=== PATIENT | female | born 1945 | race Native Hawaiian/Other Pacific Islander ===

== ENCOUNTER 2018-08-10 06:00 | Day surgery (SDC) | payer MEDICARE ==
[2018-07-14 13:31] VITALS: BMI 18.4
[2018-08-10] MEDS ORDERED: HEPARIN-NS 5,000 UNITS/500 ML 5,000 UNIT/500 ML BAG IV ONE (07:07)
[2018-08-10] MEDS ORDERED: Vancomycin 1 gm/D5W 200 ml 0 GM/0 ML BAG IVPB ONE (07:07)
[2018-08-10] MEDS ORDERED: Propofol 10 mg/ml Inj (20 ML) ONE (07:55)
[2018-08-10] MEDS ORDERED: Midazolam 2 MG/2 ML VIAL ONE (07:55)
[2018-08-10 08:03] LABS: CALCIUM 6.1 mg/dl (8.6-10.4)
[2018-08-10] MEDS ORDERED: Clindamycin 600mg/50ml NS 600 MG/50 ML BAG IVPB ONE (08:04)
[2018-08-10] MEDS ORDERED: Papaverine Hydrochloride 30 mg/ml (2ml) ONE (08:27)
[2018-08-10] MEDS ORDERED: Thrombin Topical 20,000 Intl Units Spray Kit TOP ONE (10:02)
--- NOTE | 2018-08-10 10:26 | PCM.SURG1 ---
Surgeon's Initial Post Op Note - Surgeon's Notes Surgeon: Dr. Butler Laboratory Courier: Dr. Banks PGY-4 Type of Anesthesia: General LMA Pre-Operative Diagnosis: Renal failure Operative Findings: palpable thrill Post-Operative Diagnosis: Renal failure Operation Performed: AV Fistula Specimen/Specimens Removed: none Estimated Blood Loss: EBL {In ML}: 50 Blood Products Given: N/A Drains Used: No Drains Post-Op Condition: Good Date of Surgery/Procedure: 08/10/18 Time of Surgery/Procedure: 10:26
[2018-08-10] MEDS ORDERED: HYDROmorphone 0.5 mg/0.5 ml ISec IVP PRN (10:27)
[2018-08-10 12:08] VITALS: PULSE 80
[2018-08-10 14:39] VITALS: BP 127/59; RESP 18; TEMP 97.8; O2SAT 100
--- NOTE | 2018-08-10 18:05 | OP ---
PROCEDURE DATE: 08/10/2018 PREOPERATIVE DIAGNOSIS: Renal failure. POSTOPERATIVE DIAGNOSIS: Renal failure. PROCEDURE CARRIED OUT: Arteriovenous fistula snuffbox right arm. SURGEON: Germán Butler Jr., MD. CRANE OPERATOR: Estela Banks DO. ANESTHESIA ADMINISTERED BY: Radha Rashida. INDICATION FOR THE PROCEDURE: The patient is a 73-year-old woman with renal insufficiency who soon required dialysis. OPERATIVE FINDINGS: Fistula was carried between cephalic vein and a snuffbox and a branch of the radial artery using loop magnification, heparin anticoagulation. At the end of the procedure, there was excellent flow to the fistula. The only technical problem we presented during the operation was there was persistent bruising from any of the tissues and from the suture line which required reinforcement. Even after we had finished the operation, we spent an hour in the operating room carefully inspecting this and there appeared to be consistent and persistent ooze. Nonetheless, this eventually stopped after we administered thrombin on the area and then closed the skin with 5-0 nylon sutures. ESTIMATED BLOOD LOSS: 50 mL. OPERATION CARRIED OUT: Snuffbox fistula right wrist. Again major problem during the operation was oozing from the tissues despite careful and hemostasis. Germán Butler Jr., MD cc: Dr. Dania Madrigal
== END 2018-08-10 14:00 | disposition home or self-care (01) ==
LOC: C.SDS 06:00
PROVIDERS: ATTEND Surgery Vascular Surgery
DX: I12.9 Hypertensive chronic kidney disease with stage 1 through stage 4 chronic kidney disease, or unspecified chronic kidney disease (principal); N18.9 Chronic kidney disease, unspecified; Z94.0 Kidney transplant status; I97.418 Intraoperative hemorrhage and hematoma of a circulatory system organ or structure complicating other circulatory system procedure; E78.5 Hyperlipidemia, unspecified; I48.91 Unspecified atrial fibrillation
CPT/HCPCS: 36415; 36821; 80048; 86850; 86900; J1100; J1644; J2001; J2250; J2405; J2704; J3010; J7030; J7040

== ENCOUNTER 2019-01-15 03:23 | Inpatient (IN) | payer MEDICARE ==
[2019-01-15 03:23] VITALS: BMI 18.4
--- NOTE | 2019-01-15 05:26 | C.PDOC ---
History Of Present Illness 73 year old female presents with 3-4 days of SOB, cough productive of white sputum, and dizziness described as vertigo that worsened today now with headache on the back of her head. Denies chest pain or syncope. Patient states she cannot lie flat from the SOB. Family is concerned since patient has Hx of renal transplants with worsening renal function, she had a recent fistula created as is suppose to start dialysis soon. She has an Rx from Dr. Sanches, her steel erector, for admission to start hemodialysis. Patient also complains of worsening swelling to the bilateral legs which is not new but is worsening. Time Seen by Provider: 01/15/19 03:35 Chief Complaint (Nursing): Dizziness/Lightheaded History Per: Patient History/Exam Limitations: no limitations Onset/Duration Of Symptoms: Days (2-3) Current Symptoms Are (Timing): Still Present Seizure Or Post-ictal Symptoms: None Fall Associated With With Symptoms: No Recent travel outside of the [place]: No Past Medical History Reviewed: Historical Data, Nursing Documentation, Vital Signs Vital Signs: Last Vital Signs Temp 97.9 F 01/15/19 03:45 Pulse 81 01/15/19 03:45 Resp 24 01/15/19 03:45 BP 141/76 01/15/19 03:45 Pulse Ox 98 01/15/19 03:45 - Medical History PMH: Anemia, Cardia Arrhythmia, CHF, HTN, Peripheral Edema, Pneumonia (may 2018), Chronic Kidney Disease (kidney transplant 2002), TIA Surgical History: Appendectomy Family History: States: Unknown Family Hx - Social History Hx Alcohol Use: No Hx Substance Use: No - Immunization History Hx Tetanus Toxoid Vaccination: No Hx Influenza Vaccination: Yes (2017) Hx Pneumococcal Vaccination: No Review Of Systems Constitutional: Negative for: Fever, Chills ENT: Negative for: Throat Pain Cardiovascular: Negative for: Chest Pain, Palpitations Respiratory: Positive for: Cough, Shortness of Breath, Sputum Gastrointestinal: Negative for: Nausea, Vomiting Musculoskeletal: Negative for: Back Pain Skin: Negative for: Rash Neurological: Positive for: Headache, Dizziness Physical Exam - Physical Exam Appears: Non-toxic Skin: Normal Color, Warm Head: Atraumatic, Normacephalic Eye(s): bilateral: Normal Inspection Oral Mucosa: Moist Neck: Normal, Supple Chest: Symmetrical, No Tenderness Cardiovascular: Rhythm Regular Respiratory: No Rhonchi, No Wheezing, Other (Mild crackles at bilateral bases) Gastrointestinal/Abdominal: Soft, No Tenderness Extremity: Pedal Edema (3+ pitting) Neurological/Psych: Oriented x3, Normal Speech ED Course And Treatment - Laboratory Results Result Diagrams: 01/24/19 06:18 01/24/19 06:18 ECG: Interpreted By Me, Viewed By Me ECG Rhythm: Sinus Rhythm ECG Interpretation: Normal Interpretation Of ECG: Normal axis, prolong qtc, occasional pvc, no st elevation Rate From EC O2 Sat by Pulse Oximetry: 98 (room air) Pulse Ox Interpretation: Normal - Radiology CXR: Read By Radiologist (Prominent consolidative opacification with patchy opacities seen throughout the right lung as well as within the left upper lung zone. Post treatment interval follow-up is recommended to ensure resolution.) - CT Scan/US Head Other Rad Studies (CT/US): Read By Radiologist CT/US Interpretation: No acute intracranial abnormality Chest Other Rad Studies (CT/US): Read By Radiologist CT/US Interpretation: 1. Multifocal ground-glass and confluent airspace disease in both lungs may represent pulmonary edema or multifocal pneumonia. Follow-up is advised. 2. Moderate cardiomegaly, small pericardial effusion and moderate bilateral pleural effusions. 3. Cholelithiasis in over distended gallbladder. Please correlate with RUQ ultrasound. Medical Decision Making Medical Decision Making: Plan: * CT head * CT Chest * CXR * Blood work * EKG Results discussed with patient and family. Patient admitted to [facility], for further evaluation and management. Disposition - Disposition Disposition: HOSPITALIZED Disposition Time: 06:51 Condition: FAIR - Clinical Impression Clinical Impression: ESRD (end stage renal disease), Dyspnea - Scribe Statement The provider has reviewed the documentation as recorded by the Scribe Charan Zee All medical record entries made by the Morganibluca were at my direction and personally dictated by me. I have reviewed the chart and agree that the record accurately reflects my personal performance of the history, physical exam, medical decision making, and the department course for this patient. I have also personally directed, reviewed, and agree with the discharge instructions and disposition.
[2019-01-15 05:34] LABS: BASO % 0.2 % (0.0-2.0); EOS % 0.1 % (0.0-4.0); LYMPH # 0.2 K/uL (1.0-4.3); LYMPH % 1.9 % (20.0-40.0); MEAN CELL VOLUME 96.9 fL (81.0-99.0); MEAN CORPUSCULAR HEMOGLOBIN 29.9 pg (27.0-31.0); MEAN CORPUSCULAR HGB CONC 30.9 g/dL (33.0-37.0); MEAN PLATELET VOLUME 8.6 fL (7.2-11.7); MONO # 0.4 K/uL (0.0-0.8); MONO % 3.6 % (0.0-10.0); NEUT # 11.6 K/uL (1.8-7.0); NEUT % 94.2 % (50.0-75.0); PLATELET COUNT 212 K/uL (130-400); RBC 1.74 Mil/uL (3.80-5.20); RED CELL DISTRIBUTION WIDTH 16.1 % (11.5-14.5); WHITE BLOOD COUNT 12.3 K/uL (4.8-10.8)
[2019-01-15 06:01] LABS: INR 1.2; PROTHROMBIN TIME 13.3 SECONDS (9.7-12.2)
[2019-01-15 06:03] LABS: HEMOGLOBIN 5.2 g/dL (11.0-16.0)
[2019-01-15 06:30] LABS: TROPONIN I 0.033 ng/mL (0.00-0.120)
[2019-01-15 06:43] LABS: ALB/GLOB RATIO 1.2 (1.0-2.1); CALCIUM 4.8 mg/dl (8.6-10.4)
[2019-01-15 07:41] LABS: ANISOCYTOSIS SLIGHT; EOSINOPHIL 1 % (0-4); HYPOCHROMIC SLIGHT; LYMPHOCYTE 1 % (20-40); MONOCYTE 2 % (0-10); NEUTROPHIL 96 % (50-75); OVALOCYTES SLIGHT; PLATELET ESTIMATE NORMAL (NORMAL); POIKILOCYTOSIS SLIGHT; TOTAL CELLS COUNTED 100
[2019-01-15 07:45] LABS: BURR CELLS SLIGHT; SCHISTOCYTES SLIGHT
--- NOTE | 2019-01-15 08:24 | CT ---
Date of service: 01/15/2019 PROCEDURE: CT HEAD WITHOUT CONTRAST. HISTORY: headache and dizziness COMPARISON: None available. TECHNIQUE: Axial computed tomography images were obtained through the head/brain without intravenous contrast. Radiation dose: Total exam DLP = 1168.43 mGy-cm. This CT exam was performed using one or more of the following dose reduction techniques: Automated exposure control, adjustment of the mA and/or kV according to patient size, and/or use of iterative reconstruction technique. FINDINGS: HEMORRHAGE: No intracranial hemorrhage. BRAIN: There are mild chronic microangiopathic changes. There is no mass, mass effect or abnormal extra-axial fluid collection. There is no territorial infarction. The midline sagittal structures are normal. VENTRICLES: There is mild age-related global parenchymal volume loss and proportionate enlargement of the ventricles and cortical sulci. CALVARIUM: There is no calvarial fracture or extracranial soft tissue swelling. PARANASAL SINUSES: There is mild mucosal thickening in the left maxillary sinus and scattered mucosal thickening in the ethmoid air cells. The remaining included paranasal sinuses are clear. MASTOID AIR CELLS: There are bilateral small mastoid effusions. OTHER FINDINGS: None. IMPRESSION: No acute intracranial abnormality. Mild chronic microangiopathic changes and mild age-related global parenchymal volume loss. A preliminary report was provided by [employer].
--- NOTE | 2019-01-15 09:14 | RAD ---
Chest x-ray single frontal view HISTORY: Chest pain. COMPARISON: 07/14/2018 Findings: Prominent consolidative opacification with patchy opacities seen throughout the right lung as well as within the left upper lung zone. Moderate left pleural effusion. Blunted right costophrenic angle. Cardiomegaly. Degenerative changes in the spine and shoulders. Impression: Prominent consolidative opacification with patchy opacities seen throughout the right lung as well as within the left upper lung zone. Post treatment interval follow-up is recommended to ensure resolution. Moderate left pleural effusion. Blunted right costophrenic angle. Cardiomegaly.
--- NOTE | 2019-01-15 09:30 | CT ---
Date of service: 01/15/2019 PROCEDURE: CT Chest without contrast HISTORY: Dyspnea COMPARISON: Plain radiograph from 01/15/2019. TECHNIQUE: Contiguous axial images were obtained through the chest without intravenous contrast enhancement. Sagittal and coronal reconstructions were performed. Radiation dose: Total exam DLP = 312.34 mGy-cm. This CT exam was performed using one or more of the following dose reduction techniques: Automated exposure control, adjustment of the mA and/or kV according to patient size, and/or use of iterative reconstruction technique. FINDINGS: LUNGS: There is multifocal patchy ground-glass and confluent airspace disease in both lungs. MEDIASTINUM: Unremarkable thoracic aorta. No aneurysm. Moderate cardiomegaly and small pericardial effusion. There is mild enlargement of the main pulmonary artery. No vascular congestion. No lymphadenopathy. There are minimal aortic atherosclerotic calcifications. PLEURA: Moderate bilateral pleural effusions. No pneumothorax. BONES: No fracture. No destructive lesion. There is diffuse bone demineralization UPPER ABDOMEN: The gallbladder is over distended and there is a large 1.7 cm stone in the region of the neck of the gallbladder. There are also multiple calcified stone in the fundus of the gallbladder. OTHER FINDINGS: None. IMPRESSION: 1. Multifocal ground-glass and confluent airspace disease in both lungs may represent pulmonary edema or multifocal pneumonia. Follow-up is advised. 2. Moderate cardiomegaly, small pericardial effusion and moderate bilateral pleural effusions. 3. Cholelithiasis in over distended gallbladder. Please correlate with right upper quadrant ultrasound A preliminary report was provided by [employer]. The final report is tagged to the PA review folder.
--- NOTE | 2019-01-15 09:45 | CP.PCM.CON ---
History of Present Illness - History of Present Illness History of Present Illness: Vascular Surgery: Luke patient is a 73 yr old female with PMH ESRD, s/p kidney transplant in 2002, hypertension, atrial fibrillation, fibrocystic breast dz, pontine infarct in 2007 who presented to [facility] for acute renal failure in the setting of previous ESRD. Patient endorses SOB at this time but denies any other symptoms. She has had an AVF placed in Aug 2018 but it has not yet matured. Patient understands that she will need to receive dialysis today. PMHx: ESRD, s/p kidney transplant in 2002, hypertension, atrial fibrillation, fibrocystic breast dz, pontine infarct in 2007 PSH: Kidney transplant, appendectomy, AVF placement All: see MAR Medications: extensive, reviewed in MAR Review of Systems - Review of Systems All systems: reviewed and no additional remarkable complaints except (as per HPI) Past Patient History - Infectious Disease Hx of Infectious Diseases: None - Past Medical History & Family History Past Medical History?: Yes - Past Social History Smoking Status: Never Smoked - CARDIAC Hx Cardia Arrhythmia: Yes Hx Congestive Heart Failure: Yes Hx Hypertension: Yes Hx Peripheral Edema: Yes - PULMONARY Hx Pneumonia: Yes (may 2018) - NEUROLOGICAL Hx Transient Ischemic Attacks (TIA): Yes - HEENT Hx HEENT Problems: Yes Hx Cataracts: Yes - RENAL Hx Chronic Kidney Disease: Yes (kidney transplant 2002) - HEMATOLOGICAL/ONCOLOGICAL Hx Anemia: Yes - GASTROINTESTINAL Hx Gastrointestinal Disorders: Yes (diarrhea at times ) - PSYCHIATRIC Hx Substance Use: No - SURGICAL HISTORY Hx Appendectomy: Yes - ANESTHESIA Hx Anesthesia: Yes Hx Anesthesia Reactions: Yes (nausea vomitting) Hx Malignant Hyperthermia: No Meds Allergies/Adverse Reactions: Allergies Allergy/AdvReac Type Severity Reaction Status Date / Time enalaprilat [From Vasotec] Allergy Intermediate RASH Verified 07/14/18 13:29 Penicillins Allergy Intermediate RASH Verified 07/14/18 13:28 Sulfa (Sulfonamide Allergy Intermediate RASH Verified 07/14/18 13:27 Antibiotics) tetracycline Allergy Intermediate RASH Verified 07/14/18 13:28 aspirin Allergy Verified 01/15/19 03:44 - Medications Medications: Current Medications Epoetin Elijah (Procrit) 10,000 unit SC QWK [facility] Folic Acid (Folic Acid) 1 mg PO DAILY [facility] Home Med (Prednisone [Alba]) 5 mg PO DAILY [facility] Metoprolol Tartrate (Lopressor) 25 mg PO BID [facility] Rosuvastatin Calcium (Crestor) 10 mg PO HS [facility] Physical Exam - Constitutional Appears: Well, No Acute Distress, Chronically Ill - Head Exam Head Exam: ATRAUMATIC, NORMOCEPHALIC - Eye Exam Eye Exam: EOMI - ENT Exam ENT Exam: Mucous Membranes Moist - Respiratory Exam Respiratory Exam: NORMAL BREATHING PATTERN - Cardiovascular Exam Cardiovascular Exam: REGULAR RHYTHM - GI/Abdominal Exam GI & Abdominal Exam: Soft. absent: Distended, Guarding, Tenderness - Extremities Exam Extremities exam: Positive for: pedal edema, pedal pulses present. Negative for: calf tenderness - Neurological Exam Neurological exam: Alert, Oriented x3 - Psychiatric Exam Psychiatric exam: Normal Affect, Normal Mood - Skin Skin Exam: Dry, Intact, Pallor, Warm Results - Vital Signs Recent Vital Signs: Last Vital Signs Temp 97.4 F L 01/15/19 09:15 Pulse 98 H 01/15/19 09:15 Resp 20 01/15/19 09:15 BP 166/83 H 01/15/19 09:15 Pulse Ox 98 01/15/19 09:15 - Labs Result Diagrams: 01/15/19 05:29 01/15/19 05:29 Labs: Laboratory Results - last 24 hr 01/15/19 01/15/19 01/15/19 05:29 05:29 05:29 WBC 12.3 H D RBC 1.74 L Hgb 5.2 L* D Hct 16.9 L MCV 96.9 D MCH 29.9 MCHC 30.9 L RDW 16.1 H Plt Count 212 MPV 8.6 Neut % (Auto) 94.2 H Lymph % (Auto) 1.9 L [place] % (Auto) 3.6 Eos % (Auto) 0.1 Baso % (Auto) 0.2 Neut # (Auto) 11.6 H Lymph # (Auto) 0.2 L [place] # (Auto) 0.4 Eos # (Auto) 0.0 Baso # (Auto) 0.0 Neutrophils % (Manual) 96 H Lymphocytes % (Manual) 1 L Monocytes % (Manual) 2 Eosinophils % (Manual) 1 Platelet Estimate Normal Hypochromasia (manual) Slight Poikilocytosis (manual Slight Anisocytosis (manual) Slight Ovalocytes Slight Diana Cells Slight Schistocytes Slight PT 13.3 H INR 1.2 APTT 34 Sodium 134 Potassium 4.4 Chloride 102 Carbon Dioxide 13 L Anion Gap 23 H BUN 139 H* D Creatinine 7.7 H* D Est GFR ( Amer) 6 Est GFR (Non-Af Amer) 5 Random Glucose 137 H D Calcium 4.8 L* D Total Bilirubin 0.4 AST 27 ALT 9 D Alkaline Phosphatase 47 Troponin I 0.0330 Total Protein 5.5 L Albumin 3.0 L Globulin 2.5 Albumin/Globulin Ratio 1.2 Blood Type Antibody Screen 01/15/19 06:07 WBC RBC Hgb Hct MCV MCH MCHC RDW Plt Count MPV Neut % (Auto) Lymph % (Auto) [place] % (Auto) Eos % (Auto) Baso % (Auto) Neut # (Auto) Lymph # (Auto) [place] # (Auto) Eos # (Auto) Baso # (Auto) Neutrophils % (Manual) Lymphocytes % (Manual) Monocytes % (Manual) Eosinophils % (Manual) Platelet Estimate Hypochromasia (manual) Poikilocytosis (manual Anisocytosis (manual) Ovalocytes Diana Cells Schistocytes PT INR APTT Sodium Potassium Chloride Carbon Dioxide Anion Gap BUN Creatinine Est GFR ( Amer) Est GFR (Non-Af Amer) Random Glucose Calcium Total Bilirubin AST ALT Alkaline Phosphatase Troponin I Total Protein Albumin Globulin Albumin/Globulin Ratio Blood Type A POSITIVE Antibody Screen Negative Assessment & Plan - Assessment and Plan (Free Text) Assessment: 73 F with need for emergent HD d/t ESRD despite renal Transplant in 2002 Plan: - will place HD access at bedside as patient not stable for transport to OR - medical management as per Primary and ICU - further recs per Dr. Luke Randall, PGY 1 - Date & Time Date: 01/15/19 Time: 10:45
[2019-01-15] MEDS ORDERED: EPOETIN ALFA 10,000 UNIT/ML ML SC SCH (10:00)
--- NOTE | 2019-01-15 13:14 | CP.PCM.CON ---
History of Present Illness - History of Present Illness History of Present Illness: pt is seen and examined, full consult is dictated # for hd today baljinder 1. ESRD 2. severe anemai r/o gi bleed 3. acute resp. failure, r/p pul.edema r/o pneumonia, r/o pcp. r/o cmv r/o fungal 4. s/p kidney transplant s/p bipap, s/p transfusion of 1 unit prbc and 2nd unit during hd after huber cath case d/w Dr crook, Dr. Leyva and [employer] in rounds check cbc, cmp, po4, d/c iv nahco3 add iv calcitriol and epogen during hd check blood c/s urine c/s consider ID consult hd in am, transfuse 3 unit during hd in am Past Patient History - Infectious Disease Hx of Infectious Diseases: None - Past Medical History & Family History Past Medical History?: Yes - Past Social History Smoking Status: Never Smoked - CARDIAC Hx Cardia Arrhythmia: Yes Hx Congestive Heart Failure: Yes Hx Hypercholesterolemia: Yes Hx Hypertension: Yes Hx Peripheral Edema: Yes Other/Comment: Mitral valvr Regurgitation - PULMONARY Hx Pneumonia: Yes (may 2018) - NEUROLOGICAL Hx Transient Ischemic Attacks (TIA): Yes - HEENT Hx HEENT Problems: Yes Hx Cataracts: Yes Other/Comment: Partial Hearing loss - RENAL Hx Chronic Kidney Disease: Yes (kidney transplant 2002) Hx Renal Failure: Yes Other/Comment: Kidney Failure - HEMATOLOGICAL/ONCOLOGICAL Hx Anemia: Yes - INTEGUMENTARY Other/Comment: Upper back rashes - MUSCULOSKELETAL/RHEUMATOLOGICAL Hx Falls: No - GASTROINTESTINAL Hx Gastrointestinal Disorders: Yes (diarrhea at times ) - GENITOURINARY/GYNECOLOGICAL Other/Comment: Urinary Retension - PSYCHIATRIC Hx Substance Use: No - SURGICAL HISTORY Hx Appendectomy: Yes Other/Comment: Kidney Bx, Lt. Breast Excision, - ANESTHESIA Hx Anesthesia: Yes Hx Anesthesia Reactions: Yes (nausea vomitting) Hx Malignant Hyperthermia: No Meds Allergies/Adverse Reactions: Allergies Allergy/AdvReac Type Severity Reaction Status Date / Time enalaprilat [From Vasotec] Allergy Intermediate RASH Verified 07/14/18 13:29 Penicillins Allergy Intermediate RASH Verified 07/14/18 13:28 Sulfa (Sulfonamide Allergy Intermediate RASH Verified 07/14/18 13:27 Antibiotics) tetracycline Allergy Intermediate RASH Verified 07/14/18 13:28 aspirin Allergy Verified 01/15/19 03:44 - Medications Medications: Current Medications Epoetin Elijah (Procrit) 10,000 unit SC QWK [facility] Last Admin: 01/15/19 10:45 Dose: Not Given Folic Acid (Folic Acid) 1 mg PO DAILY [facility] Last Admin: 01/15/19 10:44 Dose: 1 mg Metoprolol Tartrate (Lopressor) 25 mg PO BID [facility] Last Admin: 01/15/19 10:45 Dose: 25 mg Prednisone (Prednisone Tab) 5 mg PO DAILY [facility] Rosuvastatin Calcium (Crestor) 10 mg PO [facility] Results - Vital Signs Recent Vital Signs: Last Vital Signs Temp 97.5 F L 01/15/19 10:55 Pulse 89 01/15/19 10:55 Resp 22 01/15/19 11:23 BP 161/83 H 01/15/19 11:44 Pulse Ox 99 01/15/19 10:55 - Labs Result Diagrams: 01/15/19 05:29 01/15/19 05:29 Labs: Laboratory Results - last 24 hr 01/15/19 01/15/19 01/15/19 05:29 05:29 05:29 WBC 12.3 H D RBC 1.74 L Hgb 5.2 L* D Hct 16.9 L MCV 96.9 D MCH 29.9 MCHC 30.9 L RDW 16.1 H Plt Count 212 MPV 8.6 Neut % (Auto) 94.2 H Lymph % (Auto) 1.9 L [place] % (Auto) 3.6 Eos % (Auto) 0.1 Baso % (Auto) 0.2 Neut # (Auto) 11.6 H Lymph # (Auto) 0.2 L [place] # (Auto) 0.4 Eos # (Auto) 0.0 Baso # (Auto) 0.0 Neutrophils % (Manual) 96 H Lymphocytes % (Manual) 1 L Monocytes % (Manual) 2 Eosinophils % (Manual) 1 Platelet Estimate Normal Hypochromasia (manual) Slight Poikilocytosis (manual Slight Anisocytosis (manual) Slight Ovalocytes Slight Diana Cells Slight Schistocytes Slight PT 13.3 H INR 1.2 APTT 34 Sodium 134 Potassium 4.4 Chloride 102 Carbon Dioxide 13 L Anion Gap 23 H BUN 139 H* D Creatinine 7.7 H* D Est GFR ( Amer) 6 Est GFR (Non-Af Amer) 5 Random Glucose 137 H D Calcium 4.8 L* D Total Bilirubin 0.4 AST 27 ALT 9 D Alkaline Phosphatase 47 Troponin I 0.0330 Total Protein 5.5 L Albumin 3.0 L Globulin 2.5 Albumin/Globulin Ratio 1.2 Blood Type Antibody Screen 01/15/19 06:07 WBC RBC Hgb Hct MCV MCH MCHC RDW Plt Count MPV Neut % (Auto) Lymph % (Auto) [place] % (Auto) Eos % (Auto) Baso % (Auto) Neut # (Auto) Lymph # (Auto) [place] # (Auto) Eos # (Auto) Baso # (Auto) Neutrophils % (Manual) Lymphocytes % (Manual) Monocytes % (Manual) Eosinophils % (Manual) Platelet Estimate Hypochromasia (manual) Poikilocytosis (manual Anisocytosis (manual) Ovalocytes [place] Cells Schistocytes PT INR APTT Sodium Potassium Chloride Carbon Dioxide Anion Gap BUN Creatinine Est GFR ( Amer) Est GFR (Non-Af Amer) Random Glucose Calcium Total Bilirubin AST ALT Alkaline Phosphatase Troponin I Total Protein Albumin Globulin Albumin/Globulin Ratio Blood Type A POSITIVE Antibody Screen Negative
--- NOTE | 2019-01-15 13:20 | CP.PCM.HP ---
History of Present Illness - History of Present Illness History of Present Illness: 73 years olf [place] female is sent to the ED at [facility] (Formerly [facility]3] by her Billet Cutter ( Dr Madrigal) to start hemodialysis. Known to have an ESRD, s/p kidney transplant in 2002 at [facility] with worsening of renal function, a hypertension, a fibrocystic disease of the breasts, an intermittent atrial fibrillation, a s/p pontine infarct in 2007, she has been complaining of dizziness, shortness of breast and a dry cough for the past few days, without fever. A CXR reveals CHF, Hb.2, BUN: 136 creatinine: 7.7 . She received one unit of PRC in the ED, but became more dyspneic, requiring BIPAP, and an emergency HD. ESRD runs in the family. Patient denies any cigarette smoking, any alcohol abuse. Present on Admission - Present on Admission Any Indicators Present on Admission: No Review of Systems - Review of Systems Systems not reviewed;Unavailable: Respiratory Distress - Constitutional Constitutional: Anorexia, Fatigue, Weakness - Cardiovascular Cardiovascular: Dyspnea, Edema Additional comments: Edema of the lower legs and ankles. - Respiratory Respiratory: Cough, Dyspnea - Musculoskeletal Musculoskeletal: Muscle Weakness - Psychiatric Psychiatric: Anxiety Past Patient History - Infectious Disease Hx of Infectious Diseases: None - Tetanus Immunizations Tetanus Immunization: Unknown - Past Medical History & Family History Past Medical History?: Yes - Past Social History Smoking Status: Never Smoked Alcohol: None Drugs: Denies Home Situation {Lives}: With Family Domestic Violence: Negative - CARDIAC Hx Cardia Arrhythmia: Yes Hx Congestive Heart Failure: Yes Hx Hypercholesterolemia: Yes Hx Hypertension: Yes Hx Peripheral Edema: Yes Other/Comment: Mitral valvr Regurgitation - PULMONARY Hx Pneumonia: Yes (may 2018) - NEUROLOGICAL Hx Transient Ischemic Attacks (TIA): Yes - HEENT Hx HEENT Problems: Yes Hx Cataracts: Yes Other/Comment: Partial Hearing loss - RENAL Hx Chronic Kidney Disease: Yes (kidney transplant 2002) Hx Renal Failure: Yes Other/Comment: Kidney Failure - HEMATOLOGICAL/ONCOLOGICAL Hx Anemia: Yes - INTEGUMENTARY Other/Comment: Upper back rashes - MUSCULOSKELETAL/RHEUMATOLOGICAL Hx Falls: No - GASTROINTESTINAL Hx Gastrointestinal Disorders: Yes (diarrhea at times ) - GENITOURINARY/GYNECOLOGICAL Other/Comment: Urinary Retension - PSYCHIATRIC Hx Substance Use: No - SURGICAL HISTORY Hx Surgeries: Yes Hx Appendectomy: Yes Hx Arteriovenous Shunt: Yes (2017) Hx Cataract Extraction: Yes (11/2018 right cararact extreaction) Other/Comment: Kidney Bx, Lt. Breast Excision, - ANESTHESIA Hx Anesthesia: Yes Hx Anesthesia Reactions: Yes (nausea vomitting) Hx Malignant Hyperthermia: No Meds Allergies/Adverse Reactions: Allergies Allergy/AdvReac Type Severity Reaction Status Date / Time enalaprilat [From Vasotec] Allergy Intermediate RASH Verified 07/14/18 13:29 Penicillins Allergy Intermediate RASH Verified 07/14/18 13:28 Sulfa (Sulfonamide Allergy Intermediate RASH Verified 07/14/18 13:27 Antibiotics) tetracycline Allergy Intermediate RASH Verified 07/14/18 13:28 aspirin Allergy Verified 01/15/19 03:44 Physical Exam - Constitutional Appears: In Acute Distress, Chronically Ill - Head Exam Head Exam: NORMAL INSPECTION - Eye Exam Eye Exam: Normal appearance Pupil Exam: NORMAL ACCOMODATION - ENT Exam ENT Exam: Normal Exam - Neck Exam Neck exam: Positive for: Normal Inspection - Respiratory Exam Respiratory Exam: Rales Additional comments: Rales in both bases. - Cardiovascular Exam Cardiovascular Exam: Tachycardia - GI/Abdominal Exam GI & Abdominal Exam: Normal Bowel Sounds, Soft - Rectal Exam Rectal Exam: Deferred - Extremities Exam Additional comments: Edema of both lower legs. - Back Exam Back exam: NORMAL INSPECTION - Neurological Exam Neurological exam: Alert, CN II-XII Intact, Oriented x3 - Psychiatric Exam Psychiatric exam: Anxious - Skin Skin Exam: Dry, Intact, Normal Color, Warm Results - Vital Signs Recent Vital Signs: Last Vital Signs Temp 97.5 F L 01/15/19 10:55 Pulse 89 01/15/19 10:55 Resp 22 01/15/19 11:23 BP 161/83 H 01/15/19 11:44 Pulse Ox 99 01/15/19 10:55 - Labs Result Diagrams: 01/15/19 05:29 01/15/19 05:29 Labs: Laboratory Results - last 24 hr 01/15/19 01/15/19 01/15/19 05:29 05:29 05:29 WBC 12.3 H D RBC 1.74 L Hgb 5.2 L* D Hct 16.9 L MCV 96.9 D MCH 29.9 MCHC 30.9 L RDW 16.1 H Plt Count 212 MPV 8.6 Neut % (Auto) 94.2 H Lymph % (Auto) 1.9 L Graves % (Auto) 3.6 Eos % (Auto) 0.1 Baso % (Auto) 0.2 Neut # (Auto) 11.6 H Lymph # (Auto) 0.2 L [place] # (Auto) 0.4 Eos # (Auto) 0.0 Baso # (Auto) 0.0 Neutrophils % (Manual) 96 H Lymphocytes % (Manual) 1 L Monocytes % (Manual) 2 Eosinophils % (Manual) 1 Platelet Estimate Normal Hypochromasia (manual) Slight Poikilocytosis (manual Slight Anisocytosis (manual) Slight Ovalocytes Slight [place] Cells Slight Schistocytes Slight PT 13.3 H INR 1.2 APTT 34 Sodium 134 Potassium 4.4 Chloride 102 Carbon Dioxide 13 L Anion Gap 23 H BUN 139 H* D Creatinine 7.7 H* D Est GFR ( Amer) 6 Est GFR (Non-Af Amer) 5 Random Glucose 137 H D Calcium 4.8 L* D Total Bilirubin 0.4 AST 27 ALT 9 D Alkaline Phosphatase 47 Troponin I 0.0330 Total Protein 5.5 L Albumin 3.0 L Globulin 2.5 Albumin/Globulin Ratio 1.2 Blood Type Antibody Screen 01/15/19 06:07 WBC RBC Hgb Hct MCV MCH MCHC RDW Plt Count MPV Neut % (Auto) Lymph % (Auto) [place] % (Auto) Eos % (Auto) Baso % (Auto) Neut # (Auto) Lymph # (Auto) [place] # (Auto) Eos # (Auto) Baso # (Auto) Neutrophils % (Manual) Lymphocytes % (Manual) Monocytes % (Manual) Eosinophils % (Manual) Platelet Estimate Hypochromasia (manual) Poikilocytosis (manual Anisocytosis (manual) Ovalocytes [place] Cells Schistocytes PT INR APTT Sodium Potassium Chloride Carbon Dioxide Anion Gap BUN Creatinine Est GFR ( Amer) Est GFR (Non-Af Amer) Random Glucose Calcium Total Bilirubin AST ALT Alkaline Phosphatase Troponin I Total Protein Albumin Globulin Albumin/Globulin Ratio Blood Type A POSITIVE Antibody Screen Negative Assessment & Plan (1) Acute on chronic diastolic (congestive) heart failure Assessment and Plan: Needs HD ASA a permacath is inserted. AV shunt can not be used yet. Status: Acute (2) Severe anemia Assessment and Plan: Holf Apixaban. Check stools for OB. Transfuse PRC during HD. Status: Acute (3) ESRD (end stage renal disease) Assessment and Plan: Requiring HD ASA a permacath is inserted. Status: Chronic (4) Hypertension Assessment and Plan: To continue Metoprolol Status: Chronic Decision To Admit - Pt Status Changed To: Hospital Disposition Of: Inpatient - Admit Certification Admit to Inpatient:: After my assessment, the patient will require hospita lization for at least two midnights. This is because of the severity of symptoms shown, intensity of services needed, and/or the medical risk in this patient being treated as an outpatient. - InPatient: Physician Admission Certification:: After my assessments, the patient requires hospitalization for at least 2 midnights. - . Bed Request Type: Telemetry Admitting Physician: Dash Najera
[2019-01-15 13:27] LABS: ABG ALLEN TEST POS; ARTERIAL BLOOD GAS HCO3 9.6 mmol/L (21-28); ARTERIAL BLOOD GAS HEMOGLOBIN 8.3 g/dL (11.7-17.4); ARTERIAL BLOOD GAS O2 SAT 95.2 % (95-98); ARTERIAL BLOOD GAS PCO2 30 mm/Hg (35-45); ARTERIAL BLOOD GAS PH 7.08 (7.35-7.45); ARTERIAL BLOOD GAS PO2 67 mm/Hg (80-100); ARTERIAL BLOOD GAS TCO2 9.8 mmol/L (22-28)
--- NOTE | 2019-01-15 13:42 | CP.PCM.PN ---
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 distress, c/o cannot breath on o2 via NBM , spo2 97%, family at bedside Patient seen by Dr. Tse earlier and for HD access this PM and to start HD PLACED on BIPAP AND ABG done patient received I unit of PRBC BLOOD for hgb 5.4 this am ABG result reviewed SHOWED severe metabolic acidosis Dr. Jackson ICU consulted , seen and accepted patient to ICU transfer patient transferred to ICU for further management The above plan discussed with Dr. Dania camacho with plan Plan discussed with daughter at [facility] e Objective - Vital Signs/Intake and Output Vital Signs (last 24 hours): Temp Pulse Resp BP Pulse Ox 97.5 F L 89 22 161/83 H 99 01/15/19 10:55 01/15/19 10:55 01/15/19 11:23 01/15/19 11:44 01/15/19 10:55 - Medications Medications: Current Medications Epoetin Elijah (Procrit) 10,000 unit SC QWK [facility] Last Admin: 01/15/19 10:45 Dose: Not Given Folic Acid (Folic Acid) 1 mg PO DAILY [facility] Last Admin: 01/15/19 10:44 Dose: 1 mg Metoprolol Tartrate (Lopressor) 25 mg PO BID [facility] Last Admin: 01/15/19 10:45 Dose: 25 mg Prednisone (Prednisone Tab) 5 mg PO DAILY [facility] Rosuvastatin Calcium (Crestor) 10 mg PO HS [facility] - Labs Labs: 01/15/19 05:29 01/15/19 05:29 PT 13.3 SECONDS (9.7-12.2) H 01/15/19 05:29 INR 1.2 01/15/19 05:29 APTT 34 SECONDS (21-34) 01/15/19 05:29
[2019-01-15] MEDS ORDERED: Sodium Bicarbonate (8.4%) 50 mEq Vial IVP ONE ×2 (13:53)
[2019-01-15] MEDS ORDERED: Sodium Bicarbonate 8.4% 150 MEQ in Sodium Chloride 0.45% 850 ML IV SCH (14:00)
[2019-01-15 14:52] LABS: HEPATITIS B SURFACE AG Negative (NEGATIVE)
--- NOTE | 2019-01-15 14:57 | CP.PCM.CON ---
<Mando Waters - Last Filed: 01/15/19 16:55> History of Present Illness - History of Present Illness History of Present Illness: PGY-1 Critical Care Consult Note for Dr. Jackson Patient is a 73 year old female with PMHx ESRD who presents to [facility] [place] complaining of shortness of breath over the past 3-4 days productive with white sputum. Per medical records, patient also had been complaining of dizziness and posterior headache. ICU consulted for worsening respiratory distress and pote ntial intubation. Patient has history of chronic renal disease with renal transplant in 2002 which she had been told was failing. Patient had AV fistula placed with plans to begin dialysis soon, however the fistula has not fully matured for adequate HD access. Patient was brought to the unit and placed on BIPAP and subsequently intubated and placed on the vent. PMHx: ESRD, s/p kidney transplant in 2002, hypertension, atrial fibrillation, fibrocystic breast dz, pontine infarct in 2007 Review of Systems - Review of Systems Systems not reviewed;Unavailable: Intubated Past Patient History - Infectious Disease Hx of Infectious Diseases: None - Tetanus Immunizations Tetanus Immunization: Unknown - Past Medical History & Family History Past Medical History?: Yes - Past Social History Smoking Status: Never Smoked - CARDIAC Hx Cardia Arrhythmia: Yes Hx Congestive Heart Failure: Yes Hx Hypertension: Yes Hx Peripheral Edema: Yes - PULMONARY Hx Pneumonia: Yes (may 2018) - NEUROLOGICAL Hx Transient Ischemic Attacks (TIA): Yes - HEENT Hx HEENT Problems: Yes Hx Cataracts: Yes - RENAL Hx Chronic Kidney Disease: Yes (kidney transplant 2002) - HEMATOLOGICAL/ONCOLOGICAL Hx Anemia: Yes - GASTROINTESTINAL Hx Gastrointestinal Disorders: Yes (diarrhea at times ) - PSYCHIATRIC Hx Substance Use: No - SURGICAL HISTORY Hx Appendectomy: Yes - ANESTHESIA Hx Anesthesia: Yes Hx Anesthesia Reactions: Yes (nausea vomitting) Hx Malignant Hyperthermia: No Meds Allergies/Adverse Reactions: Allergies Allergy/AdvReac Type Severity Reaction Status Date / Time enalaprilat [From Vasotec] Allergy Intermediate RASH Verified 07/14/18 13:29 Penicillins Allergy Intermediate RASH Verified 07/14/18 13:28 Sulfa (Sulfonamide Allergy Intermediate RASH Verified 07/14/18 13:27 Antibiotics) tetracycline Allergy Intermediate RASH Verified 07/14/18 13:28 aspirin Allergy Verified 01/15/19 03:44 - Medications Medications: Current Medications Epoetin Elijah (Procrit) 10,000 unit SC QWK [facility] Last Admin: 01/15/19 10:45 Dose: Not Given Folic Acid (Folic Acid) 1 mg PO DAILY [facility] Last Admin: 01/15/19 10:44 Dose: 1 mg Sodium Bicarbonate 150 meq/ (Sodium Chloride) 1,000 mls @ 60 mls/hr IV .[id number] [facility] Last Admin: 01/15/19 14:28 Dose: 60 mls/hr Propofol (Diprivan) 1,000 mg in 100 mls @ 1.633 mls/hr IV .Q24H PRN; Protocol PRN Reason: TITRATE PER MD ORDER Metoprolol Tartrate (Lopressor) 25 mg PO BID [facility] Last Admin: 01/15/19 10:45 Dose: 25 mg Prednisone (Prednisone Tab) 5 mg PO DAILY [facility] Rosuvastatin Calcium (Crestor) 10 mg PO HS [facility] Physical Exam - Constitutional Appears: In Acute Distress - Head Exam Head Exam: ATRAUMATIC, NORMOCEPHALIC - Eye Exam Eye Exam: Normal appearance, PERRL - ENT Exam ENT Exam: Mucous Membranes Moist - Respiratory Exam Respiratory Exam: Clear to Auscultation Bilateral. absent: Rhonchi, Wheezes Additional comments: Intubated with OG tube in place. Clear breath sounds bilaterally. - Cardiovascular Exam Cardiovascular Exam: REGULAR RHYTHM, +S1, +S2 - GI/Abdominal Exam GI & Abdominal Exam: Normal Bowel Sounds, Soft. absent: Hernia, Mass, Tende rness Additional comments: Mild abdominal distention - Extremities Exam Extremities exam: Positive for: pedal edema (2+ pitting ededma to knees b/l) - Neurological Exam Additional comments: Sedated - Skin Skin Exam: Dry, Intact, Normal Color Results - Vital Signs Recent Vital Signs: Last Vital Signs Temp 97.5 F L 01/15/19 10:55 Pulse 95 H 01/15/19 13:20 Resp 22 01/15/19 11:23 BP 161/83 H 01/15/19 11:44 Pulse Ox 99 01/15/19 10:55 - Labs Result Diagrams: 01/15/19 05:29 01/15/19 05:29 Labs: Laboratory Results - last 24 hr 01/15/19 01/15/19 01/15/19 05:29 05:29 05:29 WBC 12.3 H D RBC 1.74 L Hgb 5.2 L* D Hct 16.9 L MCV 96.9 D MCH 29.9 MCHC 30.9 L RDW 16.1 H Plt Count 212 MPV 8.6 Neut % (Auto) 94.2 H Lymph % (Auto) 1.9 L [place] % (Auto) 3.6 Eos % (Auto) 0.1 Baso % (Auto) 0.2 Neut # (Auto) 11.6 H Lymph # (Auto) 0.2 L [place] # (Auto) 0.4 Eos # (Auto) 0.0 Baso # (Auto) 0.0 Neutrophils % (Manual) 96 H Lymphocytes % (Manual) 1 L Monocytes % (Manual) 2 Eosinophils % (Manual) 1 Platelet Estimate Normal Hypochromasia (manual) Slight Poikilocytosis (manual Slight Anisocytosis (manual) Slight Ovalocytes Slight [place] Cells Slight Schistocytes Slight PT 13.3 H INR 1.2 APTT 34 Puncture Site pCO2 pO2 HCO3 ABG pH ABG Total CO2 ABG O2 Saturation ABG Base Excess ABG Hemoglobin ABG Carboxyhemoglobin POC ABG HHb (Measured) ABG Methemoglobin Trevin Test A-a O2 Difference Respiratory Index Hgb O2 Saturation FiO2 Crit Value Called To Crit Value Called By Crit Value Read Back Blood Gas Notified Time Sodium 134 Potassium 4.4 Chloride 102 Carbon Dioxide 13 L Anion Gap 23 H BUN 139 H* D Creatinine 7.7 H* D Est GFR ( Amer) 6 Est GFR (Non-Af Amer) 5 Random Glucose 137 H D Calcium 4.8 L* D Total Bilirubin 0.4 AST 27 ALT 9 D Alkaline Phosphatase 47 Troponin I 0.0330 Total Protein 5.5 L Albumin 3.0 L Globulin 2.5 Albumin/Globulin Ratio 1.2 Hep Bs Antigen Blood Type Antibody Screen 01/15/19 01/15/19 01/15/19 06:07 13:20 13:53 WBC RBC Hgb Hct MCV MCH MCHC RDW Plt Count MPV Neut % (Auto) Lymph % (Auto) [place] % (Auto) Eos % (Auto) Baso % (Auto) Neut # (Auto) Lymph # (Auto) [place] # (Auto) Eos # (Auto) Baso # (Auto) Neutrophils % (Manual) Lymphocytes % (Manual) Monocytes % (Manual) Eosinophils % (Manual) Platelet Estimate Hypochromasia (manual) Poikilocytosis (manual Anisocytosis (manual) Ovalocytes [place] Cells Schistocytes PT INR APTT Puncture Site Rra pCO2 30 L pO2 67 L HCO3 9.6 L* ABG pH 7.08 L* ABG Total CO2 9.8 L ABG O2 Saturation 95.2 ABG Base Excess -19.6 L ABG Hemoglobin 8.3 L ABG Carboxyhemoglobin 2.2 H POC ABG HHb (Measured) 4.6 ABG Methemoglobin 1.1 Trevin Test Pos A-a O2 Difference 609.0 Respiratory Index 9.1 Hgb O2 Saturation 92.2 L FiO2 100.0 Crit Value Called To Reny [facility] Crit Value Called By Elia foreman music therapist [employer] Crit Value Read Back Y Blood Gas Notified Time 1326 Sodium Potassium Chloride Carbon Dioxide Anion Gap BUN Creatinine Est GFR ( Amer) Est GFR (Non-Af Amer) Random Glucose Calcium Total Bilirubin AST ALT Alkaline Phosphatase Troponin I Total Protein Albumin Globulin Albumin/Globulin Ratio Hep Bs Antigen Negative Blood Type A POSITIVE Antibody Screen Negative Assessment & Plan - Assessment and Plan (Free Text) Assessment: 73 year old female with history ESRD s/p failing renal transplant from 2002 presents acutely short of breath, found to have moderate bilateral pleural effusion on chest x-ray and CT chest as well as cardiomegaly, and anemic with HgB 5.2. Cardio Cardiomegaly on chest XR -F/u echo -Sinus tach on monitor Pulmonary Bilateral pleural effusions -Intubated, on vent/PRVC with OGT in place -Maintain spO2>92% -S/p Shiley HD catheter placement beside with vascular surgery, Dr. Butler -Patient to go for urgent HD -Possible cardiac component - f/u echo CXR 12/15: Prominent consolidative opacification with patchy opacities seen throughout the right lung as well as within the left upper lung zone. Post treatment interval follow-up is recommended to ensure resolution. Moderate left pleural effusion. Blunted right costophrenic angle. Cardiomegaly. CT Chest w/o Contrast 01/15: 1. Multifocal ground-glass and confluent airspace disease in both lungs may represent pulmonary edema or multifocal pneumonia. Follow-up is advised. 2. Moderate cardiomegaly, small pericardial effusion and moderate bilateral pleural effusions.3. Cholelithiasis in over distended gallbladder. Please correlate with right upper quadrant ultrasound Neuro -Sedated on fentanyl drip CT Head 01/15: No acute intracranial abnormality. Mild chronic microangiopathic changes and mild age-related global parenchymal volume loss. GI -Cholelithiasis noted on CT Chest --Normal T bili, LFTS, and alk phos -GI ppx Renal -S/p Shiley HD catheter placement beside with vascular surgery, Dr. Butler -Patient to go for urgent HD -Monitor output and fluid status ID/Heme Anemia -HgB 5.2 -Typed and crossed to be transfused PRBC -F/u repeat CBCs PPx -Protonix 40 mg IV daily -DVT ppx c/i 2/2 anemia Assessment and plan d/w Dr. Manuel Waters, PGY-1 <Jay Jackson S - Last Filed: 01/15/19 17:33> Meds - Medications Medications: Current Medications Epoetin Elijah (Procrit) 10,000 unit SC QWK [facility] Last Admin: 01/15/19 10:45 Dose: Not Given Famotidine (Pepcid) 20 mg IVP DAILY [facility] Folic Acid (Folic Acid) 1 mg PO DAILY [facility] Last Admin: 01/15/19 10:44 Dose: 1 mg Sodium Bicarbonate 150 meq/ (Sodium Chloride) 1,000 mls @ 60 mls/hr IV .[id number] [facility] Last Admin: 01/15/19 14:28 Dose: 60 mls/hr Propofol (Diprivan) 1,000 mg in 100 mls @ 1.633 mls/hr IV .Q24H PRN; Protocol PRN Reason: TITRATE PER MD ORDER Last Titration: 01/15/19 15:15 Dose: 20 mcg/kg/min, 6.532 mls/hr Metoprolol Tartrate (Lopressor) 25 mg PO BID [facility] Last Admin: 01/15/19 10:45 Dose: 25 mg Prednisone (Prednisone Tab) 5 mg PO DAILY [facility] Rosuvastatin Calcium (Crestor) 10 mg PO HS [facility] Results - Vital Signs Recent Vital Signs: Last Vital Signs Temp 97.3 F L 01/15/19 17:00 Pulse 82 01/15/19 17:20 Resp 22 01/15/19 17:20 BP 116/62 01/15/19 17:16 Pulse Ox 94 L 01/15/19 17:20 - Labs Result Diagrams: 01/15/19 05:29 01/15/19 05:29 Labs: Laboratory Results - last 24 hr 01/15/19 01/15/19 01/15/19 05:29 05:29 05:29 WBC 12.3 H D RBC 1.74 L Hgb 5.2 L* D Hct 16.9 L MCV 96.9 D MCH 29.9 MCHC 30.9 L RDW 16.1 H Plt Count 212 MPV 8.6 Neut % (Auto) 94.2 H Lymph % (Auto) 1.9 L [place] % (Auto) 3.6 Eos % (Auto) 0.1 Baso % (Auto) 0.2 Neut # (Auto) 11.6 H Lymph # (Auto) 0.2 L [place] # (Auto) 0.4 Eos # (Auto) 0.0 Baso # (Auto) 0.0 Neutrophils % (Manual) 96 H Lymphocytes % (Manual) 1 L Monocytes % (Manual) 2 Eosinophils % (Manual) 1 Platelet Estimate Normal Hypochromasia (manual) Slight Poikilocytosis (manual Slight Anisocytosis (manual) Slight Ovalocytes Slight Diana Cells Slight Schistocytes Slight PT 13.3 H INR 1.2 APTT 34 Puncture Site pCO2 pO2 HCO3 ABG pH ABG Total CO2 ABG O2 Saturation ABG Base Excess ABG Hemoglobin ABG Carboxyhemoglobin POC ABG HHb (Measured) ABG Methemoglobin Trevin Test A-a O2 Difference Respiratory Index Hgb O2 Saturation Vent Mode Mechanical Rate FiO2 Tidal Volume PEEP Crit Value Called To Crit Value Called By Crit Value Read Back Blood Gas Notified Time Sodium 134 Potassium 4.4 Chloride 102 Carbon Dioxide 13 L Anion Gap 23 H BUN 139 H* D Creatinine 7.7 H* D Est GFR ( Amer) 6 Est GFR (Non-Af Amer) 5 Random Glucose 137 H D Calcium 4.8 L* D Total Bilirubin 0.4 AST 27 ALT 9 D Alkaline Phosphatase 47 Troponin I 0.0330 Total Protein 5.5 L Albumin 3.0 L Globulin 2.5 Albumin/Globulin Ratio 1.2 Hepatitis A IgM Ab Hep Bs Antigen Hep B Core IgM Ab Hepatitis C Antibody Blood Type Antibody Screen 01/15/19 01/15/19 01/15/19 06:07 13:20 13:53 WBC RBC Hgb Hct MCV MCH MCHC RDW Plt Count MPV Neut % (Auto) Lymph % (Auto) [place] % (Auto) Eos % (Auto) Baso % (Auto) Neut # (Auto) Lymph # (Auto) [place] # (Auto) Eos # (Auto) Baso # (Auto) Neutrophils % (Manual) Lymphocytes % (Manual) Monocytes % (Manual) Eosinophils % (Manual) Platelet Estimate Hypochromasia (manual) Poikilocytosis (manual Anisocytosis (manual) Ovalocytes [place] Cells Schistocytes PT INR APTT Puncture Site Rra pCO2 30 L pO2 67 L HCO3 9.6 L* ABG pH 7.08 L* ABG Total CO2 9.8 L ABG O2 Saturation 95.2 ABG Base Excess -19.6 L ABG Hemoglobin 8.3 L ABG Carboxyhemoglobin 2.2 H POC ABG HHb (Measured) 4.6 ABG Methemoglobin 1.1 Trevin Test Pos A-a O2 Difference 609.0 Respiratory Index 9.1 Hgb O2 Saturation 92.2 L Vent Mode Mechanical Rate FiO2 100.0 Tidal Volume PEEP Crit Value Called To [facility]y [facility] Crit Value Called By Elia foreman music therapist [employer] Crit Value Read Back Y Blood Gas Notified Time 1326 Sodium Potassium Chloride Carbon Dioxide Anion Gap BUN Creatinine Est GFR ( Amer) Est GFR (Non-Af Amer) Random Glucose Calcium Total Bilirubin AST ALT Alkaline Phosphatase Troponin I Total Protein Albumin Globulin Albumin/Globulin Ratio Hepatitis A IgM Ab Negative Hep Bs Antigen Negative Hep B Core IgM Ab Negative Hepatitis C Antibody Negative Blood Type A POSITIVE Antibody Screen Negative 01/15/19 01/15/19 01/15/19 13:53 16:27 16:32 WBC RBC Hgb Hct MCV MCH MCHC RDW Plt Count MPV Neut % (Auto) Lymph % (Auto) [place] % (Auto) Eos % (Auto) Baso % (Auto) Neut # (Auto) Lymph # (Auto) [place] # (Auto) Eos # (Auto) Baso # (Auto) Neutrophils % (Manual) Lymphocytes % (Manual) Monocytes % (Manual) Eosinophils % (Manual) Platelet Estimate Hypochromasia (manual) Poikilocytosis (manual Anisocytosis (manual) Ovalocytes Diana Cells Schistocytes PT INR APTT Puncture Site Rb pCO2 31 L pO2 334 H HCO3 14.2 L ABG pH 7.22 L ABG Total CO2 13.7 L ABG O2 Saturation 99.2 H ABG Base Excess -13.8 L ABG Hemoglobin 6.5 L ABG Carboxyhemoglobin 1.1 POC ABG HHb (Measured) 0.8 ABG Methemoglobin 1.4 Trevin Test Na A-a O2 Difference 340.0 Respiratory Index 1.0 Hgb O2 Saturation 96.7 Vent Mode Prvc Mechanical Rate 20 FiO2 100.0 Tidal Volume 450 PEEP 5 Crit Value Called To Rn Crit Value Called By Tk vazquez Crit Value Read Back Y Blood Gas Notified Time 1631 Sodium Potassium Chloride Carbon Dioxide Anion Gap BUN Creatinine Est GFR ( Amer) Est GFR (Non-Af Amer) Random Glucose Calcium Total Bilirubin AST ALT Alkaline Phosphatase Troponin I Total Protein Albumin Globulin Albumin/Globulin Ratio Hepatitis A IgM Ab Negative Hep Bs Antigen Negative Hep B Core IgM Ab Negative Negative Hepatitis C Antibody Blood Type Antibody Screen Attending/Attestation - Attestation I have personally seen and examined this patient.: Yes I have fully participated in the care of the patient.: Yes I have reviewed all pertinent clinical information: Yes Notes (Text): 01/15/19 17:32 Patient seen and examined 73-year-old female transferred to intensive care unit for respiratory distress, severe metabolic acidosis and pulmonary edema Patient was intubated and placed on ventilatory support and dialysis catheter inserted Hemodialysis IV sedation Weaning tomorrow morning
[2019-01-15 14:58] LABS: HEPATITIS A IGM NEGATIVE (NEGATIVE); HEPATITIS B CORE AB NEGATIVE (NEGATIVE)
[2019-01-15] MEDS: Propofol 10 mg/ml 1,000 MG/100 ML VIAL IV PRN ×2 (15:07→23:04)
[2019-01-15] MEDS ORDERED: Etomidate 20 mg/10ml Inj IV ONE (15:08)
[2019-01-15 15:09] LABS: HEPATITIS C ANTIBODY NEGATIVE (NEGATIVE)
[2019-01-15] MEDS ORDERED: Succinylcholine Chloride 20 mg/ml Syr (5 ml) IV ONE (15:09)
--- NOTE | 2019-01-15 15:27 | RAD ---
Date of service: 01/15/2019 PROCEDURE: CHEST RADIOGRAPH, 1 VIEW HISTORY: s/p intubation COMPARISON: 01/15/2019 at 2:57 p.m. FINDINGS: Endotracheal tube terminates 4 cm proximal to the linda. LUNGS: The lungs are well inflated. There is redemonstration of extensive patchy airspace disease in both lungs and more confluent airspace disease in the right lower lobe. PLEURA: There are small pleural effusions, larger on the left no pneumothorax CARDIOVASCULAR: The heart is normal in size. There are aortic atherosclerotic calcifications present. OSSEOUS STRUCTURES: Within normal limits for the patient's age. VISUALIZED UPPER ABDOMEN: Normal. OTHER FINDINGS: None. IMPRESSION: Endotracheal tube terminates 4 cm proximal to the linda. No significant interval change in extensive patchy multifocal airspace disease in the lungs with more confluent airspace disease in the right lower lobe. Findings could represent multifocal pneumonia or pulmonary edema. Clinical correlation and follow-up is advised.
--- NOTE | 2019-01-15 15:27 | RAD ---
Date of service: 01/15/2019 HISTORY: s/p intubation. ETT placement COMPARISON: 01/15/2019 at 4:02 a.m. FINDINGS: Endotracheal tube terminates at the linda. LUNGS: The lungs are well inflated. There is interval worsening of patchy and confluent airspace disease in both lungs, worse in the right lower lobe. PLEURA: Bilateral small pleural effusions, worse on the left. No pneumothorax. CARDIOVASCULAR: The heart is normal in size. No aortic atherosclerotic calcifications present. OSSEOUS STRUCTURES: Within normal limits for the patient's age. VISUALIZED UPPER ABDOMEN: Normal. OTHER FINDINGS: None. IMPRESSION: Endotracheal tube terminates at the linda. Repositioning is recommended. Worsening multifocal airspace disease in the lungs, more confluent in the right lower lobe. Findings may represent pulmonary edema or multifocal pneumonia. Small effusions, worse on the left.
--- NOTE | 2019-01-15 15:55 | PCM.PROC ---
Procedures Attestation:: I certify that I have explained the specified Operation(s) or Procedure(s), risks, benefits and reasonable alternatives to the Patient and/or other person responsible. The opportunity was given to ask questions and all questions answered - Central Line Placement Right Femoral Hemodialysis Access Aseptic technique was employed throughout the procedure: Hand Hygiene done prior to procedure, Full sterile barriers (mask, hair cover, sterile gown, sterile gloves), Full body sterile drape, Chloraprep Antiseptic: 2 minute prep for Femoral CVP Time Out Performed: Yes Pt. Placed on Pulse Ox Monitor: Yes Central Line Prep: Chlorhexidine-Alcohol Combination Local Anesthesia Used: Lidocaine 1% Amount of Anesthesia Used (mls): 5 Ultrasound Used for Placement: Yes Central Line Lumen Inserted: triple Central Line Length: 20 cm Post Procedure: Sutured in Place, Good Blood Return, All Ports Aspirated, Flushed, Capped, Sterile Dressing Applied Secured by: Suture Post procedure dressing: Gauze, Clear vapor permeable, Chlorhexidine disc (Biopatch) Post Procedure X-Ray: No Patient Tolerated Procedure: Well, No Complications Immediate Complications: None
[2019-01-15 16:31] LABS: ARTERIAL BLOOD GAS HCO3 14.2 mmol/L (21-28); ARTERIAL BLOOD GAS HEMOGLOBIN 6.5 g/dL (11.7-17.4); ARTERIAL BLOOD GAS O2 SAT 99.2 % (95-98); ARTERIAL BLOOD GAS PCO2 31 mm/Hg (35-45); ARTERIAL BLOOD GAS PH 7.22 (7.35-7.45); ARTERIAL BLOOD GAS PO2 334 mm/Hg (80-100); ARTERIAL BLOOD GAS TCO2 13.7 mmol/L (22-28)
[2019-01-15 17:22] LABS: HEPATITIS B SURFACE AG Negative (NEGATIVE)
[2019-01-15 17:28] LABS: HEPATITIS A IGM NEGATIVE (NEGATIVE); HEPATITIS B CORE AB NEGATIVE (NEGATIVE)
[2019-01-15 17:40] LABS: HEPATITIS C ANTIBODY NEGATIVE (NEGATIVE)
[2019-01-15] MEDS ORDERED: Epoetin Alfa 10,000 unit/ml Dialysis IV ONE (18:16)
[2019-01-16 05:34] LABS: ABG ALLEN TEST POS; ARTERIAL BLOOD GAS HCO3 16.3 mmol/L (21-28); ARTERIAL BLOOD GAS HEMOGLOBIN 7.8 g/dL (11.7-17.4); ARTERIAL BLOOD GAS O2 SAT 97.9 % (95-98); ARTERIAL BLOOD GAS PCO2 31 mm/Hg (35-45); ARTERIAL BLOOD GAS PH 7.28 (7.35-7.45); ARTERIAL BLOOD GAS PO2 80 mm/Hg (80-100); ARTERIAL BLOOD GAS TCO2 15.6 mmol/L (22-28)
--- NOTE | 2019-01-16 05:54 | CON ---
DATE: 01/15/2019 RENAL CONSULTATION LOCATION: The patient is in room 671, bed 1. REQUESTED BY: Dr. Dash Doran REASON FOR RENAL CONSULTATION: Acute renal failure, chronic kidney disease stage 5 versus end-stage renal disease, severe anemia and syncopal episode. HISTORY OF PRESENT ILLNESS: Mrs. Faulkner is a 73-year-old elderly [place] female with a past medical history significant for anemia, cardiac arrhythmia, CHF, hypertension, edema, history of pneumonia, CKD 5, status post kidney transplant in 2002, TIA who was admitted with the chief complaints of shortness of breath for three to four days associated with white sputum production and also complained of feeling dizzy, lightheaded and vertigo for the last few weeks and also bilateral leg swelling. Denies any chest pain. Denies any fall. Denies any syncopal episode. The patient claims that she is not able to lie down flat with shortness of breath and dyspnea on exertion for the last few days. Denies any bleeding per rectum. Denies any abdominal pain. Denies any nausea, vomiting, or diarrhea. The patient does complain swelling of the legs for the last few weeks. Denies any fever. Vital signs on admission, blood pressure 141/76, pulse 81, respiration 24, temperature 97.9, and saturation 98%. PAST MEDICAL HISTORY: Significant for anemia, cardiac arrhythmias, CHF, hypertension, peripheral edema and fluid overload, chronic kidney disease stage 5, status post kidney transplant in 2002, TIA. PAST SURGICAL HISTORY: Status post kidney transplant and status post appendectomy. ALLERGIES: ALLERGIC TO ENALAPRIL, PENICILLIN, SULFA, TETRACYCLINE AND ASPIRIN. SOCIAL HISTORY: Denies any smoking, alcohol or drugs. PERSONAL HISTORY: She has a very supportive daughter. FAMILY HISTORY: Not significant. CURRENT MEDICATIONS: Include Crestor 10 mg at bedtime, folic acid 1 mg p.o. daily, Lopressor 25 mg p.o. b.i.d., Pepcid 20 mg IV daily, prednisone 5 mg p.o. daily, Procrit 10,000 units subcu three times a week, sodium bicarbonate drip 150 mEq at 60 mL per hour. REVIEW OF SYSTEMS: Significant for generalized weakness, dizziness, and shortness of breath. Significant for severe anemia and also edema of the legs and worsening renal function. All other review of systems are reviewed and are negative. PHYSICAL EXAMINATION: VITAL SIGNS: As follows. Blood pressure this morning was 161/83, pulse 89, respiration 22, temperature 97.5, saturation 99%, on nonrebreathing mask. Height 5 feet 2 inches. Weight is 132 pounds. GENERAL: Mrs. Faulkner is a 73-year-old elderly [place] female, moderately built, moderately nourished, on face mask. The patient is in moderate distress and restless and keeps taking off oxygen mask. HEENT: Pupils are normal and reactive to light and accommodation. Conjunctivae pale. Sclerae anicteric. Tongue is pale. LUNGS: Symmetric on both sides. Bilateral breath sounds present. Occasional basilar crackles present. CARDIOVASCULAR SYSTEM: [place] at the fifth intercostal space, midclavicular line. S1 and S2 audible. No murmur or gallop. ABDOMEN: Normal in appearance. Soft, tympanitic. No guarding. No rigidity. No hepatosplenomegaly. No tenderness in the transplant kidney site. No abdominal bruits. CENTRAL NERVOUS SYSTEM: The patient is alert, awake, oriented x2-3. Sensory and motor system is grossly within normal limits. EXTREMITIES: No cyanosis, no clubbing. The patient has 2+ edema in both lower extremities. PSYCHIATRIC: The patient is very anxious and restless and also having tremors. LABORATORY DATA: Include as follows: As of 01/15/2019: WBC 12.3, hemoglobin 5.2, hematocrit is 16.9 and platelets 212. Neutrophils 96, lymph 1, monos 2, and eosinophil 1. PT 13.3, PTT 34, INR 1.2. Her ABG this afternoon, pH is 7, pCO2 is 30, pO2 is 67, bicarb is 9.6, and saturation 95.2. Her Chem-7 this morning: Sodium 134, potassium 4.4, chloride 102, CO2 of 13, anion gap of 19, BUN 139, creatinine 7.7, glucose 137, and calcium is 4.8. Total bili 0.4, AST 27, ALT 9, alkaline phosphatase 47, troponin 0.033, total protein 5.5, albumin is 3. Hepatitis A antibody IgM is negative. Hepatitis B surface antigen is negative. Hepatitis B core antibody is negative. Hepatitis C antibody is negative. Stool for occult blood is positive. Chest x-ray as of 01/15/2019 at 03:54 a.m. Moderate left pleural effusion, blunted right costophrenic angle and cardiomegaly. CT of the hand as of 01/15/2019; impression: No acute intracranial abnormality. Mild chronic microangiopathic changes and mild age-related global parenchymal volume loss. CT of the chest as of 01/15/2019 at 04:07 a.m.; impression: Multifocal ground-glass and confluent airspace disease in both lungs. May represent pulmonary edema or multifocal pneumonia. Followup is advised. Moderate cardiomegaly, small pericardial effusion and moderate bilateral pleural effusions. Cholelithiasis and over distended gallbladder. Chest x-ray as of 01/15/2019 at 1449 hours: Status post intubation, ETT placement, endotracheal tube terminates in the linda. Repositioning is recommended. Worsening multifocal airspace disease in the lungs, more confluent in the right lower lobes. Findings may represent pulmonary edema or multifocal pneumonia. Small effusion, worse on the left. ASSESSMENT AND PLAN: In summary, Mrs. Faulkner is about 73-year-old elderly [place] female with a history of longstanding hypertension, chronic kidney disease, status post kidney transplant in 2002, chronic kidney disease 5, status post left forearm arteriovenous fistula and immature who was admitted with feeling weak, tired, shortness of breath, cough, mild dyspnea on exertion, low hemoglobin and hematocrit and worsening renal function. 1. Acute renal failure, chronic kidney disease 5 versus progression to end-stage renal disease. 2. Severe anemia, rule out gastrointestinal bleed. 3. Status post kidney transplant. 4. Acute respiratory failure, rule out pulmonary edema versus bilateral pneumonia in the setting of immunocompromised patient, rule out pneumocystic pneumonia, rule out viral pneumonia such as cytomegalovirus. Discussed with the patient's family and the patient agreed for the initiation of the renal replacement therapy. We will start hemodialysis. Requested vascular surgery consult for temporary catheter placement. The patient is also placed on bilevel positive airway pressure. Discussed with the nurse practitioner, Jami, in rounds. Discussed with Dr. Dash Doran in rounds and also Vascular Surgery, Dr. Butler in rounds for the emergency Bryan catheter placement. Repeat chest x-ray after dialysis and will schedule for again hemodialysis tomorrow if the patient tolerates well. The patient received 1 unit of packed red blood cells prior to the dialysis and 1 unit during hemodialysis. Repeat complete blood cell count, comprehensive metabolic panel, chest x-ray, and arterial blood gas. We will follow with you. Thank you for allowing me to participate in your patient's care. Ever Madrigal MD
[2019-01-16 06:24] LABS: HEMOGLOBIN 8.1 g/dL (11.0-16.0); MEAN CELL VOLUME 92.2 fL (81.0-99.0); MEAN CORPUSCULAR HGB CONC 33.6 g/dL (33.0-37.0); MEAN PLATELET VOLUME 8.9 fL (7.2-11.7); RBC 2.63 Mil/uL (3.80-5.20)
[2019-01-16 06:34] LABS: IRON 23 ug/dL (37-170)
[2019-01-16 06:46] LABS: % IRON SATURATION 12 (20-55); TOTAL IRON BINDING CAPACITY 184 ug/dL (250-450)
[2019-01-16] MEDS: Propofol 10 mg/ml 1,000 MG/100 ML VIAL IV PRN ×2 (06:46→14:31)
[2019-01-16 06:52] LABS: ALB/GLOB RATIO 1.2 (1.0-2.1); ALBUMIN 2.5 g/dL (3.5-5.0)
[2019-01-16 07:44] LABS: FOLATE > 20.0 ng/mL
[2019-01-16] MEDS: Multivitamin Vitamin B Complex (Nephro-Vite) Tab PO SCH (08:47)
[2019-01-16] MEDS ORDERED: Albumin Human 25% (12.5 gm/50 ml) IV ONE (10:54)
[2019-01-16] MEDS ORDERED: Ferric Sodium Gluconat Complex 62.5 mg/5 ml Vial IVPB ONE (11:00)
[2019-01-16] MEDS: Magnesium Sulfate 1 gm in D5W 1 GM/100 ML BAG IVPB SCH ×2 (11:01→11:51)
[2019-01-16] MEDS: Paricalcitol 2 mcg/ml Inj IV SCH (12:59)
[2019-01-16] MEDS: Epoetin Alfa 10,000 unit/ml Dialysis IV SCH (13:14)
--- NOTE | 2019-01-16 15:49 | RAD ---
Chest x-ray single frontal view HISTORY: Congestion. COMPARISON: 01/15/2019 Findings: NG tube extending into the stomach. Other lines and tubes in stable position. Persistent prominent diffuse patchy pleural parenchymal opacities in both lungs. Cardiomegaly. Degenerative changes in the spine. Impression: NG tube extending into the stomach. Other lines and tubes in stable position. Persistent prominent diffuse patchy pleural parenchymal opacities in both lungs. Cardiomegaly.
--- NOTE | 2019-01-16 17:21 | CP.PCM.PN ---
Subjective - Date & Time of Evaluation Date of Evaluation: 01/16/19 Time of Evaluation: 07:00 - Subjective Subjective: Vascular Surgery Note for Dr. Butler Patient seen and examined at bedside. Patient received dialysis yesterday after dialysis catheter insertion. Patient still intubated and on mechanical ventilation. Patient to receive dialysis again today. Objective - Vital Signs/Intake and Output Vital Signs (last 24 hours): Temp Pulse Resp BP Pulse Ox 97.6 F 87 18 110/42 L 100 01/16/19 16:00 01/16/19 16:10 01/16/19 16:10 01/16/19 16:10 01/16/19 16:10 Intake and Output: 01/16/19 01/16/19 06:59 18:59 Intake Total 845.58 952.3 Output Total 2000 Balance 845.58 -1047.7 - Medications Medications: Current Medications Epoetin Elijah (Procrit) 10,000 unit IV TTS [facility] Last Admin: 01/16/19 13:14 Dose: 10,000 unit Famotidine (Pepcid) 20 mg IVP DAILY [facility] Last Admin: 01/16/19 09:39 Dose: 20 mg Folic Acid (Folic Acid) 1 mg PO DAILY [facility] Last Admin: 01/16/19 09:38 Dose: 1 mg Propofol (Diprivan) 1,000 mg in 100 mls @ 1.633 mls/hr IV .Q24H PRN; Protocol PRN Reason: TITRATE PER MD ORDER Last Titration: 01/16/19 15:41 Dose: 20 mcg/kg/min, 6.532 mls/hr Metoprolol Tartrate (Lopressor) 25 mg PO BID [facility] Last Admin: 01/16/19 10:53 Dose: Not Given Paricalcitol (Zemplar) 2 mcg IV TTS [facility] Last Admin: 01/16/19 12:59 Dose: 2 mcg Prednisone (Prednisone Tab) 5 mg PO DAILY [facility] Last Admin: 01/16/19 09:39 Dose: 5 mg Rosuvastatin Calcium (Crestor) 10 mg PO HS [facility] Last Admin: 01/15/19 22:07 Dose: 10 mg Vitamin B Complex/Vit C/Folic Acid (Nephro-Nacho) 1 tab PO 0800 [facility] Last Admin: 01/16/19 08:47 Dose: 1 tab - Labs Labs: 01/16/19 06:16 04/13/19 06:14 PT 13.3 SECONDS (9.7-12.2) H 01/15/19 05:29 INR 1.2 01/15/19 05:29 APTT 34 SECONDS (21-34) 01/15/19 05:29 - Constitutional Appears: Chronically Ill - Eye Exam Eye Exam: Normal appearance - ENT Exam ENT Exam: Mucous Membranes Moist - Respiratory Exam Additional comments: intubated and sedated on mechanical ventilation - Cardiovascular Exam Cardiovascular Exam: REGULAR RHYTHM - GI/Abdominal Exam GI & Abdominal Exam: Soft. absent: Tenderness - Extremities Exam Extremities Exam: Normal Capillary Refill - Neurological Exam Neurological Exam: Altered - Psychiatric Exam Psychiatric exam: Flat Affect - Skin Skin Exam: Dry, Intact, Warm Assessment and Plan - Assessment and Plan (Free Text) Assessment: 73 F with need for emergent HD d/t ESRD despite renal Transplant in 2002 Plan: - dialysis today - f/u Nephrology recommedations - Plan for OR when patient is stable for AVF revision - medical management as per Primary and ICU - further recommendations as per Dr. Luke Matos PGY2
--- NOTE | 2019-01-16 19:29 | CP.CCUPN ---
CCU Subjective - Physician Review Subjective (Free Text): Patient admitted to ICU for respiratory distress, severe metabolic acidosis and pulmonary edema. PAtient to be HD today, no overnight events noted Critical Care Time Spent (in minutes): 33 CCU Objective - Vital Signs / Intake & Output Vital Signs (Last 4 hours): Vital Signs Temp Pulse Resp BP Pulse Ox 01/16/19 19:00 88 20 98 01/16/19 18:41 88 20 119/58 L 99 01/16/19 18:11 93 H 24 128/66 100 01/16/19 18:00 96 H 22 100 01/16/19 17:49 136/62 01/16/19 17:41 96 H 24 136/62 99 01/16/19 17:11 94 H 25 H 137/64 97 01/16/19 17:00 92 H 18 95 01/16/19 16:41 86 21 113/52 L 100 01/16/19 16:10 87 18 110/42 L 100 01/16/19 16:00 97.6 F 86 20 100 01/16/19 15:40 86 18 105/37 L 97 Intake and Output (Last 8hrs): Intake & Output 01/16/19 01/16/19 01/16/19 06:59 14:59 22:59 Intake Total 412.38 910.3 177.6 Output Total 1999 Balance 412.38 910.3 -1822.4 Weight 161 lb 0.13 oz Intake: IV 150 100 24 Intake, IV Amount 262.38 385.3 48.6 Right Femoral 219.18 85.3 48.6 Right Forearm 300 Right Forearm1 43.2 Oral 0 0 Tube Feeding 0 55 Blood Product 325 Red Blood Cells Cpd As1 325 Lr Unit [id number] Other 100 50 Red Blood Cells Cpd As1 50 Lr Unit [id number] Output: Other 1999 Other: # Bowel Movements 0 1 0 - Physical Exam Head: Positive for: Atraumatic, Normocephalic Mouth: Positive for: Moist Mucous Membranes Cardiovascular: Positive for: Regular Rate and Rhythm, Murmurs, Normal S1, S2 Abdomen: Positive for: Normal Bowel Sounds Upper Extremity: Positive for: Normal Inspection Lower Extremity: Positive for: Normal Inspection Skin: Positive for: Warm - Medications Active Medications: Active Medications Generic Name Dose Route Start Last Admin Trade Name Freq PRN Reason Stop Dose Admin Epoetin Elijah 10,000 unit 04/13/19 10:00 01/16/19 13:14 Procrit IV 10,000 unit TTS [facility] Administration Famotidine 20 mg 01/16/19 10:00 01/16/19 09:39 Pepcid IVP 20 mg DAILY [facility] Administration Folic Acid 1 mg 01/15/19 10:00 01/16/19 09:38 Folic Acid PO 1 mg DAILY [facility] Administration Propofol 1,000 mg in 100 mls @ 1.633 mls/hr 01/15/19 14:49 01/16/19 18:01 Diprivan IV 30 mcg/kg/min .Q24H PRN 9.798 mls/hr TITRATE PER MD ORDER Titration Protocol 5 MCG/KG/MIN Metoprolol Tartrate 25 mg 01/15/19 10:00 01/16/19 17:49 Lopressor PO 25 mg BID [facility] Administration Paricalcitol 2 mcg 01/16/19 10:00 01/16/19 12:59 Zemplar IV 2 mcg TTS [facility] Administration Prednisone 5 mg 01/15/19 22:30 01/16/19 09:39 Prednisone Tab PO 5 mg DAILY [facility] Administration Rosuvastatin Calcium 10 mg 01/15/19 22:00 01/15/19 22:07 Crestor PO 10 mg HS [facility] Administration Vitamin B Complex/Vit C/Folic Acid 1 tab 01/16/19 08:00 01/16/19 08:47 Nephro-Nacho PO 1 tab 0800 [facility] Administration - Patient Studies Lab Studies: Lab Studies 01/16/19 01/16/19 01/16/19 Range/Units 06:16 06:14 06:14 WBC 7.0 (4.8-10.8) K/uL RBC 2.63 L (3.80-5.20) Mil/uL Hgb 8.1 L D (11.0-16.0) g/dL Hct 24.2 L (34.0-47.0) % MCV 92.2 D (81.0-99.0) fL MCH 31.0 (27.0-31.0) pg MCHC 33.6 (33.0-37.0) g/dL RDW 15.0 H (11.5-14.5) % Plt Count 147 (130-400) K/uL MPV 8.9 (7.2-11.7) fL Puncture Site pCO2 (35-45) mm/Hg pO2 (80-100) mm/Hg HCO3 (21-28) mmol/L ABG pH (7.35-7.45) ABG Total CO2 (22-28) mmol/L ABG O2 Saturation (95-98) % ABG Base Excess (-2.0-3.0) mmol/L ABG Hemoglobin (11.7-17.4) g/dL ABG Carboxyhemoglobin (0.5-1.5) % POC ABG HHb (Measured) (0.0-5.0) % ABG Methemoglobin (0.0-3.0) % Trevin Test A-a O2 Difference mm/Hg Respiratory Index Hgb O2 Saturation (95.0-98.0) % Vent Mode Mechanical Rate FiO2 % Tidal Volume PEEP Sodium 134 (132-148) mmol/L Potassium 3.6 (3.6-5.2) mmol/L Chloride 102 (98-107) mmol/L Carbon Dioxide 17 L (22-30) mmol/L Anion Gap 19 (10-20) BUN 109 H* D (7-17) mg/dL Creatinine 6.4 H (0.7-1.2) mg/dL Est GFR ( Amer) 8 Est GFR (Non-Af Amer) 6 Random Glucose 75 D (65-105) mg/dL Calcium 5.0 L* (8.6-10.4) mg/dl Phosphorus 8.3 H (2.5-4.5) mg/dL Magnesium 1.2 L (1.6-2.3) mg/dL Iron 23 L (37-170) ug/dL TIBC 184 L (250-450) ug/dL % Saturation 12 L (20-55) Ferritin ng/mL Total Bilirubin 0.4 (0.2-1.3) mg/dL AST 41 H D (14-36) U/L ALT 9 (9-52) U/L Alkaline Phosphatase 40 (38-126) U/L Lactate Dehydrogenase 1190 H (313-618) U/L Total Protein 4.6 L (6.3-8.3) g/dL Albumin 2.5 L (3.5-5.0) g/dL Globulin 2.1 L (2.2-3.9) gm/dL Albumin/Globulin Ratio 1.2 (1.0-2.1) Vitamin B12 (239-931) pg/mL Folate ng/mL Stool Occult Blood (NEGATIVE) Blood Type Antibody Screen 01/16/19 01/16/19 01/15/19 Range/Units 06:14 04:57 21:14 WBC (4.8-10.8) K/uL RBC (3.80-5.20) Mil/uL Hgb (11.0-16.0) g/dL Hct (34.0-47.0) % MCV (81.0-99.0) fL MCH (27.0-31.0) pg MCHC (33.0-37.0) g/dL RDW (11.5-14.5) % Plt Count (130-400) K/uL MPV (7.2-11.7) fL Puncture Site Rr pCO2 31 L (35-45) mm/Hg pO2 80 (80-100) mm/Hg HCO3 16.3 L (21-28) mmol/L ABG pH 7.28 L (7.35-7.45) ABG Total CO2 15.6 L (22-28) mmol/L ABG O2 Saturation 97.9 (95-98) % ABG Base Excess -11.1 L (-2.0-3.0) mmol/L ABG Hemoglobin 7.8 L (11.7-17.4) g/dL ABG Carboxyhemoglobin 1.3 (0.5-1.5) % POC ABG HHb (Measured) 2.1 (0.0-5.0) % ABG Methemoglobin 0.9 (0.0-3.0) % Trevin Test Pos A-a O2 Difference 238.0 mm/Hg Respiratory Index 3.0 Hgb O2 Saturation 95.8 (95.0-98.0) % Vent Mode Prvc Mechanical Rate 20 FiO2 50.0 % Tidal Volume 450 PEEP 5 Sodium (132-148) mmol/L Potassium (3.6-5.2) mmol/L Chloride (98-107) mmol/L Carbon Dioxide (22-30) mmol/L Anion Gap (10-20) BUN (7-17) mg/dL Creatinine (0.7-1.2) mg/dL Est GFR ( Amer) Est GFR (Non-Af Amer) Random Glucose (65-105) mg/dL Calcium (8.6-10.4) mg/dl Phosphorus (2.5-4.5) mg/dL Magnesium (1.6-2.3) mg/dL Iron (37-170) ug/dL TIBC (250-450) ug/dL % Saturation (20-55) Ferritin 438.0 ng/mL Total Bilirubin (0.2-1.3) mg/dL AST (14-36) U/L ALT (9-52) U/L Alkaline Phosphatase (38-126) U/L Lactate Dehydrogenase (313-618) U/L Total Protein (6.3-8.3) g/dL Albumin (3.5-5.0) g/dL Globulin (2.2-3.9) gm/dL Albumin/Globulin Ratio (1.0-2.1) Vitamin B12 914 (239-931) pg/mL Folate > 20.0 ng/mL Stool Occult Blood Positive H (NEGATIVE) Blood Type Antibody Screen 01/15/19 Range/Units 06:07 WBC (4.8-10.8) K/uL RBC (3.80-5.20) Mil/uL Hgb (11.0-16.0) g/dL Hct (34.0-47.0) % MCV (81.0-99.0) fL MCH (27.0-31.0) pg MCHC (33.0-37.0) g/dL RDW (11.5-14.5) % Plt Count (130-400) K/uL MPV (7.2-11.7) fL Puncture Site pCO2 (35-45) mm/Hg pO2 (80-100) mm/Hg HCO3 (21-28) mmol/L ABG pH (7.35-7.45) ABG Total CO2 (22-28) mmol/L ABG O2 Saturation (95-98) % ABG Base Excess (-2.0-3.0) mmol/L ABG Hemoglobin (11.7-17.4) g/dL ABG Carboxyhemoglobin (0.5-1.5) % POC ABG HHb (Measured) (0.0-5.0) % ABG Methemoglobin (0.0-3.0) % Trevin Test A-a O2 Difference mm/Hg Respiratory Index Hgb O2 Saturation (95.0-98.0) % Vent Mode Mechanical Rate FiO2 % Tidal Volume PEEP Sodium (132-148) mmol/L Potassium (3.6-5.2) mmol/L Chloride (98-107) mmol/L Carbon Dioxide (22-30) mmol/L Anion Gap (10-20) BUN (7-17) mg/dL Creatinine (0.7-1.2) mg/dL Est GFR ( Amer) Est GFR (Non-Af Amer) Random Glucose (65-105) mg/dL Calcium (8.6-10.4) mg/dl Phosphorus (2.5-4.5) mg/dL Magnesium (1.6-2.3) mg/dL Iron (37-170) ug/dL TIBC (250-450) ug/dL % Saturation (20-55) Ferritin ng/mL Total Bilirubin (0.2-1.3) mg/dL AST (14-36) U/L ALT (9-52) U/L Alkaline Phosphatase (38-126) U/L Lactate Dehydrogenase (313-618) U/L Total Protein (6.3-8.3) g/dL Albumin (3.5-5.0) g/dL Globulin (2.2-3.9) gm/dL Albumin/Globulin Ratio (1.0-2.1) Vitamin B12 (239-931) pg/mL Folate ng/mL Stool Occult Blood (NEGATIVE) Blood Type A POSITIVE Antibody Screen Negative Laboratory Results - last 24 hr 01/15/19 01/15/19 01/16/19 06:07 21:14 04:57 WBC RBC Hgb Hct MCV MCH MCHC RDW Plt Count MPV Puncture Site Rr pCO2 31 L pO2 80 HCO3 16.3 L ABG pH 7.28 L ABG Total CO2 15.6 L ABG O2 Saturation 97.9 ABG Base Excess -11.1 L ABG Hemoglobin 7.8 L ABG Carboxyhemoglobin 1.3 POC ABG HHb (Measured) 2.1 ABG Methemoglobin 0.9 Trevin Test Pos A-a O2 Difference 238.0 Respiratory Index 3.0 Hgb O2 Saturation 95.8 Vent Mode Prvc Mechanical Rate 20 FiO2 50.0 Tidal Volume 450 PEEP 5 Sodium Potassium Chloride Carbon Dioxide Anion Gap BUN Creatinine Est GFR ( Amer) Est GFR (Non-Af Amer) Random Glucose Calcium Phosphorus Magnesium Iron TIBC % Saturation Ferritin Total Bilirubin AST ALT Alkaline Phosphatase Lactate Dehydrogenase Total Protein Albumin Globulin Albumin/Globulin Ratio Vitamin B12 Folate Stool Occult Blood Positive H Blood Type A POSITIVE Antibody Screen Negative 01/16/19 01/16/19 01/16/19 06:14 06:14 06:14 WBC RBC Hgb Hct MCV MCH MCHC RDW Plt Count MPV Puncture Site pCO2 pO2 HCO3 ABG pH ABG Total CO2 ABG O2 Saturation ABG Base Excess ABG Hemoglobin ABG Carboxyhemoglobin POC ABG HHb (Measured) ABG Methemoglobin Trevin Test A-a O2 Difference Respiratory Index Hgb O2 Saturation Vent Mode Mechanical Rate FiO2 Tidal Volume PEEP Sodium 134 Potassium 3.6 Chloride 102 Carbon Dioxide 17 L Anion Gap 19 BUN 109 H* D Creatinine 6.4 H Est GFR ( Amer) 8 Est GFR (Non-Af Amer) 6 Random Glucose 75 D Calcium 5.0 L* Phosphorus 8.3 H Magnesium 1.2 L Iron 23 L TIBC 184 L % Saturation 12 L Ferritin 438.0 Total Bilirubin 0.4 AST 41 H D ALT 9 Alkaline Phosphatase 40 Lactate Dehydrogenase 1190 H Total Protein 4.6 L Albumin 2.5 L Globulin 2.1 L Albumin/Globulin Ratio 1.2 Vitamin B12 914 Folate > 20.0 Stool Occult Blood Blood Type Antibody Screen 01/16/19 06:16 WBC 7.0 RBC 2.63 L Hgb 8.1 L D Hct 24.2 L MCV 92.2 D MCH 31.0 MCHC 33.6 RDW 15.0 H Plt Count 147 MPV 8.9 Puncture Site pCO2 pO2 HCO3 ABG pH ABG Total CO2 ABG O2 Saturation ABG Base Excess ABG Hemoglobin ABG Carboxyhemoglobin POC ABG HHb (Measured) ABG Methemoglobin Trevin Test A-a O2 Difference Respiratory Index Hgb O2 Saturation Vent Mode Mechanical Rate FiO2 Tidal Volume PEEP Sodium Potassium Chloride Carbon Dioxide Anion Gap BUN Creatinine Est GFR ( Amer) Est GFR (Non-Af Amer) Random Glucose Calcium Phosphorus Magnesium Iron TIBC % Saturation Ferritin Total Bilirubin AST ALT Alkaline Phosphatase Lactate Dehydrogenase Total Protein Albumin Globulin Albumin/Globulin Ratio Vitamin B12 Folate Stool Occult Blood Blood Type Antibody Screen Radiology Impressions: Radiology Impressions Chest X-Ray 01/16/19 10:46 Impression: NG tube extending into the stomach. Other lines and tubes in stable position. Persistent prominent diffuse patchy pleural parenchymal opacities in both lungs. Cardiomegaly. Review of Systems - Review of Systems Systems not reviewed;Unavailable: Intubated Critical Care Progress Note - Ventilator Checklist Daily Sedation Vacation: Yes Daily Assessment of Readiness to Wean: Yes Daily Spontaneous Breathing Trial: Yes DVT Prophylaxis: Yes Oral Care with Chlorhexidine Gluconate {CHG}: Yes - Vent Settings MODE:: PRVC - Nutrition Nutrition: Nutrition Category Date Time Status NPO Diet [DIET] Diets 01/15/19 Lunch Active Assessment/Plan - Assessment and Plan (Free Text) Assessment: 73-year-old female transferred to intensive care unit for respiratory distress, severe metabolic acidosis and pulmonary edema -ESRD on HD: continue HD as per renal -pulmonary edema: negative balance to decrease FiO2 requirment -Hypoxic respiratory failrue: Continue ventilation to keep spo2 >92 and pH b/w 7.35-7.45 -Anemia: with high BUN suspect upper Gi bleed, protonix Q12, guiac (+), continue to monitor, consider Gi consult -continue dvt ppx scds -continue pud rx -Patient remains critical - Date & Time Date: 01/16/19 Time: 19:32
--- NOTE | 2019-01-16 23:40 | CP.PCM.PN ---
Subjective - Date & Time of Evaluation Date of Evaluation: 01/16/19 Time of Evaluation: 10:45 - Subjective Subjective: pt is seen and examined, follow up consult is dictated #[id number] Objective - Vital Signs/Intake and Output Vital Signs (last 24 hours): Temp Pulse Resp BP Pulse Ox 98.7 F 110 H 26 H 122/63 90 L 01/16/19 20:00 01/16/19 21:13 01/16/19 21:13 01/16/19 20:11 01/16/19 21:13 Intake and Output: 01/16/19 01/17/19 18:59 06:59 Intake Total 1062.1 48.4 Output Total 2000 Balance -937.9 48.4 - Medications Medications: Current Medications Epoetin Elijah (Procrit) 10,000 unit IV TTS [facility] Last Admin: 01/16/19 13:14 Dose: 10,000 unit Famotidine (Pepcid) 20 mg IVP DAILY [facility] Last Admin: 01/16/19 09:39 Dose: 20 mg Folic Acid (Folic Acid) 1 mg PO DAILY [facility] Last Admin: 01/16/19 09:38 Dose: 1 mg Propofol (Diprivan) 1,000 mg in 100 mls @ 1.633 mls/hr IV .Q24H PRN; Protocol PRN Reason: TITRATE PER MD ORDER Last Titration: 01/16/19 19:40 Dose: 5 mcg/kg/min, 1.633 mls/hr Metoprolol Tartrate (Lopressor) 25 mg PO BID [facility] Last Admin: 01/16/19 17:49 Dose: 25 mg Paricalcitol (Zemplar) 2 mcg IV TTS [facility] Last Admin: 01/16/19 12:59 Dose: 2 mcg Prednisone (Prednisone Tab) 5 mg PO DAILY [facility] Last Admin: 01/16/19 09:39 Dose: 5 mg Rosuvastatin Calcium (Crestor) 10 mg PO HS [facility] Last Admin: 01/16/19 21:58 Dose: 10 mg Vitamin B Complex/Vit C/Folic Acid (Nephro-Nacho) 1 tab PO 0800 [facility] Last Admin: 01/16/19 08:47 Dose: 1 tab - Labs Labs: 01/16/19 06:16 01/16/19 06:14 PT 13.3 SECONDS (9.7-12.2) H 01/15/19 05:29 INR 1.2 01/15/19 05:29 APTT 34 SECONDS (21-34) 01/15/19 05:29
--- NOTE | 2019-01-16 23:43 | CP.PCM.PN ---
Subjective - Date & Time of Evaluation Date of Evaluation: 01/16/19 Time of Evaluation: 16:00 - Subjective Subjective: Patient intubated and on respirator. Had 2 sessions of HD removing about 2 L of H2O each. Also had one PRC transfusion. Now sedated, on no vasopressors. Objective - Vital Signs/Intake and Output Vital Signs (last 24 hours): Temp Pulse Resp BP Pulse Ox 98.7 F 110 H 26 H 122/63 90 L 01/16/19 20:00 01/16/19 21:13 01/16/19 21:13 01/16/19 20:11 01/16/19 21:13 Intake and Output: 01/16/19 01/17/19 18:59 06:59 Intake Total 1062.1 48.4 Output Total 2000 Balance -937.9 48.4 - Medications Medications: Current Medications Epoetin Elijah (Procrit) 10,000 unit IV TTS [facility] Last Admin: 01/16/19 13:14 Dose: 10,000 unit Famotidine (Pepcid) 20 mg IVP DAILY [facility] Last Admin: 01/16/19 09:39 Dose: 20 mg Folic Acid (Folic Acid) 1 mg PO DAILY [facility] Last Admin: 01/16/19 09:38 Dose: 1 mg Propofol (Diprivan) 1,000 mg in 100 mls @ 1.633 mls/hr IV .Q24H PRN; Protocol PRN Reason: TITRATE PER MD ORDER Last Titration: 01/16/19 19:40 Dose: 5 mcg/kg/min, 1.633 mls/hr Metoprolol Tartrate (Lopressor) 25 mg PO BID [facility] Last Admin: 01/16/19 17:49 Dose: 25 mg Paricalcitol (Zemplar) 2 mcg IV TTS [facility] Last Admin: 01/16/19 12:59 Dose: 2 mcg Prednisone (Prednisone Tab) 5 mg PO DAILY [facility] Last Admin: 01/16/19 09:39 Dose: 5 mg Rosuvastatin Calcium (Crestor) 10 mg PO HS [facility] Last Admin: 01/16/19 21:58 Dose: 10 mg Vitamin B Complex/Vit C/Folic Acid (Nephro-Nacho) 1 tab PO 0800 [facility] Last Admin: 01/16/19 08:47 Dose: 1 tab - Labs Labs: 01/16/19 06:16 01/16/19 06:14 PT 13.3 SECONDS (9.7-12.2) H 01/15/19 05:29 INR 1.2 01/15/19 05:29 APTT 34 SECONDS (21-34) 01/15/19 05:29 - Constitutional Appears: Chronically Ill - Head Exam Head Exam: NORMAL INSPECTION - ENT Exam ENT Exam: Normal Exam - Neck Exam Neck Exam: Normal Inspection - Respiratory Exam Respiratory Exam: Rales, Rhonchi Additional comments: Rales and rhonchi bilaterally. - Cardiovascular Exam Cardiovascular Exam: REGULAR RHYTHM - GI/Abdominal Exam GI & Abdominal Exam: Soft, Normal Bowel Sounds - Rectal Exam Rectal Exam: Deferred - Extremities Exam Extremities Exam: Normal Inspection - Back Exam Back Exam: NORMAL INSPECTION - Neurological Exam Neurological Exam: Alert Additional comments: Sedated - Psychiatric Exam Additional comments: Sedated. Assessment and Plan (1) Acute on chronic diastolic (congestive) heart failure Assessment & Plan: On HD. Acute respiratory failure, now on respirator. Status: Acute (2) Severe anemia Assessment & Plan: Stoolls for OB positive. On Pepcid IV. Eliquis still on hold. Status: Acute (3) ESRD (end stage renal disease) Assessment & Plan: On HD Status: Chronic (4) Hypertension Status: Chronic
[2019-01-17 05:44] LABS: ABG ALLEN TEST POS; ARTERIAL BLOOD GAS HCO3 19.8 mmol/L (21-28); ARTERIAL BLOOD GAS HEMOGLOBIN 10.3 g/dL (11.7-17.4); ARTERIAL BLOOD GAS O2 SAT 97.2 % (95-98); ARTERIAL BLOOD GAS PCO2 31 mm/Hg (35-45); ARTERIAL BLOOD GAS PH 7.37 (7.35-7.45); ARTERIAL BLOOD GAS PO2 75 mm/Hg (80-100); ARTERIAL BLOOD GAS TCO2 18.9 mmol/L (22-28)
[2019-01-17 06:32] LABS: HEMOGLOBIN 10.5 g/dL (11.0-16.0); MEAN CELL VOLUME 91.4 fL (81.0-99.0); MEAN CORPUSCULAR HEMOGLOBIN 30.5 pg (27.0-31.0); MEAN CORPUSCULAR HGB CONC 33.4 g/dL (33.0-37.0); MEAN PLATELET VOLUME 9.3 fL (7.2-11.7); RBC 3.44 Mil/uL (3.80-5.20); RED CELL DISTRIBUTION WIDTH 15.1 % (11.5-14.5)
[2019-01-17 06:33] LABS: ALB/GLOB RATIO 1.1 (1.0-2.1); ALBUMIN 2.7 g/dL (3.5-5.0); CALCIUM 6.1 mg/dl (8.6-10.4)
--- NOTE | 2019-01-17 07:02 | CP.PCM.PN ---
Subjective - Date & Time of Evaluation Date of Evaluation: 01/17/19 Time of Evaluation: 07:05 - Subjective Subjective: Vascular Surgery: Luke Patient seen and examined this am. remains intubated, recieved HD yesterday. GCS 11T Objective - Vital Signs/Intake and Output Vital Signs (last 24 hours): Temp Pulse Resp BP Pulse Ox 99.2 F 107 H 26 H 138/67 96 01/17/19 04:00 01/17/19 06:11 01/17/19 06:11 01/17/19 06:11 01/17/19 06:11 Intake and Output: 01/16/19 01/17/19 18:59 06:59 Intake Total 1062.1 373.3 Output Total 1999 Balance -937.9 373.3 - Medications Medications: Current Medications Epoetin Elijah (Procrit) 10,000 unit IV TTS [facility] Last Admin: 01/16/19 13:14 Dose: 10,000 unit Famotidine (Pepcid) 20 mg IVP DAILY [facility] Last Admin: 01/16/19 09:39 Dose: 20 mg Folic Acid (Folic Acid) 1 mg PO DAILY [facility] Last Admin: 01/16/19 09:38 Dose: 1 mg Propofol (Diprivan) 1,000 mg in 100 mls @ 1.633 mls/hr IV .Q24H PRN; Protocol PRN Reason: TITRATE PER MD ORDER Last Titration: 01/16/19 23:00 Dose: 10 mcg/kg/min, 3.266 mls/hr Metoprolol Tartrate (Lopressor) 25 mg PO BID [facility] Last Admin: 01/16/19 17:49 Dose: 25 mg Paricalcitol (Zemplar) 2 mcg IV TTS [facility] Last Admin: 01/16/19 12:59 Dose: 2 mcg Prednisone (Prednisone Tab) 5 mg PO DAILY [facility] Last Admin: 01/16/19 09:39 Dose: 5 mg Rosuvastatin Calcium (Crestor) 10 mg PO HS [facility] Last Admin: 01/16/19 21:58 Dose: 10 mg Vitamin B Complex/Vit C/Folic Acid (Nephro-Nacho) 1 tab PO 0800 [facility] Last Admin: 01/16/19 08:47 Dose: 1 tab - Labs Labs: 01/17/19 06:09 01/17/19 06:09 PT 13.3 SECONDS (9.7-12.2) H 01/15/19 05:29 INR 1.2 01/15/19 05:29 APTT 34 SECONDS (21-34) 01/15/19 05:29 - Constitutional Appears: Well, Non-toxic, No Acute Distress - Head Exam Head Exam: ATRAUMATIC, NORMOCEPHALIC - Eye Exam Eye Exam: EOMI - ENT Exam ENT Exam: Mucous Membranes Moist - Neck Exam Additional comments: permacath in place, cdi - Respiratory Exam Respiratory Exam: NORMAL BREATHING PATTERN - Cardiovascular Exam Cardiovascular Exam: REGULAR RHYTHM - GI/Abdominal Exam GI & Abdominal Exam: Soft. absent: Guarding, Tenderness, Rebound - Extremities Exam Extremities Exam: absent: Calf Tenderness, Pedal Edema - Neurological Exam Neurological Exam: Alert, Awake Additional comments: GCS 11T - Psychiatric Exam Psychiatric exam: Normal Affect, Normal Mood - Skin Skin Exam: Dry, Intact, Normal Color, Warm Assessment and Plan - Assessment and Plan (Free Text) Assessment: 73 F with ESRD POD 2 from [facility] HD catheter placement, will need shunt vs avf revision Plan: - continue HD as needed - OR for AVF revision vs shunt placement, if medically stable - f/u am CXR - f/u h/h -further recs per Dr. Luke Randall, PGY 1
[2019-01-17] MEDS: Multivitamin Vitamin B Complex (Nephro-Vite) Tab PO SCH (07:51)
--- NOTE | 2019-01-17 08:41 | CP.PCM.PN ---
Subjective - Date & Time of Evaluation Date of Evaluation: 01/17/19 Time of Evaluation: 08:39 - Subjective Subjective: Surgery: Dr. Butler Patient remains intubated in ICU. GCS 11t. No acute events overnight. Objective - Vital Signs/Intake and Output Vital Signs (last 24 hours): Temp Pulse Resp BP Pulse Ox 99.7 F H 107 H 22 137/65 97 01/17/19 08:00 01/17/19 08:00 01/17/19 08:00 01/17/19 07:11 01/17/19 08:00 Intake and Output: 01/17/19 01/17/19 06:59 18:59 Intake Total 373.3 23.6 Balance 373.3 23.6 - Medications Medications: Current Medications Epoetin Elijah (Procrit) 10,000 unit IV TTS [facility] Last Admin: 01/16/19 13:14 Dose: 10,000 unit Famotidine (Pepcid) 20 mg IVP DAILY [facility] Last Admin: 01/16/19 09:39 Dose: 20 mg Folic Acid (Folic Acid) 1 mg PO DAILY [facility] Last Admin: 01/16/19 09:38 Dose: 1 mg Propofol (Diprivan) 1,000 mg in 100 mls @ 1.633 mls/hr IV .Q24H PRN; Protocol PRN Reason: TITRATE PER MD ORDER Last Titration: 01/16/19 23:00 Dose: 10 mcg/kg/min, 3.266 mls/hr Metoprolol Tartrate (Lopressor) 25 mg PO BID [facility] Last Admin: 01/16/19 17:49 Dose: 25 mg Paricalcitol (Zemplar) 2 mcg IV TTS [facility] Last Admin: 01/16/19 12:59 Dose: 2 mcg Prednisone (Prednisone Tab) 5 mg PO DAILY [facility] Last Admin: 01/16/19 09:39 Dose: 5 mg Rosuvastatin Calcium (Crestor) 10 mg PO HS [facility] Last Admin: 01/16/19 21:58 Dose: 10 mg Vitamin B Complex/Vit C/Folic Acid (Nephro-Nacho) 1 tab PO 0800 [facility] Last Admin: 01/17/19 07:51 Dose: 1 tab - Labs Labs: 01/17/19 06:09 01/17/19 06:09 PT 13.3 SECONDS (9.7-12.2) H 01/15/19 05:29 INR 1.2 01/15/19 05:29 APTT 34 SECONDS (21-34) 01/15/19 05:29 - Constitutional Appears: Non-toxic, No Acute Distress - Head Exam Head Exam: ATRAUMATIC, NORMOCEPHALIC Additional comments: ETT in place - ENT Exam ENT Exam: Mucous Membranes Moist - Respiratory Exam Respiratory Exam: NORMAL BREATHING PATTERN. absent: Respiratory Distress - Cardiovascular Exam Cardiovascular Exam: REGULAR RHYTHM. absent: Tachycardia - GI/Abdominal Exam GI & Abdominal Exam: Soft. absent: Distended, Tenderness - Extremities Exam Additional comments: Left peripheral pulses intact thrill in L arm AVF Assessment and Plan - Assessment and Plan (Free Text) Assessment: 73 y/o female with ESRD and L arm AVF unable to access with [facility] catheter tod cement POD3 Plan: -will consider permacath placement in near future once medically/clinically improved -no plan for OR at this time -cont HD through [facility] -d/w Dr. Luke Moore PGY4
--- NOTE | 2019-01-17 08:45 | RAD ---
Chest x-ray single frontal view HISTORY: Congestion. COMPARISON: 01/16/2019 FINDINGS: Lines and tubes in stable position. Diffuse pleural parenchymal opacities seen throughout both lungs. Small left pleural effusion. Cardiomegaly. Rounded radiopaque density projecting over the medial right upper abdomen. Degenerative changes in the spine. Impression: Lines and tubes in stable position. Diffuse pleural parenchymal opacities seen throughout both lungs. Small left pleural effusion. Cardiomegaly. Rounded radiopaque density projecting over the medial right upper abdomen.
[2019-01-17] MEDS ORDERED: Aztreonam 1 GM in Sodium Chloride 0.9% 100 ML IVPB ONE (14:00)
--- NOTE | 2019-01-17 14:30 | CP.PCM.CON ---
History of Present Illness - History of Present Illness History of Present Illness: 73 year old female with PMHx ESRD admitted to with SOB and cough productive of whitish sputum as well as severe dizzyness Developed respiratory failure requiring intubation and mechanical ventilation and required transfusion for severe qnemia on anticoagulants for paroxysmal A Fib Had Permacath inserted for emergancy HD as AV fistula not mature and appeared to be fluid overloaded with diastolic CHF ID consulted for antibiotic management of possible pneumonitis in Penicillin allergic patient PMHx: ESRD, s/p kidney transplant in 2002, hypertension, atrial fibrillation, fibrocystic breast dz, pontine infarct in 2007 Review of Systems - Review of Systems Systems not reviewed;Unavailable: Intubated All systems: reviewed and no additional remarkable complaints except - Constitutional Constitutional: As Per HPI - EENT Eyes: absent: As Per HPI, Blind Spots, Blurred Vision, Change in Vision, Decreased Night Vision, Diplopia, Discharge, Dry Eye, Exophthalmos, Floaters, Irritation, Itchy Eyes, Loss of Peripheral Vision, Pain, Photophobia, Requires Corrective Lenses, Sees Flashes, Spots in Vision, Tunnel Vision, Other Visual Disturbances, Loss of Vision, Other Ears: absent: As Per HPI, Decreased Hearing, Ear Discharge, Ear Pain, Tinnitus, Abnormal Hearing, Disequilibrium, Dizziness, Other Nose/Mouth/Throat: absent: As Per HPI, Epistaxis, Nasal Congestion, Nasal Discharge, Nasal Obstruction, Nasal Trauma, Nose Pain, Post Nasal Drip, Sinus Pain, Sinus Pressure, Bleeding Gums, Change in Voice, Dental Pain, Dry Mouth, Dysphagia, Halitosis, Hoarsness, Lip Swelling, Mouth Lesions, Mouth Pain, Ximena nophagia, Sore Throat, Throat Swelling, Tongue Swelling, Facial Pain, Neck Pain, Neck Mass, Other - Breasts Breasts: As Per HPI Additional comments: fibrocystic disease - Cardiovascular Cardiovascular: absent: As Per HPI, Acrocyanosis, Chest Pain, Chest Pain at Rest, Chest Pain with Activity, Claudication, Diaphoresis, Dyspnea, Dyspnea on Exertion, Edema, Irregular Heart Rhythm, Pain Radiating to Arm/Neck/Jaw, Leg Edema, Leg Ulcers, Lightheadedness, Orthopnea, Palpitations, Paroxysmal Noct urnal Dyspnea, Pedal Edema, Radiating Pain, Rapid Heart Rate, Slow Heart Rate, Syncope, Other - Respiratory Respiratory: As Per HPI, Cough, Dyspnea. absent: Hemoptysis - Gastrointestinal Gastrointestinal: As Per HPI, Melena - Genitourinary Genitourinary: absent: As Per HPI, Change in Urinary Stream, Difficulty Urinating, Dysuria, Flank Pain, Hematuria, Pyuria, Nocturia, Urinary I ncontinence, Urinary Frequency, Urinary Hesitance, Urinary Urgency, Voiding Freq/Small Amts, Freq UTI, Hx Renal/Bladder Calculi, Hx /Renal Surgery, Bladder Distension, Other - Reproductive: Female Reproductive:Female: absent: As Per HPI, Amenorrhea, Amenorrhea/ Control, Currently Menstual, Cycle <21 Days, Cycle >35 Days, Cycle Variable, Menses 1-7 Days, Menses >/= 8 Days, Menses Variable, Cycle > 4 Weeks Between, No Menses for 6 Months, Heavy Menses, Light Menses, Normal Menses, Spotting Between Cycles, S/P Hysterectomy, Menopausal, Post Menopausal, Premenarche, Abnormal Vaginal Bleeding, Dysmenorrhea, Dyspareunia, Genital Lesions, Genital Pruritis, Pelvic Pain, Prolapse Symptoms, Sexual Dysfunction, Vaginal Discharge, Vaginal Dryness, Vaginal Odor, Vaginal Pruritis, Other - Menstruation Menstruation: absent: As Per HPI, Amenorrhea, Amenorrhea/ Control, Currently Menstual, Cycle <21 Days, Cycle >35 Days, Cycle Variable, Menses 1-7 Days, Menses >/= 8 Days, Menses Variable, Cycle > 4 Weeks Between, No Menses for 6 Months, Heavy Menses, Light Menses, Normal Menses, Spotting Between Cycles, S/P Hysterectomy, Menopausal, Post Menopausal, Premenarche, Abnormal Vaginal Bleeding, Dysmenorrhea, Other - Musculoskeletal Musculoskeletal: absent: As Per HPI, Abnormal Gait, Arthralgias, Atrophy, Back Pain, Deformity, Joint Swelling, Limited Range of Motion, Loss of Height, Muscle Cramps, Muscle Weakness, Myalgias, Neck Pain, Numbness, Radiating Pain into Limb, Stiffness, Tingling, Other - Integumentary Integumentary: absent: As Per HPI, Acne, Alopecia, Bleeding Lesions, Change in Hair, Change in Nails, Change in Pigmentation, Changing Lesions, Dry Skin, Erythema, Furuncle, Hirsutism, Lesions, New Lesions, Non-Healing Lesions, Photosensitivity, Pruritus, Rash, Skin Pain, Skin Ulcer, Sores, Striae, Swelling, Unusual Bruising, Wounds, Jaundice, Other - Neurological Neurological: As Per HPI - Psychiatric Psychiatric: absent: As Per HPI, Abnormal Sleep Pattern, Anhedonia, Anxiety, Auditory Hallucinations, Behavioral Changes, Change in Appetite, Change in Libido, Confusion, Depression, Difficulty Concentrating, Hallucinations, Homicidal Ideation, Hopelessness, Irritability, Memory Loss, Mood Swings, Panic Attacks, Paranoia, Suicidal Ideation, Visual Hallucinations, Tactile Hallucinations, Other - Endocrine Endocrine: absent: As Per HPI, Change in Body Appearance, Change in Libido, Cold Intolorance, Deepening of Voice, Excessive Sweating, Fatigue, Flushing, Heat Intolorance, Increase in Ring/Shoe/Hat Size, Palpitations, Polydipsia, Polyphagia, Polyuria, Other - Hematologic/Lymphatic Hematologic: As Per HPI Past Patient History - Infectious Disease Hx of Infectious Diseases: None - Tetanus Immunizations Tetanus Immunization: Unknown - Past Medical History & Family History Past Medical History?: Yes - Past Social History Smoking Status: Never Smoked - CARDIAC Hx Cardia Arrhythmia: Yes Hx Congestive Heart Failure: Yes Hx Hypercholesterolemia: Yes Hx Hypertension: Yes Hx Peripheral Edema: Yes Other/Comment: Mitral valvr Regurgitation - PULMONARY Hx Pneumonia: Yes (may 2018) - NEUROLOGICAL Hx Transient Ischemic Attacks (TIA): Yes - HEENT Hx HEENT Problems: Yes Hx Cataracts: Yes Other/Comment: Partial Hearing loss - RENAL Hx Chronic Kidney Disease: Yes (kidney transplant 2002) Hx Renal Failure: Yes Other/Comment: Kidney Failure - HEMATOLOGICAL/ONCOLOGICAL Hx Anemia: Yes - INTEGUMENTARY Other/Comment: Upper back rashes - MUSCULOSKELETAL/RHEUMATOLOGICAL Hx Falls: No - GASTROINTESTINAL Hx Gastrointestinal Disorders: Yes (diarrhea at times ) - GENITOURINARY/GYNECOLOGICAL Other/Comment: Urinary Retension - PSYCHIATRIC Hx Substance Use: No - SURGICAL HISTORY Hx Appendectomy: Yes Other/Comment: Kidney Bx, Lt. Breast Excision, - ANESTHESIA Hx Anesthesia: Yes Hx Anesthesia Reactions: Yes (nausea vomitting) Hx Malignant Hyperthermia: No Meds Allergies/Adverse Reactions: Allergies Allergy/AdvReac Type Severity Reaction Status Date / Time enalaprilat [From Vasotec] Allergy Intermediate RASH Verified 07/14/18 13:29 Penicillins Allergy Intermediate RASH Verified 07/14/18 13:28 Sulfa (Sulfonamide Allergy Intermediate RASH Verified 07/14/18 13:27 Antibiotics) tetracycline Allergy Intermediate RASH Verified 07/14/18 13:28 aspirin Allergy Verified 01/15/19 03:44 - Medications Medications: Current Medications Epoetin Elijah (Procrit) 10,000 unit IV TTS [facility] Last Admin: 01/16/19 13:14 Dose: 10,000 unit Famotidine (Pepcid) 20 mg IVP DAILY [facility] Last Admin: 01/17/19 09:08 Dose: 20 mg Folic Acid (Folic Acid) 1 mg PO DAILY [facility] Last Admin: 01/17/19 09:08 Dose: 1 mg Propofol (Diprivan) 1,000 mg in 100 mls @ 1.633 mls/hr IV .Q24H PRN; Protocol PRN Reason: TITRATE PER MD ORDER Last Titration: 01/16/19 23:00 Dose: 10 mcg/kg/min, 3.266 mls/hr Aztreonam 1 gm/ Sodium (Chloride) 100 mls @ 200 mls/hr IVPB ONCE ONE; Protocol Stop: 01/17/19 14:29 Aztreonam 1 gm/ Sodium (Chloride) 100 mls @ 200 mls/hr IVPB DAILY@1400 [facility]; Protocol Metoprolol Tartrate (Lopressor) 25 mg PO BID [facility] Last Admin: 01/17/19 09:08 Dose: 25 mg Paricalcitol (Zemplar) 2 mcg IV TTS [facility] Last Admin: 01/16/19 12:59 Dose: 2 mcg Prednisone (Prednisone Tab) 5 mg PO DAILY [facility] Last Admin: 01/17/19 09:09 Dose: 5 mg Rosuvastatin Calcium (Crestor) 10 mg PO HS [facility] Last Admin: 01/16/19 21:58 Dose: 10 mg Vitamin B Complex/Vit C/Folic Acid (Nephro-Nacho) 1 tab PO 0800 [facility] Last Admin: 01/17/19 07:51 Dose: 1 tab Physical Exam - Constitutional Appears: Non-toxic, Cachectic, Chronically Ill Additional comments: intubated orally - Head Exam Head Exam: NORMOCEPHALIC - Eye Exam Eye Exam: EOMI, PERRL. absent: Scleral icterus - ENT Exam ENT Exam: Mucous Membranes Dry, Normal External Ear Exam Additional comments: ETT + - Neck Exam Neck exam: Negative for: Lymphadenopathy - Respiratory Exam Respiratory Exam: Decreased Breath Sounds, Rales - Cardiovascular Exam Cardiovascular Exam: REGULAR RHYTHM, +S1, +S2 - GI/Abdominal Exam GI & Abdominal Exam: Diminished Bowel Sounds, Soft. absent: Tenderness - Rectal Exam Rectal Exam: Deferred - Exam Exam: NORMAL INSPECTION - Extremities Exam Extremities exam: Positive for: pedal edema, pedal pulses present. Negative for: calf tenderness, tenderness - Back Exam Back exam: absent: CVA tenderness (L), CVA tenderness (R), paraspinal tenderness - Neurological Exam Neurological exam: Altered - Psychiatric Exam Psychiatric exam: Depressed - Skin Skin Exam: Dry, Intact Results - Vital Signs Recent Vital Signs: Last Vital Signs Temp 100.8 F H 01/17/19 12:30 Pulse 97 H 01/17/19 13:12 Resp 24 01/17/19 13:12 BP 122/58 L 01/17/19 13:12 Pulse Ox 97 01/17/19 13:12 - Labs Result Diagrams: 01/17/19 06:09 01/17/19 06:09 Labs: Laboratory Results - last 24 hr 01/16/19 01/17/19 01/17/19 18:42 05:05 06:09 WBC 6.0 RBC 3.44 L Hgb 10.5 L D Hct 31.4 L MCV 91.4 MCH 30.5 MCHC 33.4 RDW 15.1 H Plt Count 137 MPV 9.3 Puncture Site Rr pCO2 31 L pO2 75 L HCO3 19.8 L ABG pH 7.37 ABG Total CO2 18.9 L ABG O2 Saturation 97.2 ABG Base Excess -6.5 L ABG Hemoglobin 10.3 L ABG Carboxyhemoglobin 1.5 POC ABG HHb (Measured) 2.7 ABG Methemoglobin 1.0 Trevin Test Pos A-a O2 Difference 243.0 Respiratory Index 3.2 Hgb O2 Saturation 94.8 L Vent Mode Prvc Mechanical Rate 20 FiO2 50.0 Tidal Volume 450 PEEP 5 Sodium Potassium Chloride Carbon Dioxide Anion Gap BUN Creatinine Est GFR ( Amer) Est GFR (Non-Af Amer) Random Glucose Calcium Phosphorus Magnesium Total Bilirubin AST ALT Alkaline Phosphatase Total Protein Albumin Globulin Albumin/Globulin Ratio Stool Occult Blood Hep Bs Antibody HIV 1&2 Antibody Screen Negative 01/17/19 01/17/19 01/17/19 06:09 06:09 08:48 WBC RBC Hgb Hct MCV MCH MCHC RDW Plt Count MPV Puncture Site pCO2 pO2 HCO3 ABG pH ABG Total CO2 ABG O2 Saturation ABG Base Excess ABG Hemoglobin ABG Carboxyhemoglobin POC ABG HHb (Measured) ABG Methemoglobin Trevin Test A-a O2 Difference Respiratory Index Hgb O2 Saturation Vent Mode Mechanical Rate FiO2 Tidal Volume PEEP Sodium 134 Potassium 3.6 Chloride 100 Carbon Dioxide 18 L Anion Gap 20 BUN 80 H Creatinine 4.9 H Est GFR ( Amer) 10 Est GFR (Non-Af Amer) 9 Random Glucose 83 Calcium 6.1 L Phosphorus 6.1 H Magnesium 1.7 Total Bilirubin 0.7 AST 61 H D ALT 22 Alkaline Phosphatase 73 Total Protein 5.2 L Albumin 2.7 L Globulin 2.5 Albumin/Globulin Ratio 1.1 Stool Occult Blood Positive H Hep Bs Antibody Negative HIV 1&2 Antibody Screen Assessment & Plan (1) Pneumonia Status: Acute (2) Acute on chronic diastolic (congestive) heart failure Status: Acute (3) Severe anemia Status: Acute (4) ESRD (end stage renal disease) Status: Chronic (5) Hypertension Status: Chronic - Assessment and Plan (Free Text) Assessment: await sputum cultures, serologies, legionella ag started Vanco / azactam
--- NOTE | 2019-01-17 14:44 | PN ---
DATE: 01/16/2019 FOLLOWUP RENAL CONSULTATION LOCATION: The patient is located in ICU, bed 2. REQUESTED BY: Dash Najera MD REASON FOR FOLLOWUP: End-stage renal disease, continuation of hemodialysis, respiratory failure. SUBJECTIVE: Mrs. Faulkner is a 73-year-old elderly [place] female with a past medical history significant for hypertension, status post kidney transplant more than 15 years ago, chronic kidney disease, edema, anemia, secondary hyperparathyroidism, status post left forearm AV fistula, was admitted with chief complaints of generalized weakness, difficult to ambulate and worsening renal function, also found to have severe anemia and also respiratory distress requiring initially placement of BiPAP. Subsequently, the patient was intubated and transferred to ICU for respiratory failure. The patient remains intubated and opens eyes to verbal stimuli. PHYSICAL EXAMINATION: GENERAL: Mrs. Faulkner is a 73-year-old elderly female, moderately built, moderately nourished, not in acute distress. HEENT: Pupils normal, reactive to light and accommodation. Conjunctivae pink. Sclerae anicteric. Tongue is moist and trachea is midline. LUNGS: Symmetric on both sides. Bilateral breath sounds present. Bilateral basal crackles present. CARDIOVASCULAR SYSTEM: [place] at the fifth intercostal space, midclavicular line. S1, S2 audible. No murmur or gallop. ABDOMEN: Normal in appearance. Soft, tympanitic. No guarding. No rigidity. No splenomegaly. Abdomen is protuberant. CENTRAL NERVOUS SYSTEM: The patient is on ventilator, arousable, moving all extremities. EXTREMITIES: No cyanosis, no clubbing. The patient has 2+ edema in both lower extremities. CURRENT MEDICATIONS: Include as follows: Crestor 10 mg at bedtime, Diprivan, also folic acid 1 mg daily, metoprolol 25 mg p.o. b.i.d., Nephro-Nacho, Pepcid 20 mg IV daily, prednisone 5 mg p.o. daily, Procrit 10,000 units three times a week, and Zemplar 2 mcg three times a week. LABORATORY DATA: Include as follows: As of 01/16/2019: WBC is 7, hemoglobin 8.1, hematocrit is 24.2, platelets of 147. ABG; pH is 7.28, pCO2 of 31, pO2 80, bicarb is 16.3. Saturation 97.9. Vent settings AC 20, tidal volume 450, FiO2 50%, and PEEP of 5. Her other laboratory data include as follows: Sodium 134, potassium 3.6, chloride 102, CO2 17, BUN 19, creatinine 6.4, glucose 75, calcium is 5, phosphorus is 8.3, magnesium 1.2. Iron is 23, TIBC 184, and iron saturation is 12, and ferritin 438. Total bili 0.4, AST 41, ALT 9, alkaline phosphatase 40, LDH is 1119, total protein 4.6, and albumin is 2.5. Vitamin B12 is 914 and folic acid level is more than 20. Stool for occult blood is positive. HIV 1 and 2 antibody screening is negative. Chest x-ray as of 01/16/2019, impression, NG tube extending into the stomach, other lines and tubes are in stable position and persistent prominent diffuse patchy pleural parenchymal opacities in both lungs and cardiomegaly. ASSESSMENT AND PLAN: In summary, Mrs. Faulkner is a 73-year-old elderly [place] female with a history of longstanding hypertension, kidney transplant, congestive heart failure, chronic kidney disease V, status post left forearm arteriovenous fistula, was admitted with worsening renal function, edema, also generalized weakness, difficult to ambulate and feeling dizzy, lightheaded and found to have low hemoglobin and hematocrit, and also worsening renal function with respiratory failure. 1. End-stage renal disease. Continue hemodialysis three times a week. 2. Respiratory failure. 3. Anemia. 4. Bilateral infiltrates versus pulmonary edema. The patient underwent hemodialysis today and ultrafiltration about 2 liters. Repeat chest x-ray in a.m. Repeat labs in the morning, CBC, CMP. Also, we will add Azactam 1 g IV piggyback x1 dose and consider ID consult. We will follow with you. Thank you for allowing me to participate in your patient's care. Ever Madrigal MD JULIANNA
--- NOTE | 2019-01-17 14:59 | CP.PCM.PN ---
Subjective - Date & Time of Evaluation Date of Evaluation: 01/17/19 Time of Evaluation: 14:50 - Subjective Subjective: Low grade temp, surg planning permacath tomorrow, has diarrhea, patient not in distress, FIO2 requirement still 50%. Objective - Vital Signs/Intake and Output Vital Signs (last 24 hours): Temp Pulse Resp BP Pulse Ox 100.8 F H 100 H 22 128/62 96 01/17/19 12:30 01/17/19 14:11 01/17/19 14:11 01/17/19 14:11 01/17/19 14:11 Intake and Output: 01/17/19 01/17/19 06:59 18:59 Intake Total 373.3 131.6 Balance 373.3 131.6 - Medications Medications: Current Medications Epoetin Elijah (Procrit) 10,000 unit IV TTS [facility] Last Admin: 01/16/19 13:14 Dose: 10,000 unit Famotidine (Pepcid) 20 mg IVP DAILY [facility] Last Admin: 01/17/19 09:08 Dose: 20 mg Folic Acid (Folic Acid) 1 mg PO DAILY [facility] Last Admin: 01/17/19 09:08 Dose: 1 mg Propofol (Diprivan) 1,000 mg in 100 mls @ 1.633 mls/hr IV .Q24H PRN; Protocol PRN Reason: TITRATE PER MD ORDER Last Titration: 01/16/19 23:00 Dose: 10 mcg/kg/min, 3.266 mls/hr Aztreonam 1 gm/ Sodium (Chloride) 100 mls @ 200 mls/hr IVPB DAILY@1400 [facility]; Protocol Vancomycin/Sodium Chloride (Vancomycin 1 Gm/Ns 200 Ml) 1 gm in 200 mls @ 13 3.333 mls/hr IVPB MWF [facility]; Protocol Vancomycin HCl 500 mg/ Sodium (Chloride) 100 mls @ 100 mls/hr IVPB ONCE ONE; Protocol Stop: 01/17/19 16:59 Metoprolol Tartrate (Lopressor) 25 mg PO BID [facility] Last Admin: 01/17/19 09:08 Dose: 25 mg Paricalcitol (Zemplar) 2 mcg IV TTS [facility] Last Admin: 01/16/19 12:59 Dose: 2 mcg Prednisone (Prednisone Tab) 5 mg PO DAILY [facility] Last Admin: 01/17/19 09:09 Dose: 5 mg Rosuvastatin Calcium (Crestor) 10 mg PO HS [facility] Last Admin: 01/16/19 21:58 Dose: 10 mg Vitamin B Complex/Vit C/Folic Acid (Nephro-Nacho) 1 tab PO 0800 [facility] Last Admin: 01/17/19 07:51 Dose: 1 tab - Labs Labs: 01/17/19 06:09 01/17/19 06:09 PT 13.3 SECONDS (9.7-12.2) H 01/15/19 05:29 INR 1.2 01/15/19 05:29 APTT 34 SECONDS (21-34) 01/15/19 05:29 - Additional Findings Additional findings: * HEENT RICCI * Neck supple * Chest Rales b/l * CVS regular * PA soft * Ext dependent edema but also present lose skin suggesting improvement * [employer] sedated, not in distress Assessment and Plan - Assessment and Plan (Free Text) Assessment: * Resp failure spo2 requirement improving still has pulm edema and rales continue vent support * Low grade temp, pancultures including stool sent, emperic abx started by primary team and id has been consulted * ESRD s/p renal transplant, getting he via femoral cath will be changed to permacath, likely in am * Diarrhe w/u sent * Anemia likely form CRI s/p transfusion * Gi/DVT prophylaxis * See orders for detail.
[2019-01-17] MEDS: Propofol 10 mg/ml 1,000 MG/100 ML VIAL IV PRN (15:19)
--- NOTE | 2019-01-17 15:38 | CP.PCM.PN ---
Subjective - Date & Time of Evaluation Date of Evaluation: 01/17/19 Time of Evaluation: 15:37 - Subjective Subjective: pt is seen and examined, follow up consult is dictated#[id number] for hd in am Objective - Vital Signs/Intake and Output Vital Signs (last 24 hours): Temp Pulse Resp BP Pulse Ox 100.8 F H 100 H 22 128/62 96 01/17/19 12:30 01/17/19 14:11 01/17/19 14:11 01/17/19 14:11 01/17/19 14:11 Intake and Output: 01/17/19 01/17/19 06:59 18:59 Intake Total 373.3 182.9 Balance 373.3 182.9 - Medications Medications: Current Medications Epoetin Elijah (Procrit) 10,000 unit IV TTS [facility] Last Admin: 01/16/19 13:14 Dose: 10,000 unit Famotidine (Pepcid) 20 mg IVP DAILY [facility] Last Admin: 01/17/19 09:08 Dose: 20 mg Folic Acid (Folic Acid) 1 mg PO DAILY [facility] Last Admin: 01/17/19 09:08 Dose: 1 mg Propofol (Diprivan) 1,000 mg in 100 mls @ 1.633 mls/hr IV .Q24H PRN; Protocol PRN Reason: TITRATE PER MD ORDER Last Admin: 01/17/19 15:19 Dose: 10 mcg/kg/min, 3.266 mls/hr Aztreonam 0.5 gm/ Sodium (Chloride) 100 mls @ 200 mls/hr IVPB DAILY@1400 [facility]; Protocol Vancomycin/Sodium Chloride (Vancomycin 1 Gm/Ns 200 Ml) 1 gm in 200 mls @ 133.333 mls/hr IVPB MWF [facility]; Protocol Vancomycin HCl 500 mg/ Sodium (Chloride) 100 mls @ 100 mls/hr IVPB ONCE ONE; Protocol Stop: 01/17/19 16:59 Metoprolol Tartrate (Lopressor) 25 mg PO BID [facility] Last Admin: 01/17/19 09:08 Dose: 25 mg Paricalcitol (Zemplar) 2 mcg IV TTS [facility] Last Admin: 01/16/19 12:59 Dose: 2 mcg Prednisone (Prednisone Tab) 5 mg PO DAILY [facility] Last Admin: 01/17/19 09:09 Dose: 5 mg Rosuvastatin Calcium (Crestor) 10 mg PO HS [facility] Last Admin: 01/16/19 21:58 Dose: 10 mg Vitamin B Complex/Vit C/Folic Acid (Nephro-Nacho) 1 tab PO 0800 [facility] Last Admin: 01/17/19 07:51 Dose: 1 tab - Labs Labs: 01/17/19 06:09 01/17/19 06:09 PT 13.3 SECONDS (9.7-12.2) H 01/15/19 05:29 INR 1.2 01/15/19 05:29 APTT 34 SECONDS (21-34) 01/15/19 05:29
--- NOTE | 2019-01-17 15:48 | US ---
Abdominal ultrasound HISTORY: Abdominal pain. COMPARISON: None available. TECHNIQUE: Real-time sonography was performed through the abdomen. Findings: Right pleural effusion. Abdominal ascites. Liver: 11.8 centimeters in length. Normal echogenicity. Perihepatic ascites. Gallbladder: Cholelithiasis and sludge. Prominent 2.5 centimeter calculus lodged at the gallbladder neck. Gallbladder wall appears thickened measuring up to 5 millimeters. Associated gallbladder wall edema. In the appropriate clinical setting this may represent a cholecystitis. Clinical correlation. Correlation with nuclear medicine study may be helpful. Visualized portal and hepatic veins appear grossly preserved. Common bile duct is dilated measuring 8.3 millimeters. Pancreas not visualized. Spleen measures 7.8 centimeters in length, within normal limits. Visualized aorta and IVC are grossly preserved. Atherosclerotic calcification and plaque in the aorta. Right kidney: Atrophic. 4.7 x 2.5 x 2.2 centimeters. Increased echogenicity of the renal parenchymal cortex. Upper pole heterogeneous hypoechoic cyst measuring 1.1 x 0.9 x 1.3 centimeters. Left Kidney: 10.6 x 4.8 x 4.3 centimeters. Increased echogenicity of the renal parenchymal cortex suggestive for medical renal disease. No calculi or hydronephrosis. By clinical history patient status post renal transplant many years prior. 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 Clinical correlation. Impression: 1. Cholelithiasis and sludge in the gallbladder with associated gallbladder wall thickening measuring up to 5 millimeters. Associated gallbladder wall edema. If there is concern for cholecystitis, consider correlation with nuclear medicine study. 2. Right pleural effusion. 3. Perihepatic and abdominal ascites. 4. Dilated common bile duct measuring 8.3 millimeters. 5. Limited visualization of the pancreas. 6. Increased echogenicity of the left renal parenchymal cortex suggestive for medical renal disease. Clinical correlation. 7. Atrophic right kidney. 1.3 centimeter upper pole right renal cyst. Additional findings as above.
[2019-01-17] MEDS: metroNIDAZOLE IV 500 mg/100 ml 500 MG/100 ML BAG IVPB SCH (21:23)
[2019-01-17] MEDS: VANCOMYCIN HCL 250 MG/5 ML PEG SCH (21:23)
--- NOTE | 2019-01-18 03:52 | PN ---
DATE: 01/17/2019 FOLLOWUP RENAL CONSULTATION LOCATION: The patient is located in ICU, bed 2. REASON FOR FOLLOWUP: End-stage renal disease and continuation of hemodialysis. SUBJECTIVE: Mrs. Faulkner is a 73-year-old elderly [place] female with a past medical history significant for hypertension, status post kidney transplant more than 15 years ago with CHF and anemia, secondary hyperparathyroidism, status post left forearm AV fistula who was admitted with shortness of breath, severe anemia, tachypnea, requiring intubation and transferred to ICU from the floor without response to BiPAP. The patient underwent emergency femoral vein catheter placement and hemodialysis on Friday. The patient remains intubated and opens eyes to verbal stimuli. PHYSICAL EXAMINATION: VITAL SIGNS: As follows: Blood pressure 126/60, pulse 98, respiration 21, temperature 99.9, and saturation 96% to 98%. Height 5 feet 2 inches. Weight is 160 pounds. GENERAL: Mrs. Faulkner is a 73-year-old elderly female, on ventilator which opens eyes to verbal stimuli, moderately built, moderately nourished. HEENT: Pupils are normal and reactive to light and accommodation. Conjunctivae pink. Sclerae anicteric. On ventilator. NECK: No thyroid enlargement. LUNGS: Symmetric on both sides. Bilateral breath sounds present. Occasional basal crackles present. CARDIOVASCULAR SYSTEM: Mcpherson at the fifth intercostal space, midclavicular line. S1 and S2 audible. No murmur or gallop. ABDOMEN: Normal in appearance. Soft, tympanitic. No guarding. No rigidity. No hepatosplenomegaly. CENTRAL NERVOUS SYSTEM: The patient is on ventilator, opens eyes to verbal stimuli. EXTREMITIES: No cyanosis, no clubbing. The patient has 2+ edema in both lower extremities. CURRENT MEDICATIONS: Include as follows: Crestor 10 mg at bedtime, Diprivan, also vancomycin 250 mg via NG tube four times a day, Flagyl 500 mg IV every 8 hours, folic acid 1 mg p.o. daily, metoprolol 25 mg p.o. b.i.d., Nephro-Nacho one tablet, Pepcid 20 mg IV daily, prednisone 5 mg p.o. daily, Procrit 10,000 units three times a week, vancomycin 1 g three times a week on Friday, Friday and Friday, Zemplar 2 mcg IV three times a week, status post Azactam 1 g x1 dose. LABORATORY DATA: Include as follows: As of 01/17/2019 at 1649 hours: Stool for C. difficile toxin is positive. Legionella antigen is negative. HIV is negative. Hepatitis C antibody is negative. Hepatitis B core antibody is negative. Hepatitis B surface antibody is negative. Hepatitis surface antigen is negative. Hepatitis C IgM is negative. Stool for occult blood is positive from 01/15/2019 and 01/17/2019. Other laboratory data: As of 01/17/2019: WBC 6, hemoglobin 10.5, hematocrit is 31.4, and platelets 137. ABG as of 01/17/2019, pH of 7.37, pCO2 of 31, pO2 of 75, bicarb is 19.8 and saturation 97.2 on vent settings AC 20, tidal volume 450, FiO2 of 50%, PEEP of 5.. Chem-7: Sodium 134, potassium 3.6, chloride 100, CO2 of 18, BUN 80, creatinine 4.9, glucose is 83, calcium 6.1, phosphorus 6.1, magnesium 1.7. Total bili 0.7, AST 61, ALT 22, alkaline phosphatase 73, total protein 7.2, albumin is 2.7. Procalcitonin is 42.53. Tracheal aspiration cultures are pending. MRSA screening is negative. Abdomen and bladder ultrasound as of 01/17/2019, impression: Cholelithiasis and sludge in the gallbladder with associated gallbladder wall thickening, measuring up to 5 mm, status post gallbladder wall edema. There is a concern for cholecystitis, considered correlation with nuclear medicine study, right pleural effusion and perihepatic and abdominal ascites, dilated CBD measuring 8.3 mm. Limited visualization of the pancreas, increased echogenicity of renal parenchymal cortex suggestive for atrophic right kidney, 1.3-cm upper pole right renal cyst, left kidney 10.6 x 4.8 x 4.3 and the right kidney is 4.7 x 2.4 x 2.2 cm. Clinically, the patient is status post renal transplant many years. Prior sonogram was unable to visualize the third kidney in the pelvic retroperitoneal area. ASSESSMENT AND PLAN: In summary, Mrs. Faulkner is 73-year-old elderly [place] female with a history of hypertension, status post renal transplant with worsening renal function and anemia who was admitted with near syncope, weakness and tachypnea and found to have a low hemoglobin and hematocrit and worsening renal function, not responding to bilevel positive airway pressure on admission. Subsequently, the patient was intubated and admitted to intensive care unit, status post femoral vein catheter placement, on hemodialysis, on ventilator. 1. 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 2. Anemia secondary to lower gastrointestinal bleed and renal failure and anemia secondary to iron deficiency. 3. Respiratory failure, rule out bilateral pneumonia. 4. Congestive heart failure with pleural effusion. 5. Clostridium difficile colitis. Continue oral vancomycin and Flagyl and intravenous vancomycin as per Infectious Disease recommendation. Infectious Disease note is appreciated. Thank you for allowing me to participate in your patient's care. The patient is scheduled for PermCath placement tomorrow. We will schedule for hemodialysis after PermCath placement. Ever Madrigal MD MTDD
[2019-01-18 05:32] LABS: ABG ALLEN TEST POS; ARTERIAL BLOOD GAS HCO3 21.2 mmol/L (21-28); ARTERIAL BLOOD GAS HEMOGLOBIN 10.2 g/dL (11.7-17.4); ARTERIAL BLOOD GAS O2 SAT 99.5 % (95-98); ARTERIAL BLOOD GAS PCO2 30 mm/Hg (35-45); ARTERIAL BLOOD GAS PH 7.41 (7.35-7.45); ARTERIAL BLOOD GAS PO2 171 mm/Hg (80-100); ARTERIAL BLOOD GAS TCO2 19.9 mmol/L (22-28)
[2019-01-18 06:20] LABS: HEMOGLOBIN 9.3 g/dL (11.0-16.0); MEAN CELL VOLUME 91.7 fL (81.0-99.0); MEAN CORPUSCULAR HEMOGLOBIN 31.5 pg (27.0-31.0); MEAN CORPUSCULAR HGB CONC 34.4 g/dL (33.0-37.0); MEAN PLATELET VOLUME 9.6 fL (7.2-11.7); RBC 2.95 Mil/uL (3.80-5.20); RED CELL DISTRIBUTION WIDTH 15.6 % (11.5-14.5); WHITE BLOOD COUNT 9.5 K/uL (4.8-10.8)
[2019-01-18] MEDS: metroNIDAZOLE IV 500 mg/100 ml 500 MG/100 ML BAG IVPB SCH ×3 (06:31→20:12)
[2019-01-18 06:41] LABS: ALB/GLOB RATIO 0.9 (1.0-2.1); ALBUMIN 2.3 g/dL (3.5-5.0); CALCIUM 6.2 mg/dl (8.6-10.4)
[2019-01-18] MEDS: Multivitamin Vitamin B Complex (Nephro-Vite) Tab PO SCH (08:36)
--- NOTE | 2019-01-18 08:53 | RAD ---
Chest x-ray single frontal view HISTORY: Shortness of breath. COMPARISON: 01/17/2019. FINDINGS: Lines and tubes in stable position. Biapical pleural thickening with upper lobe granulomatous changes. Diffuse increased somewhat ill-defined patchy consolidative opacities throughout both lungs. Superimposed patchy airspace consolidation at the lung bases with small left pleural effusion. Cardiomegaly. Degenerative changes in the spine. Impression: Lines and tubes in stable position. Biapical pleural thickening with upper lobe granulomatous changes. Diffuse increased somewhat ill-defined patchy consolidative opacities throughout both lungs. Superimposed patchy airspace consolidation at the lung bases with small left pleural effusion. Cardiomegaly.
[2019-01-18] MEDS: Saccharomyces Boulardi 250 mg Cap PO SCH ×2 (10:51→18:28)
[2019-01-18] MEDS: VANCOMYCIN HCL 250 MG/5 ML PEG SCH ×4 (10:56→21:55)
--- NOTE | 2019-01-18 11:07 | CP.CCUPN ---
<Mando Waters - Last Filed: 01/18/19 14:57> CCU Subjective - Physician Review Subjective (Free Text): 01/18/19 11:39 PGY-1 Critical Care Progress Note for Dr. Linares Patient seen and examined at bedside. Intubated and sedated. Pt to undergo CPAP trial in aims to wean ventilation for extubation. ROS unable to be obtained. CCU Objective - Vital Signs / Intake & Output Vital Signs (Last 4 hours): Vital Signs Temp Pulse Pulse Resp BP BP Pulse Ox 01/18/19 10:27 136/73 01/18/19 10:12 126/68 01/18/19 09:57 133/66 01/18/19 09:42 127/65 01/18/19 09:27 98.7 F 83 17 115/62 100 01/18/19 09:25 98.7 F 83 17 115/62 Intake and Output (Last 8hrs): Intake & Output 01/17/19 01/18/19 01/18/19 22:59 06:59 14:59 Intake Total 343.8 128.8 74.2 Output Total 30 Balance 313.8 128.8 74.2 Intake: IV 74.2 Intake, IV Amount 228.8 128.8 Right Femoral 28.8 28.8 Right Forearm 100 Right Forearm1 100 100 Tube Feeding 65 Other 50 Output: Urine 30 Straight 30 Other: # Bowel Movements 0 - Physical Exam Head: Positive for: Atraumatic, Normocephalic Pupils: Positive for: PERRL Extroacular Muscles: Positive for: EOMI Mouth: Positive for: Moist Mucous Membranes Cardiovascular: Positive for: Regular Rate and Rhythm, Murmurs, Normal S1, S2 Abdomen: Positive for: Normal Bowel Sounds Upper Extremity: Positive for: Normal Inspection Lower Extremity: Positive for: Normal Inspection Neurological: Positive for: Other (Sedated on propofol drip) Skin: Positive for: Warm - Medications Active Medications: Active Medications Generic Name Dose Route Start Last Admin Trade Name Freq PRN Reason Stop Dose Admin Epoetin Elijah 10,000 unit 01/16/19 10:00 01/16/19 13:14 Procrit IV 10,000 unit TTS GLADYS Administration Famotidine 20 mg 01/16/19 10:00 01/18/19 09:01 Pepcid IVP 20 mg DAILY GLADYS Administration Folic Acid 1 mg 01/15/19 10:00 01/18/19 09:00 Folic Acid PO 1 mg DAILY GLADYS Administration Propofol 1,000 mg in 100 mls @ 1.633 mls/hr 01/15/19 14:49 01/18/19 09:32 Diprivan IV 0 mcg/kg/min .Q24H PRN 0 mls/hr TITRATE PER MD ORDER Titration Protocol 5 MCG/KG/MIN Vancomycin/Sodium Chloride 1 gm in 200 mls @ 133.333 mls/hr 01/18/19 09:00 Vancomycin 1 Gm/Ns 200 Ml IVPB MWF GLADYS Protocol Metronidazole 500 mg in 100 mls @ 100 mls/hr 01/17/19 20:00 01/18/19 06:31 Flagyl IVPB 100 mls/hr Q8H GLADYS Administration Protocol Metoprolol Tartrate 25 mg 01/15/19 10:00 01/18/19 10:57 Lopressor PO Not Given BID GLADYS Paricalcitol 2 mcg 01/16/19 10:00 01/16/19 12:59 Zemplar IV 2 mcg TTS GLADYS Administration Prednisone 2.5 mg 01/18/19 10:00 01/18/19 10:58 Prednisone PO Not Given Q2D GLADYS Rosuvastatin Calcium 10 mg 01/15/19 22:00 01/17/19 21:24 Crestor PO 10 mg HS GLADYS Administration Saccharomyces Boulardii 250 mg 01/18/19 10:00 01/18/19 10:51 Florastor PO 250 mg BID GLADYS Administration Vancomycin HCl 250 mg 01/17/19 22:00 01/18/19 10:56 Firvanq (Oral Solution) PEG Not Given QID GLADYS Vitamin B Complex/Vit C/Folic Acid 1 tab 01/16/19 08:00 01/18/19 08:36 Nephro-Nacho PO 1 tab 0800 GLADYS Administration - Patient Studies Lab Studies: Microbiology Studies 01/17/19 13:40 Blood Culture - Preliminary Blood-Venous Gram Positive Cocci Gram Stain - Final 01/17/19 12:52 Blood Culture - Preliminary Blood-Venous Gram Positive Cocci Gram Stain - Final 01/17/19 12:52 Gram Stain - Final Trachasp 01/16/19 06:22 MRSA Culture (Admit) - Final Nose MRSA NOT DETECTED Lab Studies 01/18/19 01/18/19 01/18/19 Range/Units 06:12 06:12 05:23 WBC 9.5 D (4.8-10.8) K/uL RBC 2.95 L (3.80-5.20) Mil/uL Hgb 9.3 L (11.0-16.0) g/dL Hct 27.1 L (34.0-47.0) % MCV 91.7 (81.0-99.0) fL MCH 31.5 H (27.0-31.0) pg MCHC 34.4 (33.0-37.0) g/dL RDW 15.6 H (11.5-14.5) % Plt Count 108 L D (130-400) K/uL MPV 9.6 (7.2-11.7) fL Puncture Site Rr pCO2 30 L (35-45) mm/Hg pO2 171 H (80-100) mm/Hg HCO3 21.2 (21-28) mmol/L ABG pH 7.41 (7.35-7.45) ABG Total CO2 19.9 L (22-28) mmol/L ABG O2 Saturation 99.5 H (95-98) % ABG Base Excess -4.8 L (-2.0-3.0) mmol/L ABG Hemoglobin 10.2 L (11.7-17.4) g/dL ABG Carboxyhemoglobin 1.4 (0.5-1.5) % POC ABG HHb (Measured) 0.5 (0.0-5.0) % ABG Methemoglobin 1.0 (0.0-3.0) % Trevin Test Pos A-a O2 Difference 148.0 mm/Hg Respiratory Index 0.9 Hgb O2 Saturation 97.1 (95.0-98.0) % Vent Mode Prvc Mechanical Rate 20 FiO2 50.0 % Tidal Volume 450 PEEP 5 Sodium 134 (132-148) mmol/L Potassium 3.7 (3.6-5.2) mmol/L Chloride 101 (98-107) mmol/L Carbon Dioxide 20 L (22-30) mmol/L Anion Gap 17 (10-20) BUN 92 H (7-17) mg/dL Creatinine 5.7 H (0.7-1.2) mg/dL Est GFR ( Amer) 9 Est GFR (Non-Af Amer) 7 Random Glucose 97 (65-105) mg/dL Calcium 6.2 L (8.6-10.4) mg/dl Phosphorus 7.2 H (2.5-4.5) mg/dL Magnesium 1.7 (1.6-2.3) mg/dL Total Bilirubin 0.7 (0.2-1.3) mg/dL AST 42 H D (14-36) U/L ALT 18 (9-52) U/L Alkaline Phosphatase 71 (38-126) U/L Total Protein 4.8 L (6.3-8.3) g/dL Albumin 2.3 L (3.5-5.0) g/dL Globulin 2.5 (2.2-3.9) gm/dL Albumin/Globulin Ratio 0.9 L (1.0-2.1) Procalcitonin (0.19-0.49) NG/ML C. difficile Ag & Toxin (NEGATIVE) Ur L.pneumophila Ag (NEGATIVE) 01/17/19 01/17/19 01/17/19 Range/Units 18:49 16:49 16:49 WBC (4.8-10.8) K/uL RBC (3.80-5.20) Mil/uL Hgb (11.0-16.0) g/dL Hct (34.0-47.0) % MCV (81.0-99.0) fL MCH (27.0-31.0) pg MCHC (33.0-37.0) g/dL RDW (11.5-14.5) % Plt Count (130-400) K/uL MPV (7.2-11.7) fL Puncture Site pCO2 (35-45) mm/Hg pO2 (80-100) mm/Hg HCO3 (21-28) mmol/L ABG pH (7.35-7.45) ABG Total CO2 (22-28) mmol/L ABG O2 Saturation (95-98) % ABG Base Excess (-2.0-3.0) mmol/L ABG Hemoglobin (11.7-17.4) g/dL ABG Carboxyhemoglobin (0.5-1.5) % POC ABG HHb (Measured) (0.0-5.0) % ABG Methemoglobin (0.0-3.0) % Trevin Test A-a O2 Difference mm/Hg Respiratory Index Hgb O2 Saturation (95.0-98.0) % Vent Mode Mechanical Rate FiO2 % Tidal Volume PEEP Sodium (132-148) mmol/L Potassium (3.6-5.2) mmol/L Chloride (98-107) mmol/L Carbon Dioxide (22-30) mmol/L Anion Gap (10-20) BUN (7-17) mg/dL Creatinine (0.7-1.2) mg/dL Est GFR ( Amer) Est GFR (Non-Af Amer) Random Glucose (65-105) mg/dL Calcium (8.6-10.4) mg/dl Phosphorus (2.5-4.5) mg/dL Magnesium (1.6-2.3) mg/dL Total Bilirubin (0.2-1.3) mg/dL AST (14-36) U/L ALT (9-52) U/L Alkaline Phosphatase (38-126) U/L Total Protein (6.3-8.3) g/dL Albumin (3.5-5.0) g/dL Globulin (2.2-3.9) gm/dL Albumin/Globulin Ratio (1.0-2.1) Procalcitonin 42.53 H (0.19-0.49) NG/ML C. difficile Ag & Toxin Positive H (NEGATIVE) Ur L.pneumophila Ag Negative (NEGATIVE) Laboratory Results - last 24 hr 01/17/19 01/17/19 01/17/19 16:49 16:49 18:49 WBC RBC Hgb Hct MCV MCH MCHC RDW Plt Count MPV Puncture Site pCO2 pO2 HCO3 ABG pH ABG Total CO2 ABG O2 Saturation ABG Base Excess ABG Hemoglobin ABG Carboxyhemoglobin POC ABG HHb (Measured) ABG Methemoglobin Trevin Test A-a O2 Difference Respiratory Index Hgb O2 Saturation Vent Mode Mechanical Rate FiO2 Tidal Volume PEEP Sodium Potassium Chloride Carbon Dioxide Anion Gap BUN Creatinine Est GFR ( Amer) Est GFR (Non-Af Amer) Random Glucose Calcium Phosphorus Magnesium Total Bilirubin AST ALT Alkaline Phosphatase Total Protein Albumin Globulin Albumin/Globulin Ratio Procalcitonin 42.53 H C. difficile Ag & Toxin Positive H Ur L.pneumophila Ag Negative 01/18/19 01/18/19 01/18/19 05:23 06:12 06:12 WBC 9.5 D RBC 2.95 L Hgb 9.3 L Hct 27.1 L MCV 91.7 MCH 31.5 H MCHC 34.4 RDW 15.6 H Plt Count 108 L D MPV 9.6 Puncture Site Rr pCO2 30 L pO2 171 H HCO3 21.2 ABG pH 7.41 ABG Total CO2 19.9 L ABG O2 Saturation 99.5 H ABG Base Excess -4.8 L ABG Hemoglobin 10.2 L ABG Carboxyhemoglobin 1.4 POC ABG HHb (Measured) 0.5 ABG Methemoglobin 1.0 Trevin Test Pos A-a O2 Difference 148.0 Respiratory Index 0.9 Hgb O2 Saturation 97.1 Vent Mode Prvc Mechanical Rate 20 FiO2 50.0 Tidal Volume 450 PEEP 5 Sodium 134 Potassium 3.7 Chloride 101 Carbon Dioxide 20 L Anion Gap 17 BUN 92 H Creatinine 5.7 H Est GFR ( Amer) 9 Est GFR (Non-Af Amer) 7 Random Glucose 97 Calcium 6.2 L Phosphorus 7.2 H Magnesium 1.7 Total Bilirubin 0.7 AST 42 H D ALT 18 Alkaline Phosphatase 71 Total Protein 4.8 L Albumin 2.3 L Globulin 2.5 Albumin/Globulin Ratio 0.9 L Procalcitonin C. difficile Ag & Toxin Ur L.pneumophila Ag Radiology Impressions: Radiology Impressions Abdomen/Bladder Ultrasound 01/17/19 06:06 Impression: 1. Cholelithiasis and sludge in the gallbladder with associated gallbladder wall thickening measuring up to 5 millimeters. Associated gallbladder wall edema. If there is concern for cholecystitis, consider correlation with nuclear medicine study. 2. Right pleural effusion. 3. Perihepatic and abdominal ascites. 4. Dilated common bile duct measuring 8.3 millimeters. 5. Limited visualization of the pancreas. 6. Increased echogenicity of the left renal parenchymal cortex suggestive for medical renal disease. Clinical correlation. 7. Atrophic right kidney. 1.3 centimeter upper pole right renal cyst. Additional findings as above. Chest X-Ray 01/18/19 07:32 Impression: Lines and tubes in stable position. Biapical pleural thickening with upper lobe granulomatous changes. Diffuse increased somewhat ill-defined patchy consolidative opacities throughout both lungs. Superimposed patchy airspace consolidation at the lung bases with small left pleural effusion. Cardiomegaly. Review of Systems - Review of Systems Systems not reviewed;Unavailable: Intubated Critical Care Progress Note - Nutrition Nutrition: Nutrition Category Date Time Status NPO Diet [DIET] Diets 01/15/19 Lunch Active Assessment/Plan - Assessment and Plan (Free Text) Assessment: 73 year old female with history ESRD s/p failing renal transplant from 2002 presents acutely short of breath, found to have moderate bilateral pleural effusion on chest x-ray and CT chest as well as cardiomegaly, and anemic with HgB 5.2. Cardio Cardiomegaly on chest XR -Echo 01/15 - f/u read -Normal sinus on monitor Pulmonary Bilateral pleural effusions -Intubated, on vent/PRVC with OGT in place -Maintain spO2>92% -S/p Shiley HD catheter placement beside with vascular surgery, Dr. Butler -S/p HD Monday 01/15 with some improvement on repeat CXR. still with patchy ill- defined opacities on MR CXR -Possible cardiac component - f/u echo -Repiratory status improving - CPAP trial --> wean to extubate -Repeating CT chest - f/u to monitor interval improvement Imaging on Admission: CXR 12/15: Prominent consolidative opacification with patchy opacities seen throughout the right lung as well as within the left upper lung zone. Post treatment interval follow-up is recommended to ensure resolution. Moderate left pleural effusion. Blunted right costophrenic angle. Cardiomegaly. CT Chest w/o Contrast 01/15: 1. Multifocal ground-glass and confluent airspace disease in both lungs may represent pulmonary edema or multifocal pneumonia. Follow-up is advised. 2. Moderate cardiomegaly, small pericardial effusion and moderate bilateral pleural effusions.3. Cholelithiasis in over distended gallbladder. Please correlate with right upper quadrant ultrasound Neuro -Weaning propofol drip CT Head 01/15: No acute intracranial abnormality. Mild chronic microangiopathic changes and mild age-related global parenchymal volume loss. GI -Cholelithiasis noted on CT Chest --Normal T bili, LFTS, and alk phos -GI ppx Renal ESRD hx renal transplant 2002, requiring new HD for failing transplant -S/p R femoral Shiley HD catheter placement beside with vascular surgery, Dr. Butler -Patient underwent HD on Monday 01/15. -Per surgery, awaiting medical stabilization prior to permacath placement -F/u Nephro, Dr. Madrigal, for HD plan -Monitor output and fluid status -Prednisone decreased 01/18 from 5mg PO daily --> 2.5 mg Q2d ID/Heme Anemia -HgB 5.2 on admission -S/p 3U PRBCs --> 10.5 --> 9.3 today -Etiology due to chronic renal insufficiency vs GI bleed. -HgB stable at 9.3 today, will monitor for symptoms and daily CBC to assess need to transfuse. Low-Grade Temp -Temp 99.9F over weekend - dunbar cultures neg x24 hours - f/u final results -Stool studies - f/u -ID consulted, Dr. Bazan -Abx - Cefepime PPx -Pepcid 20 mg IV daily -DVT ppx c/i 2/2 anemia Assessment and plan d/w Dr. Milagros Waters, PGY-1 <Carri Linares - Last Filed: 01/18/19 16:46> CCU Objective - Vital Signs / Intake & Output Vital Signs (Last 4 hours): Vital Signs Pulse Resp BP Pulse Ox 01/18/19 16:10 84 15 128/62 100 01/18/19 16:00 87 14 100 01/18/19 15:10 86 16 133/68 100 01/18/19 15:00 82 20 100 01/18/19 14:11 84 20 125/61 100 01/18/19 14:00 91 H 20 100 01/18/19 13:22 91 H 13 132/58 L 98 01/18/19 13:14 17 Intake and Output (Last 8hrs): Intake & Output 01/18/19 01/18/19 01/18/19 06:59 14:59 22:59 Intake Total 128.8 349.6 Balance 128.8 349.6 Weight 133 lb 2.547 oz Intake: IV 74.2 Intake, IV Amount 128.8 5.4 Right Femoral 28.8 5.4 Right Forearm 0 Right Forearm1 100 0 Tube Feeding 270 - Medications Active Medications: Active Medications Generic Name Dose Route Start Last Admin Trade Name Freq PRN Reason Stop Dose Admin Epoetin Elijah 10,000 unit 01/16/19 10:00 01/16/19 13:14 Procrit IV 10,000 unit TTS GLADYS Administration Famotidine 20 mg 01/16/19 10:00 01/18/19 09:01 Pepcid IVP 20 mg DAILY GLADYS Administration Folic Acid 1 mg 01/15/19 10:00 01/18/19 09:00 Folic Acid PO 1 mg DAILY GLADYS Administration Propofol 1,000 mg in 100 mls @ 1.633 mls/hr 01/15/19 14:49 01/18/19 09:32 Diprivan IV 0 mcg/kg/min .Q24H PRN 0 mls/hr TITRATE PER MD ORDER Titration Protocol 5 MCG/KG/MIN Vancomycin/Sodium Chloride 1 gm in 200 mls @ 133.333 mls/hr 01/18/19 09:00 01/18/19 13:33 Vancomycin 1 Gm/Ns 200 Ml IVPB 133.333 mls/hr MWF GLADYS Administration Protocol Metronidazole 500 mg in 100 mls @ 100 mls/hr 01/17/19 20:00 01/18/19 13:32 Flagyl IVPB 100 mls/hr Q8H GLADYS Administration Protocol Metoprolol Tartrate 25 mg 01/15/19 10:00 01/18/19 10:57 Lopressor PO Not Given BID GLADYS Paricalcitol 2 mcg 01/16/19 10:00 01/16/19 12:59 Zemplar IV 2 mcg TTS GLADYS Administration Prednisone 2.5 mg 01/18/19 10:00 01/18/19 10:58 Prednisone PO Not Given Q2D GLADYS Rosuvastatin Calcium 10 mg 01/15/19 22:00 01/17/19 21:24 Crestor PO 10 mg HS GLADYS Administration Saccharomyces Boulardii 250 mg 01/18/19 10:00 01/18/19 10:51 Florastor PO 250 mg BID GLADYS Administration Vancomycin HCl 250 mg 01/17/19 22:00 01/18/19 13:40 Firvanq (Oral Solution) PEG 250 mg QID GLADYS Administration Vitamin B Complex/Vit C/Folic Acid 1 tab 01/16/19 08:00 01/18/19 08:36 Nephro-Nacho PO 1 tab 0800 GLADYS Administration - Patient Studies Lab Studies: Microbiology Studies 01/17/19 12:52 S.aureus & Coag-Neg Staph PNA FISH - Preliminary Blood-Venous Blood Culture - Preliminary Gram Positive Cocci Gram Stain - Final 01/17/19 13:40 Blood Culture - Preliminary Blood-Venous Gram Positive Cocci Gram Stain - Final 01/17/19 12:52 Gram Stain - Final Trachasp Lab Studies 01/18/19 01/18/19 01/18/19 Range/Units 06:12 06:12 05:23 WBC 9.5 D (4.8-10.8) K/uL RBC 2.95 L (3.80-5.20) Mil/uL Hgb 9.3 L (11.0-16.0) g/dL Hct 27.1 L (34.0-47.0) % MCV 91.7 (81.0-99.0) fL MCH 31.5 H (27.0-31.0) pg MCHC 34.4 (33.0-37.0) g/dL RDW 15.6 H (11.5-14.5) % Plt Count 108 L D (130-400) K/uL MPV 9.6 (7.2-11.7) fL Puncture Site Rr pCO2 30 L (35-45) mm/Hg pO2 171 H (80-100) mm/Hg HCO3 21.2 (21-28) mmol/L ABG pH 7.41 (7.35-7.45) ABG Total CO2 19.9 L (22-28) mmol/L ABG O2 Saturation 99.5 H (95-98) % ABG Base Excess -4.8 L (-2.0-3.0) mmol/L ABG Hemoglobin 10.2 L (11.7-17.4) g/dL ABG Carboxyhemoglobin 1.4 (0.5-1.5) % POC ABG HHb (Measured) 0.5 (0.0-5.0) % ABG Methemoglobin 1.0 (0.0-3.0) % Trevin Test Pos A-a O2 Difference 148.0 mm/Hg Respiratory Index 0.9 Hgb O2 Saturation 97.1 (95.0-98.0) % Vent Mode Prvc Mechanical Rate 20 FiO2 50.0 % Tidal Volume 450 PEEP 5 Sodium 134 (132-148) mmol/L Potassium 3.7 (3.6-5.2) mmol/L Chloride 101 (98-107) mmol/L Carbon Dioxide 20 L (22-30) mmol/L Anion Gap 17 (10-20) BUN 92 H (7-17) mg/dL Creatinine 5.7 H (0.7-1.2) mg/dL Est GFR ( Amer) 9 Est GFR (Non-Af Amer) 7 Random Glucose 97 (65-105) mg/dL Calcium 6.2 L (8.6-10.4) mg/dl Phosphorus 7.2 H (2.5-4.5) mg/dL Magnesium 1.7 (1.6-2.3) mg/dL Total Bilirubin 0.7 (0.2-1.3) mg/dL AST 42 H D (14-36) U/L ALT 18 (9-52) U/L Alkaline Phosphatase 71 (38-126) U/L Lactate Dehydrogenase 1592 H (313-618) U/L Total Protein 4.8 L (6.3-8.3) g/dL Albumin 2.3 L (3.5-5.0) g/dL Globulin 2.5 (2.2-3.9) gm/dL Albumin/Globulin Ratio 0.9 L (1.0-2.1) Procalcitonin (0.19-0.49) NG/ML C. difficile Ag & Toxin (NEGATIVE) HIV 1&2 Ag/Ab, 4th Gen (Nonreactive) Ur L.pneumophila Ag (NEGATIVE) 01/17/19 01/17/19 01/17/19 Range/Units 18:49 16:49 16:49 WBC (4.8-10.8) K/uL RBC (3.80-5.20) Mil/uL Hgb (11.0-16.0) g/dL Hct (34.0-47.0) % MCV (81.0-99.0) fL MCH (27.0-31.0) pg MCHC (33.0-37.0) g/dL RDW (11.5-14.5) % Plt Count (130-400) K/uL MPV (7.2-11.7) fL Puncture Site pCO2 (35-45) mm/Hg pO2 (80-100) mm/Hg HCO3 (21-28) mmol/L ABG pH (7.35-7.45) ABG Total CO2 (22-28) mmol/L ABG O2 Saturation (95-98) % ABG Base Excess (-2.0-3.0) mmol/L ABG Hemoglobin (11.7-17.4) g/dL ABG Carboxyhemoglobin (0.5-1.5) % POC ABG HHb (Measured) (0.0-5.0) % ABG Methemoglobin (0.0-3.0) % Trevin Test A-a O2 Difference mm/Hg Respiratory Index Hgb O2 Saturation (95.0-98.0) % Vent Mode Mechanical Rate FiO2 % Tidal Volume PEEP Sodium (132-148) mmol/L Potassium (3.6-5.2) mmol/L Chloride (98-107) mmol/L Carbon Dioxide (22-30) mmol/L Anion Gap (10-20) BUN (7-17) mg/dL Creatinine (0.7-1.2) mg/dL Est GFR ( Amer) Est GFR (Non-Af Amer) Random Glucose (65-105) mg/dL Calcium (8.6-10.4) mg/dl Phosphorus (2.5-4.5) mg/dL Magnesium (1.6-2.3) mg/dL Total Bilirubin (0.2-1.3) mg/dL AST (14-36) U/L ALT (9-52) U/L Alkaline Phosphatase (38-126) U/L Lactate Dehydrogenase (313-618) U/L Total Protein (6.3-8.3) g/dL Albumin (3.5-5.0) g/dL Globulin (2.2-3.9) gm/dL Albumin/Globulin Ratio (1.0-2.1) Procalcitonin 42.53 H (0.19-0.49) NG/ML C. difficile Ag & Toxin Positive H (NEGATIVE) HIV 1&2 Ag/Ab, 4th Gen (Nonreactive) Ur L.pneumophila Ag Negative (NEGATIVE) 01/15/19 Range/Units 16:32 WBC (4.8-10.8) K/uL RBC (3.80-5.20) Mil/uL Hgb (11.0-16.0) g/dL Hct (34.0-47.0) % MCV (81.0-99.0) fL MCH (27.0-31.0) pg MCHC (33.0-37.0) g/dL RDW (11.5-14.5) % Plt Count (130-400) K/uL MPV (7.2-11.7) fL Puncture Site pCO2 (35-45) mm/Hg pO2 (80-100) mm/Hg HCO3 (21-28) mmol/L ABG pH (7.35-7.45) ABG Total CO2 (22-28) mmol/L ABG O2 Saturation (95-98) % ABG Base Excess (-2.0-3.0) mmol/L ABG Hemoglobin (11.7-17.4) g/dL ABG Carboxyhemoglobin (0.5-1.5) % POC ABG HHb (Measured) (0.0-5.0) % ABG Methemoglobin (0.0-3.0) % Trevin Test A-a O2 Difference mm/Hg Respiratory Index Hgb O2 Saturation (95.0-98.0) % Vent Mode Mechanical Rate FiO2 % Tidal Volume PEEP Sodium (132-148) mmol/L Potassium (3.6-5.2) mmol/L Chloride (98-107) mmol/L Carbon Dioxide (22-30) mmol/L Anion Gap (10-20) BUN (7-17) mg/dL Creatinine (0.7-1.2) mg/dL Est GFR ( Amer) Est GFR (Non-Af Amer) Random Glucose (65-105) mg/dL Calcium (8.6-10.4) mg/dl Phosphorus (2.5-4.5) mg/dL Magnesium (1.6-2.3) mg/dL Total Bilirubin (0.2-1.3) mg/dL AST (14-36) U/L ALT (9-52) U/L Alkaline Phosphatase (38-126) U/L Lactate Dehydrogenase (313-618) U/L Total Protein (6.3-8.3) g/dL Albumin (3.5-5.0) g/dL Globulin (2.2-3.9) gm/dL Albumin/Globulin Ratio (1.0-2.1) Procalcitonin (0.19-0.49) NG/ML C. difficile Ag & Toxin (NEGATIVE) HIV 1&2 Ag/Ab, 4th Gen Nonreactive (Nonreactive) Ur L.pneumophila Ag (NEGATIVE) Laboratory Results - last 24 hr 01/15/19 01/17/19 01/17/19 16:32 16:49 16:49 WBC RBC Hgb Hct MCV MCH MCHC RDW Plt Count MPV Puncture Site pCO2 pO2 HCO3 ABG pH ABG Total CO2 ABG O2 Saturation ABG Base Excess ABG Hemoglobin ABG Carboxyhemoglobin POC ABG HHb (Measured) ABG Methemoglobin Trevin Test A-a O2 Difference Respiratory Index Hgb O2 Saturation Vent Mode Mechanical Rate FiO2 Tidal Volume PEEP Sodium Potassium Chloride Carbon Dioxide Anion Gap BUN Creatinine Est GFR ( Amer) Est GFR (Non-Af Amer) Random Glucose Calcium Phosphorus Magnesium Total Bilirubin AST ALT Alkaline Phosphatase Lactate Dehydrogenase Total Protein Albumin Globulin Albumin/Globulin Ratio Procalcitonin C. difficile Ag & Toxin Positive H HIV 1&2 Ag/Ab, 4th Gen Nonreactive Ur L.pneumophila Ag Negative 01/17/19 01/18/19 01/18/19 18:49 05:23 06:12 WBC 9.5 D RBC 2.95 L Hgb 9.3 L Hct 27.1 L MCV 91.7 MCH 31.5 H MCHC 34.4 RDW 15.6 H Plt Count 108 L D MPV 9.6 Puncture Site Rr pCO2 30 L pO2 171 H HCO3 21.2 ABG pH 7.41 ABG Total CO2 19.9 L ABG O2 Saturation 99.5 H ABG Base Excess -4.8 L ABG Hemoglobin 10.2 L ABG Carboxyhemoglobin 1.4 POC ABG HHb (Measured) 0.5 ABG Methemoglobin 1.0 Trevin Test Pos A-a O2 Difference 148.0 Respiratory Index 0.9 Hgb O2 Saturation 97.1 Vent Mode Prvc Mechanical Rate 20 FiO2 50.0 Tidal Volume 450 PEEP 5 Sodium Potassium Chloride Carbon Dioxide Anion Gap BUN Creatinine Est GFR ( Amer) Est GFR (Non-Af Amer) Random Glucose Calcium Phosphorus Magnesium Total Bilirubin AST ALT Alkaline Phosphatase Lactate Dehydrogenase Total Protein Albumin Globulin Albumin/Globulin Ratio Procalcitonin 42.53 H C. difficile Ag & Toxin HIV 1&2 Ag/Ab, 4th Gen Ur L.pneumophila Ag 01/18/19 06:12 WBC RBC Hgb Hct MCV MCH MCHC RDW Plt Count MPV Puncture Site pCO2 pO2 HCO3 ABG pH ABG Total CO2 ABG O2 Saturation ABG Base Excess ABG Hemoglobin ABG Carboxyhemoglobin POC ABG HHb (Measured) ABG Methemoglobin Trevin Test A-a O2 Difference Respiratory Index Hgb O2 Saturation Vent Mode Mechanical Rate FiO2 Tidal Volume PEEP Sodium 134 Potassium 3.7 Chloride 101 Carbon Dioxide 20 L Anion Gap 17 BUN 92 H Creatinine 5.7 H Est GFR ( Amer) 9 Est GFR (Non-Af Amer) 7 Random Glucose 97 Calcium 6.2 L Phosphorus 7.2 H Magnesium 1.7 Total Bilirubin 0.7 AST 42 H D ALT 18 Alkaline Phosphatase 71 Lactate Dehydrogenase 1592 H Total Protein 4.8 L Albumin 2.3 L Globulin 2.5 Albumin/Globulin Ratio 0.9 L Procalcitonin C. difficile Ag & Toxin HIV 1&2 Ag/Ab, 4th Gen Ur L.pneumophila Ag Radiology Impressions: Radiology Impressions Chest X-Ray 01/18/19 07:32 Impression: Lines and tubes in stable position. Biapical pleural thickening with upper lobe granulomatous changes. Diffuse increased somewhat ill-defined patchy consolidative opacities throughout both lungs. Superimposed patchy airspace consolidation at the lung bases with small left pleural effusion. Cardiomegaly. Chest CT 01/18/19 12:49 Impression: Endotracheal tube. Nasogastric tube. Cardiomegaly. Small to moderate pericardial effusion. Small to moderate bilateral pleural effusions and associated compressive consolidations. Ground-glass and patchy scattered diffuse pulmonary infiltrates suspicious for multifocal pneumonia and or edema. Discontinuity about the mid sternum suspected secondary to patient motion however interval fracture cannot be entirely excluded. Correlate with clinical history and physical examination. Scattered patchy sclerotic foci evident throughout the visualized osseous structures. There is decreased mineralization of the bones, most likely representing osteoporosis. Rarely, underlying metabolic bone disease or infiltrative lesions can also have this appearance. This decreases the sensitivity for detection of acute fracture lines, and if this is of clinical concern, MRI should be considered. Additional findings as above. Critical Care Progress Note - Nutrition Nutrition: Nutrition Category Date Time Status NPO Diet [DIET] Diets 01/15/19 Lunch Active Attending/Attestation - Attestation I have personally seen and examined this patient.: Yes I have fully participated in the care of the patient.: Yes I have reviewed all pertinent clinical information: Yes Notes (Text): 01/18/19 16:45 Patient is now on ventilator. Tolerating the CPAP. He received the dialysis today. But a repeat CAT scan showing increasing bilateral infiltrative changes. We will continue the CPAP trial. We will repeat the x-ray tomorrow, may need bronchoscopy and will follow the patient
[2019-01-18] MEDS: Vancomycin 1 gm/NS 200 ml 1 GM/200 ML BAG IVPB SCH (13:33)
--- NOTE | 2019-01-18 14:58 | CT ---
Date of service: 01/18/2019 CT chest without IV contrast Indication: SOB Technique: Contiguous axial images were obtained through the chest without intravenous contrast enhancement. Sagittal and coronal reconstructions were generated and reviewed. This CT exam was performed using 1 or more of the following dose reduction techniques: Automated exposure control, adjustment of the MAA and/or kV according to patient size, and/or use of iterative reconstruction technique. Radiation dose (DLP): 384.71 MGy-cm. Comparison: Chest x-ray performed 01/18/19, CT chest performed 01/15/19 Findings: Endotracheal tube terminates above the linda. Nasogastric tube extends to the stomach. Visualized portions of the inferior thyroid gland appear heterogeneous. Limited assessment of the unenhanced mediastinal and hilar vascular structures appear grossly unremarkable. Please note absence of IV contrast limits evaluation for adenopathy, in particular hilar adenopathy. Cardiomegaly. Small to moderate pericardial effusion. Small to moderate bilateral pleural effusions and associated compressive consolidations. Ground-glass and patchy scattered diffuse pulmonary infiltrates suspicious for multifocal pneumonia and or edema. Limited visualization of the noncontrast upper abdomen demonstrates partially imaged probable gallstone. Discontinuity about the mid sternum suspected secondary to patient motion however interval fracture cannot be entirely excluded. Scattered patchy sclerotic foci evident throughout the visualized osseous structures. There is decreased mineralization of the bones, most likely representing osteoporosis. Rarely, underlying metabolic bone disease or infiltrative lesions can also have this appearance. This decreases the sensitivity for detection of acute fracture lines, and if this is of clinical concern, MRI should be considered. Impression: Endotracheal tube. Nasogastric tube. Cardiomegaly. Small to moderate pericardial effusion. Small to moderate bilateral pleural effusions and associated compressive consolidations. Ground-glass and patchy scattered diffuse pulmonary infiltrates suspicious for multifocal pneumonia and or edema. Discontinuity about the mid sternum suspected secondary to patient motion however interval fracture cannot be entirely excluded. Correlate with clinical history and physical examination. Scattered patchy sclerotic foci evident throughout the visualized osseous structures. There is decreased mineralization of the bones, most likely representing osteoporosis. Rarely, underlying metabolic bone disease or infiltrative lesions can also have this appearance. This decreases the sensitivity for detection of acute fracture lines, and if this is of clinical concern, MRI should be considered. Additional findings as above.
--- NOTE | 2019-01-18 16:19 | CARD ---
APPROVED REPORT Date of service: 01/16/2019 EXAM: Two-dimensional and M-mode echocardiogram with Doppler and color Doppler. INDICATION Dyspnea Congestive Heart Failure RISK FACTORS Hypertension 2D DIMENSIONS IVSd1.6 (0.7-1.1cm)LVDd2.8 (3.9-5.9cm) LVOT Diameter1.6 (1.8-2.4cm)PWd1.5 (0.7-1.1cm) LA Thlmjj33 (18-58mL)LVDs1.9 (2.5-4.0cm) FS (%) 32.8 %LVEF (%)63.2 (>50%) LVEF (Denise's)62.72 % M-Mode DIMENSIONS Left Atrium (MM)4.55 (2.5-4.0cm)Aortic Root2.39 (2.2-3.7cm) Aortic Cusp Exc.0.87 (1.5-2.0cm) Mitral Valve MV E Volakvsp30.5cm/sMV A Jcpjwiid616.8cm/sE/A ratio0.7 TDI Lateral E' Peak V7.32cm/sMedial E' Peak V8.55cm/sE/Lateral E'12.1 E/Medial E'10.4 Pulmonary Valve PV Peak Qmyrzbyf64.2cm/sPV Peak Grad.3mmHg Tricuspid Valve TR Peak Mshhotaq777on/sTR Peak Gr.83hbAfLGGL37xkNb LEFT VENTRICLE The left ventricle is normal size. There is moderate concentric left ventricular hypertrophy. Left ventricle systolic function is normal. The Ejection Fraction is 60-65%. There is normal LV segmental wall motion. Tissue Doppler imaging reveals abnormal left ventricular diastolic dysfunction. No left ventricle thrombus noted on this study. RIGHT VENTRICLE The right ventricle is normal size. There is normal right ventricular wall thickness. The right ventricular systolic function is normal. ATRIA The left atrium size is normal. The right atrium size is normal. The discontinuity of the interatrial septum is suggestive of an atrial septal defect. Suggest repeat study with bubble contrast study or AMOL. Please correlate clinically. AORTIC VALVE The aortic valve is normal in structure. There is trace aortic regurgitation. There is no aortic valvular stenosis. There is no aortic valvular vegetation. MITRAL VALVE The mitral valve is normal in structure. There is no evidence of mitral valve prolapse. There is no mitral valve stenosis. Mitral regurgitation is mild. TRICUSPID VALVE The tricuspid valve is normal in structure. There is mild tricuspid regurgitation. Right ventricular systolic pressure is estimated at 50-60 mmHg. There is moderate pulmonary hypertension. PULMONIC VALVE The pulmonic valve is not well visualized. There is no pulmonic valvular regurgitation. GREAT VESSELS The aortic root is normal in size. PERICARDIAL EFFUSION There is a moderate-large loculated posterior pericardial effusion. <Conclusion> Left ventricle systolic function is normal. The Ejection Fraction is 60-65%. Hypertensive heart disease. Diastolic dysfunction. The discontinuity of the interatrial septum is suggestive of an atrial septal defect. Suggest repeat study with bubble contrast study or AMOL. Please correlate clinically. There is trace aortic regurgitation. Mitral regurgitation is mild. There is mild tricuspid regurgitation. There is moderate pulmonary hypertension. There is no pulmonic valvular regurgitation. There is a moderate-large loculated posterior pericardial effusion.
[2019-01-18] MEDS ORDERED: Metoprolol 1 mg/ml Inj IVP STA (17:20)
[2019-01-18] MEDS ORDERED: Metoprolol 1 mg/ml Inj ONE (17:27)
[2019-01-18] MEDS ORDERED: Digoxin 500 mcg/2ml (0.5 mg/2ml) Inj IVP ONE ×2 (17:51→18:15)
[2019-01-18] MEDS ORDERED: Dexmedetomidine Hydrochloride 200 MCG in Sodium Chloride 0.9% 48 ML IV PRN (17:52)
[2019-01-18] MEDS ORDERED: Digoxin 500 mcg/2ml (0.5 mg/2ml) Inj ONE (17:58)
[2019-01-18 18:26] VITALS: PULSE 140
--- NOTE | 2019-01-18 19:52 | CP.PCM.PN ---
Subjective - Date & Time of Evaluation Date of Evaluation: 01/18/19 Time of Evaluation: 19:51 - Subjective Subjective: pt is seen and examined, follow up consult is dictated #[id number] s/p hd today d/c fv catheter hold poerma cath until blood c/s are negative Objective - Vital Signs/Intake and Output Vital Signs (last 24 hours): Temp Pulse Resp BP Pulse Ox 98.1 F 131 H 20 70/40 L 100 01/18/19 16:00 01/18/19 19:05 01/18/19 19:05 01/18/19 19:05 01/18/19 19:05 Intake and Output: 01/18/19 01/19/19 18:59 06:59 Intake Total 484.6 Balance 484.6 - Medications Medications: Current Medications Epoetin Elijah (Procrit) 10,000 unit IV TTS [facility] Last Admin: 01/16/19 13:14 Dose: 10,000 unit Famotidine (Pepcid) 20 mg IVP DAILY [facility] Last Admin: 01/18/19 09:01 Dose: 20 mg Folic Acid (Folic Acid) 1 mg PO DAILY [facility] Last Admin: 01/18/19 09:00 Dose: 1 mg Propofol (Diprivan) 1,000 mg in 100 mls @ 1.633 mls/hr IV .Q24H PRN; Protocol PRN Reason: TITRATE PER MD ORDER Last Titration: 01/18/19 09:32 Dose: 0 mcg/kg/min, 0 mls/hr Vancomycin/Sodium Chloride (Vancomycin 1 Gm/Ns 200 Ml) 1 gm in 200 mls @ 133.333 mls/hr IVPB MWF [facility]; Protocol Last Admin: 01/18/19 13:33 Dose: 133.333 mls/hr Metronidazole (Flagyl) 500 mg in 100 mls @ 100 mls/hr IVPB Q8H [facility]; Protocol Last Admin: 01/18/19 13:32 Dose: 100 mls/hr Dexmedetomidine HCl 200 mcg/ (Sodium Chloride) 50 mls @ 3.02 mls/hr IV TITR PRN; Protocol PRN Reason: Agitation Diltiazem HCl 125 mg/ Sodium (Chloride) 125 mls @ 5 mls/hr IV .Q24H [facility]; Protocol Last Admin: 01/18/19 19:01 Dose: 5 mg/hr, 5 mls/hr Metoprolol Tartrate (Lopressor) 25 mg PO BID [facility] Last Admin: 01/18/19 18:25 Dose: Not Given Paricalcitol (Zemplar) 2 mcg IV TTS [facility] Last Admin: 01/16/19 12:59 Dose: 2 mcg Prednisone (Prednisone) 2.5 mg PO Q2D [facility] Last Admin: 01/18/19 10:58 Dose: Not Given Rosuvastatin Calcium (Crestor) 10 mg PO HS [facility] Last Admin: 01/17/19 21:24 Dose: 10 mg Saccharomyces Boulardii (Florastor) 250 mg PO BID [facility] Last Admin: 01/18/19 18:28 Dose: 250 mg Vancomycin HCl (Firvanq (Oral Solution)) 250 mg PEG QID [facility] Last Admin: 01/18/19 18:28 Dose: 250 mg Vitamin B Complex/Vit C/Folic Acid (Nephro-Nacho) 1 tab PO 0800 [facility] Last Admin: 01/18/19 08:36 Dose: 1 tab - Labs Labs: 01/18/19 06:12 01/18/19 06:12 PT 13.3 SECONDS (9.7-12.2) H 01/15/19 05:29 INR 1.2 01/15/19 05:29 APTT 34 SECONDS (21-34) 01/15/19 05:29
[2019-01-18] MEDS ORDERED: Phenylephrine 30 MG in Sodium Chloride 0.9% 250 ML IV PRN (22:02)
[2019-01-18 22:17] LABS: ALBUMIN 2.3 g/dL (3.5-5.0); CALCIUM 6.8 mg/dl (8.6-10.4)
--- NOTE | 2019-01-18 23:26 | CP.PCM.PN ---
Subjective - Date & Time of Evaluation Date of Evaluation: 01/18/19 Time of Evaluation: 07:00 - Subjective Subjective: 73 year old female with PMHx ESRD admitted to with SOB and cough productive of whitish sputum as well as severe dizzyness Developed respiratory failure requiring intubation and mechanical ventilation and required transfusion for severe qnemia on anticoagulants for paroxysmal A Fib Had Permacath inserted for emergancy HD as AV fistula not mature and appeared to be fluid overloaded with diastolic CHF ID consulted for antibiotic management of possible pneumonitis in Penicillin allergic patient events noted gram + cocci in blood IV Vanco reordered consider echo Objective - Vital Signs/Intake and Output Vital Signs (last 24 hours): Temp Pulse Resp BP Pulse Ox 98.7 F 83 17 134/72 100 01/18/19 09:27 01/18/19 09:27 01/18/19 09:27 01/18/19 10:57 01/18/19 09:27 Intake and Output: 01/18/19 01/18/19 06:59 18:59 Intake Total 288.2 74.2 Balance 288.2 74.2 - Medications Medications: Current Medications Epoetin Elijah (Procrit) 10,000 unit IV TTS [facility] Last Admin: 01/16/19 13:14 Dose: 10,000 unit Famotidine (Pepcid) 20 mg IVP DAILY [facility] Last Admin: 01/18/19 09:01 Dose: 20 mg Folic Acid (Folic Acid) 1 mg PO DAILY [facility] Last Admin: 01/18/19 09:00 Dose: 1 mg Propofol (Diprivan) 1,000 mg in 100 mls @ 1.633 mls/hr IV .Q24H PRN; Protocol PRN Reason: TITRATE PER MD ORDER Last Titration: 01/18/19 09:32 Dose: 0 mcg/kg/min, 0 mls/hr Vancomycin/Sodium Chloride (Vancomycin 1 Gm/Ns 200 Ml) 1 gm in 200 mls @ 133.333 mls/hr IVPB MWF [facility]; Protocol Metronidazole (Flagyl) 500 mg in 100 mls @ 100 mls/hr IVPB Q8H [facility]; Protocol Last Admin: 01/18/19 06:31 Dose: 100 mls/hr Metoprolol Tartrate (Lopressor) 25 mg PO BID [facility] Last Admin: 01/18/19 10:57 Dose: Not Given Paricalcitol (Zemplar) 2 mcg IV TTS [facility] Last Admin: 01/16/19 12:59 Dose: 2 mcg Prednisone (Prednisone) 2.5 mg PO Q2D [facility] Last Admin: 01/18/19 10:58 Dose: Not Given Rosuvastatin Calcium (Crestor) 10 mg PO HS [facility] Last Admin: 01/17/19 21:24 Dose: 10 mg Saccharomyces Boulardii (Florastor) 250 mg PO BID [facility] Last Admin: 01/18/19 10:51 Dose: 250 mg Vancomycin HCl (Firvanq (Oral Solution)) 250 mg PEG QID [facility] Last Admin: 01/18/19 10:56 Dose: Not Given Vitamin B Complex/Vit C/Folic Acid (Nephro-Nacho) 1 tab PO 0800 [facility] Last Admin: 01/18/19 08:36 Dose: 1 tab - Labs Labs: 01/18/19 06:12 01/18/19 06:12 PT 13.3 SECONDS (9.7-12.2) H 01/15/19 05:29 INR 1.2 01/15/19 05:29 APTT 34 SECONDS (21-34) 01/15/19 05:29 - Constitutional Appears: Confused, Cachectic, Chronically Ill - Head Exam Head Exam: NORMOCEPHALIC (x) - Eye Exam Eye Exam: absent: Scleral icterus - ENT Exam ENT Exam: Mucous Membranes Dry - Respiratory Exam Respiratory Exam: Decreased Breath Sounds, Rhonchi - Cardiovascular Exam Cardiovascular Exam: REGULAR RHYTHM, +S1, +S2 - GI/Abdominal Exam GI & Abdominal Exam: Distended, Soft. absent: Tenderness - Rectal Exam Rectal Exam: Deferred - Exam Exam: NORMAL INSPECTION - Extremities Exam Extremities Exam: absent: Pedal Edema - Back Exam Back Exam: absent: CVA tenderness (L), CVA tenderness (R) - Neurological Exam Neurological Exam: Altered - Psychiatric Exam Psychiatric exam: Depressed - Skin Skin Exam: Dry Assessment and Plan (1) Pneumonia Status: Acute (2) Acute on chronic diastolic (congestive) heart failure Status: Acute (3) Severe anemia Status: Acute (4) ESRD (end stage renal disease) Status: Chronic (5) Hypertension Status: Chronic - Assessment and Plan (Free Text) Assessment: cont rx c diff IV Vanco for bacteremia await culture reports cont HD/ supportive care
--- NOTE | 2019-01-18 23:33 | CP.PCM.PN ---
Subjective - Date & Time of Evaluation Date of Evaluation: 01/18/19 Time of Evaluation: 19:00 - Subjective Subjective: Patient failed a trial of CPAP this AM. Remains sedated, on respirator, on CMV at FIO2 50%, PEEP 5. Blood cultures revealed gram ( +) bacteria. Stools culture reveals C. Difficile ( + ). Stools for occult blood ( + ).CXR: Bilateral infi ltrates. Echo: LVH with good wall motion, grade I diastolic dysfunction, mild pericardial effusion, mild MR, TR, and a large pleural effusion. Patient on IV and PO Vancomyciin, IV Flagyl. patient is having diarrhea. Had HD this AM, and received so far 3 units of PRC. Objective - Vital Signs/Intake and Output Vital Signs (last 24 hours): Temp Pulse Resp BP Pulse Ox 98.4 F 73 20 94/52 L 100 01/18/19 20:00 01/18/19 22:47 01/18/19 22:47 01/18/19 22:47 01/18/19 22:47 Intake and Output: 01/18/19 01/19/19 18:59 06:59 Intake Total 484.6 407 Output Total 200 Balance 484.6 207 - Medications Medications: Current Medications Epoetin Elijah (Procrit) 10,000 unit IV TTS [facility] Last Admin: 01/16/19 13:14 Dose: 10,000 unit Famotidine (Pepcid) 20 mg IVP DAILY [facility] Last Admin: 01/18/19 09:01 Dose: 20 mg Folic Acid (Folic Acid) 1 mg PO DAILY [facility] Last Admin: 01/18/19 09:00 Dose: 1 mg Propofol (Diprivan) 1,000 mg in 100 mls @ 1.633 mls/hr IV .Q24H PRN; Protocol PRN Reason: TITRATE PER MD ORDER Last Titration: 01/18/19 09:32 Dose: 0 mcg/kg/min, 0 mls/hr Vancomycin/Sodium Chloride (Vancomycin 1 Gm/Ns 200 Ml) 1 gm in 200 mls @ 133.333 mls/hr IVPB MWF [facility]; Protocol Last Admin: 01/18/19 13:33 Dose: 133.333 mls/hr Metronidazole (Flagyl) 500 mg in 100 mls @ 100 mls/hr IVPB Q8H [facility]; Protocol Last Admin: 01/18/19 20:12 Dose: 100 mls/hr Dexmedetomidine HCl 200 mcg/ (Sodium Chloride) 50 mls @ 3.02 mls/hr IV TITR PRN ; Protocol PRN Reason: Agitation Diltiazem HCl 125 mg/ Sodium (Chloride) 125 mls @ 5 mls/hr IV .Q24H [facility]; Protocol Last Titration: 01/18/19 20:13 Dose: 3 mg/hr, 3 mls/hr Phenylephrine HCl 30 mg/ (Sodium Chloride) 253 mls @ 10.12 mls/hr IV .Q24H PRN; Protocol PRN Reason: TITRATE PER MD ORDER Last Titration: 01/18/19 22:48 Dose: 39.52 mcg/min, 20 mls/hr Metoprolol Tartrate (Lopressor) 25 mg PO BID [facility] Last Admin: 01/18/19 18:25 Dose: Not Given Paricalcitol (Zemplar) 2 mcg IV TTS [facility] Last Admin: 01/16/19 12:59 Dose: 2 mcg Prednisone (Prednisone) 2.5 mg PO Q2D [facility] Last Admin: 01/18/19 10:58 Dose: Not Given Rosuvastatin Calcium (Crestor) 10 mg PO HS [facility] Last Admin: 01/18/19 21:55 Dose: 10 mg Saccharomyces Boulardii (Florastor) 250 mg PO BID [facility] Last Admin: 01/18/19 18:28 Dose: 250 mg Vancomycin HCl (Firvanq (Oral Solution)) 250 mg PEG QID [facility] Last Admin: 01/18/19 21:55 Dose: 250 mg Vitamin B Complex/Vit C/Folic Acid (Nephro-Nacho) 1 tab PO 0800 [facility] Last Admin: 01/18/19 08:36 Dose: 1 tab - Labs Labs: 01/18/19 06:12 01/18/19 21:47 PT 13.3 SECONDS (9.7-12.2) H 01/15/19 05:29 INR 1.2 01/15/19 05:29 APTT 34 SECONDS (21-34) 01/15/19 05:29 - Constitutional Appears: Chronically Ill - Head Exam Head Exam: NORMAL INSPECTION - Eye Exam Eye Exam: Normal appearance - ENT Exam ENT Exam: Normal Exam - Neck Exam Neck Exam: Normal Inspection - Respiratory Exam Respiratory Exam: Rhonchi Additional comments: Rhonchi bilaterally. - Cardiovascular Exam Cardiovascular Exam: REGULAR RHYTHM - GI/Abdominal Exam GI & Abdominal Exam: Soft, Hyperactive Bowel Sounds - Rectal Exam Rectal Exam: Deferred - Extremities Exam Extremities Exam: Normal Inspection - Back Exam Back Exam: NORMAL INSPECTION - Neurological Exam Additional comments: Sedated. - Psychiatric Exam Psychiatric exam: Agitated - Skin Skin Exam: Dry, Intact, Normal Color, Warm Assessment and Plan (1) Acute on chronic diastolic (congestive) heart failure Status: Acute (2) Severe anemia Status: Acute (3) ESRD (end stage renal disease) Status: Chronic (4) Hypertension Status: Chronic - Assessment and Plan (Free Text) Assessment: Pneumonia, Bacteremia, C. Difficile colitis.
[2019-01-19] MEDS: metroNIDAZOLE IV 500 mg/100 ml 500 MG/100 ML BAG IVPB SCH ×3 (04:19→19:49)
--- NOTE | 2019-01-19 04:31 | PN ---
DATE: 01/18/2019 FOLLOWUP RENAL CONSULTATION LOCATION: The patient is located in ICU, bed 2. REQUESTED BY: Dash Najera MD REASON FOR FOLLOWUP: End-stage renal disease, anemia, respiratory failure. SUBJECTIVE: Mrs. 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 The patient was reluctant and admitted now with shortness of breath and cough for 1-2 weeks prior to the admission, bilateral leg swelling, dyspnea on exertion, and tachypneic. The patient was initially admitted to medical floor, not responding to BiPAP and subsequently the patient was intubated and transferred to ICU. Now, the patient had a fever yesterday and blood culture is positive for gram-positive cocci and also stool for C. diff toxin is also positive, and the patient has respiratory failure with bilateral infiltrates. The patient is on ventilator and opens eyes to verbal stimuli. FiO2 40% this afternoon. The patient was also tachycardic earlier with AFib with rapid ventricular response, started on Cardizem drip. PHYSICAL EXAMINATION: VITAL SIGNS: As follows: Blood pressure 92/51, pulse 128-131, respirations about 20, saturation 100%. Height 5 feet 2 inches, weight is 133 pounds. GENERAL: Mrs. Faulkner is a 73-year-old is an elderly [place] female, on ventilator. HEENT: Pupils normal, reactive to light and accommodation. Conjunctivae pale. Sclerae anicteric. On ventilator. No thyroid enlargement. LUNGS: Symmetric on both sides. Bilateral breath sounds present. Occasional basal crackles present, right side. CVS: [place] at the fifth intercostal space, midclavicular line. S1, S2 audible. Tachycardic, irregularly irregular. ABDOMEN: Normal in appearance. Soft, tympanitic. No guarding. No rigidity. No hepatosplenomegaly. CAREER CONSULTANT: The patient is on ventilator, opens eyes to verbal stimuli, moving all extremities. EXTREMITIES: No cyanosis, no clubbing. The patient has 1-2+ edema in both lower extremities. INTAKE AND OUTPUT: Intake is 7079, output is 30 mL. CURRENT MEDICATIONS: Include as follows: Crestor 10 mg at bedtime, Precedex, diltiazem drip 125 mg at 5 mL/hour, propofol, vancomycin liquid 250 mg four times a day, Flagyl 500 mg IV piggyback, Florastor 250 mg p.o. b.i.d., folic acid 1 mg p.o. daily, metoprolol 25 mg p.o. b.i.d., Nephro-Nacho 1 tablet daily, Pepcid 20 mg IV daily, phenylephrine and prednisone 2.5 mg p.o. every 2 days; Procrit 10,000 units three times a week, Friday, , Friday; vancomycin 1 g three times a week, Zemplar 2 mcg three times a week. LABORATORY DATA: As follows: As of 01/18/2019, WBC 9.5, hemoglobin 9.3, hematocrit is 27.1, platelets 108. ABG; pH of 7.41, pCO2 of 30, and pO2 of 171, bicarb is 21.2 and saturation 99.5. Vent settings, AC 20, tidal volume 450, FiO2 of 50% and PEEP of 5. Sodium 134, potassium 3.7, chloride 101, CO2 of 20, BUN 92, creatinine 5.7, glucose 97, calcium 6.2, phosphorus 7.2, magnesium 1.7. Total bili 0.7, AST 42, ALT 18, alkaline phosphatase 71, LDH is 1592. Total protein 4.8, albumin is 2.3. Stool for occult blood is positive and stool C. diff toxin was also positive. Other reports CT of the chest as of 01/18/2019, impression, ET tube, nasogastric tube and cardiomegaly, small to moderate pericardial effusion, small to moderate bilateral pleural effusion and associated compressive consolidations, ground-glass and patchy scattered diffuse pulmonary infiltrates, suspicious for multifocal pneumonia and/or anemia. Discontinue about the midsternum suspected secondary to the patient's motion. However an interval fracture cannot be entirely excluded, correlate with clinical history and physical examination. Scattered, patchy sclerotic foci evident throughout the visualized osseous structures. There is decreased mineralization of the bones most likely representing osteoporosis, rarely underlying metabolic bone disease or infiltrative lesions can also have this appearance. This decrease sensitivity for detection of acute fracture lines and if this is of clinical concern, an MRI should be considered. Blood cultures as of 01/17/2019, positive for gram-positive cocci x2. ASSESSMENT: In summary, Mrs. Faulkner is a 73-year-old elderly [place] female with a history of hypertension, atrial fibrillation, status post kidney transplant with chronic allograft nephropathy with worsening renal function, anemia, who was admitted with shortness of breath, dizziness, severe anemia, bilateral leg swelling, pleural effusion with respiratory failure requiring intubation and transferred to intensive care unit. Now, the patient is on ventilator since admission and also positive for Clostridium difficile toxin and now blood culture is positive for gram-positive cocci. 1. 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 2. Status post anemia secondary to slow gastrointestinal blood loss. Cannot rule out iron-deficiency anemia. 3. Acute respiratory failure, rule out pneumonia, etiology is not clear, rule out viral versus fungal, rule out pneumocystis pneumonia with elevated LDH level. 4. Atrial fibrillation with rapid ventricular response. 5. Gram-positive sepsis. 6. Clostridium difficile colitis. PLAN: Continue p.o. vancomycin, IV Flagyl and IV vancomycin as per Dr. Bazan. Consider to remove the femoral line catheter placement. We will wait for the new catheter until repeat blood cultures are negative, wait for the Perm-A-Cath until her blood cultures are negative, consider bronchoscopy to rule out PCP, rule out fungal pneumonia. The patient is off immunosuppressive medicine except very small dose of prednisone 2.5 mg every 2 days. Case discussed with conservation scientist, Dr. Newton, Dr. Linares, and also primary care doctor, Dr. Dash Najera in rounds. We will follow with you. Thank you for allowing me to participate in your patient's care. Ever Madrigal MD
[2019-01-19 05:33] LABS: ABG ALLEN TEST POS; ARTERIAL BLOOD GAS HCO3 22.6 mmol/L (21-28); ARTERIAL BLOOD GAS HEMOGLOBIN 11.9 g/dL (11.7-17.4); ARTERIAL BLOOD GAS O2 SAT 98.6 % (95-98); ARTERIAL BLOOD GAS PCO2 33 mm/Hg (35-45); ARTERIAL BLOOD GAS PH 7.41 (7.35-7.45); ARTERIAL BLOOD GAS PO2 100 mm/Hg (80-100); ARTERIAL BLOOD GAS TCO2 21.9 mmol/L (22-28)
[2019-01-19 06:29] LABS: HEMOGLOBIN 9.3 g/dL (11.0-16.0); MEAN CELL VOLUME 91.8 fL (81.0-99.0); MEAN CORPUSCULAR HEMOGLOBIN 31.1 pg (27.0-31.0); MEAN CORPUSCULAR HGB CONC 33.9 g/dL (33.0-37.0); MEAN PLATELET VOLUME 10.4 fL (7.2-11.7); RED CELL DISTRIBUTION WIDTH 15.3 % (11.5-14.5); WHITE BLOOD COUNT 9.7 K/uL (4.8-10.8)
--- NOTE | 2019-01-19 08:20 | CP.PCM.PN ---
Subjective - Date & Time of Evaluation Date of Evaluation: 01/19/19 Time of Evaluation: 08:17 - Subjective Subjective: Vascular Surgery Progress- Dr. Butler Plan for Permacath placement this hospital stay. Off pressors, intubated and off sedation. PRVC 450/20/40/5. Trialysis catheter in groin being used for dialysis. Objective - Vital Signs/Intake and Output Vital Signs (last 24 hours): Temp Pulse Resp BP Pulse Ox 98.2 F 82 20 141/56 L 100 01/19/19 04:00 01/19/19 07:02 01/19/19 07:02 01/19/19 07:02 01/19/19 07:02 Intake and Output: 01/19/19 01/19/19 06:59 18:59 Intake Total 929 0 Output Total 250 Balance 679 0 - Medications Medications: Current Medications Epoetin Elijah (Procrit) 10,000 unit IV TTS [facility] Last Admin: 01/16/19 13:14 Dose: 10,000 unit Famotidine (Pepcid) 20 mg IVP DAILY [facility] Last Admin: 01/18/19 09:01 Dose: 20 mg Folic Acid (Folic Acid) 1 mg PO DAILY [facility] Last Admin: 01/18/19 09:00 Dose: 1 mg Propofol (Diprivan) 1,000 mg in 100 mls @ 1.633 mls/hr IV .Q24H PRN; Protocol PRN Reason: TITRATE PER MD ORDER Last Titration: 01/18/19 09:32 Dose: 0 mcg/kg/min, 0 mls/hr Vancomycin/Sodium Chloride (Vancomycin 1 Gm/Ns 200 Ml) 1 gm in 200 mls @ 133.333 mls/hr IVPB MWF [facility]; Protocol Last Admin: 01/18/19 13:33 Dose: 133.333 mls/hr Metronidazole (Flagyl) 500 mg in 100 mls @ 100 mls/hr IVPB Q8H [facility]; Protocol Last Admin: 01/19/19 04:19 Dose: 100 mls/hr Dexmedetomidine HCl 200 mcg/ (Sodium Chloride) 50 mls @ 3.02 mls/hr IV TITR PRN; Protocol PRN Reason: Agitation Diltiazem HCl 125 mg/ Sodium (Chloride) 125 mls @ 5 mls/hr IV .Q24H [facility]; Protocol Last Titration: 01/18/19 23:00 Dose: 0 mg/hr, 0 mls/hr Phenylephrine HCl 30 mg/ (Sodium Chloride) 253 mls @ 10.12 mls/hr IV .Q24H PRN; Protocol PRN Reason: TITRATE PER MD ORDER Last Titration: 01/19/19 02:38 Dose: 0 mcg/min, 0 mls/hr Metoprolol Tartrate (Lopressor) 25 mg PO BID [facility] Last Admin: 01/18/19 18:25 Dose: Not Given Paricalcitol (Zemplar) 2 mcg IV TTS [facility] Last Admin: 01/16/19 12:59 Dose: 2 mcg Prednisone (Prednisone) 2.5 mg PO Q2D [facility] Last Admin: 01/18/19 10:58 Dose: Not Given Rosuvastatin Calcium (Crestor) 10 mg PO HS [facility] Last Admin: 01/18/19 21:55 Dose: 10 mg Saccharomyces Boulardii (Florastor) 250 mg PO BID [facility] Last Admin: 01/18/19 18:28 Dose: 250 mg Vancomycin HCl (Firvanq (Oral Solution)) 250 mg PEG QID [facility] Last Admin: 01/18/19 21:55 Dose: 250 mg Vitamin B Complex/Vit C/Folic Acid (Nephro-Nacho) 1 tab PO 0800 [facility] Last Admin: 01/18/19 08:36 Dose: 1 tab - Labs Labs: 01/19/19 06:23 01/18/19 21:47 PT 13.3 SECONDS (9.7-12.2) H 01/15/19 05:29 INR 1.2 01/15/19 05:29 APTT 34 SECONDS (21-34) 01/15/19 05:29 - Constitutional Appears: Non-toxic, No Acute Distress, Chronically Ill - Head Exam Head Exam: ATRAUMATIC - Respiratory Exam Additional comments: Intubated on PRVC - Cardiovascular Exam Cardiovascular Exam: REGULAR RHYTHM. 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 Plan: will plan for permacath when blood cx negative c/w continued critical care management abx per ID team d[facility]w [facility]
[2019-01-19 08:26] LABS: ALBUMIN 2.4 g/dL (3.5-5.0); CALCIUM 6.7 mg/dl (8.6-10.4)
[2019-01-19] MEDS: Saccharomyces Boulardi 250 mg Cap PO SCH ×2 (09:15→17:37)
[2019-01-19] MEDS: Multivitamin Vitamin B Complex (Nephro-Vite) Tab PO SCH (09:15)
[2019-01-19] MEDS: VANCOMYCIN HCL 250 MG/5 ML PEG SCH ×4 (09:15→21:32)
--- NOTE | 2019-01-19 10:32 | CP.PCM.PN ---
Subjective - Date & Time of Evaluation Date of Evaluation: 01/19/19 Time of Evaluation: 10:30 - Subjective Subjective: Patient still on respirator CMV, PEEP 5 Fio2 40 %. Off IV Cardizem IV drip, off sedation. Still with diarrhea. Afebrile. On IV Vanco and Flagyl, PO vanco. Afebrile. Objective - Vital Signs/Intake and Output Vital Signs (last 24 hours): Temp Pulse Resp BP Pulse Ox 98.2 F 82 20 129/59 L 100 01/19/19 04:00 01/19/19 07:02 01/19/19 07:02 01/19/19 09:15 01/19/19 07:02 Intake and Output: 01/19/19 01/19/19 06:59 18:59 Intake Total 929 0 Output Total 250 Balance 679 0 - Medications Medications: Current Medications Epoetin Elijah (Procrit) 10,000 unit IV TTS [facility] Last Admin: 01/16/19 13:14 Dose: 10,000 unit Famotidine (Pepcid) 20 mg IVP DAILY [facility] Last Admin: 01/19/19 09:15 Dose: 20 mg Folic Acid (Folic Acid) 1 mg PO DAILY [facility] Last Admin: 01/19/19 09:15 Dose: 1 mg Propofol (Diprivan) 1,000 mg in 100 mls @ 1.633 mls/hr IV .Q24H PRN; Protocol PRN Reason: TITRATE PER MD ORDER Last Titration: 01/18/19 09:32 Dose: 0 mcg/kg/min, 0 mls/hr Vancomycin/Sodium Chloride (Vancomycin 1 Gm/Ns 200 Ml) 1 gm in 200 mls @ 133.333 mls/hr IVPB MWF [facility]; Protocol Last Admin: 01/18/19 13:33 Dose: 133.333 mls/hr Metronidazole (Flagyl) 500 mg in 100 mls @ 100 mls/hr IVPB Q8H [facility]; Protocol Last Admin: 01/19/19 04:19 Dose: 100 mls/hr Dexmedetomidine HCl 200 mcg/ (Sodium Chloride) 50 mls @ 3.02 mls/hr IV TITR PRN; Protocol PRN Reason: Agitation Diltiazem HCl 125 mg/ Sodium (Chloride) 125 mls @ 5 mls/hr IV .Q24H [facility]; Protocol Last Titration: 01/18/19 23:00 Dose: 0 mg/hr, 0 mls/hr Phenylephrine HCl 30 mg/ (Sodium Chloride) 253 mls @ 10.12 mls/hr IV .Q24H PRN; Protocol PRN Reason: TITRATE PER MD ORDER Last Titration: 01/19/19 02:38 Dose: 0 mcg/min, 0 mls/hr Metoprolol Tartrate (Lopressor) 25 mg PO BID [facility] Last Admin: 01/19/19 09:15 Dose: 25 mg Paricalcitol (Zemplar) 2 mcg IV TTS [facility] Last Admin: 01/16/19 12:59 Dose: 2 mcg Prednisone (Prednisone) 2.5 mg PO Q2D [facility] Last Admin: 01/18/19 10:58 Dose: Not Given Rosuvastatin Calcium (Crestor) 10 mg PO HS [facility] Last Admin: 01/18/19 21:55 Dose: 10 mg Saccharomyces Boulardii (Florastor) 250 mg PO BID [facility] Last Admin: 01/19/19 09:15 Dose: 250 mg Vancomycin HCl (Firvanq (Oral Solution)) 250 mg PEG QID [facility] Last Admin: 01/19/19 09:15 Dose: 250 mg Vitamin B Complex/Vit C/Folic Acid (Nephro-Nacho) 1 tab PO 0800 [facility] Last Admin: 01/19/19 09:15 Dose: 1 tab - Labs Labs: 01/19/19 06:23 01/19/19 08:00 PT 13.3 SECONDS (9.7-12.2) H 01/15/19 05:29 INR 1.2 01/15/19 05:29 APTT 34 SECONDS (21-34) 01/15/19 05:29 - Constitutional Appears: In Acute Distress, Chronically Ill - Head Exam Head Exam: NORMAL INSPECTION - Eye Exam Eye Exam: Normal appearance - ENT Exam ENT Exam: Normal Exam - Neck Exam Neck Exam: Normal Inspection - Respiratory Exam Respiratory Exam: Rhonchi Additional comments: Rhonchi bilaterally. - Cardiovascular Exam Cardiovascular Exam: REGULAR RHYTHM - GI/Abdominal Exam GI & Abdominal Exam: Soft, Hyperactive Bowel Sounds - Rectal Exam Rectal Exam: Deferred - Extremities Exam Extremities Exam: Normal Inspection - Back Exam Back Exam: NORMAL INSPECTION - Neurological Exam Additional comments: Arousable. - Psychiatric Exam Additional comments: Arousable. - Skin Skin Exam: Dry, Intact Assessment and Plan (1) Acute on chronic diastolic (congestive) heart failure Assessment & Plan: On HD. Status: Acute (2) Severe anemia Status: Acute (3) ESRD (end stage renal disease) Assessment & Plan: On HD. Status: Chronic (4) Hypertension Status: Chronic (5) Pneumonia Assessment & Plan: On Vancomycine and Flagyl. Status: Acute (6) C. difficile colitis Assessment & Plan: On PO Vancomycin Status: Acute (7) Bacteremia, coagulase-negative staphylococcal Assessment & Plan: On IV Vancomycin Status: Acute (8) Acute respiratory failure Assessment & Plan: On ventilator. Status: Acute
--- NOTE | 2019-01-19 10:48 | RAD ---
Chest x-ray single frontal view HISTORY: Intubated. COMPARISON: 01/18/2019 Findings: Lines and tubes in stable position. Dense diffuse bilateral pleural parenchymal opacities in both lung hawkins. Small to moderate left and small right pleural effusion. Cardiomegaly. Degenerative changes in the spine. Impression: Lines and tubes in stable position. Dense diffuse bilateral pleural parenchymal opacities in both lung hawkins. Small to moderate left and small right pleural effusion. Cardiomegaly
--- NOTE | 2019-01-19 11:12 | CP.CCUPN ---
<Mando Waters - Last Filed: 01/19/19 11:16> CCU Subjective - Physician Review Subjective (Free Text): 01/18/19 11:39 PGY-1 Critical Care Progress Note for Dr. Jackson Patient seen and examined at bedside. Intubated and sedated. Pt tolerated CPAP trial yesterday for only one hour, then developed rapid AFIB on carediac monitor and PRVC had to be restarted. Plan to attempt CPAP again this afternoon. ROS unable to be obtained. CCU Objective - Vital Signs / Intake & Output Vital Signs (Last 4 hours): Vital Signs Temp Pulse Resp BP Pulse Ox 01/19/19 10:02 76 20 120/56 L 99 01/19/19 10:00 76 20 99 01/19/19 09:48 88 20 138/57 L 99 01/19/19 09:15 129/59 L 01/19/19 09:02 82 14 129/59 L 100 01/19/19 09:00 84 20 100 01/19/19 08:02 80 20 139/57 L 100 01/19/19 08:00 99.4 F 86 19 100 Intake and Output (Last 8hrs): Intake & Output 01/18/19 01/19/19 01/19/19 22:59 06:59 14:59 Intake Total 497 522 0 Output Total 200 50 Balance 297 472 0 Weight 131 lb 6.328 oz Intake: IV 11 77 Intake, IV Amount 116 70 0 R femoral trialysis IV 70 0 port Right Femoral 16 0 0 Right Forearm 0 0 Right Forearm1 100 0 Tube Feeding 270 315 0 Other 100 60 Output: Stool 200 50 Other: # Voids Urine, Voided 0 0 0 - Physical Exam Head: Positive for: Atraumatic, Normocephalic Pupils: Positive for: PERRL Extroacular Muscles: Positive for: EOMI Mouth: Positive for: Moist Mucous Membranes Cardiovascular: Positive for: Regular Rate and Rhythm, Murmurs, Normal S1, S2 Abdomen: Positive for: Normal Bowel Sounds Upper Extremity: Positive for: Normal Inspection Lower Extremity: Positive for: Normal Inspection Neurological: Positive for: Other (Sedated on propofol drip) Skin: Positive for: Warm - Medications Active Medications: Active Medications Generic Name Dose Route Start Last Admin Trade Name Freq PRN Reason Stop Dose Admin Epoetin Elijah 10,000 unit 01/16/19 10:00 01/16/19 13:14 Procrit IV 10,000 unit TTS GLADYS Administration Famotidine 20 mg 01/16/19 10:00 01/19/19 09:15 Pepcid IVP 20 mg DAILY GLADYS Administration Folic Acid 1 mg 01/15/19 10:00 01/19/19 09:15 Folic Acid PO 1 mg DAILY GLADYS Administration Propofol 1,000 mg in 100 mls @ 1.633 mls/hr 01/15/19 14:49 01/18/19 09:32 Diprivan IV 0 mcg/kg/min .Q24H PRN 0 mls/hr TITRATE PER MD ORDER Titration Protocol 5 MCG/KG/MIN Vancomycin/Sodium Chloride 1 gm in 200 mls @ 133.333 mls/hr 01/18/19 09:00 01/18/19 13:33 Vancomycin 1 Gm/Ns 200 Ml IVPB 133.333 mls/hr MWF GLADYS Administration Protocol Metronidazole 500 mg in 100 mls @ 100 mls/hr 01/17/19 20:00 01/19/19 04:19 Flagyl IVPB 100 mls/hr Q8H GLADYS Administration Protocol Dexmedetomidine HCl 200 mcg/ 50 mls @ 3.02 mls/hr 01/18/19 17:52 Sodium Chloride IV TITR PRN Agitation Protocol 0.2 MCG/KG/HR Diltiazem HCl 125 mg/ Sodium 125 mls @ 5 mls/hr 01/18/19 19:00 01/18/19 23:00 Chloride IV 0 mg/hr .Q24H GLADYS 0 mls/hr Titration Protocol 5 MG/HR Phenylephrine HCl 30 mg/ 253 mls @ 10.12 mls/hr 01/18/19 22:02 01/19/19 02:38 Sodium Chloride IV 0 mcg/min .Q24H PRN 0 mls/hr TITRATE PER MD ORDER Titration Protocol 20 MCG/MIN Metoprolol Tartrate 25 mg 01/15/19 10:00 01/19/19 09:15 Lopressor PO 25 mg BID GLADYS Administration Paricalcitol 2 mcg 01/16/19 10:00 01/16/19 12:59 Zemplar IV 2 mcg TTS GLADYS Administration Prednisone 2.5 mg 01/18/19 10:00 01/18/19 10:58 Prednisone PO Not Given Q2D GLADYS Rosuvastatin Calcium 10 mg 01/15/19 22:00 01/18/19 21:55 Crestor PO 10 mg HS GLADYS Administration Saccharomyces Boulardii 250 mg 01/18/19 10:00 01/19/19 09:15 Florastor PO 250 mg BID GLADYS Administration Vancomycin HCl 250 mg 01/17/19 22:00 01/19/19 09:15 Firvanq (Oral Solution) PEG 250 mg QID GLADYS Administration Vitamin B Complex/Vit C/Folic Acid 1 tab 01/16/19 08:00 01/19/19 09:15 Nephro-Nacho PO 1 tab 0800 GLADYS Administration - Patient Studies Lab Studies: Microbiology Studies 01/17/19 12:52 S.aureus & Coag-Neg Staph PNA FISH - Preliminary Blood-Venous Blood Culture - Preliminary Gram Positive Cocci Gram Stain - Final 01/17/19 13:40 Blood Culture - Preliminary Blood-Venous Gram Positive Cocci Gram Stain - Final Lab Studies 01/19/19 01/19/19 01/19/19 Range/Units 08:00 06:23 05:19 WBC 9.7 (4.8-10.8) K/uL RBC 3.00 L (3.80-5.20) Mil/uL Hgb 9.3 L (11.0-16.0) g/dL Hct 27.5 L (34.0-47.0) % MCV 91.8 (81.0-99.0) fL MCH 31.1 H (27.0-31.0) pg MCHC 33.9 (33.0-37.0) g/dL RDW 15.3 H (11.5-14.5) % Plt Count 101 L (130-400) K/uL MPV 10.4 (7.2-11.7) fL Puncture Site Rr pCO2 33 L (35-45) mm/Hg pO2 100 (80-100) mm/Hg HCO3 22.6 (21-28) mmol/L ABG pH 7.41 (7.35-7.45) ABG Total CO2 21.9 L (22-28) mmol/L ABG O2 Saturation 98.6 H (95-98) % ABG Base Excess -3.0 L (-2.0-3.0) mmol/L ABG Hemoglobin 11.9 (11.7-17.4) g/dL ABG Carboxyhemoglobin 1.7 H (0.5-1.5) % POC ABG HHb (Measured) 1.4 (0.0-5.0) % ABG Methemoglobin 1.0 (0.0-3.0) % Trevin Test Pos A-a O2 Difference 144.0 mm/Hg Respiratory Index 1.4 Hgb O2 Saturation 95.8 (95.0-98.0) % Vent Mode Prvc Mechanical Rate 20 FiO2 40.0 % Tidal Volume 450 PEEP 5 Sodium 134 (132-148) mmol/L Potassium 3.4 L (3.6-5.2) mmol/L Chloride 100 (98-107) mmol/L Carbon Dioxide 22 (22-30) mmol/L Anion Gap 16 (10-20) BUN 80 H (7-17) mg/dL Creatinine 4.6 H (0.7-1.2) mg/dL Est GFR ( Amer) 11 Est GFR (Non-Af Amer) 9 Random Glucose 107 H (65-105) mg/dL Calcium 6.7 L (8.6-10.4) mg/dl Phosphorus 5.3 H (2.5-4.5) mg/dL Magnesium 1.8 (1.6-2.3) mg/dL Total Bilirubin 0.5 (0.2-1.3) mg/dL AST 68 H (14-36) U/L ALT 35 (9-52) U/L Alkaline Phosphatase 107 (38-126) U/L Lactate Dehydrogenase (313-618) U/L Total Protein 4.8 L (6.3-8.3) g/dL Albumin 2.4 L (3.5-5.0) g/dL Globulin 2.4 (2.2-3.9) gm/dL Albumin/Globulin Ratio 1.0 (1.0-2.1) Stool Occult Blood (NEGATIVE) HIV 1&2 Ag/Ab, 4th Gen (Nonreactive) 01/18/19 01/18/19 01/18/19 Range/Units 21:47 21:10 06:12 WBC (4.8-10.8) K/uL RBC (3.80-5.20) Mil/uL Hgb (11.0-16.0) g/dL Hct (34.0-47.0) % MCV (81.0-99.0) fL MCH (27.0-31.0) pg MCHC (33.0-37.0) g/dL RDW (11.5-14.5) % Plt Count (130-400) K/uL MPV (7.2-11.7) fL Puncture Site pCO2 (35-45) mm/Hg pO2 (80-100) mm/Hg HCO3 (21-28) mmol/L ABG pH (7.35-7.45) ABG Total CO2 (22-28) mmol/L ABG O2 Saturation (95-98) % ABG Base Excess (-2.0-3.0) mmol/L ABG Hemoglobin (11.7-17.4) g/dL ABG Carboxyhemoglobin (0.5-1.5) % POC ABG HHb (Measured) (0.0-5.0) % ABG Methemoglobin (0.0-3.0) % Trevin Test A-a O2 Difference mm/Hg Respiratory Index Hgb O2 Saturation (95.0-98.0) % Vent Mode Mechanical Rate FiO2 % Tidal Volume PEEP Sodium 134 (132-148) mmol/L Potassium 3.5 L (3.6-5.2) mmol/L Chloride 99 (98-107) mmol/L Carbon Dioxide 24 (22-30) mmol/L Anion Gap 15 (10-20) BUN 72 H (7-17) mg/dL Creatinine 4.5 H (0.7-1.2) mg/dL Est GFR ( Amer) 12 Est GFR (Non-Af Amer) 10 Random Glucose 117 H D (65-105) mg/dL Calcium 6.8 L (8.6-10.4) mg/dl Phosphorus 5.6 H (2.5-4.5) mg/dL Magnesium 1.8 (1.6-2.3) mg/dL Total Bilirubin 0.5 (0.2-1.3) mg/dL AST 60 H D (14-36) U/L ALT 26 (9-52) U/L Alkaline Phosphatase 93 (38-126) U/L Lactate Dehydrogenase 1237 H 1592 H (313-618) U/L Total Protein 4.5 L (6.3-8.3) g/dL Albumin 2.3 L (3.5-5.0) g/dL Globulin 2.3 (2.2-3.9) gm/dL Albumin/Globulin Ratio 1.0 (1.0-2.1) Stool Occult Blood Positive H (NEGATIVE) HIV 1&2 Ag/Ab, 4th Gen (Nonreactive) 01/15/19 Range/Units 16:32 WBC (4.8-10.8) K/uL RBC (3.80-5.20) Mil/uL Hgb (11.0-16.0) g/dL Hct (34.0-47.0) % MCV (81.0-99.0) fL MCH (27.0-31.0) pg MCHC (33.0-37.0) g/dL RDW (11.5-14.5) % Plt Count (130-400) K/uL MPV (7.2-11.7) fL Puncture Site pCO2 (35-45) mm/Hg pO2 (80-100) mm/Hg HCO3 (21-28) mmol/L ABG pH (7.35-7.45) ABG Total CO2 (22-28) mmol/L ABG O2 Saturation (95-98) % ABG Base Excess (-2.0-3.0) mmol/L ABG Hemoglobin (11.7-17.4) g/dL ABG Carboxyhemoglobin (0.5-1.5) % POC ABG HHb (Measured) (0.0-5.0) % ABG Methemoglobin (0.0-3.0) % Trevin Test A-a O2 Difference mm/Hg Respiratory Index Hgb O2 Saturation (95.0-98.0) % Vent Mode Mechanical Rate FiO2 % Tidal Volume PEEP Sodium (132-148) mmol/L Potassium (3.6-5.2) mmol/L Chloride (98-107) mmol/L Carbon Dioxide (22-30) mmol/L Anion Gap (10-20) BUN (7-17) mg/dL Creatinine (0.7-1.2) mg/dL Est GFR ( Amer) Est GFR (Non-Af Amer) Random Glucose (65-105) mg/dL Calcium (8.6-10.4) mg/dl Phosphorus (2.5-4.5) mg/dL Magnesium (1.6-2.3) mg/dL Total Bilirubin (0.2-1.3) mg/dL AST (14-36) U/L ALT (9-52) U/L Alkaline Phosphatase (38-126) U/L Lactate Dehydrogenase (313-618) U/L Total Protein (6.3-8.3) g/dL Albumin (3.5-5.0) g/dL Globulin (2.2-3.9) gm/dL Albumin/Globulin Ratio (1.0-2.1) Stool Occult Blood (NEGATIVE) HIV 1&2 Ag/Ab, 4th Gen Nonreactive (Nonreactive) Laboratory Results - last 24 hr 01/15/19 01/18/19 01/18/19 16:32 06:12 21:10 WBC RBC Hgb Hct MCV MCH MCHC RDW Plt Count MPV Puncture Site pCO2 pO2 HCO3 ABG pH ABG Total CO2 ABG O2 Saturation ABG Base Excess ABG Hemoglobin ABG Carboxyhemoglobin POC ABG HHb (Measured) ABG Methemoglobin Trevin Test A-a O2 Difference Respiratory Index Hgb O2 Saturation Vent Mode Mechanical Rate FiO2 Tidal Volume PEEP Sodium Potassium Chloride Carbon Dioxide Anion Gap BUN Creatinine Est GFR ( Amer) Est GFR (Non-Af Amer) Random Glucose Calcium Phosphorus Magnesium Total Bilirubin AST ALT Alkaline Phosphatase Lactate Dehydrogenase 1592 H Total Protein Albumin Globulin Albumin/Globulin Ratio Stool Occult Blood Positive H HIV 1&2 Ag/Ab, 4th Gen Nonreactive 01/18/19 01/19/19 01/19/19 21:47 05:19 06:23 WBC 9.7 RBC 3.00 L Hgb 9.3 L Hct 27.5 L MCV 91.8 MCH 31.1 H MCHC 33.9 RDW 15.3 H Plt Count 101 L MPV 10.4 Puncture Site Rr pCO2 33 L pO2 100 HCO3 22.6 ABG pH 7.41 ABG Total CO2 21.9 L ABG O2 Saturation 98.6 H ABG Base Excess -3.0 L ABG Hemoglobin 11.9 ABG Carboxyhemoglobin 1.7 H POC ABG HHb (Measured) 1.4 ABG Methemoglobin 1.0 Trevin Test Pos A-a O2 Difference 144.0 Respiratory Index 1.4 Hgb O2 Saturation 95.8 Vent Mode Prvc Mechanical Rate 20 FiO2 40.0 Tidal Volume 450 PEEP 5 Sodium 134 Potassium 3.5 L Chloride 99 Carbon Dioxide 24 Anion Gap 15 BUN 72 H Creatinine 4.5 H Est GFR ( Amer) 12 Est GFR (Non-Af Amer) 10 Random Glucose 117 H D Calcium 6.8 L Phosphorus 5.6 H Magnesium 1.8 Total Bilirubin 0.5 AST 60 H D ALT 26 Alkaline Phosphatase 93 Lactate Dehydrogenase 1237 H Total Protein 4.5 L Albumin 2.3 L Globulin 2.3 Albumin/Globulin Ratio 1.0 Stool Occult Blood HIV 1&2 Ag/Ab, 4th Gen 01/19/19 08:00 WBC RBC Hgb Hct MCV MCH MCHC RDW Plt Count MPV Puncture Site pCO2 pO2 HCO3 ABG pH ABG Total CO2 ABG O2 Saturation ABG Base Excess ABG Hemoglobin ABG Carboxyhemoglobin POC ABG HHb (Measured) ABG Methemoglobin Trevin Test A-a O2 Difference Respiratory Index Hgb O2 Saturation Vent Mode Mechanical Rate FiO2 Tidal Volume PEEP Sodium 134 Potassium 3.4 L Chloride 100 Carbon Dioxide 22 Anion Gap 16 BUN 80 H Creatinine 4.6 H Est GFR ( Amer) 11 Est GFR (Non-Af Amer) 9 Random Glucose 107 H Calcium 6.7 L Phosphorus 5.3 H Magnesium 1.8 Total Bilirubin 0.5 AST 68 H ALT 35 Alkaline Phosphatase 107 Lactate Dehydrogenase Total Protein 4.8 L Albumin 2.4 L Globulin 2.4 Albumin/Globulin Ratio 1.0 Stool Occult Blood HIV 1&2 Ag/Ab, 4th Gen Radiology Impressions: Radiology Impressions Chest CT 01/18/19 12:49 Impression: Endotracheal tube. Nasogastric tube. Cardiomegaly. Small to moderate pericardial effusion. Small to moderate bilateral pleural effusions and associated compressive consolidations. Ground-glass and patchy scattered diffuse pulmonary infiltrates suspicious for multifocal pneumonia and or edema. Discontinuity about the mid sternum suspected secondary to patient motion however interval fracture cannot be entirely excluded. Correlate with clinical history and physical examination. Scattered patchy sclerotic foci evident throughout the visualized osseous structures. There is decreased mineralization of the bones, most likely representing osteoporosis. Rarely, underlying metabolic bone disease or infiltrative lesions can also have this appearance. This decreases the sensitivity for detection of acute fracture lines, and if this is of clinical concern, MRI should be considered. Additional findings as above. Chest X-Ray 01/19/19 07:09 Impression: Lines and tubes in stable position. Dense diffuse bilateral pleural parenchymal opacities in both lung hawkins. Small to moderate left and small right pleural effusion. Cardiomegaly Review of Systems - Review of Systems Systems not reviewed;Unavailable: Intubated Critical Care Progress Note - Nutrition Nutrition: Nutrition Category Date Time Status NPO Diet [DIET] Diets 01/15/19 Lunch Active Assessment/Plan - Assessment and Plan (Free Text) Assessment: 73 year old female with history ESRD s/p failing renal transplant from 2002 presents acutely short of breath, found to have moderate bilateral pleural effusion on chest x-ray and CT chest as well as cardiomegaly, and anemic with HgB 5.2. Cardio Cardiomegaly on chest XR -Echo 01/15 - f/u read -Normal sinus on monitor Pulmonary Bilateral pleural effusions -Intubated, on vent/PRVC with OGT in place -Maintain spO2>92% -S/p Shiley HD catheter placement beside with vascular surgery, Dr. Butler -S/p HD Monday 01/15 with some improvement on repeat CXR. still with patchy ill- defined opacities on MR CXR -Echo 01/18 - Normal systolic function, EF 50-55% -Repeating CT chest - f/u to monitor interval improvement -Repeat CT chest 01/18 - bilateral pleural effusions and associated compressive consolidations. Ground-glass and patchy scattered diffuse pulmonary infiltrates suspicious for multifocal pneumonia and or edema. -Repiratory status improving - CPAP trial --> wean to extubate --Pt tolerated CPAP for 1 hour yesterday then developed rapid AFIB on monitor. Repeat CPAP trial today Imaging on Admission: CXR 12/15: Prominent consolidative opacification with patchy opacities seen throughout the right lung as well as within the left upper lung zone. Post treatment interval follow-up is recommended to ensure resolution. Moderate left pleural effusion. Blunted right costophrenic angle. Cardiomegaly. CT Chest w/o Contrast 01/15: 1. Multifocal ground-glass and confluent airspace disease in both lungs may represent pulmonary edema or multifocal pneumonia. Follow-up is advised. 2. Moderate cardiomegaly, small pericardial effusion and moderate bilateral pleural effusions.3. Cholelithiasis in over distended gallbladder. Please correlate with right upper quadrant ultrasound Neuro -Precedex, propofol CT Head 01/15: No acute intracranial abnormality. Mild chronic microangiopathic changes and mild age-related global parenchymal volume loss. GI -Cholelithiasis noted on CT Chest --Normal T bili, LFTS, and alk phos -GI ppx Renal ESRD hx renal transplant 2002, requiring new HD for failing transplant -S/p R femoral Shiley HD catheter placement beside with vascular surgery, Dr. Butler -Patient underwent HD on Monday 01/15. -Per surgery, awaiting medical stabilization prior to permacath placement -F/u Nephro, Dr. Madrigal, for HD plan -Monitor output and fluid status -Prednisone decreased 01/18 from 5mg PO daily --> 2.5 mg Q2d ID/Heme Anemia -HgB 5.2 on admission -S/p 3U PRBCs --> 10.5 --> 9.3 today -Etiology due to chronic renal insufficiency vs GI bleed. -Continues to have + stool guaic, but HgB stable -HgB stable at 9.3 today, will monitor for symptoms and daily CBC to assess need to transfuse. Gram + Cocci Bacteremia -Temp 99.9F over weekend - Prelim blood cultures Gram + cocci -Stool studies - f/u -ID consulted, Dr. aBzan -Abx - Vancomycin PPx -Pepcid 20 mg IV daily -DVT ppx c/i 2/2 anemia Assessment and plan d/w Dr. Manuel Waters, PGY-1 <Jay Jackson S - Last Filed: 01/19/19 16:36> CCU Subjective - Physician Review Critical Care Time Spent (in minutes): 45 CCU Objective - Vital Signs / Intake & Output Vital Signs (Last 4 hours): Vital Signs Temp Pulse Resp BP Pulse Ox 01/19/19 16:02 76 20 130/58 L 99 01/19/19 16:00 98.0 F 77 20 100 01/19/19 15:03 80 20 136/61 97 01/19/19 15:00 75 13 96 01/19/19 14:02 68 20 118/44 L 99 01/19/19 14:00 68 20 100 01/19/19 13:04 67 20 107/44 L 99 01/19/19 13:00 68 20 99 Intake and Output (Last 8hrs): Intake & Output 01/19/19 01/19/19 01/19/19 06:59 14:59 22:59 Intake Total 522 100 90 Output Total 50 Balance 472 100 90 Weight 131 lb 6.328 oz Intake: IV 77 Intake, IV Amount 70 100 0 R femoral trialysis IV 70 0 0 port Right Femoral 0 0 0 Right Forearm 0 0 Right Forearm1 100 0 Tube Feeding 315 0 90 Other 60 Output: Stool 50 Other: # Voids Urine, Voided 0 0 0 - Medications Active Medications: Active Medications Generic Name Dose Route Start Last Admin Trade Name Freq PRN Reason Stop Dose Admin Epoetin Elijah 10,000 unit 01/16/19 10:00 01/19/19 15:18 Procrit IV Not Given TTS GLADYS Famotidine 20 mg 01/16/19 10:00 01/19/19 09:15 Pepcid IVP 20 mg DAILY GLADYS Administration Folic Acid 1 mg 01/15/19 10:00 01/19/19 09:15 Folic Acid PO 1 mg DAILY GLADYS Administration Propofol 1,000 mg in 100 mls @ 1.633 mls/hr 01/15/19 14:49 01/18/19 09:32 Diprivan IV 0 mcg/kg/min .Q24H PRN 0 mls/hr TITRATE PER MD ORDER Titration Protocol 5 MCG/KG/MIN Vancomycin/Sodium Chloride 1 gm in 200 mls @ 133.333 mls/hr 01/18/19 09:00 01/18/19 13:33 Vancomycin 1 Gm/Ns 200 Ml IVPB 133.333 mls/hr MWF GLADYS Administration Protocol Metronidazole 500 mg in 100 mls @ 100 mls/hr 01/17/19 20:00 01/19/19 11:16 Flagyl IVPB 100 mls/hr Q8H GLADYS Administration Protocol Dexmedetomidine HCl 200 mcg/ 50 mls @ 3.02 mls/hr 01/18/19 17:52 Sodium Chloride IV TITR PRN Agitation Protocol 0.2 MCG/KG/HR Diltiazem HCl 125 mg/ Sodium 125 mls @ 5 mls/hr 01/18/19 19:00 01/18/19 23:00 Chloride IV 0 mg/hr .Q24H GLADYS 0 mls/hr Titration Protocol 5 MG/HR Phenylephrine HCl 30 mg/ 253 mls @ 10.12 mls/hr 01/18/19 22:02 01/19/19 02:38 Sodium Chloride IV 0 mcg/min .Q24H PRN 0 mls/hr TITRATE PER MD ORDER Titration Protocol 20 MCG/MIN Metoprolol Tartrate 25 mg 01/15/19 10:00 01/19/19 09:15 Lopressor PO 25 mg BID GLADYS Administration Paricalcitol 2 mcg 01/16/19 10:00 01/19/19 15:19 Zemplar IV Not Given TTS GLADYS Prednisone 2.5 mg 01/18/19 10:00 01/18/19 10:58 Prednisone PO Not Given Q2D GLADYS Rosuvastatin Calcium 10 mg 01/15/19 22:00 01/18/19 21:55 Crestor PO 10 mg HS GLADYS Administration Saccharomyces Boulardii 250 mg 01/18/19 10:00 01/19/19 09:15 Florastor PO 250 mg BID GLADYS Administration Vancomycin HCl 250 mg 01/17/19 22:00 01/19/19 15:19 Firvanq (Oral Solution) PEG 250 mg QID GLADYS Administration Vitamin B Complex/Vit C/Folic Acid 1 tab 01/16/19 08:00 01/19/19 09:15 Nephro-Nacho PO 1 tab 0800 GLADYS Administration - Patient Studies Lab Studies: Microbiology Studies 01/17/19 12:52 Gram Stain - Final Trachasp Sputum Culture - Final NORMAL ORAL CHELLY Lab Studies 01/19/19 01/19/19 01/19/19 Range/Units 08:00 06:23 05:19 WBC 9.7 (4.8-10.8) K/uL RBC 3.00 L (3.80-5.20) Mil/uL Hgb 9.3 L (11.0-16.0) g/dL Hct 27.5 L (34.0-47.0) % MCV 91.8 (81.0-99.0) fL MCH 31.1 H (27.0-31.0) pg MCHC 33.9 (33.0-37.0) g/dL RDW 15.3 H (11.5-14.5) % Plt Count 101 L (130-400) K/uL MPV 10.4 (7.2-11.7) fL Puncture Site Rr pCO2 33 L (35-45) mm/Hg pO2 100 (80-100) mm/Hg HCO3 22.6 (21-28) mmol/L ABG pH 7.41 (7.35-7.45) ABG Total CO2 21.9 L (22-28) mmol/L ABG O2 Saturation 98.6 H (95-98) % ABG Base Excess -3.0 L (-2.0-3.0) mmol/L ABG Hemoglobin 11.9 (11.7-17.4) g/dL ABG Carboxyhemoglobin 1.7 H (0.5-1.5) % POC ABG HHb (Measured) 1.4 (0.0-5.0) % ABG Methemoglobin 1.0 (0.0-3.0) % Trevin Test Pos A-a O2 Difference 144.0 mm/Hg Respiratory Index 1.4 Hgb O2 Saturation 95.8 (95.0-98.0) % Vent Mode Prvc Mechanical Rate 20 FiO2 40.0 % Tidal Volume 450 PEEP 5 Sodium 134 (132-148) mmol/L Potassium 3.4 L (3.6-5.2) mmol/L Chloride 100 (98-107) mmol/L Carbon Dioxide 22 (22-30) mmol/L Anion Gap 16 (10-20) BUN 80 H (7-17) mg/dL Creatinine 4.6 H (0.7-1.2) mg/dL Est GFR ( Amer) 11 Est GFR (Non-Af Amer) 9 Random Glucose 107 H (65-105) mg/dL Calcium 6.7 L (8.6-10.4) mg/dl Phosphorus 5.3 H (2.5-4.5) mg/dL Magnesium 1.8 (1.6-2.3) mg/dL Total Bilirubin 0.5 (0.2-1.3) mg/dL AST 68 H (14-36) U/L ALT 35 (9-52) U/L Alkaline Phosphatase 107 (38-126) U/L Lactate Dehydrogenase (313-618) U/L Total Protein 4.8 L (6.3-8.3) g/dL Albumin 2.4 L (3.5-5.0) g/dL Globulin 2.4 (2.2-3.9) gm/dL Albumin/Globulin Ratio 1.0 (1.0-2.1) Stool Occult Blood (NEGATIVE) 01/18/19 01/18/19 Range/Units 21:47 21:10 WBC (4.8-10.8) K/uL RBC (3.80-5.20) Mil/uL Hgb (11.0-16.0) g/dL Hct (34.0-47.0) % MCV (81.0-99.0) fL MCH (27.0-31.0) pg MCHC (33.0-37.0) g/dL RDW (11.5-14.5) % Plt Count (130-400) K/uL MPV (7.2-11.7) fL Puncture Site pCO2 (35-45) mm/Hg pO2 (80-100) mm/Hg HCO3 (21-28) mmol/L ABG pH (7.35-7.45) ABG Total CO2 (22-28) mmol/L ABG O2 Saturation (95-98) % ABG Base Excess (-2.0-3.0) mmol/L ABG Hemoglobin (11.7-17.4) g/dL ABG Carboxyhemoglobin (0.5-1.5) % POC ABG HHb (Measured) (0.0-5.0) % ABG Methemoglobin (0.0-3.0) % Trevin Test A-a O2 Difference mm/Hg Respiratory Index Hgb O2 Saturation (95.0-98.0) % Vent Mode Mechanical Rate FiO2 % Tidal Volume PEEP Sodium 134 (132-148) mmol/L Potassium 3.5 L (3.6-5.2) mmol/L Chloride 99 (98-107) mmol/L Carbon Dioxide 24 (22-30) mmol/L Anion Gap 15 (10-20) BUN 72 H (7-17) mg/dL Creatinine 4.5 H (0.7-1.2) mg/dL Est GFR ( Amer) 12 Est GFR (Non-Af Amer) 10 Random Glucose 117 H D (65-105) mg/dL Calcium 6.8 L (8.6-10.4) mg/dl Phosphorus 5.6 H (2.5-4.5) mg/dL Magnesium 1.8 (1.6-2.3) mg/dL Total Bilirubin 0.5 (0.2-1.3) mg/dL AST 60 H D (14-36) U/L ALT 26 (9-52) U/L Alkaline Phosphatase 93 (38-126) U/L Lactate Dehydrogenase 1237 H (313-618) U/L Total Protein 4.5 L (6.3-8.3) g/dL Albumin 2.3 L (3.5-5.0) g/dL Globulin 2.3 (2.2-3.9) gm/dL Albumin/Globulin Ratio 1.0 (1.0-2.1) Stool Occult Blood Positive H (NEGATIVE) Laboratory Results - last 24 hr 01/18/19 01/18/19 01/19/19 21:10 21:47 05:19 WBC RBC Hgb Hct MCV MCH MCHC RDW Plt Count MPV Puncture Site Rr pCO2 33 L pO2 100 HCO3 22.6 ABG pH 7.41 ABG Total CO2 21.9 L ABG O2 Saturation 98.6 H ABG Base Excess -3.0 L ABG Hemoglobin 11.9 ABG Carboxyhemoglobin 1.7 H POC ABG HHb (Measured) 1.4 ABG Methemoglobin 1.0 Trevin Test Pos A-a O2 Difference 144.0 Respiratory Index 1.4 Hgb O2 Saturation 95.8 Vent Mode Prvc Mechanical Rate 20 FiO2 40.0 Tidal Volume 450 PEEP 5 Sodium 134 Potassium 3.5 L Chloride 99 Carbon Dioxide 24 Anion Gap 15 BUN 72 H Creatinine 4.5 H Est GFR ( Amer) 12 Est GFR (Non-Af Amer) 10 Random Glucose 117 H D Calcium 6.8 L Phosphorus 5.6 H Magnesium 1.8 Total Bilirubin 0.5 AST 60 H D ALT 26 Alkaline Phosphatase 93 Lactate Dehydrogenase 1237 H Total Protein 4.5 L Albumin 2.3 L Globulin 2.3 Albumin/Globulin Ratio 1.0 Stool Occult Blood Positive H 01/19/19 01/19/19 06:23 08:00 WBC 9.7 RBC 3.00 L Hgb 9.3 L Hct 27.5 L MCV 91.8 MCH 31.1 H MCHC 33.9 RDW 15.3 H Plt Count 101 L MPV 10.4 Puncture Site pCO2 pO2 HCO3 ABG pH ABG Total CO2 ABG O2 Saturation ABG Base Excess ABG Hemoglobin ABG Carboxyhemoglobin POC ABG HHb (Measured) ABG Methemoglobin Trevin Test A-a O2 Difference Respiratory Index Hgb O2 Saturation Vent Mode Mechanical Rate FiO2 Tidal Volume PEEP Sodium 134 Potassium 3.4 L Chloride 100 Carbon Dioxide 22 Anion Gap 16 BUN 80 H Creatinine 4.6 H Est GFR ( Amer) 11 Est GFR (Non-Af Amer) 9 Random Glucose 107 H Calcium 6.7 L Phosphorus 5.3 H Magnesium 1.8 Total Bilirubin 0.5 AST 68 H ALT 35 Alkaline Phosphatase 107 Lactate Dehydrogenase Total Protein 4.8 L Albumin 2.4 L Globulin 2.4 Albumin/Globulin Ratio 1.0 Stool Occult Blood Radiology Impressions: Radiology Impressions Chest X-Ray 01/19/19 07:09 Impression: Lines and tubes in stable position. Dense diffuse bilateral pleural parenchymal opacities in both lung hawkins. Small to moderate left and small right pleural effusion. Cardiomegaly Chest X-Ray 01/19/19 14:58 IMPRESSION: Interval left internal jugular vein central catheter tip superior vena cava. No pneumothorax seen. Bilateral patchy airspace opacities. Coalescence/consolidation left lung base with left pleural effusion-left pleural effusion with compressive atelectasis inferred. Concomitant left basal infiltrate not excluded. Cardiomegaly and probable concomitant mild pulmonary venous congestion. Other findings as above. Critical Care Progress Note - Nutrition Nutrition: Nutrition Category Date Time Status NPO Diet [DIET] Diets 01/15/19 Lunch Active Attending/Attestation - Attestation I have personally seen and examined this patient.: Yes I have fully participated in the care of the patient.: Yes I have reviewed all pertinent clinical information: Yes Notes (Text): 01/19/19 16:35 Patient seen and examined in the intensive care unit. Case discussed with housestaff in the morning rounds. Patient remained intubated on ventilatory support and is not tolerating weaning because patient appears very drowsy and lethargic Continue hemodialysis Continue antibiotics No purulent secretions noted from the ET tube Chest x-ray consistent with congestive changes Triple-lumen catheter inserted left internal jugular vein
--- NOTE | 2019-01-19 11:57 | CP.PCM.PN ---
Subjective - Date & Time of Evaluation Date of Evaluation: 01/19/19 Time of Evaluation: 09:00 - Subjective Subjective: 73 year old female with PMHx ESRD admitted to with SOB and cough productive of whitish sputum as well as severe dizzyness Developed respiratory failure requiring intubation and mechanical ventilation and required transfusion for severe qnemia on anticoagulants for paroxysmal A Fib Had Permacath inserted for emergancy HD as AV fistula not mature and appeared to be fluid overloaded with diastolic CHF PMHx: ESRD, s/p kidney transplant in 2002, hypertension, atrial fibrillation, fibrocystic breast dz, pontine infarct in 2007 remains intubated in ICU weak lethargic Objective - Vital Signs/Intake and Output Vital Signs (last 24 hours): Temp Pulse Resp BP Pulse Ox 99.4 F 72 20 118/51 L 98 01/19/19 08:00 01/19/19 11:02 01/19/19 11:02 01/19/19 11:02 01/19/19 11:02 Intake and Output: 01/19/19 01/19/19 06:59 18:59 Intake Total 929 0 Output Total 250 Balance 679 0 - Medications Medications: Current Medications Epoetin Elijah (Procrit) 10,000 unit IV TTS [facility] Last Admin: 01/16/19 13:14 Dose: 10,000 unit Famotidine (Pepcid) 20 mg IVP DAILY [facility] Last Admin: 01/19/19 09:15 Dose: 20 mg Folic Acid (Folic Acid) 1 mg PO DAILY [facility] Last Admin: 01/19/19 09:15 Dose: 1 mg Propofol (Diprivan) 1,000 mg in 100 mls @ 1.633 mls/hr IV .Q24H PRN; Protocol PRN Reason: TITRATE PER MD ORDER Last Titration: 01/18/19 09:32 Dose: 0 mcg/kg/min, 0 mls/hr Vancomycin/Sodium Chloride (Vancomycin 1 Gm/Ns 200 Ml) 1 gm in 200 mls @ 133.333 mls/hr IVPB MWF [facility]; Protocol Last Admin: 01/18/19 13:33 Dose: 133.333 mls/hr Metronidazole (Flagyl) 500 mg in 100 mls @ 100 mls/hr IVPB Q8H [facility]; Protocol Last Admin: 01/19/19 11:16 Dose: 100 mls/hr Dexmedetomidine HCl 200 mcg/ (Sodium Chloride) 50 mls @ 3.02 mls/hr IV TITR PRN; Protocol PRN Reason: Agitation Diltiazem HCl 125 mg/ Sodium (Chloride) 125 mls @ 5 mls/hr IV .Q24H [facility]; Protocol Last Titration: 01/18/19 23:00 Dose: 0 mg/hr, 0 mls/hr Phenylephrine HCl 30 mg/ (Sodium Chloride) 253 mls @ 10.12 mls/hr IV .Q24H PRN; Protocol PRN Reason: TITRATE PER MD ORDER Last Titration: 01/19/19 02:38 Dose: 0 mcg/min, 0 mls/hr Metoprolol Tartrate (Lopressor) 25 mg PO BID [facility] Last Admin: 01/19/19 09:15 Dose: 25 mg Paricalcitol (Zemplar) 2 mcg IV TTS [facility] Last Admin: 01/16/19 12:59 Dose: 2 mcg Prednisone (Prednisone) 2.5 mg PO Q2D [facility] Last Admin: 01/18/19 10:58 Dose: Not Given Rosuvastatin Calcium (Crestor) 10 mg PO HS [facility] Last Admin: 01/18/19 21:55 Dose: 10 mg Saccharomyces Boulardii (Florastor) 250 mg PO BID [facility] Last Admin: 01/19/19 09:15 Dose: 250 mg Vancomycin HCl (Firvanq (Oral Solution)) 250 mg PEG QID [facility] Last Admin: 01/19/19 09:15 Dose: 250 mg Vitamin B Complex/Vit C/Folic Acid (Nephro-Nacho) 1 tab PO 0800 [facility] Last Admin: 01/19/19 09:15 Dose: 1 tab - Labs Labs: 01/19/19 06:23 01/19/19 08:00 PT 13.3 SECONDS (9.7-12.2) H 01/15/19 05:29 INR 1.2 01/15/19 05:29 APTT 34 SECONDS (21-34) 01/15/19 05:29 - Constitutional Appears: Confused, Cachectic, Chronically Ill - Head Exam Head Exam: NORMOCEPHALIC - Eye Exam Eye Exam: absent: Scleral icterus - ENT Exam ENT Exam: Mucous Membranes Dry - Neck Exam Neck Exam: absent: Lymphadenopathy - Respiratory Exam Respiratory Exam: Decreased Breath Sounds, Rhonchi - Cardiovascular Exam Cardiovascular Exam: REGULAR RHYTHM, +S1, +S2 - GI/Abdominal Exam GI & Abdominal Exam: Distended, Soft - Rectal Exam Rectal Exam: Deferred - Exam Exam: NORMAL INSPECTION - Extremities Exam Extremities Exam: Pedal Edema - Back Exam Back Exam: absent: CVA tenderness (L), CVA tenderness (R) - Neurological Exam Neurological Exam: Altered Assessment and Plan (1) Pneumonia Status: Acute (2) Acute on chronic diastolic (congestive) heart failure Status: Acute (3) Severe anemia Status: Acute (4) ESRD (end stage renal disease) Status: Chronic (5) Hypertension Status: Chronic - Assessment and Plan (Free Text) Assessment: septic shock r/o bacteremic pneumonia vs line sepsis cont supportive rx including HD vent support and IV antibiotics
--- NOTE | 2019-01-19 15:09 | CP.PCM.CON ---
History of Present Illness - History of Present Illness History of Present Illness: Pulm Consult Note for Dr. Jackson's service possible bronchoscopy (consult reason) HPI: 73 years olf [place] female is sent to the ED at [facility] by her Parking Control Officer ( Dr Madrigal) to start hemodialysis. Known to have an ESRD, s/p kidney transplant in 2002 at [facility] with worsening of renal function, a hypertension, a fibrocystic disease of the breasts, an intermittent atrial fibrillation, a s/p pontine infarct in 2007, she has been complaining of dizziness, shortness of breast and a dry cough for the past few days, without fever. Patient at time of interview is intubated. Patient son at bedside. Had central line placed in ICU. Limited ROS. PMHx: ESRD, s/p kidney transplant in 2002, hypertension, atrial fibrillation, fibrocystic breast dz, pontine infarct in 2007 PSH: Kidney transplant, appendectomy, AVF placement All: see MAR Medications: extensive, reviewed in MAR Review of Systems - Review of Systems Systems not reviewed;Unavailable: Intubated Past Patient History - Infectious Disease Hx of Infectious Diseases: None - Tetanus Immunizations Tetanus Immunization: Unknown - Past Medical History & Family History Past Medical History?: Yes - Past Social History Smoking Status: Never Smoked - CARDIAC Hx Cardia Arrhythmia: Yes Hx Congestive Heart Failure: Yes Hx Hypercholesterolemia: Yes Hx Hypertension: Yes Hx Peripheral Edema: Yes Other/Comment: Mitral valvr Regurgitation - PULMONARY Hx Pneumonia: Yes (may 2018) - NEUROLOGICAL Hx Transient Ischemic Attacks (TIA): Yes - HEENT Hx HEENT Problems: Yes Hx Cataracts: Yes Other/Comment: Partial Hearing loss - RENAL Hx Chronic Kidney Disease: Yes (kidney transplant 2002) Hx Renal Failure: Yes Other/Comment: Kidney Failure - HEMATOLOGICAL/ONCOLOGICAL Hx Anemia: Yes - INTEGUMENTARY Other/Comment: Upper back rashes - MUSCULOSKELETAL/RHEUMATOLOGICAL Hx Falls: No - GASTROINTESTINAL Hx Gastrointestinal Disorders: Yes (diarrhea at times ) - GENITOURINARY/GYNECOLOGICAL Other/Comment: Urinary Retension - PSYCHIATRIC Hx Substance Use: No - SURGICAL HISTORY Hx Appendectomy: Yes Other/Comment: Kidney Bx, Lt. Breast Excision, - ANESTHESIA Hx Anesthesia: Yes Hx Anesthesia Reactions: Yes (nausea vomitting) Hx Malignant Hyperthermia: No Meds Allergies/Adverse Reactions: Allergies Allergy/AdvReac Type Severity Reaction Status Date / Time enalaprilat [From Vasotec] Allergy Intermediate RASH Verified 07/14/18 13:29 Penicillins Allergy Intermediate RASH Verified 07/14/18 13:28 Sulfa (Sulfonamide Allergy Intermediate RASH Verified 07/14/18 13:27 Antibiotics) tetracycline Allergy Intermediate RASH Verified 07/14/18 13:28 aspirin Allergy Verified 01/15/19 03:44 - Medications Medications: Current Medications Epoetin Elijah (Procrit) 10,000 unit IV TTS [facility] Last Admin: 01/16/19 13:14 Dose: 10,000 unit Famotidine (Pepcid) 20 mg IVP DAILY [facility] Last Admin: 01/19/19 09:15 Dose: 20 mg Folic Acid (Folic Acid) 1 mg PO DAILY [facility] Last Admin: 01/19/19 09:15 Dose: 1 mg Propofol (Diprivan) 1,000 mg in 100 mls @ 1.633 mls/hr IV .Q24H PRN; Protocol PRN Reason: TITRATE PER MD ORDER Last Titration: 01/18/19 09:32 Dose: 0 mcg/kg/min, 0 mls/hr Vancomycin/Sodium Chloride (Vancomycin 1 Gm/Ns 200 Ml) 1 gm in 200 mls @ 133.333 mls/hr IVPB MWF [facility]; Protocol Last Admin: 01/18/19 13:33 Dose: 133.333 mls/hr Metronidazole (Flagyl) 500 mg in 100 mls @ 100 mls/hr IVPB Q8H [facility]; Protocol Last Admin: 01/19/19 11:16 Dose: 100 mls/hr Dexmedetomidine HCl 200 mcg/ (Sodium Chloride) 50 mls @ 3.02 mls/hr IV TITR PRN; Protocol PRN Reason: Agitation Diltiazem HCl 125 mg/ Sodium (Chloride) 125 mls @ 5 mls/hr IV .Q24H [facility]; Protocol Last Titration: 01/18/19 23:00 Dose: 0 mg/hr, 0 mls/hr Phenylephrine HCl 30 mg/ (Sodium Chloride) 253 mls @ 10.12 mls/hr IV .Q24H PRN; Protocol PRN Reason: TITRATE PER MD ORDER Last Titration: 01/19/19 02:38 Dose: 0 mcg/min, 0 mls/hr Metoprolol Tartrate (Lopressor) 25 mg PO BID [facility] Last Admin: 01/19/19 09:15 Dose: 25 mg Paricalcitol (Zemplar) 2 mcg IV TTS [facility] Last Admin: 01/16/19 12:59 Dose: 2 mcg Prednisone (Prednisone) 2.5 mg PO Q2D [facility] Last Admin: 01/18/19 10:58 Dose: Not Given Rosuvastatin Calcium (Crestor) 10 mg PO HS [facility] Last Admin: 01/18/19 21:55 Dose: 10 mg Saccharomyces Boulardii (Florastor) 250 mg PO BID [facility] Last Admin: 01/19/19 09:15 Dose: 250 mg Vancomycin HCl (Firvanq (Oral Solution)) 250 mg PEG QID [facility] Last Admin: 01/19/19 09:15 Dose: 250 mg Vitamin B Complex/Vit C/Folic Acid (Nephro-Nacho) 1 tab PO 0800 [facility] Last Admin: 01/19/19 09:15 Dose: 1 tab Physical Exam - Constitutional Appears: Non-toxic, No Acute Distress - Head Exam Head Exam: NORMAL INSPECTION - ENT Exam ENT Exam: Mucous Membranes Dry - Respiratory Exam Additional comments: intubated with decreased breath sounds - Cardiovascular Exam Cardiovascular Exam: REGULAR RHYTHM, +S1, +S2 - GI/Abdominal Exam GI & Abdominal Exam: Normal Bowel Sounds, Soft. absent: Tenderness - Extremities Exam Extremities exam: Positive for: normal inspection. Negative for: calf tenderness, pedal edema - Skin Skin Exam: Dry, Normal Color Results - Vital Signs Recent Vital Signs: Last Vital Signs Temp 99.4 F 01/19/19 08:00 Pulse 72 01/19/19 11:02 Resp 20 01/19/19 11:02 BP 118/51 L 01/19/19 11:02 Pulse Ox 98 01/19/19 11:02 - Labs Result Diagrams: 01/19/19 06:23 01/19/19 08:00 Labs: Laboratory Results - last 24 hr 01/18/19 01/18/19 01/19/19 21:10 21:47 05:19 WBC RBC Hgb Hct MCV MCH MCHC RDW Plt Count MPV Puncture Site Rr pCO2 33 L pO2 100 HCO3 22.6 ABG pH 7.41 ABG Total CO2 21.9 L ABG O2 Saturation 98.6 H ABG Base Excess -3.0 L ABG Hemoglobin 11.9 ABG Carboxyhemoglobin 1.7 H POC ABG HHb (Measured) 1.4 ABG Methemoglobin 1.0 Trevin Test Pos A-a O2 Difference 144.0 Respiratory Index 1.4 Hgb O2 Saturation 95.8 Vent Mode Prvc Mechanical Rate 20 FiO2 40.0 Tidal Volume 450 PEEP 5 Sodium 134 Potassium 3.5 L Chloride 99 Carbon Dioxide 24 Anion Gap 15 BUN 72 H Creatinine 4.5 H Est GFR ( Amer) 12 Est GFR (Non-Af Amer) 10 Random Glucose 117 H D Calcium 6.8 L Phosphorus 5.6 H Magnesium 1.8 Total Bilirubin 0.5 AST 60 H D ALT 26 Alkaline Phosphatase 93 Lactate Dehydrogenase 1237 H Total Protein 4.5 L Albumin 2.3 L Globulin 2.3 Albumin/Globulin Ratio 1.0 Stool Occult Blood Positive H 01/19/19 01/19/19 06:23 08:00 WBC 9.7 RBC 3.00 L Hgb 9.3 L Hct 27.5 L MCV 91.8 MCH 31.1 H MCHC 33.9 RDW 15.3 H Plt Count 101 L MPV 10.4 Puncture Site pCO2 pO2 HCO3 ABG pH ABG Total CO2 ABG O2 Saturation ABG Base Excess ABG Hemoglobin ABG Carboxyhemoglobin POC ABG HHb (Measured) ABG Methemoglobin Trevin Test A-a O2 Difference Respiratory Index Hgb O2 Saturation Vent Mode Mechanical Rate FiO2 Tidal Volume PEEP Sodium 134 Potassium 3.4 L Chloride 100 Carbon Dioxide 22 Anion Gap 16 BUN 80 H Creatinine 4.6 H Est GFR ( Amer) 11 Est GFR (Non-Af Amer) 9 Random Glucose 107 H Calcium 6.7 L Phosphorus 5.3 H Magnesium 1.8 Total Bilirubin 0.5 AST 68 H ALT 35 Alkaline Phosphatase 107 Lactate Dehydrogenase Total Protein 4.8 L Albumin 2.4 L Globulin 2.4 Albumin/Globulin Ratio 1.0 Stool Occult Blood Assessment & Plan - Assessment and Plan (Free Text) Assessment: A: ESRD w/ failed kidney transplant on HD HTN pulmonary edema vs PNA Pleural effusion Afib P: HD as per nephro to continue fluid removal IV abx for possible PNA Iv diltziazem drip trend procal CPAP and weaning trials as per ICU PGY-1 Lisa Mathis Case d/w Dr. Jackson
[2019-01-19] MEDS: Epoetin Alfa 10,000 unit/ml Dialysis IV SCH (15:18)
[2019-01-19] MEDS: Paricalcitol 2 mcg/ml Inj IV SCH (15:19)
--- NOTE | 2019-01-19 15:54 | RAD ---
Date of service: 01/19/2019 HISTORY: s/p central line COMPARISON: 01/19/2019 at 0715 hr TECHNIQUE: 1 view obtained. FINDINGS: LUNGS: The patchy variable-sized bilateral airspace over opacities appear similar. The left basal consolidation left pleural effusion is similar. Endotracheal tube tip approximately 2 to 3 cm cephalad to linda. PLEURA: Left pleural effusion similar. Trace right pleural effusions similar. No pneumothorax appreciated. Apparent bilateral apical pleural thickening. CARDIOVASCULAR: There is presence of aortic atherosclerotic calcification on x-ray. Mild cardiomegaly-similar concomitant mild pulmonary venous congestion probable Interval insertion left central line internal jugular vein approach tip superior vena cava. OSSEOUS STRUCTURES: No significant abnormalities. VISUALIZED UPPER ABDOMEN: Nasogastric tube courses along stomach tip beyond the inferior field of this view. OTHER FINDINGS: None. IMPRESSION: Interval left internal jugular vein central catheter tip superior vena cava. No pneumothorax seen. Bilateral patchy airspace opacities. Coalescence/consolidation left lung base with left pleural effusion-left pleural effusion with compressive atelectasis inferred. Concomitant left basal infiltrate not excluded. Cardiomegaly and probable concomitant mild pulmonary venous congestion. Other findings as above.
--- NOTE | 2019-01-19 16:39 | PCM.PROC ---
Procedures Attestation:: I certify that I have explained the specified Operation(s) or Procedure(s), risks, benefits and reasonable alternatives to the Patient and/or other person responsible. The opportunity was given to ask questions and all questions answered - Central Line Placement Left Internal Jugular Aseptic technique was employed throughout the procedure: Hand Hygiene done prior to procedure, Full sterile barriers (mask, hair cover, sterile gown, sterile gloves), Full body sterile drape, Chloraprep Antiseptic: 30 second prep for IJ or SC sites CVP Time Out Performed: Yes Pt. Placed on Pulse Ox Monitor: Yes Central Line Prep: Chlorhexidine-Alcohol Combination Local Anesthesia Used: Lidocaine 2% Ultrasound Used for Placement: Yes Central Line Lumen Inserted: triple Central Line Length: 20 cm Post Procedure: Sutured in Place, Good Blood Return, All Ports Aspirated, Flushed, Capped, Sterile Dressing Applied Secured by: Suture Post procedure dressing: Chlorhexidine disc (Biopatch) Post Procedure X-Ray: Yes Patient Tolerated Procedure: Well, No Complications Immediate Complications: None
--- NOTE | 2019-01-19 19:34 | CP.PCM.PN ---
Subjective - Date & Time of Evaluation Date of Evaluation: 01/19/19 Time of Evaluation: 19:34 - Subjective Subjective: pt is seen and examined, follow up consult is dictated #[id number] d/c rt fv cath repeat blood c/s please wait for negative bloodc/s for perma cath placement iv lasix dripat 5 mg/hr check labs in am Objective - Vital Signs/Intake and Output Vital Signs (last 24 hours): Temp Pulse Resp BP Pulse Ox 98.0 F 74 21 132/56 L 99 01/19/19 16:00 01/19/19 18:02 01/19/19 18:02 01/19/19 18:02 01/19/19 18:02 Intake and Output: 01/19/19 01/20/19 18:59 06:59 Intake Total 280 Balance 280 - Medications Medications: Current Medications Epoetin Elijah (Procrit) 10,000 unit IV TTS [facility] Last Admin: 01/19/19 15:18 Dose: Not Given Famotidine (Pepcid) 20 mg IVP DAILY [facility] Last Admin: 01/19/19 09:15 Dose: 20 mg Folic Acid (Folic Acid) 1 mg PO DAILY [facility] Last Admin: 01/19/19 09:15 Dose: 1 mg Propofol (Diprivan) 1,000 mg in 100 mls @ 1.633 mls/hr IV .Q24H [facility]; Protocol PRN Reason: TITRATE PER MD ORDER Last Titration: 01/18/19 09:32 Dose: 0 mcg/kg/min, 0 mls/hr Vancomycin/Sodium Chloride (Vancomycin 1 Gm/Ns 200 Ml) 1 gm in 200 mls @ 133.333 mls/hr IVPB MWF [facility]; Protocol Last Admin: 01/18/19 13:33 Dose: 133.333 mls/hr Metronidazole (Flagyl) 500 mg in 100 mls @ 100 mls/hr IVPB Q8H [facility]; Protocol Last Admin: 01/19/19 11:16 Dose: 100 mls/hr Dexmedetomidine HCl 200 mcg/ (Sodium Chloride) 50 mls @ 3.02 mls/hr IV TITR PRN; Protocol PRN Reason: Agitation Diltiazem HCl 125 mg/ Sodium (Chloride) 125 mls @ 5 mls/hr IV .Q24H [facility]; Protocol Last Titration: 01/18/19 23:00 Dose: 0 mg/hr, 0 mls/hr Phenylephrine HCl 30 mg/ (Sodium Chloride) 253 mls @ 10.12 mls/hr IV .Q24H PRN; Protocol PRN Reason: TITRATE PER MD ORDER Last Titration: 01/19/19 02:38 Dose: 0 mcg/min, 0 mls/hr Metoprolol Tartrate (Lopressor) 25 mg PO BID [facility] Last Admin: 01/19/19 17:36 Dose: 25 mg Paricalcitol (Zemplar) 2 mcg IV TTS [facility] Last Admin: 01/19/19 15:19 Dose: Not Given Prednisone (Prednisone) 2.5 mg PO Q2D [facility] Last Admin: 01/18/19 10:58 Dose: Not Given Rosuvastatin Calcium (Crestor) 10 mg PO HS [facility] Last Admin: 01/18/19 21:55 Dose: 10 mg Saccharomyces Boulardii (Florastor) 250 mg PO BID [facility] Last Admin: 01/19/19 17:37 Dose: 250 mg Vancomycin HCl (Firvanq (Oral Solution)) 250 mg PEG QID [facility] Last Admin: 01/19/19 17:36 Dose: 250 mg Vitamin B Complex/Vit C/Folic Acid (Nephro-Nacho) 1 tab PO 0800 [facility] Last Admin: 01/19/19 09:15 Dose: 1 tab - Labs Labs: 01/19/19 06:23 01/19/19 08:00 PT 13.3 SECONDS (9.7-12.2) H 01/15/19 05:29 INR 1.2 01/15/19 05:29 APTT 34 SECONDS (21-34) 01/15/19 05:29
[2019-01-19] MEDS ORDERED: Furosemide 100 MG in Sodium Chloride 0.9% 90 ML IVP SCH (21:30)
[2019-01-19] MEDS: Albumin Human 25% (12.5 gm/50 ml) IV SCH ×2 (21:56→22:49)
[2019-01-20] MEDS: metroNIDAZOLE IV 500 mg/100 ml 500 MG/100 ML BAG IVPB SCH ×3 (03:13→20:14)
--- NOTE | 2019-01-20 05:21 | PN ---
DATE: 01/19/2019 FOLLOWUP RENAL CONSULTATION LOCATION: The patient is located in ICU, bed 2. REQUEST BY: Dash Najera MD. REASON FOR FOLLOWUP: End-stage renal disease, continuation of hemodialysis. SUBJECTIVE: Mrs. 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 The patient requiring intubation after failing BiPAP on the floor, the patient is on ventilator and started on hemodialysis last week. The patient underwent hemodialysis yesterday. The patient remains intubated on FiO2 40%. The patient is also being treated for pneumonia and sepsis with gram-positive cocci in pairs, identification is pending. The patient is under sedation, trying to open eyes. PHYSICAL EXAMINATION: VITAL SIGNS: As follows: This evening blood pressure 123/57, pulse 72, respirations 19, saturation 100%, and temperature is 98. Height 5 feet 2 inches, weight is 131 pounds. GENERAL: Mrs. Faulkner is a 73-year-old elderly [place] female, on ventilator. HEENT: Pupils normal, reactive to light and accommodation. Conjunctivae pink. Sclerae anicteric. On ventilator. NECK: No thyroid enlargement. LUNGS: Symmetric on both sides. Bilateral breath sounds present. Clear to auscultation. CVS: [place] at the fifth intercostal space midclavicular line. S1, S2 audible. No murmur or gallop. ABDOMEN: Normal in appearance. Soft, tympanitic. No guarding. No rigidity. No hepatosplenomegaly. BILL OF MATERIALS CLERK: The patient is on ventilator, under sedation. EXTREMITIES: No cyanosis, no clubbing. 2+ edema in both upper and lower extremities. CURRENT MEDICATIONS: Include as follows: Crestor 10 mg at bedtime, Precedex, diltiazem 125 mg which is 5 mg/hour, propofol, vancomycin 250 mg by NG tube four times a day, Flagyl 500 mg every 8 hours, Florastor, folic acid, Lasix drip 1 mg started at 5 mg per hour, metoprolol 25 mg p.o. b.i.d., Nephro-Nacho 1 tablet daily, Pepcid 20 mg IV daily, phenylephrine p.r.n., prednisone 2.5 mg p.o. every 2 days, Procrit 10,000 units three times a week; vancomycin 1 g three times a week Friday, Friday, and Friday; and Zemplar 2 mcg three times a week. LABORATORY DATA: Include as follows: As 01/19/2019, WBC 9.7, hemoglobin 9.3, hematocrit is 27.5, platelets 101. ABG; pH of 7.41, pCO2 of 33, pO2 of 100, bicarb is 22.6 and saturation 98.6. Vent settings, AC 20, tidal volume 450, FiO2 40%, PEEP of 5. Sodium 134, potassium 3.4, chloride 100, CO2 of 22, BUN 80, creatinine 4.6, glucose 107, calcium 6.7, phosphorus 5.3, magnesium 1.8. Total bili 0.5, AST 68, ALT 35, alkaline phosphatase 107, total protein is 4.8, albumin is 2.4, procalcitonin is 47.6. Other reports, blood culture reports positive for gram-positive cocci in pairs and identified as probable Streptococci, preliminary report. Chest x-ray as of 01/19/2019, impression, interval left internal jugular vein central catheter tip, superior vena cava; no pneumothorax seen; bilateral patchy airspace opacities; coalescence and consolidation of left lung base with left pleural effusion with compressive atelectasis inferred; concomitant left basal infiltrate not excluded; cardiomegaly; probable concomitant mild pulmonary venous congestion. ASSESSMENT AND PLAN: In summary, Mrs. Faulkner is a 73-year-old elderly [place] female with a history of hypertension, status post renal transplant, allograft nephropathy with worsening renal function, congestive heart failure, anemia, respiratory failure requiring intubation now, blood culture is positive for Streptococci with gram-positive cocci in pairs, 2 out of 2 bottles, and stool for Clostridium difficile toxin is positive. 1. End-stage renal disease. Continue hemodialysis three times a week. 2. Streptococcus sepsis, rule out Streptococcus pneumoniae. 3. Bilateral pneumonia with respiratory failure, hypoxic, continue ventilation support. 4. Anemia secondary to slow gastrointestinal bleed, renal failure, and iron-deficiency anemia. Continue Procrit and continue ventilation support, continue intravenous antibiotics as per Dr. Bazan and continue p.o. vancomycin and intravenous Flagyl for Clostridium difficile. Repeat labs in the morning and plan to discontinue right femoral vein catheter. Repeat blood culture x2, and we will start Lasix 5 mg per hour and titrate as needed. Please wait for the blood culture to be negative prior to the new catheter Perm-A-Cath placement in the next 24-48 hours. Discussed with intensive care unit attending, Dr. Newton in rounds. Thank you for allowing me to participate in your patient's care. Ever Madrigal MD
[2019-01-20 06:11] LABS: ARTERIAL BLOOD GAS HCO3 20.5 mmol/L (21-28); ARTERIAL BLOOD GAS HEMOGLOBIN 7.1 g/dL (11.7-17.4); ARTERIAL BLOOD GAS O2 SAT 97.7 % (95-98); ARTERIAL BLOOD GAS PCO2 27 mm/Hg (35-45); ARTERIAL BLOOD GAS PH 7.43 (7.35-7.45); ARTERIAL BLOOD GAS PO2 70 mm/Hg (80-100); ARTERIAL BLOOD GAS TCO2 18.7 mmol/L (22-28)
[2019-01-20 06:48] LABS: HEMOGLOBIN 9.1 g/dL (11.0-16.0); MEAN CELL VOLUME 91.5 fL (81.0-99.0); MEAN CORPUSCULAR HEMOGLOBIN 30.5 pg (27.0-31.0); MEAN CORPUSCULAR HGB CONC 33.3 g/dL (33.0-37.0); MEAN PLATELET VOLUME 10.1 fL (7.2-11.7); RBC 2.98 Mil/uL (3.80-5.20); RED CELL DISTRIBUTION WIDTH 15.8 % (11.5-14.5); WHITE BLOOD COUNT 10.5 K/uL (4.8-10.8)
[2019-01-20 06:51] LABS: ALB/GLOB RATIO 1.2 (1.0-2.1); ALBUMIN 2.6 g/dL (3.5-5.0); CALCIUM 6.9 mg/dl (8.6-10.4)
--- NOTE | 2019-01-20 07:59 | RAD ---
Chest x-ray single frontal view HISTORY: Pneumonia. COMPARISON: 01/19/2019 FINDINGS: Lines and tubes in stable position. Moderate to severe venous congestion with prominent bibasilar airspace opacities and moderate left pleural effusion. Biapical pleural thickening with upper lobe granulomatous changes. Enlarged ectatic aorta. Cardiomegaly. Degenerative changes in the spine and shoulders. Impression: No significant interval change.
[2019-01-20] MEDS ORDERED: Acetaminophen 650mg/20.3ml solution UD PO ONE (08:03)
[2019-01-20] MEDS: Vancomycin 1 gm/NS 200 ml 1 GM/200 ML BAG IVPB SCH (08:19)
[2019-01-20] MEDS: Multivitamin Vitamin B Complex (Nephro-Vite) Tab PO SCH (08:23)
[2019-01-20] MEDS ORDERED: Piperacill/Tazo 2.25gm in Dex 2.25 GM/50 ML BAG IVPB SCH (09:15)
[2019-01-20] MEDS ORDERED: Potassium Chloride 20 mEq/15 ml LIQ UD PO ONE (09:15)
[2019-01-20] MEDS: Saccharomyces Boulardi 250 mg Cap PO SCH ×2 (09:27→17:53)
[2019-01-20] MEDS: VANCOMYCIN HCL 250 MG/5 ML PEG SCH ×4 (09:28→21:33)
--- NOTE | 2019-01-20 10:45 | CP.CCUPN ---
<Mando Waters - Last Filed: 01/20/19 13:58> CCU Subjective - Physician Review Subjective (Free Text): 01/18/19 11:39 PGY-1 Critical Care Progress Note for Dr. Jcakson Patient seen and examined at bedside. Intubated and sedated. R femoral shiley catheter removed today and L femoral double lumen catheter placed for HD access. ROS unable to be obtained. CCU Objective - Vital Signs / Intake & Output Vital Signs (Last 4 hours): Vital Signs Temp Pulse Resp BP Pulse Ox 01/20/19 09:28 162/75 H 01/20/19 08:21 101 F H 01/20/19 08:03 105 H 20 150/72 98 01/20/19 08:00 104 H 19 98 01/20/19 07:49 103 H 22 153/78 H 01/20/19 07:02 95 H 19 164/71 H 100 01/20/19 07:00 100 H 21 100 Intake and Output (Last 8hrs): Intake & Output 01/19/19 01/20/19 01/20/19 22:59 06:59 14:59 Intake Total 615 500 Output Total 50 400 Balance 565 100 Weight 133 lb 13.129 oz Intake: Intake, IV Amount 105 45 R femoral trialysis IV 0 port Right Femoral 0 Right Forearm 0 Right Forearm1 0 left Jug. TLC medial port 5 45 left jug. TLC distal port 100 Tube Feeding 360 405 Albumin 50 50 Other 100 Output: Urine 200 Urine, Voided 200 Stool 50 200 Other: # Voids Urine, Voided 0 0 - Physical Exam Head: Positive for: Atraumatic, Normocephalic Pupils: Positive for: PERRL Extroacular Muscles: Positive for: EOMI Mouth: Positive for: Moist Mucous Membranes Cardiovascular: Positive for: Regular Rate and Rhythm, Murmurs, Normal S1, S2 Abdomen: Positive for: Normal Bowel Sounds Upper Extremity: Positive for: Normal Inspection Lower Extremity: Positive for: Normal Inspection Neurological: Positive for: Other (Sedated on propofol drip) Skin: Positive for: Warm - Medications Active Medications: Active Medications Generic Name Dose Route Start Last Admin Trade Name Freq PRN Reason Stop Dose Admin Epoetin Elijah 12,000 unit 01/20/19 14:30 Procrit IV 01/20/19 14:31 ONCE ONE Famotidine 20 mg 01/16/19 10:00 01/20/19 09:30 Pepcid IVP 20 mg DAILY GLADYS Administration Folic Acid 1 mg 01/15/19 10:00 01/20/19 09:28 Folic Acid PO 1 mg DAILY GLADYS Administration Propofol 1,000 mg in 100 mls @ 1.633 mls/hr 01/15/19 14:49 01/18/19 09:32 Diprivan IV 0 mcg/kg/min .Q24H PRN 0 mls/hr TITRATE PER MD ORDER Titration Protocol 5 MCG/KG/MIN Vancomycin/Sodium Chloride 1 gm in 200 mls @ 133.333 mls/hr 01/18/19 09:00 01/20/19 08:19 Vancomycin 1 Gm/Ns 200 Ml IVPB 133.333 mls/hr MW GLADYS Administration Protocol Metronidazole 500 mg in 100 mls @ 100 mls/hr 01/17/19 20:00 01/20/19 03:13 Flagyl IVPB 100 mls/hr Q8H GLADYS Administration Protocol Dexmedetomidine HCl 200 mcg/ 50 mls @ 3.02 mls/hr 01/18/19 17:52 Sodium Chloride IV TITR PRN Agitation Protocol 0.2 MCG/KG/HR Diltiazem HCl 125 mg/ Sodium 125 mls @ 5 mls/hr 01/18/19 19:00 01/19/19 19:33 Chloride IV Not Given .Q24H GLAYDS Protocol 5 MG/HR Phenylephrine HCl 30 mg/ 253 mls @ 10.12 mls/hr 01/18/19 22:02 01/19/19 02:38 Sodium Chloride IV 0 mcg/min .Q24H PRN 0 mls/hr TITRATE PER MD ORDER Titration Protocol 20 MCG/MIN Furosemide 100 mg/ Sodium 100 mls @ 5 mls/hr 01/19/19 21:30 01/19/19 21:57 Chloride IVP 5 mls/hr .Q20H GLADYS Administration 5 MG/HR Potassium Chloride 20 meq in 100 mls @ 50 mls/hr 01/20/19 09:15 01/20/19 09:29 Potassium Chloride 20 Meq/100 Ml IVPB 01/20/19 11:14 50 mls/hr ONCE ONE Administration Aztreonam 1 gm/ Sodium 100 mls @ 100 mls/hr 01/20/19 10:30 Chloride IVPB Q12H GLADYS Protocol Metoprolol Tartrate 25 mg 01/15/19 10:00 01/20/19 09:28 Lopressor PO 25 mg BID GLADYS Administration Paricalcitol 2 mcg 01/16/19 10:00 01/19/19 15:19 Zemplar IV Not Given TTS GLADYS Paricalcitol 2 mcg 01/20/19 14:30 Zemplar IV 01/20/19 14:31 ONCE ONE Prednisone 2.5 mg 01/18/19 10:00 01/20/19 09:24 Prednisone PO 2.5 mg Q2D GLADYS Administration Rosuvastatin Calcium 10 mg 01/15/19 22:00 01/19/19 21:31 Crestor PO 10 mg HS GLADYS Administration Saccharomyces Boulardii 250 mg 01/18/19 10:00 01/20/19 09:27 Florastor PO 250 mg BID GLADYS Administration Vancomycin HCl 250 mg 01/17/19 22:00 01/20/19 09:28 Firvanq (Oral Solution) PEG 250 mg QID GLADYS Administration Vitamin B Complex/Vit C/Folic Acid 1 tab 01/16/19 08:00 01/20/19 08:23 Nephro-Nacho PO 1 tab 0800 GLADYS Administration - Patient Studies Lab Studies: Microbiology Studies 01/17/19 12:52 S.aureus & Coag-Neg Staph PNA FISH - Final Blood-Venous Blood Culture - Final Str.gallolyticus Ss Pasteurian Gram Stain - Final 01/17/19 13:40 Blood Culture - Preliminary Blood-Venous Str.gallolyticus Ss Pasteurian Gram Positive Cocci Gram Stain - Final 01/17/19 12:52 Gram Stain - Final Trachasp Sputum Culture - Final NORMAL ORAL CHELLY Lab Studies 01/20/19 01/20/19 01/20/19 Range/Units 06:23 06:23 05:28 WBC 10.5 (4.8-10.8) K/uL RBC 2.98 L (3.80-5.20) Mil/uL Hgb 9.1 L (11.0-16.0) g/dL Hct 27.3 L (34.0-47.0) % MCV 91.5 (81.0-99.0) fL MCH 30.5 (27.0-31.0) pg MCHC 33.3 (33.0-37.0) g/dL RDW 15.8 H (11.5-14.5) % Plt Count 74 L D (130-400) K/uL MPV 10.1 (7.2-11.7) fL Puncture Site R bra pCO2 27 L (35-45) mm/Hg pO2 70 L (80-100) mm/Hg HCO3 20.5 L (21-28) mmol/L ABG pH 7.43 (7.35-7.45) ABG Total CO2 18.7 L (22-28) mmol/L ABG O2 Saturation 97.7 (95-98) % ABG Base Excess -5.7 L (-2.0-3.0) mmol/L ABG Hemoglobin 7.1 L (11.7-17.4) g/dL ABG Carboxyhemoglobin 1.6 H (0.5-1.5) % POC ABG HHb (Measured) 2.2 (0.0-5.0) % ABG Methemoglobin 1.3 (0.0-3.0) % Trevin Test Na A-a O2 Difference 181.0 mm/Hg Respiratory Index 2.6 Hgb O2 Saturation 94.9 L (95.0-98.0) % Vent Mode Prvc Mechanical Rate 20 FiO2 40.0 % Tidal Volume 450 PEEP 5 Sodium 134 (132-148) mmol/L Potassium 3.1 L (3.6-5.2) mmol/L Chloride 99 (98-107) mmol/L Carbon Dioxide 24 (22-30) mmol/L Anion Gap 15 (10-20) BUN 86 H (7-17) mg/dL Creatinine 5.2 H (0.7-1.2) mg/dL Est GFR ( Amer) 10 Est GFR (Non-Af Amer) 8 Random Glucose 112 H (65-105) mg/dL Calcium 6.9 L (8.6-10.4) mg/dl Phosphorus 4.7 H (2.5-4.5) mg/dL Magnesium 1.8 (1.6-2.3) mg/dL Total Bilirubin 0.7 (0.2-1.3) mg/dL AST 95 H D (14-36) U/L ALT 33 (9-52) U/L Alkaline Phosphatase 229 H D (38-126) U/L Total Protein 4.7 L (6.3-8.3) g/dL Albumin 2.6 L (3.5-5.0) g/dL Globulin 2.1 L (2.2-3.9) gm/dL Albumin/Globulin Ratio 1.2 (1.0-2.1) Procalcitonin (0.19-0.49) NG/ML CMV IgG Ab U/mL CMV IgM Ab AU/mL 01/19/19 01/15/19 Range/Units 15:38 16:32 WBC (4.8-10.8) K/uL RBC (3.80-5.20) Mil/uL Hgb (11.0-16.0) g/dL Hct (34.0-47.0) % MCV (81.0-99.0) fL MCH (27.0-31.0) pg MCHC (33.0-37.0) g/dL RDW (11.5-14.5) % Plt Count (130-400) K/uL MPV (7.2-11.7) fL Puncture Site pCO2 (35-45) mm/Hg pO2 (80-100) mm/Hg HCO3 (21-28) mmol/L ABG pH (7.35-7.45) ABG Total CO2 (22-28) mmol/L ABG O2 Saturation (95-98) % ABG Base Excess (-2.0-3.0) mmol/L ABG Hemoglobin (11.7-17.4) g/dL ABG Carboxyhemoglobin (0.5-1.5) % POC ABG HHb (Measured) (0.0-5.0) % ABG Methemoglobin (0.0-3.0) % Trevin Test A-a O2 Difference mm/Hg Respiratory Index Hgb O2 Saturation (95.0-98.0) % Vent Mode Mechanical Rate FiO2 % Tidal Volume PEEP Sodium (132-148) mmol/L Potassium (3.6-5.2) mmol/L Chloride (98-107) mmol/L Carbon Dioxide (22-30) mmol/L Anion Gap (10-20) BUN (7-17) mg/dL Creatinine (0.7-1.2) mg/dL Est GFR ( Amer) Est GFR (Non-Af Amer) Random Glucose (65-105) mg/dL Calcium (8.6-10.4) mg/dl Phosphorus (2.5-4.5) mg/dL Magnesium (1.6-2.3) mg/dL Total Bilirubin (0.2-1.3) mg/dL AST (14-36) U/L ALT (9-52) U/L Alkaline Phosphatase (38-126) U/L Total Protein (6.3-8.3) g/dL Albumin (3.5-5.0) g/dL Globulin (2.2-3.9) gm/dL Albumin/Globulin Ratio (1.0-2.1) Procalcitonin 47.63 H (0.19-0.49) NG/ML CMV IgG Ab >10.00 H U/mL CMV IgM Ab <30.00 AU/mL Laboratory Results - last 24 hr 01/15/19 01/19/19 01/20/19 16:32 15:38 05:28 WBC RBC Hgb Hct MCV MCH MCHC RDW Plt Count MPV Puncture Site R bra pCO2 27 L pO2 70 L HCO3 20.5 L ABG pH 7.43 ABG Total CO2 18.7 L ABG O2 Saturation 97.7 ABG Base Excess -5.7 L ABG Hemoglobin 7.1 L ABG Carboxyhemoglobin 1.6 H POC ABG HHb (Measured) 2.2 ABG Methemoglobin 1.3 Trevin Test Na A-a O2 Difference 181.0 Respiratory Index 2.6 Hgb O2 Saturation 94.9 L Vent Mode Prvc Mechanical Rate 20 FiO2 40.0 Tidal Volume 450 PEEP 5 Sodium Potassium Chloride Carbon Dioxide Anion Gap BUN Creatinine Est GFR ( Amer) Est GFR (Non-Af Amer) Random Glucose Calcium Phosphorus Magnesium Total Bilirubin AST ALT Alkaline Phosphatase Total Protein Albumin Globulin Albumin/Globulin Ratio Procalcitonin 47.63 H CMV IgG Ab >10.00 H CMV IgM Ab <30.00 01/20/19 01/20/19 06:23 06:23 WBC 10.5 RBC 2.98 L Hgb 9.1 L Hct 27.3 L MCV 91.5 MCH 30.5 MCHC 33.3 RDW 15.8 H Plt Count 74 L D MPV 10.1 Puncture Site pCO2 pO2 HCO3 ABG pH ABG Total CO2 ABG O2 Saturation ABG Base Excess ABG Hemoglobin ABG Carboxyhemoglobin POC ABG HHb (Measured) ABG Methemoglobin Trevin Test A-a O2 Difference Respiratory Index Hgb O2 Saturation Vent Mode Mechanical Rate FiO2 Tidal Volume PEEP Sodium 134 Potassium 3.1 L Chloride 99 Carbon Dioxide 24 Anion Gap 15 BUN 86 H Creatinine 5.2 H Est GFR ( Amer) 10 Est GFR (Non-Af Amer) 8 Random Glucose 112 H Calcium 6.9 L Phosphorus 4.7 H Magnesium 1.8 Total Bilirubin 0.7 AST 95 H D ALT 33 Alkaline Phosphatase 229 H D Total Protein 4.7 L Albumin 2.6 L Globulin 2.1 L Albumin/Globulin Ratio 1.2 Procalcitonin CMV IgG Ab CMV IgM Ab Radiology Impressions: Radiology Impressions Chest X-Ray 01/19/19 07:09 Impression: Lines and tubes in stable position. Dense diffuse bilateral pleural parenchymal opacities in both lung hawkins. Small to moderate left and small right pleural effusion. Cardiomegaly Chest X-Ray 01/19/19 14:58 IMPRESSION: Interval left internal jugular vein central catheter tip superior vena cava. No pneumothorax seen. Bilateral patchy airspace opacities. Coalescence/consolidation left lung base with left pleural effusion-left pleural effusion with compressive atelectasis inferred. Concomitant left basal infiltrate not excluded. Cardiomegaly and probable concomitant mild pulmonary venous congestion. Other findings as above. Chest X-Ray 01/20/19 07:00 Impression: No significant interval change. Review of Systems - Review of Systems Systems not reviewed;Unavailable: Intubated Critical Care Progress Note - Nutrition Nutrition: Nutrition Category Date Time Status NPO Diet [DIET] Diets 01/15/19 Lunch Active Assessment/Plan - Assessment and Plan (Free Text) Assessment: 73 year old female with history ESRD s/p failing renal transplant from 2002 presents acutely short of breath, found to have moderate bilateral pleural effusion on chest x-ray and CT chest as well as cardiomegaly, and anemic with HgB 5.2. Cardio Cardiomegaly on chest XR -Echo 01/15: Normal LV function, EF 60-65%. -Normal sinus on monitor -Vascular access --S/p R femoral Shiley HD catheter placement beside with vascular surgery, Dr. Butler --R fem removed --> L fem double lumen HD catheter placed 01/20 --L IJ TLC placed 01/19 Pericardial Effusion -Loculated pericardial effusion noted on Echo -Blood cultures + Strep gallolyticus, Strep Pasterian (Strep Bovis sp) -CT surgery consulted, Dr. Benitez - f/u Pulmonary Bilateral pleural effusions -Intubated, on vent/PRVC with OGT in place -Maintain spO2>92% -S/p HD Monday 01/15 with some improvement on repeat CXR. still with patchy ill- defined opacities on MR CXR -Echo 01/18 - Normal systolic function, EF 50-55% -Repeating CT chest - f/u to monitor interval improvement -Repeat CT chest 01/18 - bilateral pleural effusions and associated compressive consolidations. Ground-glass and patchy scattered diffuse pulmonary infiltrates suspicious for multifocal pneumonia and or edema. -Repiratory status improving - CPAP trial --> wean to extubate --Pt tolerated CPAP for 1 hour yesterday then developed rapid AFIB on monitor. Repeat CPAP trial today Imaging on Admission: CXR 12/15: Prominent consolidative opacification with patchy opacities seen throughout the right lung as well as within the left upper lung zone. Post treatment interval follow-up is recommended to ensure resolution. Moderate left pleural effusion. Blunted right costophrenic angle. Cardiomegaly. CT Chest w/o Contrast 01/15: 1. Multifocal ground-glass and confluent airspace disease in both lungs may represent pulmonary edema or multifocal pneumonia. Follow-up is advised. 2. Moderate cardiomegaly, small pericardial effusion and moderate bilateral pleural effusions.3. Cholelithiasis in over distended gallbladder. Please correlate with right upper quadrant ultrasound Neuro -Propofol drip CT Head 01/15: No acute intracranial abnormality. Mild chronic microangiopathic changes and mild age-related global parenchymal volume loss. GI -Cholelithiasis noted on CT Chest --Normal T bili, LFTS, and alk phos -GI ppx Renal ESRD hx renal transplant 2002, requiring new HD for failing transplant -S/p R femoral Shiley HD catheter placement beside with vascular surgery, Dr. Butler -Patient underwent HD on Monday 01/15. -Per surgery, awaiting medical stabilization prior to permacath placement -F/u Nephro, Dr. Madrigal, for HD plan -Monitor output and fluid status -Prednisone decreased 01/18 from 5mg PO daily --> 2.5 mg Q2d ID/Heme Anemia -HgB 5.2 on admission -S/p 3U PRBCs --> 10.5 --> 9.3 -Etiology due to chronic renal insufficiency vs GI bleed. -Initially had + stool guaic, but HgB stable -HgB stable, will monitor for symptoms and daily CBC to assess need to transfuse. Gram + Cocci Bacteremia -Temp 99.9F over weekend - Prelim blood cultures Gram + cocci -Stool studies - f/u -ID consulted, Dr. Bazan -Abx - Vancomycin, Flagyl, Aztreonam PPx -Pepcid 20 mg IV daily -DVT ppx c/i 2/2 anemia Assessment and plan d/w Dr. Manuel Waters, PGY-1 <Jay Jackson S - Last Filed: 01/20/19 15:33> CCU Subjective - Physician Review Critical Care Time Spent (in minutes): 45 CCU Objective - Vital Signs / Intake & Output Vital Signs (Last 4 hours): Vital Signs Temp Pulse Resp BP BP Pulse Ox 01/20/19 15:04 22 112/58 L 01/20/19 14:47 22 115/57 L 01/20/19 14:44 23 177/108 H 60 L 01/20/19 14:32 23 154/121 H 100 01/20/19 14:17 23 148/53 L 100 01/20/19 14:02 22 147/53 L 100 01/20/19 14:00 98.6 F 79 23 147/53 L 01/20/19 12:02 89 21 152/65 H 98 01/20/19 12:00 98.4 F 90 22 98 Intake and Output (Last 8hrs): Intake & Output 01/20/19 01/20/19 01/20/19 06:59 14:59 22:59 Intake Total 500 650 Output Total 400 Balance 100 650 Weight 133 lb 13.129 oz Intake: Intake, IV Amount 45 425 left Jug. TLC medial port 45 25 left jug. TLC distal port 400 Tube Feeding 405 225 Albumin 50 Output: Urine 200 Urine, Voided 200 Stool 200 Other: # Voids Urine, Voided 0 - Medications Active Medications: Active Medications Generic Name Dose Route Start Last Admin Trade Name Freq PRN Reason Stop Dose Admin Famotidine 20 mg 01/16/19 10:00 01/20/19 09:30 Pepcid IVP 20 mg DAILY GLADYS Administration Folic Acid 1 mg 01/15/19 10:00 01/20/19 09:28 Folic Acid PO 1 mg DAILY GLADYS Administration Propofol 1,000 mg in 100 mls @ 1.633 mls/hr 01/15/19 14:49 01/18/19 09:32 Diprivan IV 0 mcg/kg/min .Q24H PRN 0 mls/hr TITRATE PER MD ORDER Titration Protocol 5 MCG/KG/MIN Vancomycin/Sodium Chloride 1 gm in 200 mls @ 133.333 mls/hr 01/18/19 09:00 01/20/19 08:19 Vancomycin 1 Gm/Ns 200 Ml IVPB 133.333 mls/hr MWF GLADYS Administration Protocol Metronidazole 500 mg in 100 mls @ 100 mls/hr 01/17/19 20:00 01/20/19 12:00 Flagyl IVPB 100 mls/hr Q8H GLADYS Administration Protocol Dexmedetomidine HCl 200 mcg/ 50 mls @ 3.02 mls/hr 01/18/19 17:52 Sodium Chloride IV TITR PRN Agitation Protocol 0.2 MCG/KG/HR Diltiazem HCl 125 mg/ Sodium 125 mls @ 5 mls/hr 01/18/19 19:00 01/19/19 19:33 Chloride IV Not Given .Q24H GLADYS Protocol 5 MG/HR Phenylephrine HCl 30 mg/ 253 mls @ 10.12 mls/hr 01/18/19 22:02 01/19/19 02:38 Sodium Chloride IV 0 mcg/min .Q24H PRN 0 mls/hr TITRATE PER MD ORDER Titration Protocol 20 MCG/MIN Aztreonam 1 gm/ Sodium 100 mls @ 100 mls/hr 01/20/19 10:30 01/20/19 11:00 Chloride IVPB 100 mls/hr Q12H GLADYS Administration Protocol Furosemide 100 mg/ Sodium 100 mls @ 5 mls/hr 01/20/19 13:00 Chloride IV .Q20H GLADYS 5 MG/HR Metoprolol Tartrate 25 mg 01/15/19 10:00 01/20/19 09:28 Lopressor PO 25 mg BID GLADYS Administration Paricalcitol 2 mcg 01/16/19 10:00 01/19/19 15:19 Zemplar IV Not Given TTS GLADYS Prednisone 2.5 mg 04/15/19 10:00 01/20/19 09:24 Prednisone PO 2.5 mg Q2D GLADYS Administration Rosuvastatin Calcium 10 mg 01/15/19 22:00 01/19/19 21:31 Crestor PO 10 mg HS GLADYS Administration Saccharomyces Boulardii 250 mg 01/18/19 10:00 01/20/19 09:27 Florastor PO 250 mg BID GLADYS Administration Vancomycin HCl 250 mg 01/17/19 22:00 01/20/19 09:28 Firvanq (Oral Solution) PEG 250 mg QID GLADYS Administration Vitamin B Complex/Vit C/Folic Acid 1 tab 01/16/19 08:00 01/20/19 08:23 Nephro-Nacho PO 1 tab 0800 GLADYS Administration - Patient Studies Lab Studies: Microbiology Studies 01/17/19 12:52 S.aureus & Coag-Neg Staph PNA FISH - Final Blood-Venous Blood Culture - Final Str.gallolyticus Ss Pasteurian Gram Stain - Final 01/17/19 13:40 Blood Culture - Preliminary Blood-Venous Str.gallolyticus Ss Pasteurian Gram Positive Cocci Gram Stain - Final 01/17/19 12:52 Gram Stain - Final Trachasp Sputum Culture - Final NORMAL ORAL CHELLY Lab Studies 01/20/19 01/20/19 01/20/19 Range/Units 06:23 06:23 05:28 WBC 10.5 (4.8-10.8) K/uL RBC 2.98 L (3.80-5.20) Mil/uL Hgb 9.1 L (11.0-16.0) g/dL Hct 27.3 L (34.0-47.0) % MCV 91.5 (81.0-99.0) fL MCH 30.5 (27.0-31.0) pg MCHC 33.3 (33.0-37.0) g/dL RDW 15.8 H (11.5-14.5) % Plt Count 74 L D (130-400) K/uL MPV 10.1 (7.2-11.7) fL Puncture Site R bra pCO2 27 L (35-45) mm/Hg pO2 70 L (80-100) mm/Hg HCO3 20.5 L (21-28) mmol/L ABG pH 7.43 (7.35-7.45) ABG Total CO2 18.7 L (22-28) mmol/L ABG O2 Saturation 97.7 (95-98) % ABG Base Excess -5.7 L (-2.0-3.0) mmol/L ABG Hemoglobin 7.1 L (11.7-17.4) g/dL ABG Carboxyhemoglobin 1.6 H (0.5-1.5) % POC ABG HHb (Measured) 2.2 (0.0-5.0) % ABG Methemoglobin 1.3 (0.0-3.0) % Trevin Test Na A-a O2 Difference 181.0 mm/Hg Respiratory Index 2.6 Hgb O2 Saturation 94.9 L (95.0-98.0) % Vent Mode Prvc Mechanical Rate 20 FiO2 40.0 % Tidal Volume 450 PEEP 5 Sodium 134 (132-148) mmol/L Potassium 3.1 L (3.6-5.2) mmol/L Chloride 99 (98-107) mmol/L Carbon Dioxide 24 (22-30) mmol/L Anion Gap 15 (10-20) BUN 86 H (7-17) mg/dL Creatinine 5.2 H (0.7-1.2) mg/dL Est GFR ( Amer) 10 Est GFR (Non-Af Amer) 8 Random Glucose 112 H (65-105) mg/dL Calcium 6.9 L (8.6-10.4) mg/dl Phosphorus 4.7 H (2.5-4.5) mg/dL Magnesium 1.8 (1.6-2.3) mg/dL Total Bilirubin 0.7 (0.2-1.3) mg/dL AST 95 H D (14-36) U/L ALT 33 (9-52) U/L Alkaline Phosphatase 229 H D (38-126) U/L Total Protein 4.7 L (6.3-8.3) g/dL Albumin 2.6 L (3.5-5.0) g/dL Globulin 2.1 L (2.2-3.9) gm/dL Albumin/Globulin Ratio 1.2 (1.0-2.1) Procalcitonin (0.19-0.49) NG/ML CMV IgG Ab U/mL CMV IgM Ab AU/mL 01/19/19 01/15/19 Range/Units 15:38 16:32 WBC (4.8-10.8) K/uL RBC (3.80-5.20) Mil/uL Hgb (11.0-16.0) g/dL Hct (34.0-47.0) % MCV (81.0-99.0) fL MCH (27.0-31.0) pg MCHC (33.0-37.0) g/dL RDW (11.5-14.5) % Plt Count (130-400) K/uL MPV (7.2-11.7) fL Puncture Site pCO2 (35-45) mm/Hg pO2 (80-100) mm/Hg HCO3 (21-28) mmol/L ABG pH (7.35-7.45) ABG Total CO2 (22-28) mmol/L ABG O2 Saturation (95-98) % ABG Base Excess (-2.0-3.0) mmol/L ABG Hemoglobin (11.7-17.4) g/dL ABG Carboxyhemoglobin (0.5-1.5) % POC ABG HHb (Measured) (0.0-5.0) % ABG Methemoglobin (0.0-3.0) % Trevin Test A-a O2 Difference mm/Hg Respiratory Index Hgb O2 Saturation (95.0-98.0) % Vent Mode Mechanical Rate FiO2 % Tidal Volume PEEP Sodium (132-148) mmol/L Potassium (3.6-5.2) mmol/L Chloride (98-107) mmol/L Carbon Dioxide (22-30) mmol/L Anion Gap (10-20) BUN (7-17) mg/dL Creatinine (0.7-1.2) mg/dL Est GFR ( Amer) Est GFR (Non-Af Amer) Random Glucose (65-105) mg/dL Calcium (8.6-10.4) mg/dl Phosphorus (2.5-4.5) mg/dL Magnesium (1.6-2.3) mg/dL Total Bilirubin (0.2-1.3) mg/dL AST (14-36) U/L ALT (9-52) U/L Alkaline Phosphatase (38-126) U/L Total Protein (6.3-8.3) g/dL Albumin (3.5-5.0) g/dL Globulin (2.2-3.9) gm/dL Albumin/Globulin Ratio (1.0-2.1) Procalcitonin 47.63 H (0.19-0.49) NG/ML CMV IgG Ab >10.00 H U/mL CMV IgM Ab <30.00 AU/mL Laboratory Results - last 24 hr 01/15/19 01/19/19 01/20/19 16:32 15:38 05:28 WBC RBC Hgb Hct MCV MCH MCHC RDW Plt Count MPV Puncture Site R bra pCO2 27 L pO2 70 L HCO3 20.5 L ABG pH 7.43 ABG Total CO2 18.7 L ABG O2 Saturation 97.7 ABG Base Excess -5.7 L ABG Hemoglobin 7.1 L ABG Carboxyhemoglobin 1.6 H POC ABG HHb (Measured) 2.2 ABG Methemoglobin 1.3 Trevin Test Na A-a O2 Difference 181.0 Respiratory Index 2.6 Hgb O2 Saturation 94.9 L Vent Mode Prvc Mechanical Rate 20 FiO2 40.0 Tidal Volume 450 PEEP 5 Sodium Potassium Chloride Carbon Dioxide Anion Gap BUN Creatinine Est GFR ( Amer) Est GFR (Non-Af Amer) Random Glucose Calcium Phosphorus Magnesium Total Bilirubin AST ALT Alkaline Phosphatase Total Protein Albumin Globulin Albumin/Globulin Ratio Procalcitonin 47.63 H CMV IgG Ab >10.00 H CMV IgM Ab <30.00 01/20/19 01/20/19 06:23 06:23 WBC 10.5 RBC 2.98 L Hgb 9.1 L Hct 27.3 L MCV 91.5 MCH 30.5 MCHC 33.3 RDW 15.8 H Plt Count 74 L D MPV 10.1 Puncture Site pCO2 pO2 HCO3 ABG pH ABG Total CO2 ABG O2 Saturation ABG Base Excess ABG Hemoglobin ABG Carboxyhemoglobin POC ABG HHb (Measured) ABG Methemoglobin Trevin Test A-a O2 Difference Respiratory Index Hgb O2 Saturation Vent Mode Mechanical Rate FiO2 Tidal Volume PEEP Sodium 134 Potassium 3.1 L Chloride 99 Carbon Dioxide 24 Anion Gap 15 BUN 86 H Creatinine 5.2 H Est GFR ( Amer) 10 Est GFR (Non-Af Amer) 8 Random Glucose 112 H Calcium 6.9 L Phosphorus 4.7 H Magnesium 1.8 Total Bilirubin 0.7 AST 95 H D ALT 33 Alkaline Phosphatase 229 H D Total Protein 4.7 L Albumin 2.6 L Globulin 2.1 L Albumin/Globulin Ratio 1.2 Procalcitonin CMV IgG Ab CMV IgM Ab Radiology Impressions: Radiology Impressions Chest X-Ray 01/19/19 14:58 IMPRESSION: Interval left internal jugular vein central catheter tip superior vena cava. No pneumothorax seen. Bilateral patchy airspace opacities. Coalescence/consolidation left lung base with left pleural effusion-left pleural effusion with compressive atelectasis inferred. Concomitant left basal infiltrate not excluded. Cardiomegaly and probable concomitant mild pulmonary venous congestion. Other findings as above. Chest X-Ray 01/20/19 07:00 Impression: No significant interval change. Critical Care Progress Note - Nutrition Nutrition: Nutrition Category Date Time Status NPO Diet [DIET] Diets 01/15/19 Lunch Active Attending/Attestation - Attestation I have personally seen and examined this patient.: Yes I have fully participated in the care of the patient.: Yes I have reviewed all pertinent clinical information: Yes Notes (Text): 01/20/19 15:32 Patient seen and examined in the intensive care unit. Remained intubated on ventilatory support not tolerating weaning Shiley catheter inserted in left femoral vein under aseptic conditions Antibiotics as per infectious disease Cardiothoracic consult for loculated pericardial effusion Blood culture and sensitivity noted Continue hemodialysis
[2019-01-20] MEDS: Aztreonam 1 GM in Sodium Chloride 0.9% 100 ML IVPB SCH ×2 (11:00→21:31)
[2019-01-20] MEDS ORDERED: Propofol 10 mg/ml Inj (20 ML) IV STA (12:09)
[2019-01-20] MEDS ORDERED: Furosemide 100 MG in Sodium Chloride 0.9% 90 ML IV SCH (13:00)
--- NOTE | 2019-01-20 13:33 | CP.PCM.CON ---
History of Present Illness - History of Present Illness History of Present Illness: Thoracic Surgery Consult Note- Dr. Osei Reason for Consult: Loculated Pericardial effusion 73F pmhx significant for ESRD s/p Kidney transplant in 2002 subsequently failed and now on dialysis presented to [facility] w/ shortness of breath and productive sputum. Hospital course, patient needed to be intubated and transfer red to the critical care unit. While in the ICU patient was found to have positive blood cultures in 2 bottles Strep Gallolyticus, and positive for C.Diff. ECHO was performed which showed Loculated pericardial effusion posteriorly moderate to large, EF 60-65% and no signs of cardiac tamponade. Currently intubated GCS 10T [id number], on PRVC 450/20/40/5, no sedation. Currently on tube feeds. Left Femoral shiley in place for dialysis. Flexiseal w/ loose brown stool. Currently on Abx and chemical DVT PPX PMH: ESRD, s/p kidney transplant in 2002, hypertension, atrial fibrillation, fibrocystic breast dz, pontine infarct in 2007 PSH: Kidney transplant, appendectomy, AVF (aug 2018) All: NKDA SocialHx: Son at bedside, denied etoh, tobacco, recreational drug use Review of Systems - Review of Systems All systems: reviewed and no additional remarkable complaints except - Constitutional Constitutional: As Per HPI Past Patient History - Infectious Disease Hx of Infectious Diseases: None - Tetanus Immunizations Tetanus Immunization: Unknown - Past Medical History & Family History Past Medical History?: Yes - Past Social History Smoking Status: Never Smoked - CARDIAC Hx Congestive Heart Failure: Yes Hx Hypercholesterolemia: Yes Hx Hypertension: Yes - PULMONARY Hx Pneumonia: Yes (may 2018) - NEUROLOGICAL Hx Transient Ischemic Attacks (TIA): Yes - HEENT Hx HEENT Problems: Yes Hx Cataracts: Yes Other/Comment: Partial Hearing loss - RENAL Hx Renal Failure: Yes - HEMATOLOGICAL/ONCOLOGICAL Hx Anemia: Yes - INTEGUMENTARY Other/Comment: Upper back rashes - MUSCULOSKELETAL/RHEUMATOLOGICAL Hx Falls: No - GASTROINTESTINAL Hx Gastrointestinal Disorders: Yes (diarrhea at times ) - GENITOURINARY/GYNECOLOGICAL Other/Comment: Urinary Retension - PSYCHIATRIC Hx Substance Use: No - SURGICAL HISTORY Hx Appendectomy: Yes Other/Comment: Kidney Bx, Lt. Breast Excision, - ANESTHESIA Hx Anesthesia: Yes Hx Anesthesia Reactions: Yes (nausea vomitting) Hx Malignant Hyperthermia: No Meds Allergies/Adverse Reactions: Allergies Allergy/AdvReac Type Severity Reaction Status Date / Time enalaprilat [From Vasotec] Allergy Intermediate RASH Verified 07/14/18 13:29 Penicillins Allergy Intermediate RASH Verified 07/14/18 13:28 Sulfa (Sulfonamide Allergy Intermediate RASH Verified 07/14/18 13:27 Antibiotics) tetracycline Allergy Intermediate RASH Verified 07/14/18 13:28 aspirin Allergy Verified 01/15/19 03:44 - Medications Medications: Current Medications Epoetin Elijah (Procrit) 12,000 unit IV ONCE ONE Stop: 01/20/19 14:31 Famotidine (Pepcid) 20 mg IVP DAILY [facility] Last Admin: 01/20/19 09:30 Dose: 20 mg Folic Acid (Folic Acid) 1 mg PO DAILY [facility] Last Admin: 01/20/19 09:28 Dose: 1 mg Propofol (Diprivan) 1,000 mg in 100 mls @ 1.633 mls/hr IV .Q24H PRN; Protocol PRN Reason: TITRATE PER MD ORDER Last Titration: 01/18/19 09:32 Dose: 0 mcg/kg/min, 0 mls/hr Vancomycin/Sodium Chloride (Vancomycin 1 Gm/Ns 200 Ml) 1 gm in 200 mls @ 133.333 mls/hr IVPB MWF [facility]; Protocol Last Admin: 01/20/19 08:19 Dose: 133.333 mls/hr Metronidazole (Flagyl) 500 mg in 100 mls @ 100 mls/hr IVPB Q8H [facility]; Protocol Last Admin: 01/20/19 12:00 Dose: 100 mls/hr Dexmedetomidine HCl 200 mcg/ (Sodium Chloride) 50 mls @ 3.02 mls/hr IV TITR PRN; Protocol PRN Reason: Agitation Diltiazem HCl 125 mg/ Sodium (Chloride) 125 mls @ 5 mls/hr IV .Q24H [facility]; Protocol Last Admin: 01/19/19 19:33 Dose: Not Given Phenylephrine HCl 30 mg/ (Sodium Chloride) 253 mls @ 10.12 mls/hr IV .Q24H PRN; Protocol PRN Reason: TITRATE PER MD ORDER Last Titration: 01/19/19 02:38 Dose: 0 mcg/min, 0 mls/hr Aztreonam 1 gm/ Sodium (Chloride) 100 mls @ 100 mls/hr IVPB Q12H [facility]; Protocol Last Admin: 01/20/19 11:00 Dose: 100 mls/hr Furosemide 100 mg/ Sodium (Chloride) 100 mls @ 5 mls/hr IV .Q20H [facility] Metoprolol Tartrate (Lopressor) 25 mg PO BID [facility] Last Admin: 01/20/19 09:28 Dose: 25 mg Paricalcitol (Zemplar) 2 mcg IV TTS [facility] Last Admin: 01/19/19 15:19 Dose: Not Given Paricalcitol (Zemplar) 2 mcg IV ONCE ONE Stop: 01/20/19 14:31 Prednisone (Prednisone) 2.5 mg PO Q2D [facility] Last Admin: 01/20/19 09:24 Dose: 2.5 mg Rosuvastatin Calcium (Crestor) 10 mg PO HS [facility] Last Admin: 01/19/19 21:31 Dose: 10 mg Saccharomyces Boulardii (Florastor) 250 mg PO BID [facility] Last Admin: 01/20/19 09:27 Dose: 250 mg Vancomycin HCl (Firvanq (Oral Solution)) 250 mg PEG QID [facility] Last Admin: 01/20/19 09:28 Dose: 250 mg Vitamin B Complex/Vit C/Folic Acid (Nephro-Nacho) 1 tab PO 0800 [facility] Last Admin: 01/20/19 08:23 Dose: 1 tab Physical Exam - Constitutional Appears: No Acute Distress, Chronically Ill - Head Exam Head Exam: ATRAUMATIC - Eye Exam Eye Exam: EOMI Pupil Exam: PERRL Additional comments: 3mm sluggish - ENT Exam ENT Exam: Mucous Membranes Moist - Respiratory Exam Respiratory Exam: absent: Accessory Muscle Use Additional comments: Intubated on PRVC - Cardiovascular Exam Cardiovascular Exam: REGULAR RHYTHM, +S1, +S2. absent: Bradycardia, Tachycardia - GI/Abdominal Exam GI & Abdominal Exam: Soft. absent: Tenderness Additional comments: incisions well healed Right Groin pressure dressing - Back Exam Back exam: absent: CVA tenderness (L) - Neurological Exam Additional comments: GCS 10T ([id number]) - Skin Skin Exam: Normal Color, Warm Results - Vital Signs Recent Vital Signs: Last Vital Signs Temp 98.4 F 01/20/19 12:00 Pulse 89 01/20/19 12:02 Resp 21 01/20/19 12:02 BP 152/65 H 01/20/19 12:02 Pulse Ox 98 01/20/19 12:02 - Labs Result Diagrams: 01/20/19 06:23 01/20/19 06:23 Labs: Laboratory Results - last 24 hr 01/15/19 01/19/19 01/20/19 16:32 15:38 05:28 WBC RBC Hgb Hct MCV MCH MCHC RDW Plt Count MPV Puncture Site R bra pCO2 27 L pO2 70 L HCO3 20.5 L ABG pH 7.43 ABG Total CO2 18.7 L ABG O2 Saturation 97.7 ABG Base Excess -5.7 L ABG Hemoglobin 7.1 L ABG Carboxyhemoglobin 1.6 H POC ABG HHb (Measured) 2.2 ABG Methemoglobin 1.3 Trevin Test Na A-a O2 Difference 181.0 Respiratory Index 2.6 Hgb O2 Saturation 94.9 L Vent Mode Prvc Mechanical Rate 20 FiO2 40.0 Tidal Volume 450 PEEP 5 Sodium Potassium Chloride Carbon Dioxide Anion Gap BUN Creatinine Est GFR ( Amer) Est GFR (Non-Af Amer) Random Glucose Calcium Phosphorus Magnesium Total Bilirubin AST ALT Alkaline Phosphatase Total Protein Albumin Globulin Albumin/Globulin Ratio Procalcitonin 47.63 H CMV IgG Ab >10.00 H CMV IgM Ab <30.00 01/20/19 01/20/19 06:23 06:23 WBC 10.5 RBC 2.98 L Hgb 9.1 L Hct 27.3 L MCV 91.5 MCH 30.5 MCHC 33.3 RDW 15.8 H Plt Count 74 L D MPV 10.1 Puncture Site pCO2 pO2 HCO3 ABG pH ABG Total CO2 ABG O2 Saturation ABG Base Excess ABG Hemoglobin ABG Carboxyhemoglobin POC ABG HHb (Measured) ABG Methemoglobin Trevin Test A-a O2 Difference Respiratory Index Hgb O2 Saturation Vent Mode Mechanical Rate FiO2 Tidal Volume PEEP Sodium 134 Potassium 3.1 L Chloride 99 Carbon Dioxide 24 Anion Gap 15 BUN 86 H Creatinine 5.2 H Est GFR ( Amer) 10 Est GFR (Non-Af Amer) 8 Random Glucose 112 H Calcium 6.9 L Phosphorus 4.7 H Magnesium 1.8 Total Bilirubin 0.7 AST 95 H D ALT 33 Alkaline Phosphatase 229 H D Total Protein 4.7 L Albumin 2.6 L Globulin 2.1 L Albumin/Globulin Ratio 1.2 Procalcitonin CMV IgG Ab CMV IgM Ab Assessment & Plan - Assessment and Plan (Free Text) Assessment: 73F w/ Pericardial effusion Plan: - monitor closely for signs of pericardial tamponade - continue Critical Care management - vent per ICU team - further recs per Dr. Sea Oneill PGY2
[2019-01-20] MEDS ORDERED: Epoetin Alfa Dialysis 2000 U/ML Inj IV ONE (14:15)
[2019-01-20] MEDS ORDERED: Paricalcitol 2 mcg/ml Inj IV ONE (14:30)
[2019-01-20] MEDS ORDERED: Epoetin Alfa 10,000 unit/ml Dialysis IV ONE ×2 (14:30)
[2019-01-20] MEDS ORDERED: Metoprolol 1 mg/ml Inj IVP ONE (14:45)
[2019-01-20] MEDS ORDERED: Metoprolol 1 mg/ml Inj ONE (14:49)
--- NOTE | 2019-01-20 15:25 | CP.PCM.CON ---
History of Present Illness - History of Present Illness History of Present Illness: Intubated and sedated. Growing strep gallolyticus in blood R femoral shiley catheter removed today as a precaution L femoral double lumen catheter placed for HD access. ROS unable to be obtained. Review of Systems - Review of Systems All systems: reviewed and no additional remarkable complaints except Past Patient History - Infectious Disease Hx of Infectious Diseases: None - Tetanus Immunizations Tetanus Immunization: Unknown - Past Medical History & Family History Past Medical History?: Yes - Past Social History Smoking Status: Never Smoked - CARDIAC Hx Congestive Heart Failure: Yes Hx Hypercholesterolemia: Yes Hx Hypertension: Yes - PULMONARY Hx Pneumonia: Yes (may 2018) - NEUROLOGICAL Hx Transient Ischemic Attacks (TIA): Yes - HEENT Hx HEENT Problems: Yes Hx Cataracts: Yes Other/Comment: Partial Hearing loss - RENAL Hx Renal Failure: Yes - HEMATOLOGICAL/ONCOLOGICAL Hx Anemia: Yes - INTEGUMENTARY Other/Comment: Upper back rashes - MUSCULOSKELETAL/RHEUMATOLOGICAL Hx Falls: No - GASTROINTESTINAL Hx Gastrointestinal Disorders: Yes (diarrhea at times ) - GENITOURINARY/GYNECOLOGICAL Other/Comment: Urinary Retension - PSYCHIATRIC Hx Substance Use: No - SURGICAL HISTORY Hx Appendectomy: Yes Other/Comment: Kidney Bx, Lt. Breast Excision, - ANESTHESIA Hx Anesthesia: Yes Hx Anesthesia Reactions: Yes (nausea vomitting) Hx Malignant Hyperthermia: No Meds Allergies/Adverse Reactions: Allergies Allergy/AdvReac Type Severity Reaction Status Date / Time enalaprilat [From Vasotec] Allergy Intermediate RASH Verified 07/14/18 13:29 Penicillins Allergy Intermediate RASH Verified 07/14/18 13:28 Sulfa (Sulfonamide Allergy Intermediate RASH Verified 07/14/18 13:27 Antibiotics) tetracycline Allergy Intermediate RASH Verified 07/14/18 13:28 aspirin Allergy Verified 01/15/19 03:44 - Medications Medications: Current Medications Famotidine (Pepcid) 20 mg IVP DAILY [facility] Last Admin: 01/20/19 09:30 Dose: 20 mg Folic Acid (Folic Acid) 1 mg PO DAILY [facility] Last Admin: 01/20/19 09:28 Dose: 1 mg Propofol (Diprivan) 1,000 mg in 100 mls @ 1.633 mls/hr IV .Q24H PRN; Protocol PRN Reason: TITRATE PER MD ORDER Last Titration: 01/18/19 09:32 Dose: 0 mcg/kg/min, 0 mls/hr Vancomycin/Sodium Chloride (Vancomycin 1 Gm/Ns 200 Ml) 1 gm in 200 mls @ 133.333 mls/hr IVPB MWF [facility]; Protocol Last Admin: 01/20/19 08:19 Dose: 133.333 mls/hr Metronidazole (Flagyl) 500 mg in 100 mls @ 100 mls/hr IVPB Q8H [facility]; Protocol Last Admin: 01/20/19 12:00 Dose: 100 mls/hr Dexmedetomidine HCl 200 mcg/ (Sodium Chloride) 50 mls @ 3.02 mls/hr IV TITR PRN; Protocol PRN Reason: Agitation Diltiazem HCl 125 mg/ Sodium (Chloride) 125 mls @ 5 mls/hr IV .Q24H [facility]; Protocol Last Admin: 01/19/19 19:33 Dose: Not Given Phenylephrine HCl 30 mg/ (Sodium Chloride) 253 mls @ 10.12 mls/hr IV .Q24H PRN; Protocol PRN Reason: TITRATE PER MD ORDER Last Titration: 01/19/19 02:38 Dose: 0 mcg/min, 0 mls/hr Aztreonam 1 gm/ Sodium (Chloride) 100 mls @ 100 mls/hr IVPB Q12H [facility]; Protocol Last Admin: 01/20/19 11:00 Dose: 100 mls/hr Furosemide 100 mg/ Sodium (Chloride) 100 mls @ 5 mls/hr IV .Q20H [facility] Metoprolol Tartrate (Lopressor) 25 mg PO BID [facility] Last Admin: 01/20/19 09:28 Dose: 25 mg Paricalcitol (Zemplar) 2 mcg IV TTS [facility] Last Admin: 01/19/19 15:19 Dose: Not Given Prednisone (Prednisone) 2.5 mg PO Q2D [facility] Last Admin: 01/20/19 09:24 Dose: 2.5 mg Rosuvastatin Calcium (Crestor) 10 mg PO HS [facility] Last Admin: 01/19/19 21:31 Dose: 10 mg Saccharomyces Boulardii (Florastor) 250 mg PO BID [facility] Last Admin: 01/20/19 09:27 Dose: 250 mg Vancomycin HCl (Firvanq (Oral Solution)) 250 mg PEG QID [facility] Last Admin: 01/20/19 09:28 Dose: 250 mg Vitamin B Complex/Vit C/Folic Acid (Nephro-Nacho) 1 tab PO 0800 [facility] Last Admin: 01/20/19 08:23 Dose: 1 tab Physical Exam - Constitutional Appears: Confused, Cachectic, Chronically Ill - Head Exam Head Exam: ATRAUMATIC, NORMAL INSPECTION, NORMOCEPHALIC - Eye Exam Eye Exam: PERRL. absent: Scleral icterus Pupil Exam: PERRL - ENT Exam ENT Exam: Mucous Membranes Dry Additional comments: ETT + - Neck Exam Neck exam: Negative for: Lymphadenopathy - Respiratory Exam Respiratory Exam: Decreased Breath Sounds, Prolonged Expiratory Phase, Rhonchi - Cardiovascular Exam Cardiovascular Exam: Irregular Rhythm, +S1, +S2 - GI/Abdominal Exam GI & Abdominal Exam: Diminished Bowel Sounds, Soft. absent: Tenderness - Rectal Exam Rectal Exam: Deferred - Exam Exam: NORMAL INSPECTION - Extremities Exam Extremities exam: Positive for: pedal edema, pedal pulses present. Negative for: calf tenderness, tenderness - Back Exam Back exam: absent: CVA tenderness (L), CVA tenderness (R), paraspinal tenderness - Neurological Exam Neurological exam: Altered - Psychiatric Exam Psychiatric exam: Depressed Results - Vital Signs Recent Vital Signs: Last Vital Signs Temp 98.6 F 01/20/19 14:00 Pulse 79 01/20/19 14:00 Resp 23 01/20/19 14:00 BP 147/53 L 01/20/19 14:00 Pulse Ox 98 01/20/19 12:02 - Labs Result Diagrams: 01/20/19 06:23 01/20/19 06:23 Labs: Laboratory Results - last 24 hr 01/15/19 01/19/19 01/20/19 16:32 15:38 05:28 WBC RBC Hgb Hct MCV MCH MCHC RDW Plt Count MPV Puncture Site R bra pCO2 27 L pO2 70 L HCO3 20.5 L ABG pH 7.43 ABG Total CO2 18.7 L ABG O2 Saturation 97.7 ABG Base Excess -5.7 L ABG Hemoglobin 7.1 L ABG Carboxyhemoglobin 1.6 H POC ABG HHb (Measured) 2.2 ABG Methemoglobin 1.3 Trevin Test Na A-a O2 Difference 181.0 Respiratory Index 2.6 Hgb O2 Saturation 94.9 L Vent Mode Prvc Mechanical Rate 20 FiO2 40.0 Tidal Volume 450 PEEP 5 Sodium Potassium Chloride Carbon Dioxide Anion Gap BUN Creatinine Est GFR ( Amer) Est GFR (Non-Af Amer) Random Glucose Calcium Phosphorus Magnesium Total Bilirubin AST ALT Alkaline Phosphatase Total Protein Albumin Globulin Albumin/Globulin Ratio Procalcitonin 47.63 H CMV IgG Ab >10.00 H CMV IgM Ab <30.00 01/20/19 01/20/19 06:23 06:23 WBC 10.5 RBC 2.98 L Hgb 9.1 L Hct 27.3 L MCV 91.5 MCH 30.5 MCHC 33.3 RDW 15.8 H Plt Count 74 L D MPV 10.1 Puncture Site pCO2 pO2 HCO3 ABG pH ABG Total CO2 ABG O2 Saturation ABG Base Excess ABG Hemoglobin ABG Carboxyhemoglobin POC ABG HHb (Measured) ABG Methemoglobin Trevin Test A-a O2 Difference Respiratory Index Hgb O2 Saturation Vent Mode Mechanical Rate FiO2 Tidal Volume PEEP Sodium 134 Potassium 3.1 L Chloride 99 Carbon Dioxide 24 Anion Gap 15 BUN 86 H Creatinine 5.2 H Est GFR ( Amer) 10 Est GFR (Non-Af Amer) 8 Random Glucose 112 H Calcium 6.9 L Phosphorus 4.7 H Magnesium 1.8 Total Bilirubin 0.7 AST 95 H D ALT 33 Alkaline Phosphatase 229 H D Total Protein 4.7 L Albumin 2.6 L Globulin 2.1 L Albumin/Globulin Ratio 1.2 Procalcitonin CMV IgG Ab CMV IgM Ab Assessment & Plan (1) Pneumonia Status: Acute (2) Acute on chronic diastolic (congestive) heart failure Status: Acute (3) Severe anemia Status: Acute (4) ESRD (end stage renal disease) Status: Chronic (5) Hypertension Status: Chronic - Assessment and Plan (Free Text) Assessment: cardiothoracic surgery on board for loculated pericardial effusion echo neg for vegetation lines removed/ changed IV antibiotics renewed prognosis remains poor
--- NOTE | 2019-01-20 16:45 | CP.PCM.PN ---
Subjective - Date & Time of Evaluation Date of Evaluation: 01/20/19 Time of Evaluation: 16:45 - Subjective Subjective: pt is seen and examined during hd, follow up consult is dictated #[id number] seen in hd uf goal is about 3 lit, as tolerated Objective - Vital Signs/Intake and Output Vital Signs (last 24 hours): Temp Pulse Resp BP Pulse Ox 98.6 F 95 H 20 145/73 60 L 01/20/19 14:00 01/20/19 16:33 01/20/19 16:33 01/20/19 16:33 01/20/19 14:44 Intake and Output: 01/20/19 01/20/19 06:59 18:59 Intake Total 935 650 Output Total 450 Balance 485 650 - Medications Medications: Current Medications Famotidine (Pepcid) 20 mg IVP DAILY [facility] Last Admin: 01/20/19 09:30 Dose: 20 mg Folic Acid (Folic Acid) 1 mg PO DAILY [facility] Last Admin: 01/20/19 09:28 Dose: 1 mg Propofol (Diprivan) 1,000 mg in 100 mls @ 1.633 mls/hr IV .Q24H [facility]N; Protocol PRN Reason: TITRATE PER MD ORDER Last Titration: 01/18/19 09:32 Dose: 0 mcg/kg/min, 0 mls/hr Vancomycin/Sodium Chloride (Vancomycin 1 Gm/Ns 200 Ml) 1 gm in 200 mls @ 133.333 mls/hr IVPB MWF [facility]; Protocol Last Admin: 01/20/19 08:19 Dose: 133.333 mls/hr Metronidazole (Flagyl) 500 mg in 100 mls @ 100 mls/hr IVPB Q8H [facility]; Protocol Last Admin: 01/20/19 12:00 Dose: 100 mls/hr Dexmedetomidine HCl 200 mcg/ (Sodium Chloride) 50 mls @ 3.02 mls/hr IV TITR PRN; Protocol PRN Reason: Agitation Diltiazem HCl 125 mg/ Sodium (Chloride) 125 mls @ 5 mls/hr IV .Q24H [facility]; Protocol Last Admin: 01/19/19 19:33 Dose: Not Given Phenylephrine HCl 30 mg/ (Sodium Chloride) 253 mls @ 10.12 mls/hr IV .Q24H PRN; Protocol PRN Reason: TITRATE PER MD ORDER Last Titration: 01/19/19 02:38 Dose: 0 mcg/min, 0 mls/hr Aztreonam 1 gm/ Sodium (Chloride) 100 mls @ 100 mls/hr IVPB Q12H [facility]; Protocol Last Admin: 01/20/19 11:00 Dose: 100 mls/hr Furosemide 100 mg/ Sodium (Chloride) 100 mls @ 5 mls/hr IV .Q20H [facility] Metoprolol Tartrate (Lopressor) 25 mg PO BID [facility] Last Admin: 01/20/19 09:28 Dose: 25 mg Paricalcitol (Zemplar) 2 mcg IV TTS [facility] Last Admin: 01/19/19 15:19 Dose: Not Given Prednisone (Prednisone) 2.5 mg PO Q2D [facility] Last Admin: 01/20/19 09:24 Dose: 2.5 mg Rosuvastatin Calcium (Crestor) 10 mg PO HS [facility] Last Admin: 01/19/19 21:31 Dose: 10 mg Saccharomyces Boulardii (Florastor) 250 mg PO BID [facility] Last Admin: 01/20/19 09:27 Dose: 250 mg Vancomycin HCl (Firvanq (Oral Solution)) 250 mg PEG QID [facility] Last Admin: 01/20/19 09:28 Dose: 250 mg Vitamin B Complex/Vit C/Folic Acid (Nephro-Nacho) 1 tab PO 0800 [facility] Last Admin: 01/20/19 08:23 Dose: 1 tab - Labs Labs: 01/20/19 06:23 01/20/19 06:23 PT 13.3 SECONDS (9.7-12.2) H 01/15/19 05:29 INR 1.2 01/15/19 05:29 APTT 34 SECONDS (21-34) 01/15/19 05:29
--- NOTE | 2019-01-20 21:51 | CP.PCM.PN ---
Subjective - Date & Time of Evaluation Date of Evaluation: 01/20/19 Time of Evaluation: 16:30 - Subjective Subjective: Patient still on respirator with same settings. More alert today. Still with diarrhea and with a rectal tube. Azactam added to the antibiotic regimen. Blood cultures reveals Strep Gallolyticus Ss Yuryrian. CXR shows CHF, left pleural e ffusion and bilateral infiltrates unchanged. Objective - Vital Signs/Intake and Output Vital Signs (last 24 hours): Temp Pulse Resp BP Pulse Ox 98.4 F 80 20 164/57 H 100 01/20/19 17:18 01/20/19 18:27 01/20/19 18:27 01/20/19 18:27 01/20/19 18:27 Intake and Output: 01/20/19 01/21/19 18:59 06:59 Intake Total 1050 Output Total 3700 Balance -2650 - Medications Medications: Current Medications Famotidine (Pepcid) 20 mg IVP DAILY [facility] Last Admin: 01/20/19 09:30 Dose: 20 mg Folic Acid (Folic Acid) 1 mg PO DAILY [facility] Last Admin: 01/20/19 09:28 Dose: 1 mg Propofol (Diprivan) 1,000 mg in 100 mls @ 1.633 mls/hr IV .Q24H [facility]; Protocol PRN Reason: TITRATE PER MD ORDER Last Titration: 01/18/19 09:32 Dose: 0 mcg/kg/min, 0 mls/hr Vancomycin/Sodium Chloride (Vancomycin 1 Gm/Ns 200 Ml) 1 gm in 200 mls @ 133.333 mls/hr IVPB MWF [facility]; Protocol Last Admin: 01/20/19 08:19 Dose: 133.333 mls/hr Metronidazole (Flagyl) 500 mg in 100 mls @ 100 mls/hr IVPB Q8H [facility]; Protocol Last Admin: 01/20/19 20:14 Dose: 100 mls/hr Dexmedetomidine HCl 200 mcg/ (Sodium Chloride) 50 mls @ 3.02 mls/hr IV TITR PRN; Protocol PRN Reason: Agitation Diltiazem HCl 125 mg/ Sodium (Chloride) 125 mls @ 5 mls/hr IV .Q24H [facility]; Protocol Last Admin: 01/20/19 19:14 Dose: Not Given Phenylephrine HCl 30 mg/ (Sodium Chloride) 253 mls @ 10.12 mls/hr IV .Q24H PRN; Protocol PRN Reason: TITRATE PER MD ORDER Last Titration: 01/19/19 02:38 Dose: 0 mcg/min, 0 mls/hr Aztreonam 1 gm/ Sodium (Chloride) 100 mls @ 100 mls/hr IVPB Q12H [facility]; Protocol Last Admin: 01/20/19 21:31 Dose: 100 mls/hr Furosemide 100 mg/ Sodium (Chloride) 100 mls @ 5 mls/hr IV .Q20H [facility] Last Admin: 01/20/19 14:00 Dose: 5 mls/hr Metoprolol Tartrate (Lopressor) 25 mg PO BID [facility] Last Admin: 01/20/19 17:53 Dose: 25 mg Paricalcitol (Zemplar) 2 mcg IV TTS [facility] Last Admin: 01/19/19 15:19 Dose: Not Given Prednisone (Prednisone) 2.5 mg PO Q2D [facility] Last Admin: 01/20/19 09:24 Dose: 2.5 mg Rosuvastatin Calcium (Crestor) 10 mg PO HS [facility] Last Admin: 01/20/19 21:32 Dose: 10 mg Saccharomyces Boulardii (Florastor) 250 mg PO BID [facility] Last Admin: 01/20/19 17:53 Dose: 250 mg Vancomycin HCl (Firvanq (Oral Solution)) 250 mg PEG QID [facility] Last Admin: 01/20/19 21:33 Dose: 250 mg Vitamin B Complex/Vit C/Folic Acid (Nephro-Nacho) 1 tab PO 0800 [facility] Last Admin: 01/20/19 08:23 Dose: 1 tab - Labs Labs: 01/20/19 06:23 01/20/19 06:23 PT 13.3 SECONDS (9.7-12.2) H 01/15/19 05:29 INR 1.2 01/15/19 05:29 APTT 34 SECONDS (21-34) 01/15/19 05:29 - Constitutional Appears: In Acute Distress, Cachectic, Chronically Ill - Head Exam Head Exam: NORMAL INSPECTION - Eye Exam Eye Exam: Normal appearance - ENT Exam ENT Exam: Normal Exam - Neck Exam Neck Exam: Normal Inspection - Respiratory Exam Respiratory Exam: Rhonchi Additional comments: Rhonchi bilaterally. - Cardiovascular Exam Cardiovascular Exam: Tachycardia - GI/Abdominal Exam GI & Abdominal Exam: Soft, Hyperactive Bowel Sounds - Rectal Exam Rectal Exam: Deferred - Extremities Exam Extremities Exam: Normal Inspection - Back Exam Back Exam: NORMAL INSPECTION - Neurological Exam Additional comments: Intubated, on respirator, arousable. - Skin Skin Exam: Dry, Intact, Warm Assessment and Plan (1) Acute on chronic diastolic (congestive) heart failure Status: Acute (2) Severe anemia Status: Acute (3) ESRD (end stage renal disease) Assessment & Plan: On HD. Status: Chronic (4) Hypertension Status: Chronic (5) Pneumonia Assessment & Plan: On IV Vancomycin, flagyl and Azactam. Status: Acute (6) C. difficile colitis Assessment & Plan: On PO Vancomycin and Florastor. Status: Acute (7) Bacteremia, coagulase-negative staphylococcal Assessment & Plan: Blood culture reveals Strep GalloLyticus Ss. Pasteurian. Status: Acute (8) Acute respiratory failure Assessment & Plan: On respirator, on CMV, FiO2 40% PEEP 5 Status: Acute
--- NOTE | 2019-01-21 03:36 | PN ---
DATE: 01/20/2019 FOLLOWUP RENAL CONSULTATION LOCATION: The patient is located in ICU, bed 2. REQUESTED BY: Dash Najera MD REASON FOR FOLLOWUP: End-stage renal disease, continuation of hemodialysis. SUBJECTIVE: Mrs. 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 The patient is on ventilator. The patient is being treated for respiratory failure and pneumonia and started on hemodialysis three times a week, status post removal of the femoral vein catheter and placement of new catheter today. The patient was seen and examined during dialysis and UF goal is about 2.8 L. The patient tolerated very well. PHYSICAL EXAMINATION: VITAL SIGNS: As follows: Blood pressure 118/70, pulse 93, respirations about 20, saturation 97%, T-max is 101 and current temperature this afternoon is 98.2. Height is 5 feet 2 inches, and weight is 133 pounds. GENERAL: Mrs. Faulkner is 73-year-old elderly female, moderately built, moderately nourished, not in acute distress. HEENT: Pupils normal and reactive to light and accommodation. Conjunctivae pink. Sclerae anicteric. The patient is on ventilator. No thyroid enlargement. LUNGS: Symmetric on both sides. Bilateral breath sounds present. Clear to auscultation. CARDIOVASCULAR SYSTEM: [place] at the fifth intercostal space, midclavicular line. S1 and S2 audible. Irregularly irregular. Tachycardic. ABDOMEN: Normal in appearance. Soft, tympanitic. No guarding. No rigidity. No hepatosplenomegaly. CENTRAL NERVOUS SYSTEM: The patient is on ventilator, responding to verbal stimuli. EXTREMITIES: No cyanosis, no clubbing. The patient has 2+ edema in both lower extremities and upper extremities. INTAKE AND OUTPUT: I's and O's in the last 24 hours: Intake is 1215 and output is 450. Voided urine about 200 and stool about 250. CURRENT MEDICATIONS: Include as follows: Azactam 1 g every 12 hours, Crestor 10 mg p.o. at bedtime, diltiazem 125 mg IV at 5 mg per hour on hold, Diprivan, vancomycin oral 250 mg by NG tube four times a day, Flagyl 250 mg IV every 8 hours, Florastor, folic acid 1 mg daily, Lasix drip at 5 mL per hour, Lopressor 25 mg p.o. b.i.d., Nephro-Nacho one tablet daily, Pepcid 20 mg IV daily, prednisone 2.5 mg p.o. every 2 days, and vancomycin 1 g IV piggyback three times a week. LABORATORY DATA: Blood cultures as of 01/17/2019 positive for Streptococcus gallolyticus, sensitive to ceftriaxone, penicillin and vancomycin. Repeat cultures as of 01/19/2019 is negative day-one x2. Other laboratory data: WBC 10.5, hemoglobin 9.1, hematocrit is 27.3, platelets 74. ABG, pH of 7.43, pCO2 of 27, pO2 of 70, bicarb is 20.5, and saturation 97.7. Sodium 134, potassium 3.1, chloride 99, CO2 of 24, BUN 86, creatinine 5.2, glucose 112, calcium 6.9, phosphorus 4.7, magnesium 1.8. Total bili 0.7, AST 95, ALT 33, alkaline phosphatase 229, total protein 4.7, albumin is 2.6. ASSESSMENT AND PLAN: In summary, Mrs. Faulkner is a 73-year-old elderly [place] female with a history of hypertension, atrial fibrillation, status post renal transplant with allograft nephropathy with worsening renal function, anemia, secondary hyperparathyroidism who was admitted with cough, shortness of breath and tachypneic, unable to tolerate bilevel positive airway pressure, requiring intubation, transferred to intensive care unit and being treated for Streptococcus pneumonia with respiratory failure and also stool for Clostridium difficile toxin positive and fluid overload. 1. 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 2. Respiratory failure. 3. Bilateral pneumonia. 4. Streptococcus gallolyticus sepsis. 5. Clostridium difficile. 6. Anemia secondary to multifactorial secondary to lower gastrointestinal bleed and end-stage renal disease. 7. Fluid overload. Plan, continue hemodialysis three times a week. Continue followup blood culture report. Repeat one. Continue intravenous antibiotics as per Dr. Bazan, intravenous vancomycin and intravenous Azactam and also continue oral vancomycin and intravenous Flagyl. 8. Atrial fibrillation. Continue Lopressor as per intensive care unit team and Dr. Najera. 9. Overall prognosis is guarded. The patient underwent hemodialysis today and had ultrafiltration about 2.8 L. We will discontinue intravenous Lasix. We will follow with you. Thank you for allowing me to participate in your patient's care. Ever Madrigal MD
[2019-01-21] MEDS: metroNIDAZOLE IV 500 mg/100 ml 500 MG/100 ML BAG IVPB SCH ×3 (04:13→20:45)
[2019-01-21] MEDS ORDERED: Acetaminophen IV 1,000 MG in Premixed IV 1 EA IV ONE (04:43)
[2019-01-21 05:43] LABS: ABG ALLEN TEST POS; ARTERIAL BLOOD GAS HEMOGLOBIN 11.9 g/dL (11.7-17.4); ARTERIAL BLOOD GAS O2 SAT 99.2 % (95-98); ARTERIAL BLOOD GAS PCO2 34 mm/Hg (35-45); ARTERIAL BLOOD GAS PH 7.43 (7.35-7.45); ARTERIAL BLOOD GAS PO2 110 mm/Hg (80-100); ARTERIAL BLOOD GAS TCO2 23.6 mmol/L (22-28)
[2019-01-21 06:17] LABS: HEMOGLOBIN 8.9 g/dL (11.0-16.0); MEAN CELL VOLUME 92.8 fL (81.0-99.0); MEAN CORPUSCULAR HEMOGLOBIN 30.2 pg (27.0-31.0); MEAN CORPUSCULAR HGB CONC 32.6 g/dL (33.0-37.0); MEAN PLATELET VOLUME 10.9 fL (7.2-11.7); RBC 2.94 Mil/uL (3.80-5.20); RED CELL DISTRIBUTION WIDTH 15.9 % (11.5-14.5); WHITE BLOOD COUNT 14.1 K/uL (4.8-10.8)
[2019-01-21 06:32] LABS: ALB/GLOB RATIO 1.2 (1.0-2.1); ALBUMIN 2.5 g/dL (3.5-5.0); CALCIUM 7.1 mg/dl (8.6-10.4)
[2019-01-21] MEDS: Multivitamin Vitamin B Complex (Nephro-Vite) Tab PO SCH (07:54)
[2019-01-21] MEDS: Paricalcitol 2 mcg/ml Inj IV SCH (09:15)
[2019-01-21] MEDS: Saccharomyces Boulardi 250 mg Cap PO SCH ×2 (09:15→17:23)
--- NOTE | 2019-01-21 09:48 | CP.CCUPN ---
<Mando Waters - Last Filed: 01/21/19 14:41> CCU Subjective - Physician Review Subjective (Free Text): PGY-1 Critical Care Progress Note for Dr. Merino Patient seen and examined at bedside. Intubated and sedated. HD yesterday via L fem double lumen cath placed yesteday. R fem shiley removed. Respiratory status improving, for CPAP trial today. Patient somewhat more awake and alert. ROS unable to be obtained. CCU Objective - Vital Signs / Intake & Output Vital Signs (Last 4 hours): Vital Signs Temp Pulse Resp BP Pulse Ox 01/21/19 09:15 154/94 H 01/21/19 08:00 100.2 F H 107 H 23 162/63 H 100 01/21/19 07:00 102 H 21 155/63 H 100 01/21/19 06:00 102 H 20 152/61 H 99 Intake and Output (Last 8hrs): Intake & Output 01/20/19 01/21/19 01/21/19 22:59 06:59 14:59 Intake Total 420 5 45 Output Total 3700 400 Balance -3280 -395 45 Weight 134 lb 7.712 oz Intake: Intake, IV Amount 240 5 0 left Jug. TLC medial port 40 5 0 left jug. TLC distal port 200 Tube Feeding 180 45 Output: Urine 300 0 Urine, Voided 300 0 Stool 400 400 Other 3000 - Physical Exam Head: Positive for: Atraumatic, Normocephalic Pupils: Positive for: PERRL Extroacular Muscles: Positive for: EOMI Mouth: Positive for: Moist Mucous Membranes Cardiovascular: Positive for: Regular Rate and Rhythm, Murmurs, Normal S1, S2 Abdomen: Positive for: Normal Bowel Sounds Upper Extremity: Positive for: Normal Inspection Lower Extremity: Positive for: Normal Inspection Neurological: Positive for: Other (Sedated on propofol drip) Skin: Positive for: Warm - Medications Active Medications: Active Medications Generic Name Dose Route Start Last Admin Trade Name Freq PRN Reason Stop Dose Admin Famotidine 20 mg 01/16/19 10:00 01/21/19 09:15 Pepcid IVP 20 mg DAILY GLADYS Administration Folic Acid 1 mg 01/15/19 10:00 01/21/19 09:15 Folic Acid PO 1 mg DAILY GLADYS Administration Propofol 1,000 mg in 100 mls @ 1.633 mls/hr 01/15/19 14:49 01/18/19 09:32 Diprivan IV 0 mcg/kg/min .Q24H PRN 0 mls/hr TITRATE PER MD ORDER Titration Protocol 5 MCG/KG/MIN Vancomycin/Sodium Chloride 1 gm in 200 mls @ 133.333 mls/hr 01/18/19 09:00 01/20/19 08:19 Vancomycin 1 Gm/Ns 200 Ml IVPB 133.333 mls/hr MWF GLADYS Administration Protocol Metronidazole 500 mg in 100 mls @ 100 mls/hr 01/17/19 20:00 01/21/19 04:13 Flagyl IVPB 100 mls/hr Q8H GLADYS Administration Protocol Dexmedetomidine HCl 200 mcg/ 50 mls @ 3.02 mls/hr 01/18/19 17:52 Sodium Chloride IV TITR PRN Agitation Protocol 0.2 MCG/KG/HR Diltiazem HCl 125 mg/ Sodium 125 mls @ 5 mls/hr 01/18/19 19:00 01/20/19 19:14 Chloride IV Not Given .Q24H GLADYS Protocol 5 MG/HR Phenylephrine HCl 30 mg/ 253 mls @ 10.12 mls/hr 01/18/19 22:02 01/19/19 02:38 Sodium Chloride IV 0 mcg/min .Q24H PRN 0 mls/hr TITRATE PER MD ORDER Titration Protocol 20 MCG/MIN Aztreonam 1 gm/ Sodium 100 mls @ 100 mls/hr 01/20/19 10:30 01/20/19 21:31 Chloride IVPB 100 mls/hr Q12H GLADYS Administration Protocol Metoprolol Tartrate 25 mg 01/15/19 10:00 01/21/19 09:15 Lopressor PO 25 mg BID GLADYS Administration Paricalcitol 2 mcg 01/16/19 10:00 01/21/19 09:15 Zemplar IV 2 mcg TTS GLADYS Administration Prednisone 2.5 mg 01/18/19 10:00 01/20/19 09:24 Prednisone PO 2.5 mg Q2D GLADYS Administration Rosuvastatin Calcium 10 mg 01/15/19 22:00 01/20/19 21:32 Crestor PO 10 mg HS GLADYS Administration Saccharomyces Boulardii 250 mg 01/18/19 10:00 01/21/19 09:15 Florastor PO 250 mg BID GLADYS Administration Vancomycin HCl 250 mg 01/17/19 22:00 01/20/19 21:33 Firvanq (Oral Solution) PEG 250 mg QID GLADYS Administration Vitamin B Complex/Vit C/Folic Acid 1 tab 01/16/19 08:00 01/21/19 07:54 Nephro-Nacho PO 1 tab 0800 GLADYS Administration - Patient Studies Lab Studies: Microbiology Studies 01/17/19 13:40 Blood Culture - Final Blood-Venous Str.gallolyticus Ss Pasteurian Gram Stain - Final 01/17/19 12:52 S.aureus & Coag-Neg Staph PNA FISH - Final Blood-Venous Blood Culture - Final Str.gallolyticus Ss Pasteurian Gram Stain - Final 01/19/19 22:46 Blood Culture - Preliminary Blood-Venous NO GROWTH AFTER 24 HOURS 01/19/19 22:46 Blood Culture - Preliminary Blood-Venous NO GROWTH AFTER 24 HOURS Lab Studies 01/21/19 01/21/19 01/21/19 Range/Units 06:06 06:06 05:24 WBC 14.1 H (4.8-10.8) K/uL RBC 2.94 L (3.80-5.20) Mil/uL Hgb 8.9 L (11.0-16.0) g/dL Hct 27.3 L (34.0-47.0) % MCV 92.8 (81.0-99.0) fL MCH 30.2 (27.0-31.0) pg MCHC 32.6 L (33.0-37.0) g/dL RDW 15.9 H (11.5-14.5) % Plt Count 86 L (130-400) K/uL MPV 10.9 (7.2-11.7) fL Puncture Site Rr pCO2 34 L (35-45) mm/Hg pO2 110 H (80-100) mm/Hg HCO3 24.0 (21-28) mmol/L ABG pH 7.43 (7.35-7.45) ABG Total CO2 23.6 (22-28) mmol/L ABG O2 Saturation 99.2 H (95-98) % ABG Base Excess -1.2 (-2.0-3.0) mmol/L ABG Hemoglobin 11.9 (11.7-17.4) g/dL ABG Carboxyhemoglobin 1.6 H (0.5-1.5) % POC ABG HHb (Measured) 0.8 (0.0-5.0) % ABG Methemoglobin 1.1 (0.0-3.0) % Trevin Test Pos A-a O2 Difference 133.0 mm/Hg Respiratory Index 1.2 Hgb O2 Saturation 96.5 (95.0-98.0) % Vent Mode Prvc Mechanical Rate 20 FiO2 40.0 % Tidal Volume 450 PEEP 5 Sodium 135 (132-148) mmol/L Potassium 3.2 L (3.6-5.2) mmol/L Chloride 101 (98-107) mmol/L Carbon Dioxide 22 (22-30) mmol/L Anion Gap 15 (10-20) BUN 75 H (7-17) mg/dL Creatinine 4.2 H (0.7-1.2) mg/dL Est GFR ( Amer) 12 Est GFR (Non-Af Amer) 10 Random Glucose 121 H (65-105) mg/dL Calcium 7.1 L (8.6-10.4) mg/dl Phosphorus 3.4 (2.5-4.5) mg/dL Magnesium 1.8 (1.6-2.3) mg/dL Total Bilirubin 0.5 (0.2-1.3) mg/dL AST 72 H D (14-36) U/L ALT 41 (9-52) U/L Alkaline Phosphatase 330 H D (38-126) U/L Total Protein 4.6 L (6.3-8.3) g/dL Albumin 2.5 L (3.5-5.0) g/dL Globulin 2.1 L (2.2-3.9) gm/dL Albumin/Globulin Ratio 1.2 (1.0-2.1) Laboratory Results - last 24 hr 01/21/19 01/21/19 01/21/19 05:24 06:06 06:06 WBC 14.1 H RBC 2.94 L Hgb 8.9 L Hct 27.3 L MCV 92.8 MCH 30.2 MCHC 32.6 L RDW 15.9 H Plt Count 86 L MPV 10.9 Puncture Site Rr pCO2 34 L pO2 110 H HCO3 24.0 ABG pH 7.43 ABG Total CO2 23.6 ABG O2 Saturation 99.2 H ABG Base Excess -1.2 ABG Hemoglobin 11.9 ABG Carboxyhemoglobin 1.6 H POC ABG HHb (Measured) 0.8 ABG Methemoglobin 1.1 Trevin Test Pos A-a O2 Difference 133.0 Respiratory Index 1.2 Hgb O2 Saturation 96.5 Vent Mode Prvc Mechanical Rate 20 FiO2 40.0 Tidal Volume 450 PEEP 5 Sodium 135 Potassium 3.2 L Chloride 101 Carbon Dioxide 22 Anion Gap 15 BUN 75 H Creatinine 4.2 H Est GFR ( Amer) 12 Est GFR (Non-Af Amer) 10 Random Glucose 121 H Calcium 7.1 L Phosphorus 3.4 Magnesium 1.8 Total Bilirubin 0.5 AST 72 H D ALT 41 Alkaline Phosphatase 330 H D Total Protein 4.6 L Albumin 2.5 L Globulin 2.1 L Albumin/Globulin Ratio 1.2 Critical Care Progress Note - Nutrition Nutrition: Nutrition Category Date Time Status NPO Diet [DIET] Diets 01/15/19 Lunch Active Assessment/Plan - Assessment and Plan (Free Text) Assessment: 73 year old female with history ESRD s/p failing renal transplant from 2002 presents acutely short of breath, found to have moderate bilateral pleural effusion on chest x-ray and CT chest as well as cardiomegaly, and anemic with HgB 5.2. Cardio Cardiomegaly on chest XR -Echo 01/15: Normal LV function, EF 60-65%. -Normal sinus on monitor -Vascular access --S/p R femoral Shiley HD catheter placement beside with vascular surgery, Dr. Butler --R fem removed --> L fem double lumen HD catheter placed 01/20 --L IJ TLC placed 01/19 Pericardial Effusion -Loculated pericardial effusion noted on Echo -Blood cultures + Strep gallolyticus, Strep Pasterian (Strep Bovis sp) -CT surgery consulted, Dr. Benitez - f/u Pulmonary Bilateral pleural effusions -Intubated, on vent/PRVC with OGT in place -Maintain spO2>92% -Chest XRs improving -Echo 01/18 - Normal systolic function, EF 50-55% -Repeating CT chest - f/u to monitor interval improvement -Repeat CT chest 01/18 - bilateral pleural effusions and associated compressive consolidations. Ground-glass and patchy scattered diffuse pulmonary infiltrates suspicious for multifocal pneumonia and or edema. -Repiratory status improving - CPAP trial --> wean to extubate --Pt tolerated CPAP for 1 hour at first attempt and developed rapid AFIB on monitor. Repeat CPAP trial today 01/21 Imaging on Admission: CXR 12/15: Prominent consolidative opacification with patchy opacities seen throughout the right lung as well as within the left upper lung zone. Post treatment interval follow-up is recommended to ensure resolution. Moderate left pleural effusion. Blunted right costophrenic angle. Cardiomegaly. CT Chest w/o Contrast 01/15: 1. Multifocal ground-glass and confluent airspace disease in both lungs may represent pulmonary edema or multifocal pneumonia. Follow-up is advised. 2. Moderate cardiomegaly, small pericardial effusion and moderate bilateral pleural effusions.3. Cholelithiasis in over distended gallbladder. Please correlate with right upper quadrant ultrasound Neuro -Propofol drip d/c'd CT Head 01/15: No acute intracranial abnormality. Mild chronic microangiopathic changes and mild age-related global parenchymal volume loss. GI Anemia, rule out GI bleed -GI consulted for poss GIB bleed based on persistent anemia with 12/06 FOBT +, Dr. Bella --No overt GI bleeding noted --Recommend CT abdomen/pelvis with PO and IV contrast prior to HD - f/u tomorrow AM --Patient may benefit from colonoscopy once medically stable depending on report from recent colonoscopy to be obtained --c/w abx therapy for C. Diff colitis --Pepcid d/c'd --> Protonix 40 mg IV daily --Continue holding eliquis for now C. Diff Colitis -PO Vanco, Flagyl -ID and GI on consult Renal ESRD hx renal transplant 2002, requiring new HD for failing transplant -S/p R femoral Shiley HD catheter placement beside with vascular surgery, Dr. Butler -Patient underwent HD on Monday 01/15. -Per surgery, awaiting medical stabilization prior to permacath placement -F/u Nephro, Dr. Madrigal, for HD plan -Monitor output and fluid status -Prednisone decreased 01/18 from 5mg PO daily --> 2.5 mg Q2d ID/Heme Anemia -HgB 5.2 on admission -S/p 3U PRBCs --> 10.5 --> 9.3 -Etiology due to chronic renal insufficiency vs GI bleed -Initially had + stool guaic, but HgB stable -GI consulted (see above) -HgB stable, will monitor for symptoms and daily CBC to assess need to transfuse. Gram + Cocci Bacteremia, C. Diff Colitis -01/17 blood cultures positive for strep gallolyticus -Pt continues to have low-grade temps and developed mild white count -Stool studies + C. Diff --> PO vanco + flagyl -ID consulted, Dr. Bazan -Abx - PO/IV Vancomycin, Flagyl, Aztreonam PPx -GI: Protonix 40 mg IV daily -DVT: Pharmacologic DVT ppx c/i 2/2 anemia. SCDs. -ETT/PRVC -HD TTS Assessment and plan d/w Dr. Angelique Waters, PGY-1 <Nain Merino - Last Filed: 01/21/19 16:44> CCU Objective - Vital Signs / Intake & Output Vital Signs (Last 4 hours): Vital Signs Temp Pulse Resp BP Pulse Ox 01/21/19 14:00 99 H 23 167/70 H 99 01/21/19 13:00 99 H 24 148/66 98 01/21/19 12:00 99.7 F H 97 H 25 H 158/62 H 99 01/21/19 11:00 95 H 22 151/85 H 100 Intake and Output (Last 8hrs): Intake & Output 01/20/19 01/21/19 01/21/19 22:59 06:59 14:59 Intake Total 420 5 635 Output Total 3700 400 Balance -3280 -395 635 Weight 134 lb 7.712 oz Intake: Intake, IV Amount 240 5 200 left Jug. TLC medial port 40 5 0 left jug. TLC distal port 200 200 Tube Feeding 180 315 Other 120 Output: Urine 300 0 Urine, Voided 300 0 Stool 400 400 Other 3000 - Medications Active Medications: Active Medications Generic Name Dose Route Start Last Admin Trade Name Freq PRN Reason Stop Dose Admin Folic Acid 1 mg 01/15/19 10:00 01/21/19 09:15 Folic Acid PO 1 mg DAILY GLADYS Administration Propofol 1,000 mg in 100 mls @ 1.633 mls/hr 01/15/19 14:49 01/18/19 09:32 Diprivan IV 0 mcg/kg/min .Q24H PRN 0 mls/hr TITRATE PER MD ORDER Titration Protocol 5 MCG/KG/MIN Vancomycin/Sodium Chloride 1 gm in 200 mls @ 133.333 mls/hr 01/18/19 09:00 01/20/19 08:19 Vancomycin 1 Gm/Ns 200 Ml IVPB 133.333 mls/hr MWF GLADYS Administration Protocol Metronidazole 500 mg in 100 mls @ 100 mls/hr 01/17/19 20:00 01/21/19 11:11 Flagyl IVPB 100 mls/hr Q8H GLADYS Administration Protocol Dexmedetomidine HCl 200 mcg/ 50 mls @ 3.02 mls/hr 01/18/19 17:52 Sodium Chloride IV TITR PRN Agitation Protocol 0.2 MCG/KG/HR Diltiazem HCl 125 mg/ Sodium 125 mls @ 5 mls/hr 01/18/19 19:00 01/20/19 19:14 Chloride IV Not Given .Q24H GLADYS Protocol 5 MG/HR Phenylephrine HCl 30 mg/ 253 mls @ 10.12 mls/hr 01/18/19 22:02 01/19/19 02:38 Sodium Chloride IV 0 mcg/min .Q24H PRN 0 mls/hr TITRATE PER MD ORDER Titration Protocol 20 MCG/MIN Aztreonam 1 gm/ Sodium 100 mls @ 100 mls/hr 01/20/19 10:30 01/21/19 11:10 Chloride IVPB 100 mls/hr Q12H GLADYS Administration Protocol Metoprolol Tartrate 25 mg 01/15/19 10:00 01/21/19 09:15 Lopressor PO 25 mg BID GLADYS Administration Pantoprazole Sodium 40 mg 01/22/19 10:00 Protonix Inj IVP DAILY GLADYS Paricalcitol 2 mcg 01/16/19 10:00 01/21/19 09:15 Zemplar IV 2 mcg TTS GLADYS Administration Prednisone 2.5 mg 01/18/19 10:00 01/20/19 09:24 Prednisone PO 2.5 mg Q2D GLADYS Administration Rosuvastatin Calcium 10 mg 01/15/19 22:00 01/20/19 21:32 Crestor PO 10 mg HS GLADYS Administration Saccharomyces Boulardii 250 mg 01/18/19 10:00 01/21/19 09:15 Florastor PO 250 mg BID GLADYS Administration Vancomycin HCl 250 mg 01/17/19 22:00 01/21/19 14:24 Firvanq (Oral Solution) PEG 250 mg QID GLADYS Administration Vitamin B Complex/Vit C/Folic Acid 1 tab 01/16/19 08:00 01/21/19 07:54 Nephro-Nacho PO 1 tab 0800 [facility] Administration - Patient Studies Lab Studies: Microbiology Studies 01/20/19 10:29 Urine Culture - Final Urine,Catheterized No Growth (<1,000 CFU/ML) 01/20/19 10:08 Blood Culture - Preliminary Blood-Thru Central Line NO GROWTH AFTER 24 HOURS 01/20/19 10:08 Blood Culture - Preliminary Blood-Thru Central Line NO GROWTH AFTER 24 HOURS 01/17/19 13:40 Blood Culture - Final Blood-Venous Str.gallolyticus Ss Pasteurian Gram Stain - Final 01/17/19 12:52 S.aureus & Coag-Neg Staph PNA FISH - Final Blood-Venous Blood Culture - Final Str.gallolyticus Ss Pasteurian Gram Stain - Final 01/19/19 22:46 Blood Culture - Preliminary Blood-Venous NO GROWTH AFTER 24 HOURS 01/19/19 22:46 Blood Culture - Preliminary Blood-Venous NO GROWTH AFTER 24 HOURS Lab Studies 01/21/19 01/21/19 01/21/19 Range/Units 06:06 06:06 05:24 WBC 14.1 H (4.8-10.8) K/uL RBC 2.94 L (3.80-5.20) Mil/uL Hgb 8.9 L (11.0-16.0) g/dL Hct 27.3 L (34.0-47.0) % MCV 92.8 (81.0-99.0) fL MCH 30.2 (27.0-31.0) pg MCHC 32.6 L (33.0-37.0) g/dL RDW 15.9 H (11.5-14.5) % Plt Count 86 L (130-400) K/uL MPV 10.9 (7.2-11.7) fL Puncture Site Rr pCO2 34 L (35-45) mm/Hg pO2 110 H (80-100) mm/Hg HCO3 24.0 (21-28) mmol/L ABG pH 7.43 (7.35-7.45) ABG Total CO2 23.6 (22-28) mmol/L ABG O2 Saturation 99.2 H (95-98) % ABG Base Excess -1.2 (-2.0-3.0) mmol/L ABG Hemoglobin 11.9 (11.7-17.4) g/dL ABG Carboxyhemoglobin 1.6 H (0.5-1.5) % POC ABG HHb (Measured) 0.8 (0.0-5.0) % ABG Methemoglobin 1.1 (0.0-3.0) % Trevin Test Pos A-a O2 Difference 133.0 mm/Hg Respiratory Index 1.2 Hgb O2 Saturation 96.5 (95.0-98.0) % Vent Mode Prvc Mechanical Rate 20 FiO2 40.0 % Tidal Volume 450 PEEP 5 Sodium 135 (132-148) mmol/L Potassium 3.2 L (3.6-5.2) mmol/L Chloride 101 (98-107) mmol/L Carbon Dioxide 22 (22-30) mmol/L Anion Gap 15 (10-20) BUN 75 H (7-17) mg/dL Creatinine 4.2 H (0.7-1.2) mg/dL Est GFR ( Amer) 12 Est GFR (Non-Af Amer) 10 Random Glucose 121 H (65-105) mg/dL Calcium 7.1 L (8.6-10.4) mg/dl Phosphorus 3.4 (2.5-4.5) mg/dL Magnesium 1.8 (1.6-2.3) mg/dL Total Bilirubin 0.5 (0.2-1.3) mg/dL AST 72 H D (14-36) U/L ALT 41 (9-52) U/L Alkaline Phosphatase 330 H D (38-126) U/L Total Protein 4.6 L (6.3-8.3) g/dL Albumin 2.5 L (3.5-5.0) g/dL Globulin 2.1 L (2.2-3.9) gm/dL Albumin/Globulin Ratio 1.2 (1.0-2.1) Laboratory Results - last 24 hr 01/21/19 01/21/19 01/21/19 05:24 06:06 06:06 WBC 14.1 H RBC 2.94 L Hgb 8.9 L Hct 27.3 L MCV 92.8 MCH 30.2 MCHC 32.6 L RDW 15.9 H Plt Count 86 L MPV 10.9 Puncture Site Rr pCO2 34 L pO2 110 H HCO3 24.0 ABG pH 7.43 ABG Total CO2 23.6 ABG O2 Saturation 99.2 H ABG Base Excess -1.2 ABG Hemoglobin 11.9 ABG Carboxyhemoglobin 1.6 H POC ABG HHb (Measured) 0.8 ABG Methemoglobin 1.1 Trevin Test Pos A-a O2 Difference 133.0 Respiratory Index 1.2 Hgb O2 Saturation 96.5 Vent Mode Prvc Mechanical Rate 20 FiO2 40.0 Tidal Volume 450 PEEP 5 Sodium 135 Potassium 3.2 L Chloride 101 Carbon Dioxide 22 Anion Gap 15 BUN 75 H Creatinine 4.2 H Est GFR ( Amer) 12 Est GFR (Non-Af Amer) 10 Random Glucose 121 H Calcium 7.1 L Phosphorus 3.4 Magnesium 1.8 Total Bilirubin 0.5 AST 72 H D ALT 41 Alkaline Phosphatase 330 H D Total Protein 4.6 L Albumin 2.5 L Globulin 2.1 L Albumin/Globulin Ratio 1.2 Critical Care Progress Note - Nutrition Nutrition: Nutrition Category Date Time Status NPO Diet [DIET] Diets 01/15/19 Lunch Active Attending/Attestation - Attestation I have personally seen and examined this patient.: Yes I have fully participated in the care of the patient.: Yes I have reviewed all pertinent clinical information: Yes Notes (Text): 01/21/19 16:43 I have seen and examined the patient. Medical records, lab studies, and imaging were reviewed by me and a management plan was formulated on multidisciplinary rounds with resident Dr. Waters. I agree with their documented assessment and plan. Patient will need colonoscopy to r/o GI bleeding source for persistent guaiac positive stool and severe presenting anemia. This also prevents restarting afib stroke prophylaxis with Eliquis. PS trial today. Critical Care Time 35 minutes. Multi-disciplinary rounds were performed with house staff, nursing, speech therapy, respiratory therapy, pharmacy and nutrition with integrated input from the primary team/attending and other consulting services. The documented time is cumulative and includes review of patient data/exams/labs/chart review and examination of the patient on rounds and throughout the day; time is exclusive of any procedures or teaching time. 01/21/19 16:44
[2019-01-21] MEDS: VANCOMYCIN HCL 250 MG/5 ML PEG SCH ×4 (10:00→21:41)
[2019-01-21] MEDS: Aztreonam 1 GM in Sodium Chloride 0.9% 100 ML IVPB SCH ×2 (11:10→21:40)
--- NOTE | 2019-01-21 11:31 | CP.PCM.PN ---
Subjective - Date & Time of Evaluation Date of Evaluation: 01/21/19 Time of Evaluation: 11:30 - Subjective Subjective: pt is seen and examined, follow up consult is dictated #[id number] Objective - Vital Signs/Intake and Output Vital Signs (last 24 hours): Temp Pulse Resp BP Pulse Ox 100.2 F H 106 H 20 134/52 L 99 01/21/19 08:00 01/21/19 10:00 01/21/19 10:00 01/21/19 10:00 01/21/19 10:00 Intake and Output: 01/21/19 01/21/19 06:59 18:59 Intake Total 225 255 Output Total 400 Balance -175 255 - Medications Medications: Current Medications Famotidine (Pepcid) 20 mg IVP DAILY [facility] Last Admin: 01/21/19 09:15 Dose: 20 mg Folic Acid (Folic Acid) 1 mg PO DAILY [facility] Last Admin: 01/21/19 09:15 Dose: 1 mg Propofol (Diprivan) 1,000 mg in 100 mls @ 1.633 mls/hr IV .Q24H PRN; Protocol PRN Reason: TITRATE PER MD ORDER Last Titration: 01/18/19 09:32 Dose: 0 mcg/kg/min, 0 mls/hr Vancomycin/Sodium Chloride (Vancomycin 1 Gm/Ns 200 Ml) 1 gm in 200 mls @ 133.333 mls/hr IVPB MWF [facility]; Protocol Last Admin: 01/20/19 08:19 Dose: 133.333 mls/hr Metronidazole (Flagyl) 500 mg in 100 mls @ 100 mls/hr IVPB Q8H [facility]; Protocol Last Admin: 01/21/19 11:11 Dose: 100 mls/hr Dexmedetomidine HCl 200 mcg/ (Sodium Chloride) 50 mls @ 3.02 mls/hr IV TITR PRN; Protocol PRN Reason: Agitation Diltiazem HCl 125 mg/ Sodium (Chloride) 125 mls @ 5 mls/hr IV .Q24H [facility]; Protocol Last Admin: 01/20/19 19:14 Dose: Not Given Phenylephrine HCl 30 mg/ (Sodium Chloride) 253 mls @ 10.12 mls/hr IV .Q24H PRN; Protocol PRN Reason: TITRATE PER MD ORDER Last Titration: 01/19/19 02:38 Dose: 0 mcg/min, 0 mls/hr Aztreonam 1 gm/ Sodium (Chloride) 100 mls @ 100 mls/hr IVPB Q12H [facility]; Protocol Last Admin: 01/21/19 11:10 Dose: 100 mls/hr Metoprolol Tartrate (Lopressor) 25 mg PO BID [facility] Last Admin: 01/21/19 09:15 Dose: 25 mg Paricalcitol (Zemplar) 2 mcg IV TTS [facility] Last Admin: 01/21/19 09:15 Dose: 2 mcg Prednisone (Prednisone) 2.5 mg PO Q2D [facility] Last Admin: 01/20/19 09:24 Dose: 2.5 mg Rosuvastatin Calcium (Crestor) 10 mg PO HS [facility] Last Admin: 01/20/19 21:32 Dose: 10 mg Saccharomyces Boulardii (Florastor) 250 mg PO BID [facility] Last Admin: 01/21/19 09:15 Dose: 250 mg Vancomycin HCl (Firvanq (Oral Solution)) 250 mg PEG QID [facility] Last Admin: 01/21/19 10:00 Dose: 250 mg Vitamin B Complex/Vit C/Folic Acid (Nephro-Nacho) 1 tab PO 0800 [facility] Last Admin: 01/21/19 07:54 Dose: 1 tab - Labs Labs: 01/21/19 06:06 01/21/19 06:06 PT 13.3 SECONDS (9.7-12.2) H 01/15/19 05:29 INR 1.2 01/15/19 05:29 APTT 34 SECONDS (21-34) 01/15/19 05:29
--- NOTE | 2019-01-21 12:08 | CP.PCM.PN ---
<Lisa Mathis - Last Filed: 01/21/19 12:03> Subjective - Date & Time of Evaluation Date of Evaluation: 01/21/19 Time of Evaluation: 12:03 - Subjective Subjective: Pulm Progress Note for Dr. Jackson's service S/E at bedside S/p HD yesterday with rodrigo Remains intubated but awake Pending CT surgery for possible pericardial effusion intervention elevated temp 100.1 reported overnight Objective - Vital Signs/Intake and Output Vital Signs (last 24 hours): Temp Pulse Resp BP Pulse Ox 100.2 F H 104 H 20 151/85 H 100 01/21/19 08:00 01/21/19 11:00 01/21/19 11:00 01/21/19 11:00 01/21/19 11:00 Intake and Output: 01/21/19 01/21/19 06:59 18:59 Intake Total 225 500 Output Total 400 Balance -175 500 - Medications Medications: Current Medications Famotidine (Pepcid) 20 mg IVP DAILY [facility] Last Admin: 01/21/19 09:15 Dose: 20 mg Folic Acid (Folic Acid) 1 mg PO DAILY [facility] Last Admin: 01/21/19 09:15 Dose: 1 mg Propofol (Diprivan) 1,000 mg in 100 mls @ 1.633 mls/hr IV .Q24H PRN; Protocol PRN Reason: TITRATE PER MD ORDER Last Titration: 01/18/19 09:32 Dose: 0 mcg/kg/min, 0 mls/hr Vancomycin/Sodium Chloride (Vancomycin 1 Gm/Ns 200 Ml) 1 gm in 200 mls @ 133.333 mls/hr IVPB MWF [facility]; Protocol Last Admin: 01/20/19 08:19 Dose: 133.333 mls/hr Metronidazole (Flagyl) 500 mg in 100 mls @ 100 mls/hr IVPB Q8H [facility]; Protocol Last Admin: 01/21/19 11:11 Dose: 100 mls/hr Dexmedetomidine HCl 200 mcg/ (Sodium Chloride) 50 mls @ 3.02 mls/hr IV TITR PRN; Protocol PRN Reason: Agitation Diltiazem HCl 125 mg/ Sodium (Chloride) 125 mls @ 5 mls/hr IV .Q24H [facility]; Protocol Last Admin: 01/20/19 19:14 Dose: Not Given Phenylephrine HCl 30 mg/ (Sodium Chloride) 253 mls @ 10.12 mls/hr IV .Q24H PRN; Protocol PRN Reason: TITRATE PER MD ORDER Last Titration: 01/19/19 02:38 Dose: 0 mcg/min, 0 mls/hr Aztreonam 1 gm/ Sodium (Chloride) 100 mls @ 100 mls/hr IVPB Q12H [facility]; Protocol Last Admin: 01/21/19 11:10 Dose: 100 mls/hr Metoprolol Tartrate (Lopressor) 25 mg PO BID [facility] Last Admin: 01/21/19 09:15 Dose: 25 mg Paricalcitol (Zemplar) 2 mcg IV TTS [facility] Last Admin: 01/21/19 09:15 Dose: 2 mcg Prednisone (Prednisone) 2.5 mg PO Q2D [facility] Last Admin: 01/20/19 09:24 Dose: 2.5 mg Rosuvastatin Calcium (Crestor) 10 mg PO HS [facility] Last Admin: 01/20/19 21:32 Dose: 10 mg Saccharomyces Boulardii (Florastor) 250 mg PO BID [facility] Last Admin: 01/21/19 09:15 Dose: 250 mg Vancomycin HCl (Firvanq (Oral Solution)) 250 mg PEG QID [facility] Last Admin: 01/21/19 10:00 Dose: 250 mg Vitamin B Complex/Vit C/Folic Acid (Nephro-Nacho) 1 tab PO 0800 [facility] Last Admin: 01/21/19 07:54 Dose: 1 tab - Labs Labs: 01/21/19 06:06 01/21/19 06:06 PT 13.3 SECONDS (9.7-12.2) H 01/15/19 05:29 INR 1.2 01/15/19 05:29 APTT 34 SECONDS (21-34) 01/15/19 05:29 - Constitutional Appears: Non-toxic, No Acute Distress - Head Exam Head Exam: NORMAL INSPECTION - Eye Exam Eye Exam: EOMI - Respiratory Exam Respiratory Exam: NORMAL BREATHING PATTERN. absent: Decreased Breath Sounds Additional comments: remains intubated - Cardiovascular Exam Cardiovascular Exam: REGULAR RHYTHM, +S1, +S2 - GI/Abdominal Exam GI & Abdominal Exam: Soft, Normal Bowel Sounds - Neurological Exam Neurological Exam: Alert, Awake - Psychiatric Exam Psychiatric exam: Normal Affect, Normal Mood - Skin Skin Exam: Dry, Intact, Warm Assessment and Plan - Assessment and Plan (Free Text) Assessment: A: ESRD w/ failed kidney transplant on HD HTN pulmonary edema vs PNA pericardial effusion Afib P: HD as per nephro to continue fluid removal IV aztreonam; IV vanc MWF, PO vanc; IV flagyl; + cx for str. gallolyticus lopressor 50mg po bid trend procal CPAP and weaning trials as per ICU CT surgery for possible pericardial effusion intervention PGY-1 Lisa Mathis Case d/w Dr. [email or web address] <Jay Jackson S - Last Filed: 01/21/19 17:56> Objective - Vital Signs/Intake and Output Vital Signs (last 24 hours): Temp Pulse Resp BP Pulse Ox 99.7 F H 98 H 23 171/70 H 98 01/21/19 16:00 01/21/19 17:00 01/21/19 17:00 01/21/19 17:22 01/21/19 17:00 Intake and Output: 01/21/19 01/21/19 06:59 18:59 Intake Total 225 1535 Output Total 400 Balance -175 1535 - Medications Medications: Current Medications Folic Acid (Folic Acid) 1 mg PO DAILY [facility] Last Admin: 01/21/19 09:15 Dose: 1 mg Propofol (Diprivan) 1,000 mg in 100 mls @ 1.633 mls/hr IV .Q24H PRN; Protocol PRN Reason: TITRATE PER MD ORDER Last Titration: 01/18/19 09:32 Dose: 0 mcg/kg/min, 0 mls/hr Vancomycin/Sodium Chloride (Vancomycin 1 Gm/Ns 200 Ml) 1 gm in 200 mls @ 133.333 mls/hr IVPB MWF [facility]; Protocol Last Admin: 01/20/19 08:19 Dose: 133.333 mls/hr Metronidazole (Flagyl) 500 mg in 100 mls @ 100 mls/hr IVPB Q8H [facility]; Protocol Last Admin: 01/21/19 11:11 Dose: 100 mls/hr Dexmedetomidine HCl 200 mcg/ (Sodium Chloride) 50 mls @ 3.02 mls/hr IV TITR PRN; Protocol PRN Reason: Agitation Diltiazem HCl 125 mg/ Sodium (Chloride) 125 mls @ 5 mls/hr IV .Q24H [facility]; Protocol Last Admin: 01/20/19 19:14 Dose: Not Given Phenylephrine HCl 30 mg/ (Sodium Chloride) 253 mls @ 10.12 mls/hr IV .Q24H PRN; Protocol PRN Reason: TITRATE PER MD ORDER Last Titration: 01/19/19 02:38 Dose: 0 mcg/min, 0 mls/hr Aztreonam 1 gm/ Sodium (Chloride) 100 mls @ 100 mls/hr IVPB Q12H [facility]; Protocol Last Admin: 01/21/19 11:10 Dose: 100 mls/hr Metoprolol Tartrate (Lopressor) 25 mg PO BID [facility] Last Admin: 01/21/19 17:22 Dose: 25 mg Pantoprazole Sodium (Protonix Inj) 40 mg IVP DAILY [facility] Paricalcitol (Zemplar) 2 mcg IV TTS [facility] Last Admin: 01/21/19 09:15 Dose: 2 mcg Prednisone (Prednisone) 2.5 mg PO Q2D [facility] Last Admin: 01/20/19 09:24 Dose: 2.5 mg Rosuvastatin Calcium (Crestor) 10 mg PO HS [facility] Last Admin: 01/20/19 21:32 Dose: 10 mg Saccharomyces Boulardii (Florastor) 250 mg PO BID [facility] Last Admin: 01/21/19 17:23 Dose: 250 mg Vancomycin HCl (Firvanq (Oral Solution)) 250 mg PEG QID [facility] Last Admin: 01/21/19 17:22 Dose: 250 mg Vitamin B Complex/Vit C/Folic Acid (Nephro-Nacho) 1 tab PO 0800 [facility] Last Admin: 01/21/19 07:54 Dose: 1 tab - Labs Labs: 01/21/19 06:06 01/21/19 06:06 PT 13.3 SECONDS (9.7-12.2) H 01/15/19 05:29 INR 1.2 01/15/19 05:29 APTT 34 SECONDS (21-34) 01/15/19 05:29 Attending/Attestation - Attestation I have personally seen and examined this patient.: Yes I have fully participated in the care of the patient.: Yes I have reviewed all pertinent clinical information, including history, physical exam and plan: Yes Notes (Text): 01/21/19 17:56 Patient seen and examined. Case discussed with housestaff in the morning around Continue antibiotics Continue hemodialysis wean as tolerated Cardiothoracic evaluation
--- NOTE | 2019-01-21 12:10 | CP.PCM.CON ---
<Alpesh Moran - Last Filed: 01/21/19 12:23> History of Present Illness - History of Present Illness History of Present Illness: PGY6 GI Fellow Consult Note Patient is a 73yo female with PMHx significant for ESRD s/p kidney transplant on chronic immunosuppression (Tacrolimus/Mycophenolate/Prednisone), now on HD, anemia, paroxysmal atrial fibrillation on Apixaban, diastolic congestive heart failure, HTN, prior CVA (2007) without residual deficits and spinal stenosis who presented to the ED with complaint of abdominal pain, diarrhea and shortness of breath. Our service has been consulted for anemia evaluation and FOBT+ stool. Patient unable to provide history as she is currently intubated. Son at bedside to assist with medical history. Patient's son states that patient developed progressive shortness of breath prompting visit with her PCP/asp net software developer and was referred to the ED for further evaluation. On arrival, blood work revealed profound anemia with HGB 5.2 and transfused 3 units PRBCs. Multifocal pneumonia/infiltrates were noted on imaging. Unfortunately, the patient's resp iratory status remained compromised and required intubation/mechanical ventilation and patient was admitted for ICU level care. Since admission, patient has initiated HD, been started on antibiotic therapy for pneumonia as well as therapy for C diff (stool ag/toxin + on 01/17). FOBT was collected on 3 separate occasions and all results are positive. Initial blood cultures grew Strep gallolyticus (2/2 vials) but have since been negative. The patient's son admits that his mother was using Ibuprofen at home (600mg+ daily) for several weeks prior to admission due to new onset back pain attributed to spinal stenosis. She developed abdominal pain prior to admission but son unsure of duration of time/location of pain. Patient has not had any overt GI bleeding but has suffered with loose, watery stool for several years. Son believes this may be secondary to immunosuppressive medications as other work performed was unremarkable. 12 system ROS cannot be completed given current clinical status PMHx: See HPI PSHx: Appendectomy, Kidney transplant, AVF FHx: Unable to assess at this time Social: No prior tobacco, EtOH or illicit drug use Endo: Colonoscopy 1 year prior - records currently unavailable for review Past Patient History - Infectious Disease Hx of Infectious Diseases: None - Tetanus Immunizations Tetanus Immunization: Unknown - Past Medical History & Family History Past Medical History?: Yes - Past Social History Smoking Status: Never Smoked - CARDIAC Hx Congestive Heart Failure: Yes Hx Hypercholesterolemia: Yes Hx Hypertension: Yes - PULMONARY Hx Pneumonia: Yes (may 2018) - NEUROLOGICAL Hx Transient Ischemic Attacks (TIA): Yes - HEENT Hx HEENT Problems: Yes Hx Cataracts: Yes Other/Comment: Partial Hearing loss - RENAL Hx Renal Failure: Yes - HEMATOLOGICAL/ONCOLOGICAL Hx Anemia: Yes - INTEGUMENTARY Other/Comment: Upper back rashes - MUSCULOSKELETAL/RHEUMATOLOGICAL Hx Falls: No - GASTROINTESTINAL Hx Gastrointestinal Disorders: Yes (diarrhea at times ) - GENITOURINARY/GYNECOLOGICAL Other/Comment: Urinary Retension - PSYCHIATRIC Hx Substance Use: No - SURGICAL HISTORY Hx Appendectomy: Yes Other/Comment: Kidney Bx, Lt. Breast Excision, - ANESTHESIA Hx Anesthesia: Yes Hx Anesthesia Reactions: Yes (nausea vomitting) Hx Malignant Hyperthermia: No Meds Allergies/Adverse Reactions: Allergies Allergy/AdvReac Type Severity Reaction Status Date / Time enalaprilat [From Vasotec] Allergy Intermediate RASH Verified 07/14/18 13:29 Penicillins Allergy Intermediate RASH Verified 07/14/18 13:28 Sulfa (Sulfonamide Allergy Intermediate RASH Verified 07/14/18 13:27 Antibiotics) tetracycline Allergy Intermediate RASH Verified 07/14/18 13:28 aspirin Allergy Verified 01/15/19 03:44 - Medications Medications: Current Medications Famotidine (Pepcid) 20 mg IVP DAILY [facility] Last Admin: 01/21/19 09:15 Dose: 20 mg Folic Acid (Folic Acid) 1 mg PO DAILY [facility] Last Admin: 01/21/19 09:15 Dose: 1 mg Propofol (Diprivan) 1,000 mg in 100 mls @ 1.633 mls/hr IV .Q24H PRN; Protocol PRN Reason: TITRATE PER MD ORDER Last Titration: 01/18/19 09:32 Dose: 0 mcg/kg/min, 0 mls/hr Vancomycin/Sodium Chloride (Vancomycin 1 Gm/Ns 200 Ml) 1 gm in 200 mls @ 133.333 mls/hr IVPB MWF [facility]; Protocol Last Admin: 01/20/19 08:19 Dose: 133.333 mls/hr Metronidazole (Flagyl) 500 mg in 100 mls @ 100 mls/hr IVPB Q8H [facility]; Protocol Last Admin: 01/21/19 11:11 Dose: 100 mls/hr Dexmedetomidine HCl 200 mcg/ (Sodium Chloride) 50 mls @ 3.02 mls/hr IV TITR PRN; Protocol PRN Reason: Agitation Diltiazem HCl 125 mg/ Sodium (Chloride) 125 mls @ 5 mls/hr IV .Q24H [facility]; Protocol Last Admin: 01/20/19 19:14 Dose: Not Given Phenylephrine HCl 30 mg/ (Sodium Chloride) 253 mls @ 10.12 mls/hr IV .Q24H PRN; Protocol PRN Reason: TITRATE PER MD ORDER Last Titration: 01/19/19 02:38 Dose: 0 mcg/min, 0 mls/hr Aztreonam 1 gm/ Sodium (Chloride) 100 mls @ 100 mls/hr IVPB Q12H [facility]; Protocol Last Admin: 01/21/19 11:10 Dose: 100 mls/hr Metoprolol Tartrate (Lopressor) 25 mg PO BID [facility] Last Admin: 01/21/19 09:15 Dose: 25 mg Paricalcitol (Zemplar) 2 mcg IV TTS [facility] Last Admin: 01/21/19 09:15 Dose: 2 mcg Prednisone (Prednisone) 2.5 mg PO Q2D [facility] Last Admin: 01/20/19 09:24 Dose: 2.5 mg Rosuvastatin Calcium (Crestor) 10 mg PO HS [facility] Last Admin: 01/20/19 21:32 Dose: 10 mg Saccharomyces Boulardii (Florastor) 250 mg PO BID [facility] Last Admin: 01/21/19 09:15 Dose: 250 mg Vancomycin HCl (Firvanq (Oral Solution)) 250 mg PEG QID [facility] Last Admin: 01/21/19 10:00 Dose: 250 mg Vitamin B Complex/Vit C/Folic Acid (Nephro-Nacho) 1 tab PO 0800 [facility] Last Admin: 01/21/19 07:54 Dose: 1 tab Physical Exam - Constitutional Appears: No Acute Distress, Confused, Chronically Ill Additional comments: intubated - Eye Exam Eye Exam: PERRL - ENT Exam ENT Exam: Mucous Membranes Moist Additional comments: ET tube in place; OG tube present - Respiratory Exam Respiratory Exam: Rhonchi. absent: Clear to Auscultation Bilateral, Rales, Wheezes - Cardiovascular Exam Cardiovascular Exam: RRR, +S1, +S2 - GI/Abdominal Exam GI & Abdominal Exam: Distended (tympanic), Normal Bowel Sounds, Soft. absent: Firm, Guarding, Mass, Organomegaly, Rebound, Rigid, Tenderness - Extremities Exam Extremities exam: Positive for: normal inspection. Negative for: pedal edema - Neurological Exam Additional comments: unable to assess - Skin Skin Exam: Dry, Warm Results - Vital Signs Recent Vital Signs: Last Vital Signs Temp 100.2 F H 01/21/19 08:00 Pulse 104 H 01/21/19 11:00 Resp 20 01/21/19 11:00 BP 151/85 H 01/21/19 11:00 Pulse Ox 100 01/21/19 11:00 - Labs Result Diagrams: 01/21/19 06:06 01/21/19 06:06 Labs: Laboratory Results - last 24 hr 01/21/19 01/21/19 01/21/19 05:24 06:06 06:06 WBC 14.1 H RBC 2.94 L Hgb 8.9 L Hct 27.3 L MCV 92.8 MCH 30.2 MCHC 32.6 L RDW 15.9 H Plt Count 86 L MPV 10.9 Puncture Site Rr pCO2 34 L pO2 110 H HCO3 24.0 ABG pH 7.43 ABG Total CO2 23.6 ABG O2 Saturation 99.2 H ABG Base Excess -1.2 ABG Hemoglobin 11.9 ABG Carboxyhemoglobin 1.6 H POC ABG HHb (Measured) 0.8 ABG Methemoglobin 1.1 Trevin Test Pos A-a O2 Difference 133.0 Respiratory Index 1.2 Hgb O2 Saturation 96.5 Vent Mode Prvc Mechanical Rate 20 FiO2 40.0 Tidal Volume 450 PEEP 5 Sodium 135 Potassium 3.2 L Chloride 101 Carbon Dioxide 22 Anion Gap 15 BUN 75 H Creatinine 4.2 H Est GFR ( Amer) 12 Est GFR (Non-Af Amer) 10 Random Glucose 121 H Calcium 7.1 L Phosphorus 3.4 Magnesium 1.8 Total Bilirubin 0.5 AST 72 H D ALT 41 Alkaline Phosphatase 330 H D Total Protein 4.6 L Albumin 2.5 L Globulin 2.1 L Albumin/Globulin Ratio 1.2 Assessment & Plan - Assessment and Plan (Free Text) Assessment: Patient is a 73yo female with PMHx significant for ESRD s/p kidney transplant on chronic immunosuppression (Tacrolimus/Mycophenolate/Prednisone), now on HD, anemia, paroxysmal atrial fibrillation on Apixaban, diastolic congestive heart failure, HTN, prior CVA (2007) without residual deficits and spinal stenosis who presented to the ED with complaint of abdominal pain, diarrhea and shortness of breath -Anemia -FOBT+ (12/06) -Acute respiratory failure requiring mechanical ventilation -Multifocal pneumonia -C diff colitis -Chronic immunosuppression with h/o kidney transplant -Paroxysmal atrial fibrillation on Apixaban (currently held) -Diastolic congestive heart failure with acute exacerbation -Cholelithiasis Plan: -No overt GI bleeding observed by staff or family during or prior to admission -Patient would benefit from EGD/Colonoscopy once medically stable given anemia on presentation with need for resumption of anticoagulation for PAF; moreover, FOBT+ on 12/06 examinations, recent onset abdominal pain, NSAID use, Strep gallolyticus + / -Anemia may be a result of ESRD -Will request recent colonoscopy report for review - may obviate need for repeat test -Discontinue Pepcid, start Pantoprazole 40mg IV QD -Recommend CT A/P with PO/IV contrast - oral contrast via OG tube, IV if possib le followed by HD -Ongoing antibiotic therapy for C diff/pneumonia -ICU plan regarding extubation -Monitor clinical course - Date & Time Date: 01/21/19 Time: 10:30 <Jessica Bella - Last Filed: 01/21/19 18:33> Meds - Medications Medications: Current Medications Folic Acid (Folic Acid) 1 mg PO DAILY [facility] Last Admin: 01/21/19 09:15 Dose: 1 mg Propofol (Diprivan) 1,000 mg in 100 mls @ 1.633 mls/hr IV .Q24H PRN; Protocol PRN Reason: TITRATE PER MD ORDER Last Titration: 01/18/19 09:32 Dose: 0 mcg/kg/min, 0 mls/hr Vancomycin/Sodium Chloride (Vancomycin 1 Gm/Ns 200 Ml) 1 gm in 200 mls @ 133.333 mls/hr IVPB MWF [facility]; Protocol Last Admin: 01/20/19 08:19 Dose: 133.333 mls/hr Metronidazole (Flagyl) 500 mg in 100 mls @ 100 mls/hr IVPB Q8H [facility]; Protocol Last Admin: 01/21/19 11:11 Dose: 100 mls/hr Dexmedetomidine HCl 200 mcg/ (Sodium Chloride) 50 mls @ 3.02 mls/hr IV TITR PRN; Protocol PRN Reason: Agitation Diltiazem HCl 125 mg/ Sodium (Chloride) 125 mls @ 5 mls/hr IV .Q24H [facility]; Protocol Last Admin: 01/20/19 19:14 Dose: Not Given Phenylephrine HCl 30 mg/ (Sodium Chloride) 253 mls @ 10.12 mls/hr IV .Q24H PRN; Protocol PRN Reason: TITRATE PER MD ORDER Last Titration: 01/19/19 02:38 Dose: 0 mcg/min, 0 mls/hr Aztreonam 1 gm/ Sodium (Chloride) 100 mls @ 100 mls/hr IVPB Q12H [facility]; Protocol Last Admin: 01/21/19 11:10 Dose: 100 mls/hr Metoprolol Tartrate (Lopressor) 25 mg PO BID [facility] Last Admin: 01/21/19 09:15 Dose: 25 mg Pantoprazole Sodium (Protonix Inj) 40 mg IVP DAILY [facility] Paricalcitol (Zemplar) 2 mcg IV TTS [facility] Last Admin: 01/21/19 09:15 Dose: 2 mcg Prednisone (Prednisone) 2.5 mg PO Q2D [facility] Last Admin: 01/20/19 09:24 Dose: 2.5 mg Rosuvastatin Calcium (Crestor) 10 mg PO HS [facility] Last Admin: 01/20/19 21:32 Dose: 10 mg Saccharomyces Boulardii (Florastor) 250 mg PO BID [facility] Last Admin: 01/21/19 09:15 Dose: 250 mg Vancomycin HCl (Firvanq (Oral Solution)) 250 mg PEG QID [facility] Last Admin: 01/21/19 10:00 Dose: 250 mg Vitamin B Complex/Vit C/Folic Acid (Nephro-Nacho) 1 tab PO 0800 [facility] Last Admin: 01/21/19 07:54 Dose: 1 tab Results - Vital Signs Recent Vital Signs: Last Vital Signs Temp 99.7 F H 01/21/19 12:00 Pulse 97 H 01/21/19 12:00 Resp 20 01/21/19 12:00 BP 158/62 H 01/21/19 12:00 Pulse Ox 99 01/21/19 12:00 - Labs Result Diagrams: 01/21/19 06:06 01/21/19 06:06 Labs: Laboratory Results - last 24 hr 01/21/19 01/21/19 01/21/19 05:24 06:06 06:06 WBC 14.1 H RBC 2.94 L Hgb 8.9 L Hct 27.3 L MCV 92.8 MCH 30.2 MCHC 32.6 L RDW 15.9 H Plt Count 86 L MPV 10.9 Puncture Site Rr pCO2 34 L pO2 110 H HCO3 24.0 ABG pH 7.43 ABG Total CO2 23.6 ABG O2 Saturation 99.2 H ABG Base Excess -1.2 ABG Hemoglobin 11.9 ABG Carboxyhemoglobin 1.6 H POC ABG HHb (Measured) 0.8 ABG Methemoglobin 1.1 Trevin Test Pos A-a O2 Difference 133.0 Respiratory Index 1.2 Hgb O2 Saturation 96.5 Vent Mode Prvc Mechanical Rate 20 FiO2 40.0 Tidal Volume 450 PEEP 5 Sodium 135 Potassium 3.2 L Chloride 101 Carbon Dioxide 22 Anion Gap 15 BUN 75 H Creatinine 4.2 H Est GFR ( Amer) 12 Est GFR (Non-Af Amer) 10 Random Glucose 121 H Calcium 7.1 L Phosphorus 3.4 Magnesium 1.8 Total Bilirubin 0.5 AST 72 H D ALT 41 Alkaline Phosphatase 330 H D Total Protein 4.6 L Albumin 2.5 L Globulin 2.1 L Albumin/Globulin Ratio 1.2 Attending/Attestation - Attestation I have personally seen and examined this patient.: Yes I have fully participated in the care of the patient.: Yes I have reviewed all pertinent clinical information: Yes Notes (Text): 01/21/19 13:24 I have seen and examined the pt with the GI fellow. This is 73 yo F with PMH of ESRD s/p kidney transplant on chronic immunosuppression (Tacrolimus/Mycophenolate/Prednisone) now on HD, chronic anemia, paroxysmal afib on Apixaban, diastolic CHF, HTN, prior CVA (2007) without residual deficits and spinal stenosis who presented to the ED with complaint of abdominal pain, diarrhea (son notes she has this daily and was acutely worse over the past few days prior to admission) and shortness of breath found to be profoundly anemic. S/p 3U RBC transfusion with appropriate rise in Hb. Noted to be c. diff positive and started on vanco po. GI consulted for stool occult + x 3. No overt GIB. Also found to have strep gallolyticus bacteremia. General: frail, elderly woman, intubated HEENT: EOMI, appears dry, NGT in place with feeds Abd: soft, nt, nd, normoactive bowel sounds Plan: -no obvious GIB, but likely with anemia of chronic disease -would start protonix 40 mg IV daily, d/c famotidine -will obtain prior colonoscopy report and results (strep gallolyticus also known as strep bovis and associated with CRC) -continue vanco po course for presumed c. diff colitis -ideally, would prefer EGD +/- colonoscopy (depending on prior results) but will defer this to outpt when pt is more stable unless with gross GI bleeding -CT abd/pelvis results reviewed --> will check GGT as elevated alk phos , consider abdominal u/s if persistent leukocytosis to r/o acalculous cholecystitis -d/w pt's son 01/21/19 18:23 01/21/19 18:30 01/21/19 18:33
[2019-01-21] MEDS ORDERED: Iohexol 240 (50 ml) PO ONE (14:30)
--- NOTE | 2019-01-21 15:14 | CP.PCM.PCO ---
Addendum Addendum: 01/21/19 15:13 CT of the abdomen and pelvis changed to PO contrast-only study due to patient's son stating patient has had "negative reaction" to IV contrast in the past but that she tolerates PO contrast.
--- NOTE | 2019-01-21 16:38 | RAD ---
Date of service: 01/21/2019 HISTORY: Endotracheal tube assessment. COMPARISON: Multiple serial examinations preceding the most recent study: January 20, 2019. Study performed 715. FINDINGS: LUNGS: Improved aeration of the lungs/multifocal infiltrates. PLEURA: Decrease in left pleural effusion. CARDIOVASCULAR: Atherosclerotic calcifications identified primarily aortic arch. Stable position left IJ catheter. OSSEOUS STRUCTURES: No significant abnormalities. VISUALIZED UPPER ABDOMEN: Normal. OTHER FINDINGS: Stable, satisfactory position ventilatory, nasogastric apparatus. IMPRESSION: Interval improvement in multifocal infiltrates. Decrease in left pleural effusion. Stable/satisfactory position of support apparatus.
--- NOTE | 2019-01-21 17:35 | CT ---
PROCEDURE: CT Abdomen and Pelvis without IV contrast. HISTORY: abdominal pain, anemia, strep gallolyticus, FOBT+ COMPARISON: None available. TECHNIQUE: Contiguous axial images of the abdomen and pelvis. Oral contrast was administered. No IV contrast given. Coronal and Sagittal reformats generated and reviewed. Radiation dose: Total exam DLP = 1082.86 mGy-cm. This CT exam was performed using one or more of the following dose reduction techniques: Automated exposure control, adjustment of the mA and/or kV according to patient size, and/or use of iterative reconstruction technique. FINDINGS: There is limited evaluation of the solid organs without the administration of IV contrast. Examination limited by paucity of intra-abdominal and intrapelvic fat and patient motion. LOWER THORAX: Moderate bilateral pleural effusions and associated consolidations. Ground-glass scattered patchy bilateral infiltrates. Cardiomegaly. Small to moderate pericardial effusion. Nasogastric tube extends to the stomach. LIVER: Unremarkable unenhanced appearance. GALLBLADDER AND BILE DUCTS: 1.9 cm large calcification possibly within the gallbladder fundus. Gallbladder distension. Either tiny dependent calcifications or small calcification of the dependent portion of the gallbladder wall. Gallbladder wall thickening/pericholecystic edema. PANCREAS: Not well-visualized. Suspect pancreatic edema. SPLEEN: Unremarkable unenhanced appearance. ADRENALS: Bilateral adrenal gland hypertrophy. KIDNEYS AND URETERS: Severe bilateral renal atrophy. Left lower quadrant transplant kidney. No hydronephrosis or obstructing renal calculus. BLADDER: The urinary bladder appears unremarkable. REPRODUCTIVE: Lobulated enlarged soft tissue within the pelvis appears to reflect fibroid uterus with coarse calcifications likely related to degenerating fibroids. APPENDIX: Not visualized. BOWEL: The stomach is nondistended. The bowel loops appear within normal limits of caliber without evidence of intestinal obstruction. Distention of the rectum with evidence of rectal tube/packing; correlate clinically. PERITONEUM: Moderate abdominal and pelvic ascites/mesenteric edema. No definite free air. LYMPH NODES: No bulky lymphadenopathy identified. VASCULATURE: No aortic aneurysm. Left-sided femoral catheter. BONES: Osseous demineralization. Patchy sclerotic foci identified diffusely throughout the visualized osseous structures. OTHER FINDINGS: Anasarca. IMPRESSION: Limited study. Moderate bilateral pleural effusions and associated consolidations. Ground-glass scattered patchy bilateral infiltrates. Cardiomegaly. Small to moderate pericardial effusion. Nasogastric tube extends to the stomach. Moderate abdominal and pelvic ascites/mesenteric edema. 1.9 cm large calcification possibly within the gallbladder fundus. Gallbladder distension. Either tiny dependent calcifications or small calcification of the dependent portion of the gallbladder wall. Gallbladder wall thickening/pericholecystic edema. Suggest right upper quadrant ultrasound if indicated. Lobulated enlarged soft tissue within the pelvis appears to reflect fibroid uterus with coarse calcifications likely related to degenerating fibroids. Distention of the rectum with evidence of rectal tube/packing; correlate clinically. Severe bilateral renal atrophy. Left lower quadrant transplant kidney. Bilateral adrenal gland hypertrophy. Patchy sclerotic foci re-identified diffusely throughout the visualized osseous structures. Additional findings as above.
--- NOTE | 2019-01-21 22:30 | CP.PCM.PN ---
Subjective - Date & Time of Evaluation Date of Evaluation: 01/21/19 Time of Evaluation: 20:45 - Subjective Subjective: Patient still on respirator with the same settings, but more alert and afebrile, in RSR. CXR reveals improving left pleural effusion and bilateral infiltrates. Objective - Vital Signs/Intake and Output Vital Signs (last 24 hours): Temp Pulse Resp BP Pulse Ox 99.7 F H 86 20 142/61 99 01/21/19 16:00 01/21/19 19:00 01/21/19 19:00 01/21/19 19:00 01/21/19 19:00 Intake and Output: 01/21/19 01/22/19 18:59 06:59 Intake Total 1680 45 Output Total 500 Balance 1180 45 - Medications Medications: Current Medications Folic Acid (Folic Acid) 1 mg PO DAILY [facility] Last Admin: 01/21/19 09:15 Dose: 1 mg Propofol (Diprivan) 1,000 mg in 100 mls @ 1.633 mls/hr IV .Q24H PRN; Protocol PRN Reason: TITRATE PER MD ORDER Last Titration: 01/18/19 09:32 Dose: 0 mcg/kg/min, 0 mls/hr Vancomycin/Sodium Chloride (Vancomycin 1 Gm/Ns 200 Ml) 1 gm in 200 mls @ 133.333 mls/hr IVPB MWF [facility]; Protocol Last Admin: 01/20/19 08:19 Dose: 133.333 mls/hr Metronidazole (Flagyl) 500 mg in 100 mls @ 100 mls/hr IVPB Q8H [facility]; Protocol Last Admin: 01/21/19 20:45 Dose: 100 mls/hr Dexmedetomidine HCl 200 mcg/ (Sodium Chloride) 50 mls @ 3.02 mls/hr IV TITR PRN; Protocol PRN Reason: Agitation Diltiazem HCl 125 mg/ Sodium (Chloride) 125 mls @ 5 mls/hr IV .Q24H [facility]; Protocol Last Admin: 01/21/19 19:09 Dose: Not Given Phenylephrine HCl 30 mg/ (Sodium Chloride) 253 mls @ 10.12 mls/hr IV .Q24H PRN; Protocol PRN Reason: TITRATE PER MD ORDER Last Titration: 01/19/19 02:38 Dose: 0 mcg/min, 0 mls/hr Aztreonam 1 gm/ Sodium (Chloride) 100 mls @ 100 mls/hr IVPB Q12H [facility]; Protocol Last Admin: 01/21/19 21:40 Dose: 100 mls/hr Metoprolol Tartrate (Lopressor) 25 mg PO BID [facility] Last Admin: 01/21/19 17:22 Dose: 25 mg Pantoprazole Sodium (Protonix Inj) 40 mg IVP DAILY [facility] Paricalcitol (Zemplar) 2 mcg IV TTS [facility] Last Admin: 01/21/19 09:15 Dose: 2 mcg Prednisone (Prednisone) 2.5 mg PO Q2D [facility] Last Admin: 01/20/19 09:24 Dose: 2.5 mg Rosuvastatin Calcium (Crestor) 10 mg PO HS [facility] Last Admin: 01/21/19 21:43 Dose: 10 mg Saccharomyces Boulardii (Florastor) 250 mg PO BID [facility] Last Admin: 01/21/19 17:23 Dose: 250 mg Vancomycin HCl (Firvanq (Oral Solution)) 250 mg PEG QID [facility] Last Admin: 01/21/19 21:41 Dose: 250 mg Vitamin B Complex/Vit C/Folic Acid (Nephro-Nacho) 1 tab PO 0800 [facility] Last Admin: 01/21/19 07:54 Dose: 1 tab - Labs Labs: 01/21/19 06:06 01/21/19 06:06 PT 13.3 SECONDS (9.7-12.2) H 01/15/19 05:29 INR 1.2 01/15/19 05:29 APTT 34 SECONDS (21-34) 01/15/19 05:29 - Constitutional Appears: Chronically Ill - Head Exam Head Exam: NORMAL INSPECTION - Eye Exam Eye Exam: Normal appearance - ENT Exam ENT Exam: Normal Exam - Neck Exam Neck Exam: Normal Inspection - Respiratory Exam Respiratory Exam: Rhonchi Additional comments: DEcreased rhonchi bilaterally. - Cardiovascular Exam Cardiovascular Exam: REGULAR RHYTHM - GI/Abdominal Exam GI & Abdominal Exam: Soft, Hyperactive Bowel Sounds - Rectal Exam Rectal Exam: Deferred - Extremities Exam Extremities Exam: Normal Inspection - Back Exam Back Exam: NORMAL INSPECTION - Neurological Exam Additional comments: Easily arousable. - Psychiatric Exam Additional comments: Intubated, on respirator. - Skin Skin Exam: Dry, Intact, Normal Color, Warm Assessment and Plan (1) Acute on chronic diastolic (congestive) heart failure Status: Resolved (2) Severe anemia Status: Resolved (3) ESRD (end stage renal disease) Status: Chronic (4) Hypertension Status: Chronic (5) Pneumonia Assessment & Plan: On IV Vancomycin, Azactam and Flagyl. Status: Acute (6) C. difficile colitis Assessment & Plan: On PO Vanco. Status: Acute (7) Bacteremia, coagulase-negative staphylococcal Status: Acute (8) Acute respiratory failure Status: Acute
--- NOTE | 2019-01-21 23:54 | PN ---
DATE: 01/21/2019 FOLLOWUP RENAL CONSULTATION LOCATION: The patient is located in ICU bed 2. REQUESTED BY: Dash Najera MD REASON FOR FOLLOWUP: End-stage renal disease, respiratory failure, pneumonia, sepsis and for further evaluation, and also AFib. SUBJECTIVE: Mrs. 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 Without seeing improvement, subsequently the patient was intubated and transferred to ICU. The patient is being treated for pneumonia and also respiratory failure. The patient is on hemodialysis three times a week. The patient is more alert and awake and following commands. The patient remains on ventilator. PHYSICAL EXAMINATION: VITAL SIGNS: As follows: Blood pressure this morning 158/60, pulse 103, respirations 20, T-max is 101.1, saturation 99%. Height 5 feet 2 inches and weight is 134 pounds. GENERAL: Mrs. Faulkner is a 73-year-old elderly Citizen [place] female, moderately built, moderately nourished, not in distress. On ventilator. HEENT: Pupils normal, reactive to light and accommodation. Conjunctivae pink. Sclerae anicteric. Tongue is normal and trachea is midline. On ventilator. No thyroid enlargement. LUNGS: Symmetric on both sides. Bilateral breath sounds present. No crackles. CARDIOVASCULAR SYSTEM: [place] at the fifth intercostal space, midclavicular line. S1, S2 audible. ABDOMEN: Normal in appearance. Soft, tympanitic. No guarding, no rigidity. No hepatosplenomegaly. CENTRAL NERVOUS SYSTEM: The patient is on ventilator, awake, following simple commands. EXTREMITIES: No cyanosis, no clubbing. The patient has 2+ edema in both lower extremities. CURRENT MEDICATIONS: Include as follows: Azactam 1 g IV piggyback every 12 hours, Crestor 10 mg p.o. at bedtime, Precedex, also diltiazem 125 mL at 5 mg per hour, propofol, also vancomycin 250 mg p.o. four times a day, Flagyl 500 mg IV every 8 hours, Florastor, folic acid, metoprolol 25 mg p.o. b.i.d., Nephro-Nacho 1 tablet daily, vancomycin 1 g three times a week, Zemplar 2 mcg three times a week, prednisone 2.5 mg p.o. every 2 days, Protonix 40 mg IV piggyback daily. LABORATORY DATA: As of 01/21/2019, WBC 14.1, hemoglobin 8.9, hematocrit is 27.3, platelets 86. Sodium 135, potassium 3.2, chloride 101, CO2 of 22, BUN 75, creatinine 4.2, glucose 121, calcium 7.1, phosphorus 3.4, magnesium 1.8. Total bili 0.5, AST 72, ALT 41, alkaline phosphatase 330, total protein 4.6, albumin is 2.5. Blood culture x2 negative day #1 and also blood culture from 01/19/2019 negative day #1 and urine culture is negative. ASSESSMENT AND PLAN: In summary, Mrs. Faulkner is a 73-year-old elderly Citizen [place] female with history of hypertension, atrial fibrillation, status post kidney transplant with allograft nephropathy with worsening renal function, was admitted with respiratory failure, tachypnea, anemia, weakness, worsening renal function and requiring initiation of the renal replacement and also intubation. 1. End-stage renal disease. Continue hemodialysis three times a week. 2. Anemia. 3. Thrombocytopenia. 4. Respiratory failure secondary to pneumonia. 5. Bilateral pneumonia. 6. Status post Clostridium difficile colitis. 7. Streptococcus gallolyticus sepsis. PLAN: Continue antibiotics as per Dr. Bazan, Azactam and vancomycin and also p.o. vancomycin and Flagyl. Continue vent support and try to do weaning if tolerates. Case discussed with ICU attending in rounds. We will follow up with you. Thank you for allowing me to participate in your patient's care. Discussed with the patient's son at bedside also. Ever Madrigal MD
[2019-01-22] MEDS: metroNIDAZOLE IV 500 mg/100 ml 500 MG/100 ML BAG IVPB SCH ×3 (05:00→20:00)
[2019-01-22 05:34] LABS: ABG ALLEN TEST POS; ARTERIAL BLOOD GAS HCO3 22.8 mmol/L (21-28); ARTERIAL BLOOD GAS HEMOGLOBIN 8.4 g/dL (11.7-17.4); ARTERIAL BLOOD GAS O2 SAT 99.3 % (95-98); ARTERIAL BLOOD GAS PCO2 32 mm/Hg (35-45); ARTERIAL BLOOD GAS PH 7.43 (7.35-7.45); ARTERIAL BLOOD GAS PO2 108 mm/Hg (80-100); ARTERIAL BLOOD GAS TCO2 22.2 mmol/L (22-28)
[2019-01-22 06:28] LABS: HEMOGLOBIN 8.4 g/dL (11.0-16.0); MEAN CELL VOLUME 92.9 fL (81.0-99.0); MEAN CORPUSCULAR HGB CONC 32.3 g/dL (33.0-37.0); MEAN PLATELET VOLUME 10.4 fL (7.2-11.7); RBC 2.79 Mil/uL (3.80-5.20); RED CELL DISTRIBUTION WIDTH 16.4 % (11.5-14.5); WHITE BLOOD COUNT 14.8 K/uL (4.8-10.8)
[2019-01-22 06:37] LABS: ALB/GLOB RATIO 1.1 (1.0-2.1); ALBUMIN 2.3 g/dL (3.5-5.0); CALCIUM 7.6 mg/dl (8.6-10.4)
[2019-01-22] MEDS: Multivitamin Vitamin B Complex (Nephro-Vite) Tab PO SCH (08:25)
--- NOTE | 2019-01-22 09:07 | CP.CCUPN ---
<Mando Waters - Last Filed: 01/22/19 12:09> CCU Subjective - Physician Review Subjective (Free Text): PGY-1 Critical Care Progress Note for Dr. Merino Patient seen and examined at bedside. Intubated and sedated. Patient awake, alert, and responsive. Possible extubation today following dialysis. ROS unable to be obtained. CCU Objective - Vital Signs / Intake & Output Vital Signs (Last 4 hours): Vital Signs Temp Pulse Resp BP Pulse Ox 01/22/19 08:00 99.5 F 95 H 17 152/63 H 100 01/22/19 07:00 98 H 20 153/63 H 99 01/22/19 06:00 97 H 20 152/59 H 100 Intake and Output (Last 8hrs): Intake & Output 01/21/19 01/22/19 01/22/19 22:59 06:59 14:59 Intake Total 1515 460 90 Output Total 500 100 0 Balance 1015 360 90 Weight 134 lb 7.712 oz Intake: Intake, IV Amount 200 100 left jug. TLC distal port 200 100 Tube Feeding 315 360 90 Other 1000 Output: Urine 0 0 0 Urine, Voided 0 0 0 Stool 500 100 Other: # Voids Urine, Voided 1 - Physical Exam Head: Positive for: Atraumatic, Normocephalic Pupils: Positive for: PERRL Extroacular Muscles: Positive for: EOMI Mouth: Positive for: Moist Mucous Membranes Respiratory/Chest: Positive for: Clear to Auscultation, Good Air Exchange, Other (Intubated, on vent). Negative for: Respiratory Distress, Accessory Muscle Use Cardiovascular: Positive for: Regular Rate and Rhythm, Murmurs, Normal S1, S2 Abdomen: Positive for: Normal Bowel Sounds Upper Extremity: Positive for: Normal Inspection Lower Extremity: Positive for: Normal Inspection Neurological: Positive for: Other (Sedated on propofol drip) Skin: Positive for: Warm - Medications Active Medications: Active Medications Generic Name Dose Route Start Last Admin Trade Name Freq PRN Reason Stop Dose Admin Folic Acid 1 mg 01/15/19 10:00 01/21/19 09:15 Folic Acid PO 1 mg DAILY GLADYS Administration Propofol 1,000 mg in 100 mls @ 1.633 mls/hr 01/15/19 14:49 01/18/19 09:32 Diprivan IV 0 mcg/kg/min .Q24H PRN 0 mls/hr TITRATE PER MD ORDER Titration Protocol 5 MCG/KG/MIN Vancomycin/Sodium Chloride 1 gm in 200 mls @ 133.333 mls/hr 01/18/19 09:00 01/20/19 08:19 Vancomycin 1 Gm/Ns 200 Ml IVPB 133.333 mls/hr MWF GLADYS Administration Protocol Metronidazole 500 mg in 100 mls @ 100 mls/hr 01/17/19 20:00 01/22/19 05:00 Flagyl IVPB 100 mls/hr Q8H GLADYS Administration Protocol Dexmedetomidine HCl 200 mcg/ 50 mls @ 3.02 mls/hr 01/18/19 17:52 Sodium Chloride IV TITR PRN Agitation Protocol 0.2 MCG/KG/HR Diltiazem HCl 125 mg/ Sodium 125 mls @ 5 mls/hr 01/18/19 19:00 01/21/19 19:09 Chloride IV Not Given .Q24H GLADYS Protocol 5 MG/HR Phenylephrine HCl 30 mg/ 253 mls @ 10.12 mls/hr 01/18/19 22:02 01/19/19 02:38 Sodium Chloride IV 0 mcg/min .Q24H PRN 0 mls/hr TITRATE PER MD ORDER Titration Protocol 20 MCG/MIN Aztreonam 1 gm/ Sodium 100 mls @ 100 mls/hr 01/20/19 10:30 01/21/19 21:40 Chloride IVPB 100 mls/hr Q12H GLADYS Administration Protocol Metoprolol Tartrate 25 mg 01/15/19 10:00 01/21/19 17:22 Lopressor PO 25 mg BID GLADYS Administration Pantoprazole Sodium 40 mg 01/22/19 10:00 Protonix Inj IVP DAILY GLADYS Paricalcitol 2 mcg 01/16/19 10:00 01/21/19 09:15 Zemplar IV 2 mcg TTS GLADYS Administration Prednisone 2.5 mg 01/18/19 10:00 01/20/19 09:24 Prednisone PO 2.5 mg Q2D GLADYS Administration Rosuvastatin Calcium 10 mg 01/15/19 22:00 01/21/19 21:43 Crestor PO 10 mg HS GLADYS Administration Saccharomyces Boulardii 250 mg 01/18/19 10:00 01/21/19 17:23 Florastor PO 250 mg BID GLADYS Administration Vancomycin HCl 250 mg 01/17/19 22:00 01/21/19 21:41 Firvanq (Oral Solution) PEG 250 mg QID GLADYS Administration Vitamin B Complex/Vit C/Folic Acid 1 tab 01/16/19 08:00 01/22/19 08:25 Nephro-Nacho PO 1 tab 0800 [facility] Administration - Patient Studies Lab Studies: Microbiology Studies 01/19/19 22:46 Blood Culture - Preliminary Blood-Venous NO GROWTH AFTER 48 HOURS 01/19/19 22:46 Blood Culture - Preliminary Blood-Venous NO GROWTH AFTER 48 HOURS 01/20/19 10:29 Urine Culture - Final Urine,Catheterized No Growth (<1,000 CFU/ML) 01/20/19 10:08 Blood Culture - Preliminary Blood-Thru Central Line NO GROWTH AFTER 24 HOURS 01/20/19 10:08 Blood Culture - Preliminary Blood-Thru Central Line NO GROWTH AFTER 24 HOURS 01/17/19 13:40 Blood Culture - Final Blood-Venous Str.gallolyticus Ss Pasteurian Gram Stain - Final 01/17/19 12:52 S.aureus & Coag-Neg Staph PNA FISH - Final Blood-Venous Blood Culture - Final Str.gallolyticus Ss Pasteurian Gram Stain - Final Lab Studies 01/22/19 01/22/19 01/22/19 Range/Units 06:14 06:14 05:24 WBC 14.8 H (4.8-10.8) K/uL RBC 2.79 L (3.80-5.20) Mil/uL Hgb 8.4 L (11.0-16.0) g/dL Hct 26.0 L (34.0-47.0) % MCV 92.9 (81.0-99.0) fL MCH 30.0 (27.0-31.0) pg MCHC 32.3 L (33.0-37.0) g/dL RDW 16.4 H (11.5-14.5) % Plt Count 101 L (130-400) K/uL MPV 10.4 (7.2-11.7) fL Puncture Site Rr pCO2 32 L (35-45) mm/Hg pO2 108 H (80-100) mm/Hg HCO3 22.8 (21-28) mmol/L ABG pH 7.43 (7.35-7.45) ABG Total CO2 22.2 (22-28) mmol/L ABG O2 Saturation 99.3 H (95-98) % ABG Base Excess -2.7 L (-2.0-3.0) mmol/L ABG Hemoglobin 8.4 L (11.7-17.4) g/dL ABG Carboxyhemoglobin 1.5 (0.5-1.5) % POC ABG HHb (Measured) 0.7 (0.0-5.0) % ABG Methemoglobin 1.3 (0.0-3.0) % Trevin Test Pos A-a O2 Difference 137.0 mm/Hg Respiratory Index 1.3 Hgb O2 Saturation 96.5 (95.0-98.0) % Vent Mode Prvc Mechanical Rate 20 FiO2 40.0 % Tidal Volume 450 PEEP 5 Sodium 133 (132-148) mmol/L Potassium 3.0 L (3.6-5.2) mmol/L Chloride 102 (98-107) mmol/L Carbon Dioxide 22 (22-30) mmol/L Anion Gap 12 (10-20) BUN 87 H (7-17) mg/dL Creatinine 4.5 H (0.7-1.2) mg/dL Est GFR ( Amer) 12 Est GFR (Non-Af Amer) 10 Random Glucose 100 (65-105) mg/dL Calcium 7.6 L (8.6-10.4) mg/dl Phosphorus 3.6 (2.5-4.5) mg/dL Magnesium 1.8 (1.6-2.3) mg/dL Total Bilirubin 0.5 (0.2-1.3) mg/dL GGT 147 H (8-78) U/L AST 49 H D (14-36) U/L ALT 32 (9-52) U/L Alkaline Phosphatase 333 H (38-126) U/L Total Protein 4.4 L (6.3-8.3) g/dL Albumin 2.3 L (3.5-5.0) g/dL Globulin 2.1 L (2.2-3.9) gm/dL Albumin/Globulin Ratio 1.1 (1.0-2.1) Laboratory Results - last 24 hr 01/22/19 01/22/19 01/22/19 05:24 06:14 06:14 WBC 14.8 H RBC 2.79 L Hgb 8.4 L Hct 26.0 L MCV 92.9 MCH 30.0 MCHC 32.3 L RDW 16.4 H Plt Count 101 L MPV 10.4 Puncture Site Rr pCO2 32 L pO2 108 H HCO3 22.8 ABG pH 7.43 ABG Total CO2 22.2 ABG O2 Saturation 99.3 H ABG Base Excess -2.7 L ABG Hemoglobin 8.4 L ABG Carboxyhemoglobin 1.5 POC ABG HHb (Measured) 0.7 ABG Methemoglobin 1.3 Trevin Test Pos A-a O2 Difference 137.0 Respiratory Index 1.3 Hgb O2 Saturation 96.5 Vent Mode Prvc Mechanical Rate 20 FiO2 40.0 Tidal Volume 450 PEEP 5 Sodium 133 Potassium 3.0 L Chloride 102 Carbon Dioxide 22 Anion Gap 12 BUN 87 H Creatinine 4.5 H Est GFR ( Amer) 12 Est GFR (Non-Af Amer) 10 Random Glucose 100 Calcium 7.6 L Phosphorus 3.6 Magnesium 1.8 Total Bilirubin 0.5 GGT 147 H AST 49 H D ALT 32 Alkaline Phosphatase 333 H Total Protein 4.4 L Albumin 2.3 L Globulin 2.1 L Albumin/Globulin Ratio 1.1 Radiology Impressions: Radiology Impressions Chest X-Ray 01/21/19 07:01 IMPRESSION: Interval improvement in multifocal infiltrates. Decrease in left pleural effusion. Stable/satisfactory position of support apparatus. Abdomen/Pelvis CT 01/21/19 15:13 IMPRESSION: Limited study. Moderate bilateral pleural effusions and associated consolidations. Ground-glass scattered patchy bilateral infiltrates. Cardiomegaly. Small to moderate pericardial effusion. Nasogastric tube extends to the stomach. Moderate abdominal and pelvic ascites/mesenteric edema. 1.9 cm large calcification possibly within the gallbladder fundus. Gallbladder distension. Either tiny dependent calcifications or small calcification of the dependent portion of the gallbladder wall. Gallbladder wall thickening/pericholecystic edema. Suggest right upper quadrant ultrasound if indicated. Lobulated enlarged soft tissue within the pelvis appears to reflect fibroid uterus with coarse calcifications likely related to degenerating fibroids. Distention of the rectum with evidence of rectal tube/packing; correlate clinically. Severe bilateral renal atrophy. Left lower quadrant transplant kidney. Bilateral adrenal gland hypertrophy. Patchy sclerotic foci re-identified diffusely throughout the visualized osseous structures. Additional findings as above. Review of Systems - Review of Systems Systems not reviewed;Unavailable: Intubated Critical Care Progress Note - Nutrition Nutrition: Nutrition Category Date Time Status NPO Diet [DIET] Diets 01/15/19 Lunch Active Assessment/Plan - Assessment and Plan (Free Text) Assessment: 73 year old female with history ESRD s/p failing renal transplant from 2002 presents acutely short of breath, found to have moderate bilateral pleural effusion on chest x-ray and CT chest as well as cardiomegaly, and anemic with HgB 5.2. Cardio Cardiomegaly on chest XR -Echo 01/15: Normal LV function, EF 60-65%. -Normal sinus on monitor -Vascular access --S/p R femoral Shiley HD catheter placement beside with vascular surgery, Dr. Butler --R fem removed --> L fem double lumen HD catheter placed 01/20 --L IJ TLC placed 01/19 Pericardial Effusion -Loculated pericardial effusion noted on Echo -Blood cultures + Strep gallolyticus, Strep Pasterian (Strep Bovis sp) -CT surgery consulted, Dr. Benitez - likely chronic pleural effusion --> may investigate as source of infection if positive cultures persist Pulmonary Bilateral pleural effusions -Intubated, on vent/PRVC with OGT in place -Maintain spO2>92% -Chest XRs improving -Echo 01/18 - Normal systolic function, EF 50-55% -Repeating CT chest - f/u to monitor interval improvement -Repeat CT chest 01/18 - bilateral pleural effusions and associated compressive consolidations. Ground-glass and patchy scattered diffuse pulmonary infiltrates suspicious for multifocal pneumonia and or edema. -Repiratory status improving - CPAP trial --> wean to extubate --Pt tolerated CPAP for 1 hour at first attempt and developed rapid AFIB on monitor. Repeat CPAP trial today 01/21 -Possible extubation today 01/22 following dialysis Imaging on Admission: CXR 12/15: Prominent consolidative opacification with patchy opacities seen throughout the right lung as well as within the left upper lung zone. Post treatment interval follow-up is recommended to ensure resolution. Moderate left pleural effusion. Blunted right costophrenic angle. Cardiomegaly. CT Chest w/o Contrast 01/15: 1. Multifocal ground-glass and confluent airspace disease in both lungs may represent pulmonary edema or multifocal pneumonia. Follow-up is advised. 2. Moderate cardiomegaly, small pericardial effusion and moderate bilateral pleural effusions.3. Cholelithiasis in over distended gallbladder. Please correlate with right upper quadrant ultrasound Neuro -Propofol drip d/c'd CT Head 01/15: No acute intracranial abnormality. Mild chronic microangiopathic changes and mild age-related global parenchymal volume loss. GI Anemia, rule out GI bleed -GI consulted for poss GIB bleed based on persistent anemia with 3/3 FOBT +, Dr. Bella --No overt GI bleeding noted --Recommend CT abdomen/pelvis with PO and IV contrast prior to HD - f/u tomorrow AM --Patient may benefit from colonoscopy once medically stable depending on report from recent colonoscopy to be obtained --c/w abx therapy for C. Diff colitis --Pepcid d/c'd --> Protonix 40 mg IV daily --No colonoscopy indicated at this time --Eliquis resumed C. Diff Colitis -PO Vanco, Flagyl -ID and GI on consult Renal ESRD hx renal transplant 2002, requiring new HD for failing transplant -S/p R femoral Shiley HD catheter placement beside with vascular surgery, Dr. Butler -Patient underwent HD on Monday 01/15. -Per surgery, awaiting medical stabilization prior to permacath placement -F/u Nephro, Dr. Madrigal, for HD plan -Monitor output and fluid status -Prednisone decreased 01/18 from 5mg PO daily --> 2.5 mg Q2d ID/Heme Anemia -HgB 5.2 on admission -S/p 3U PRBCs --> 10.5 --> 9.3 (currently 8.3) -Etiology due to chronic renal insufficiency vs GI bleed -Initially had + stool guaic, but HgB stable -GI consulted (see above) -HgB stable, will monitor for symptoms and daily CBC to assess need to transfuse -Eliquis resumed Gram + Cocci Bacteremia, C. Diff Colitis -01/17 blood cultures positive for strep gallolyticus -Pt continues to have low-grade temps and developed mild white count -Stool studies + C. Diff --> PO vanco + flagyl -ID consulted, Dr. Bazan-Abx -PO/IV Vancomycin, Flagyl, Aztreonam -Pt with loculated pericardial effusion on echo - per CT surgery, this most likely represents a chronic stable pericardial effusion as opposed to acute infection. -Repeat cultures negative x24 hours PPx -GI: Protonix 40 mg IV daily -DVT: Pharmacologic DVT ppx c/i 2/2 anemia. SCDs. -ETT/PRVC -HD TTS Assessment and plan d/w Dr. Angelique Waters, PGY-1 <Nain Merino - Last Filed: 01/22/19 15:57> CCU Objective - Vital Signs / Intake & Output Vital Signs (Last 4 hours): Vital Signs Temp Pulse Pulse Resp BP BP Pulse Ox 01/22/19 15:30 130/56 L 01/22/19 15:15 121/58 L 01/22/19 15:00 98.9 F 101 H 24 139/63 100 01/22/19 14:55 98.9 F 101 H 24 128/68 01/22/19 14:33 100 H 22 127/59 L 98 01/22/19 13:00 98 H 19 168/73 H 01/22/19 12:00 98.9 F 95 H 20 162/69 H 100 Intake and Output (Last 8hrs): Intake & Output 01/22/19 01/22/19 01/22/19 06:59 14:59 22:59 Intake Total 460 715 Output Total 100 0 Balance 360 715 Weight 134 lb 7.712 oz Intake: Intake, IV Amount 100 400 left Jug. TLC medial port 200 left jug. TLC distal port 100 200 Tube Feeding 360 315 Output: Urine 0 0 Urine, Voided 0 0 Stool 100 Other: # Voids Urine, Voided 1 - Medications Active Medications: Active Medications Generic Name Dose Route Start Last Admin Trade Name Freq PRN Reason Stop Dose Admin Apixaban 2.5 mg 01/22/19 18:00 Eliquis PO BID GLADYS Folic Acid 1 mg 01/15/19 10:00 01/22/19 09:21 Folic Acid PO 1 mg DAILY GLADYS Administration Propofol 1,000 mg in 100 mls @ 1.633 mls/hr 01/15/19 14:49 01/18/19 09:32 Diprivan IV 0 mcg/kg/min .Q24H PRN 0 mls/hr TITRATE PER MD ORDER Titration Protocol 5 MCG/KG/MIN Vancomycin/Sodium Chloride 1 gm in 200 mls @ 133.333 mls/hr 01/18/19 09:00 04/19/19 10:00 Vancomycin 1 Gm/Ns 200 Ml IVPB 133.333 mls/hr MWF GLADYS Administration Protocol Metronidazole 500 mg in 100 mls @ 100 mls/hr 01/17/19 20:00 01/22/19 11:06 Flagyl IVPB 100 mls/hr Q8H GLADYS Administration Protocol Dexmedetomidine HCl 200 mcg/ 50 mls @ 3.02 mls/hr 01/18/19 17:52 Sodium Chloride IV TITR PRN Agitation Protocol 0.2 MCG/KG/HR Diltiazem HCl 125 mg/ Sodium 125 mls @ 5 mls/hr 01/18/19 19:00 01/21/19 19:09 Chloride IV Not Given .Q24H GLADYS Protocol 5 MG/HR Phenylephrine HCl 30 mg/ 253 mls @ 10.12 mls/hr 01/18/19 22:02 01/19/19 02:38 Sodium Chloride IV 0 mcg/min .Q24H PRN 0 mls/hr TITRATE PER MD ORDER Titration Protocol 20 MCG/MIN Ceftriaxone Sodium 2 gm/ 100 mls @ 100 mls/hr 01/22/19 16:00 Sodium Chloride IVPB Q24H GLADYS Protocol Metoprolol Tartrate 25 mg 01/15/19 10:00 01/22/19 09:21 Lopressor PO 25 mg BID GLADYS Administration Pantoprazole Sodium 40 mg 01/22/19 10:00 01/22/19 09:22 Protonix Inj IVP 40 mg DAILY GLADYS Administration Paricalcitol 2 mcg 01/16/19 10:00 01/21/19 09:15 Zemplar IV 2 mcg TTS GLADYS Administration Prednisone 2.5 mg 01/18/19 10:00 01/22/19 09:30 Prednisone PO 2.5 mg Q2D GLADYS Administration Rosuvastatin Calcium 10 mg 01/15/19 22:00 01/21/19 21:43 Crestor PO 10 mg HS GLADYS Administration Saccharomyces Boulardii 250 mg 01/18/19 10:00 01/22/19 09:23 Florastor PO 250 mg BID GLADYS Administration Vancomycin HCl 250 mg 01/17/19 22:00 01/22/19 13:46 Firvanq (Oral Solution) PEG 250 mg QID GLADYS Administration Vitamin B Complex/Vit C/Folic Acid 1 tab 01/16/19 08:00 01/22/19 08:25 Nephro-Nacho PO 1 tab 0800 [facility] Administration - Patient Studies Lab Studies: Microbiology Studies 01/20/19 10:08 Blood Culture - Preliminary Blood-Thru Central Line NO GROWTH AFTER 48 HOURS 01/20/19 10:08 Blood Culture - Preliminary Blood-Thru Central Line NO GROWTH AFTER 48 HOURS 01/19/19 22:46 Blood Culture - Preliminary Blood-Venous NO GROWTH AFTER 48 HOURS 01/19/19 22:46 Blood Culture - Preliminary Blood-Venous NO GROWTH AFTER 48 HOURS Lab Studies 01/22/19 01/22/19 01/22/19 Range/Units 06:14 06:14 05:24 WBC 14.8 H (4.8-10.8) K/uL RBC 2.79 L (3.80-5.20) Mil/uL Hgb 8.4 L (11.0-16.0) g/dL Hct 26.0 L (34.0-47.0) % MCV 92.9 (81.0-99.0) fL MCH 30.0 (27.0-31.0) pg MCHC 32.3 L (33.0-37.0) g/dL RDW 16.4 H (11.5-14.5) % Plt Count 101 L (130-400) K/uL MPV 10.4 (7.2-11.7) fL Puncture Site Rr pCO2 32 L (35-45) mm/Hg pO2 108 H (80-100) mm/Hg HCO3 22.8 (21-28) mmol/L ABG pH 7.43 (7.35-7.45) ABG Total CO2 22.2 (22-28) mmol/L ABG O2 Saturation 99.3 H (95-98) % ABG Base Excess -2.7 L (-2.0-3.0) mmol/L ABG Hemoglobin 8.4 L (11.7-17.4) g/dL ABG Carboxyhemoglobin 1.5 (0.5-1.5) % POC ABG HHb (Measured) 0.7 (0.0-5.0) % ABG Methemoglobin 1.3 (0.0-3.0) % Trevin Test Pos A-a O2 Difference 137.0 mm/Hg Respiratory Index 1.3 Hgb O2 Saturation 96.5 (95.0-98.0) % Vent Mode Prvc Mechanical Rate 20 FiO2 40.0 % Tidal Volume 450 PEEP 5 Sodium 133 (132-148) mmol/L Potassium 3.0 L (3.6-5.2) mmol/L Chloride 102 (98-107) mmol/L Carbon Dioxide 22 (22-30) mmol/L Anion Gap 12 (10-20) BUN 87 H (7-17) mg/dL Creatinine 4.5 H (0.7-1.2) mg/dL Est GFR ( Amer) 12 Est GFR (Non-Af Amer) 10 Random Glucose 100 (65-105) mg/dL Calcium 7.6 L (8.6-10.4) mg/dl Phosphorus 3.6 (2.5-4.5) mg/dL Magnesium 1.8 (1.6-2.3) mg/dL Total Bilirubin 0.5 (0.2-1.3) mg/dL GGT 147 H (8-78) U/L AST 49 H D (14-36) U/L ALT 32 (9-52) U/L Alkaline Phosphatase 333 H (38-126) U/L Total Protein 4.4 L (6.3-8.3) g/dL Albumin 2.3 L (3.5-5.0) g/dL Globulin 2.1 L (2.2-3.9) gm/dL Albumin/Globulin Ratio 1.1 (1.0-2.1) Laboratory Results - last 24 hr 01/22/19 01/22/19 01/22/19 05:24 06:14 06:14 WBC 14.8 H RBC 2.79 L Hgb 8.4 L Hct 26.0 L MCV 92.9 MCH 30.0 MCHC 32.3 L RDW 16.4 H Plt Count 101 L MPV 10.4 Puncture Site Rr pCO2 32 L pO2 108 H HCO3 22.8 ABG pH 7.43 ABG Total CO2 22.2 ABG O2 Saturation 99.3 H ABG Base Excess -2.7 L ABG Hemoglobin 8.4 L ABG Carboxyhemoglobin 1.5 POC ABG HHb (Measured) 0.7 ABG Methemoglobin 1.3 Trevin Test Pos A-a O2 Difference 137.0 Respiratory Index 1.3 Hgb O2 Saturation 96.5 Vent Mode Prvc Mechanical Rate 20 FiO2 40.0 Tidal Volume 450 PEEP 5 Sodium 133 Potassium 3.0 L Chloride 102 Carbon Dioxide 22 Anion Gap 12 BUN 87 H Creatinine 4.5 H Est GFR ( Amer) 12 Est GFR (Non-Af Amer) 10 Random Glucose 100 Calcium 7.6 L Phosphorus 3.6 Magnesium 1.8 Total Bilirubin 0.5 GGT 147 H AST 49 H D ALT 32 Alkaline Phosphatase 333 H Total Protein 4.4 L Albumin 2.3 L Globulin 2.1 L Albumin/Globulin Ratio 1.1 Radiology Impressions: Radiology Impressions Chest X-Ray 01/21/19 07:01 IMPRESSION: Interval improvement in multifocal infiltrates. Decrease in left pleural effusion. Stable/satisfactory position of support apparatus. Abdomen/Pelvis CT 01/21/19 15:13 IMPRESSION: Limited study. Moderate bilateral pleural effusions and associated consolidations. Ground-glass scattered patchy bilateral infiltrates. Cardiomegaly. Small to moderate pericardial effusion. Nasogastric tube extends to the stomach. Moderate abdominal and pelvic ascites/mesenteric edema. 1.9 cm large calcification possibly within the gallbladder fundus. Gallbladder distension. Either tiny dependent calcifications or small calcification of the dependent portion of the gallbladder wall. Gallbladder wall thickening/pericholecystic edema. Suggest right upper quadrant ultrasound if indicated. Lobulated enlarged soft tissue within the pelvis appears to reflect fibroid uterus with coarse calcifications likely related to degenerating fibroids. Distention of the rectum with evidence of rectal tube/packing; correlate clinically. Severe bilateral renal atrophy. Left lower quadrant transplant kidney. Bilateral adrenal gland hypertrophy. Patchy sclerotic foci re-identified diffusely throughout the visualized osseous structures. Additional findings as above. Chest X-Ray 01/22/19 06:00 Impression: Lines and tubes in stable position. Biapical pleural thickening with upper lobe granulomatous changes. Diffuse increased interstitial lung markings. Moderate venous congestion. Patchy increased consolidative changes in the mid to lower lung zones bilaterally with associated small to moderate left and trace right pleural effusion. Patchy pleural parenchymal opacities bilaterally. Cardiomegaly. Critical Care Progress Note - Nutrition Nutrition: Nutrition Category Date Time Status NPO Diet [DIET] Diets 01/15/19 Lunch Active Attending/Attestation - Attestation I have personally seen and examined this patient.: Yes I have fully participated in the care of the patient.: Yes I have reviewed all pertinent clinical information: Yes Notes (Text): 01/22/19 15:56 I have seen and examined the patient. Medical records, lab studies, and imaging were reviewed by me and a management plan was formulated on multidisciplinary rounds with resident Dr. Waters. I agree with their documented assessment and plan. Patient is tolerating PS trials, getting dialyzed again today, will move toward extubation. GI does not feel she has an active GI bleed, will restart Eliquis for stroke prophylaxis. Critical Care Time 35 minutes. Multi-disciplinary rounds were performed with house staff, nursing, speech therapy, respiratory therapy, pharmacy and nutrition with integrated input from the primary team/attending and other consulting services. The documented time is cumulative and includes review of patient data/exams/labs/chart review and examination of the patient on rounds and throughout the day; time is exclusive of any procedures or teaching time.
[2019-01-22] MEDS: VANCOMYCIN HCL 250 MG/5 ML PEG SCH ×4 (09:22→22:13)
[2019-01-22] MEDS: Saccharomyces Boulardi 250 mg Cap PO SCH ×2 (09:23→17:17)
--- NOTE | 2019-01-22 09:25 | RAD ---
Chest x-ray single frontal view HISTORY: Endotracheal tube placement. COMPARISON: 01/21/2019 Findings: Lines and tubes in stable position. Biapical pleural thickening with upper lobe granulomatous changes. Diffuse increased interstitial lung markings. Moderate venous congestion. Patchy increased consolidative changes in the mid to lower lung zones bilaterally with associated small to moderate left and trace right pleural effusion. Patchy pleural parenchymal opacities bilaterally. Cardiomegaly. Degenerative changes in the spine and shoulders. Impression: Lines and tubes in stable position. Biapical pleural thickening with upper lobe granulomatous changes. Diffuse increased interstitial lung markings. Moderate venous congestion. Patchy increased consolidative changes in the mid to lower lung zones bilaterally with associated small to moderate left and trace right pleural effusion. Patchy pleural parenchymal opacities bilaterally. Cardiomegaly.
[2019-01-22] MEDS: Aztreonam 1 GM in Sodium Chloride 0.9% 100 ML IVPB SCH (09:29)
--- NOTE | 2019-01-22 09:57 | CP.PCM.PN ---
<Alpesh Moran - Last Filed: 01/22/19 09:55> Subjective - Date & Time of Evaluation Date of Evaluation: 01/22/19 Time of Evaluation: 08:00 - Subjective Subjective: PGY6 GI Fellow Progress Note Patient seen and examined bedside this morning. The patient remains intubated but is awake. She does not respond to questions appropriately. No events overnight. 12 system ROS cannot be completed given mentation. Objective - Vital Signs/Intake and Output Vital Signs (last 24 hours): Temp Pulse Resp BP Pulse Ox 99.5 F 95 H 17 151/55 H 100 01/22/19 08:00 01/22/19 08:00 01/22/19 08:00 01/22/19 09:21 01/22/19 08:00 Intake and Output: 01/22/19 01/22/19 06:59 18:59 Intake Total 840 90 Output Total 100 0 Balance 740 90 - Medications Medications: Current Medications Folic Acid (Folic Acid) 1 mg PO DAILY [facility] Last Admin: 01/22/19 09:21 Dose: 1 mg Propofol (Diprivan) 1,000 mg in 100 mls @ 1.633 mls/hr IV .Q24H PRN; Protocol PRN Reason: TITRATE PER MD ORDER Last Titration: 01/18/19 09:32 Dose: 0 mcg/kg/min, 0 mls/hr Vancomycin/Sodium Chloride (Vancomycin 1 Gm/Ns 200 Ml) 1 gm in 200 mls @ 133.333 mls/hr IVPB MWF [facility]; Protocol Last Admin: 01/20/19 08:19 Dose: 133.333 mls/hr Metronidazole (Flagyl) 500 mg in 100 mls @ 100 mls/hr IVPB Q8H [facility]; Protocol Last Admin: 01/22/19 05:00 Dose: 100 mls/hr Dexmedetomidine HCl 200 mcg/ (Sodium Chloride) 50 mls @ 3.02 mls/hr IV TITR PRN; Protocol PRN Reason: Agitation Diltiazem HCl 125 mg/ Sodium (Chloride) 125 mls @ 5 mls/hr IV .Q24H [facility]; Protocol Last Admin: 01/21/19 19:09 Dose: Not Given Phenylephrine HCl 30 mg/ (Sodium Chloride) 253 mls @ 10.12 mls/hr IV .Q24H PRN; Protocol PRN Reason: TITRATE PER MD ORDER Last Titration: 01/19/19 02:38 Dose: 0 mcg/min, 0 mls/hr Aztreonam 1 gm/ Sodium (Chloride) 100 mls @ 100 mls/hr IVPB Q12H [facility]; Protocol Last Admin: 01/22/19 09:29 Dose: 100 mls/hr Metoprolol Tartrate (Lopressor) 25 mg PO BID [facility] Last Admin: 01/22/19 09:21 Dose: 25 mg Pantoprazole Sodium (Protonix Inj) 40 mg IVP DAILY [facility] Last Admin: 01/22/19 09:22 Dose: 40 mg Paricalcitol (Zemplar) 2 mcg IV TTS [facility] Last Admin: 01/21/19 09:15 Dose: 2 mcg Prednisone (Prednisone) 2.5 mg PO Q2D [facility] Last Admin: 01/22/19 09:30 Dose: 2.5 mg Rosuvastatin Calcium (Crestor) 10 mg PO HS [facility] Last Admin: 01/21/19 21:43 Dose: 10 mg Saccharomyces Boulardii (Florastor) 250 mg PO BID [facility] Last Admin: 01/22/19 09:23 Dose: 250 mg Vancomycin HCl (Firvanq (Oral Solution)) 250 mg PEG QID [facility] Last Admin: 01/22/19 09:22 Dose: 250 mg Vitamin B Complex/Vit C/Folic Acid (Nephro-Nacho) 1 tab PO 0800 [facility] Last Admin: 01/22/19 08:25 Dose: 1 tab - Labs Labs: 01/22/19 06:14 01/22/19 06:14 PT 13.3 SECONDS (9.7-12.2) H 01/15/19 05:29 INR 1.2 01/15/19 05:29 APTT 34 SECONDS (21-34) 01/15/19 05:29 - Constitutional Appears: No Acute Distress, Confused - Eye Exam Eye Exam: PERRL - ENT Exam ENT Exam: Mucous Membranes Moist Additional comments: ETT in place - Respiratory Exam Respiratory Exam: Rhonchi. absent: Clear to Ausculation Bilateral, Rales, Wheezes - Cardiovascular Exam Cardiovascular Exam: RRR, +S1, +S2 - GI/Abdominal Exam GI & Abdominal Exam: Soft, Normal Bowel Sounds. absent: Distended, Firm, Guarding, Rigid, Tenderness, Organomegaly - Extremities Exam Extremities Exam: Normal Inspection. absent: Pedal Edema - Neurological Exam Neurological Exam: Altered, Awake - Skin Skin Exam: Dry, Warm Assessment and Plan - Assessment and Plan (Free Text) Assessment: Patient is a 73yo female with PMHx significant for ESRD s/p kidney transplant on chronic immunosuppression (Tacrolimus/Mycophenolate/Prednisone), now on HD, anemia, paroxysmal atrial fibrillation on Apixaban, diastolic congestive heart failure, HTN, prior CVA (2007) without residual deficits and spinal stenosis who presented to the ED with complaint of abdominal pain, diarrhea and shortness of breath -Anemia -FOBT+ (12/06) -Acute respiratory failure requiring mechanical ventilation -Multifocal pneumonia -C diff colitis -Chronic immunosuppression with h/o kidney transplant -Paroxysmal atrial fibrillation on Apixaban (currently held) -Diastolic congestive heart failure with acute exacerbation -Cholelithiasis Plan: -No plan for acute endoscopic intervention at this time in the absence of overt GI bleeding and ongoing respiratory compromise and infectious processes -Supportive care with transfusion as needed -Suspect anemia of chronic illness and ESRD -Continue PPI therapy as ordered -CT A/P reviewed - moderate ascites and 2cm calcification, suspect gallstone, noted in the gallbladder with gallbladder distention - concern for developing cholecystitis - leukocytosis and elevated GGT/Alk Phos present -Continue broad spectrum antibiotics and monitor blood work; consider surgical evaluation if symptoms develop (pain, fever) or worsening of leukocytosis/LFTs -Patient's son states patient had colonoscopy 1 year ago - no records to review at this juncture -CPAP trials and plan regarding extubation per ICU <Jessica Bella - Last Filed: 01/22/19 10:33> Objective - Vital Signs/Intake and Output Vital Signs (last 24 hours): Temp Pulse Resp BP Pulse Ox 99.5 F 95 H 17 151/55 H 100 01/22/19 08:00 01/22/19 08:00 01/22/19 08:00 01/22/19 09:21 01/22/19 08:00 Intake and Output: 01/22/19 01/22/19 06:59 18:59 Intake Total 840 90 Output Total 100 0 Balance 740 90 - Medications Medications: Current Medications Folic Acid (Folic Acid) 1 mg PO DAILY [facility] Last Admin: 01/22/19 09:21 Dose: 1 mg Propofol (Diprivan) 1,000 mg in 100 mls @ 1.633 mls/hr IV .Q24H PRN; Protocol PRN Reason: TITRATE PER MD ORDER Last Titration: 01/18/19 09:32 Dose: 0 mcg/kg/min, 0 mls/hr Vancomycin/Sodium Chloride (Vancomycin 1 Gm/Ns 200 Ml) 1 gm in 200 mls @ 133.333 mls/hr IVPB MWF [facility]; Protocol Last Admin: 01/20/19 08:19 Dose: 133.333 mls/hr Metronidazole (Flagyl) 500 mg in 100 mls @ 100 mls/hr IVPB Q8H [facility]; Protocol Last Admin: 01/22/19 05:00 Dose: 100 mls/hr Dexmedetomidine HCl 200 mcg/ (Sodium Chloride) 50 mls @ 3.02 mls/hr IV TITR PRN; Protocol PRN Reason: Agitation Diltiazem HCl 125 mg/ Sodium (Chloride) 125 mls @ 5 mls/hr IV .Q24H [facility]; Protocol Last Admin: 01/21/19 19:09 Dose: Not Given Phenylephrine HCl 30 mg/ (Sodium Chloride) 253 mls @ 10.12 mls/hr IV .Q24H PRN; Protocol PRN Reason: TITRATE PER MD ORDER Last Titration: 01/19/19 02:38 Dose: 0 mcg/min, 0 mls/hr Aztreonam 1 gm/ Sodium (Chloride) 100 mls @ 100 mls/hr IVPB Q12H [facility]; Protocol Last Admin: 01/22/19 09:29 Dose: 100 mls/hr Metoprolol Tartrate (Lopressor) 25 mg PO BID [facility] Last Admin: 01/22/19 09:21 Dose: 25 mg Pantoprazole Sodium (Protonix Inj) 40 mg IVP DAILY [facility] Last Admin: 01/22/19 09:22 Dose: 40 mg Paricalcitol (Zemplar) 2 mcg IV TTS [facility] Last Admin: 01/21/19 09:15 Dose: 2 mcg Prednisone (Prednisone) 2.5 mg PO Q2D [facility] Last Admin: 01/22/19 09:30 Dose: 2.5 mg Rosuvastatin Calcium (Crestor) 10 mg PO HS [facility] Last Admin: 01/21/19 21:43 Dose: 10 mg Saccharomyces Boulardii (Florastor) 250 mg PO BID [facility] Last Admin: 01/22/19 09:23 Dose: 250 mg Vancomycin HCl (Firvanq (Oral Solution)) 250 mg PEG QID [facility] Last Admin: 01/22/19 09:22 Dose: 250 mg Vitamin B Complex/Vit C/Folic Acid (Nephro-Nacho) 1 tab PO 0800 [facility] Last Admin: 01/22/19 08:25 Dose: 1 tab - Labs Labs: 01/22/19 06:14 01/22/19 06:14 PT 13.3 SECONDS (9.7-12.2) H 01/15/19 05:29 INR 1.2 01/15/19 05:29 APTT 34 SECONDS (21-34) 01/15/19 05:29 Attending/Attestation - Attestation I have personally seen and examined this patient.: Yes I have fully participated in the care of the patient.: Yes I have reviewed all pertinent clinical information, including history, physical exam and plan: Yes Notes (Text): 01/22/19 10:28 I have seen and examined the patient with the GI fellow. She appears well and is nodding yes/no to questions. Hb stable. No significant tenderness in RLQ. CT findings noted and pt has large gallstone in the GB, but does not appear to clinically have cholecystitis. GB wall noted to be thickened, but may be related to underlying ascites. Alk phos remains elevated, but stable. Awaiting prior colonoscopy report. No gross GIB. Continue Protonix 40 mg IV daily. 01/22/19 10:29 01/22/19 10:30 01/22/19 10:31
[2019-01-22] MEDS: Vancomycin 1 gm/NS 200 ml 1 GM/200 ML BAG IVPB SCH (10:00)
--- NOTE | 2019-01-22 10:57 | CP.PCM.PN ---
<Lisa Mathis - Last Filed: 01/22/19 10:49> Subjective - Date & Time of Evaluation Date of Evaluation: 01/22/19 Time of Evaluation: 10:49 - Subjective Subjective: Pulm Progress Note for Dr. Jackson's service S/E at bedside Awake but intubated Limited ROS possible extubation attempt s/p HD with nephro CT surgery believes pericardial effusion chronic in nature Objective - Vital Signs/Intake and Output Vital Signs (last 24 hours): Temp Pulse Resp BP Pulse Ox 99.5 F 95 H 17 151/55 H 100 01/22/19 08:00 01/22/19 08:00 01/22/19 08:00 01/22/19 09:21 01/22/19 08:00 Intake and Output: 01/22/19 01/22/19 06:59 18:59 Intake Total 840 90 Output Total 100 0 Balance 740 90 - Medications Medications: Current Medications Apixaban (Eliquis) 2.5 mg PO BID [facility] Folic Acid (Folic Acid) 1 mg PO DAILY [facility] Last Admin: 01/22/19 09:21 Dose: 1 mg Propofol (Diprivan) 1,000 mg in 100 mls @ 1.633 mls/hr IV .Q24H PRN; Protocol PRN Reason: TITRATE PER MD ORDER Last Titration: 01/18/19 09:32 Dose: 0 mcg/kg/min, 0 mls/hr Vancomycin/Sodium Chloride (Vancomycin 1 Gm/Ns 200 Ml) 1 gm in 200 mls @ 133.333 mls/hr IVPB MWF [facility]; Protocol Last Admin: 01/20/19 08:19 Dose: 133.333 mls/hr Metronidazole (Flagyl) 500 mg in 100 mls @ 100 mls/hr IVPB Q8H [facility]; Protocol Last Admin: 01/22/19 05:00 Dose: 100 mls/hr Dexmedetomidine HCl 200 mcg/ (Sodium Chloride) 50 mls @ 3.02 mls/hr IV TITR PRN; Protocol PRN Reason: Agitation Diltiazem HCl 125 mg/ Sodium (Chloride) 125 mls @ 5 mls/hr IV .Q24H [facility]; Protocol Last Admin: 01/21/19 19:09 Dose: Not Given Phenylephrine HCl 30 mg/ (Sodium Chloride) 253 mls @ 10.12 mls/hr IV .Q24H PRN; Protocol PRN Reason: TITRATE PER MD ORDER Last Titration: 01/19/19 02:38 Dose: 0 mcg/min, 0 mls/hr Aztreonam 1 gm/ Sodium (Chloride) 100 mls @ 100 mls/hr IVPB Q12H [facility]; Protocol Last Admin: 01/22/19 09:29 Dose: 100 mls/hr Metoprolol Tartrate (Lopressor) 25 mg PO BID [facility] Last Admin: 01/22/19 09:21 Dose: 25 mg Pantoprazole Sodium (Protonix Inj) 40 mg IVP DAILY [facility] Last Admin: 01/22/19 09:22 Dose: 40 mg Paricalcitol (Zemplar) 2 mcg IV TTS [facility] Last Admin: 01/21/19 09:15 Dose: 2 mcg Prednisone (Prednisone) 2.5 mg PO Q2D [facility] Last Admin: 01/22/19 09:30 Dose: 2.5 mg Rosuvastatin Calcium (Crestor) 10 mg PO HS [facility] Last Admin: 01/21/19 21:43 Dose: 10 mg Saccharomyces Boulardii (Florastor) 250 mg PO BID [facility] Last Admin: 01/22/19 09:23 Dose: 250 mg Vancomycin HCl (Firvanq (Oral Solution)) 250 mg PEG QID [facility] Last Admin: 01/22/19 09:22 Dose: 250 mg Vitamin B Complex/Vit C/Folic Acid (Nephro-Nacho) 1 tab PO 0800 [facility] Last Admin: 01/22/19 08:25 Dose: 1 tab - Labs Labs: 01/22/19 06:14 01/22/19 06:14 PT 13.3 SECONDS (9.7-12.2) H 01/15/19 05:29 INR 1.2 01/15/19 05:29 APTT 34 SECONDS (21-34) 01/15/19 05:29 - Constitutional Appears: Non-toxic, No Acute Distress - Head Exam Head Exam: NORMAL INSPECTION - Eye Exam Eye Exam: EOMI, Normal appearance - ENT Exam ENT Exam: Mucous Membranes Dry - Respiratory Exam Respiratory Exam: Decreased Breath Sounds, NORMAL BREATHING PATTERN Additional comments: intubated with ET tube - Cardiovascular Exam Cardiovascular Exam: REGULAR RHYTHM, +S1, +S2 - GI/Abdominal Exam GI & Abdominal Exam: Soft, Normal Bowel Sounds - Exam Additional comments: rectal tube - Extremities Exam Extremities Exam: Normal Inspection. absent: Calf Tenderness, Pedal Edema - Neurological Exam Neurological Exam: Alert, Awake - Psychiatric Exam Psychiatric exam: Normal Affect, Normal Mood - Skin Skin Exam: Dry, Intact, Normal Color - Additional Findings Additional findings: right IJ TLC right shiley cath in femoral region Assessment and Plan - Assessment and Plan (Free Text) Assessment: A: Acute respiratory failure Acute on chronic CHF ESRD C diff colitis PNA Bacteremia Afib P: optimize fluid overload status with HD as per nephro prior to extubation CPAP trials with SBI<105, consider extubation as per ICU continue IV abx for PNA and c diff infection BP support as per primary/ICU bacteremia resolved with repeat bcx negative pending permacath for continued dialysis CT surgery has recommended conservative management for pericardial effusion further medical management as per primary/icu <Jay Jackson - Last Filed: 01/22/19 14:37> Objective - Vital Signs/Intake and Output Vital Signs (last 24 hours): Temp Pulse Resp BP Pulse Ox 98.9 F 95 H 20 162/69 H 99 01/22/19 12:00 01/22/19 12:00 01/22/19 12:00 01/22/19 12:00 01/22/19 12:00 Intake and Output: 01/22/19 01/22/19 06:59 18:59 Intake Total 840 670 Output Total 100 0 Balance 740 670 - Medications Medications: Current Medications Apixaban (Eliquis) 2.5 mg PO BID [facility] Folic Acid (Folic Acid) 1 mg PO DAILY [facility] Last Admin: 01/22/19 09:21 Dose: 1 mg Propofol (Diprivan) 1,000 mg in 100 mls @ 1.633 mls/hr IV .Q24H PRN; Protocol PRN Reason: TITRATE PER MD ORDER Last Titration: 01/18/19 09:32 Dose: 0 mcg/kg/min, 0 mls/hr Vancomycin/Sodium Chloride (Vancomycin 1 Gm/Ns 200 Ml) 1 gm in 200 mls @ 133.333 mls/hr IVPB MWF [facility]; Protocol Last Admin: 01/22/19 10:00 Dose: 133.333 mls/hr Metronidazole (Flagyl) 500 mg in 100 mls @ 100 mls/hr IVPB Q8H [facility]; Protocol Last Admin: 01/22/19 11:06 Dose: 100 mls/hr Dexmedetomidine HCl 200 mcg/ (Sodium Chloride) 50 mls @ 3.02 mls/hr IV TITR PRN; Protocol PRN Reason: Agitation Diltiazem HCl 125 mg/ Sodium (Chloride) 125 mls @ 5 mls/hr IV .Q24H [facility]; Protocol Last Admin: 01/21/19 19:09 Dose: Not Given Phenylephrine HCl 30 mg/ (Sodium Chloride) 253 mls @ 10.12 mls/hr IV .Q24H PRN; Protocol PRN Reason: TITRATE PER MD ORDER Last Titration: 01/19/19 02:38 Dose: 0 mcg/min, 0 mls/hr Ceftriaxone Sodium 2 gm/ (Sodium Chloride) 100 mls @ 100 mls/hr IVPB Q24H [facility]; Protocol Metoprolol Tartrate (Lopressor) 25 mg PO BID [facility] Last Admin: 01/22/19 09:21 Dose: 25 mg Pantoprazole Sodium (Protonix Inj) 40 mg IVP DAILY [facility] Last Admin: 01/22/19 09:22 Dose: 40 mg Paricalcitol (Zemplar) 2 mcg IV TTS [facility] Last Admin: 01/21/19 09:15 Dose: 2 mcg Prednisone (Prednisone) 2.5 mg PO Q2D [facility] Last Admin: 01/22/19 09:30 Dose: 2.5 mg Rosuvastatin Calcium (Crestor) 10 mg PO HS [facility] Last Admin: 01/21/19 21:43 Dose: 10 mg Saccharomyces Boulardii (Florastor) 250 mg PO BID [facility] Last Admin: 01/22/19 09:23 Dose: 250 mg Vancomycin HCl (Firvanq (Oral Solution)) 250 mg PEG QID [facility] Last Admin: 01/22/19 13:46 Dose: 250 mg Vitamin B Complex/Vit C/Folic Acid (Nephro-Nacho) 1 tab PO 0800 [facility] Last Admin: 01/22/19 08:25 Dose: 1 tab - Labs Labs: 01/22/19 06:14 01/22/19 06:14 PT 13.3 SECONDS (9.7-12.2) H 01/15/19 05:29 INR 1.2 01/15/19 05:29 APTT 34 SECONDS (21-34) 01/15/19 05:29 Attending/Attestation - Attestation I have personally seen and examined this patient.: Yes I have fully participated in the care of the patient.: Yes I have reviewed all pertinent clinical information, including history, physical exam and plan: Yes Notes (Text): 01/22/19 14:36 Patient seen and examined Wean to extubate More awake and responsive Continue hemodialysis Seen by thoracic surgery
--- NOTE | 2019-01-22 12:04 | CARD ---
APPROVED REPORT Date of service: 01/15/2019 EKG Measurement Heart [id number] OR 104P-1 [id number] <Conclusion> Sinus rhythm with short OR with occasional premature ventricular complexes Nonspecific ST abnormality Abnormal ECG
[2019-01-22] MEDS ORDERED: Epoetin Alfa Dialysis 20000 UNIT/ML Inj IV ONE ×2 (12:13→16:06)
[2019-01-22] MEDS ORDERED: Paricalcitol 2 mcg/ml Inj IV ONE ×2 (12:14→16:08)
[2019-01-22] MEDS ORDERED: Albumin Human 25% (12.5 gm/50 ml) IV ONE ×2 (12:16→12:30)
--- NOTE | 2019-01-22 12:31 | CP.PCM.PN ---
Subjective - Date & Time of Evaluation Date of Evaluation: 01/22/19 Time of Evaluation: 12:28 - Subjective Subjective: Patient on respirator, but awake, on CPAP. Afebrile. CXR: essentially unchanged. For HD today., and possible extubation later. Objective - Vital Signs/Intake and Output Vital Signs (last 24 hours): Temp Pulse Resp BP Pulse Ox 98.9 F 95 H 20 162/69 H 99 01/22/19 12:00 01/22/19 12:00 01/22/19 12:00 01/22/19 12:00 01/22/19 12:00 Intake and Output: 01/22/19 01/22/19 06:59 18:59 Intake Total 840 670 Output Total 100 0 Balance 740 670 - Medications Medications: Current Medications Albumin Human (Albumin Human 25% (12.5 Gm/50 Ml)) 12.5 gm IV ONCE ONE Stop: 01/22/19 12:31 Albumin Human (Albumin Human 25% (12.5 Gm/50 Ml)) 12.5 gm IV ONCE ONE Stop: 01/22/19 12:17 Apixaban (Eliquis) 2.5 mg PO BID [facility] Epoetin Elijah (Procrit) 20,000 unit IV ONCE ONE Stop: 01/22/19 12:14 Folic Acid (Folic Acid) 1 mg PO DAILY [facility] Last Admin: 01/22/19 09:21 Dose: 1 mg Propofol (Diprivan) 1,000 mg in 100 mls @ 1.633 mls/hr IV .Q24H PRN; Protocol PRN Reason: TITRATE PER MD ORDER Last Titration: 01/18/19 09:32 Dose: 0 mcg/kg/min, 0 mls/hr Vancomycin/Sodium Chloride (Vancomycin 1 Gm/Ns 200 Ml) 1 gm in 200 mls @ 133.333 mls/hr IVPB MWF [facility]; Protocol Last Admin: 01/22/19 10:00 Dose: 133.333 mls/hr Metronidazole (Flagyl) 500 mg in 100 mls @ 100 mls/hr IVPB Q8H [facility]; Protocol Last Admin: 01/22/19 11:06 Dose: 100 mls/hr Dexmedetomidine HCl 200 mcg/ (Sodium Chloride) 50 mls @ 3.02 mls/hr IV TITR PRN; Protocol PRN Reason: Agitation Diltiazem HCl 125 mg/ Sodium (Chloride) 125 mls @ 5 mls/hr IV .Q24H [facility]; Protocol Last Admin: 01/21/19 19:09 Dose: Not Given Phenylephrine HCl 30 mg/ (Sodium Chloride) 253 mls @ 10.12 mls/hr IV .Q24H PRN; Protocol PRN Reason: TITRATE PER MD ORDER Last Titration: 01/19/19 02:38 Dose: 0 mcg/min, 0 mls/hr Aztreonam 1 gm/ Sodium (Chloride) 100 mls @ 100 mls/hr IVPB Q12H [facility]; Protocol Last Admin: 01/22/19 09:29 Dose: 100 mls/hr Metoprolol Tartrate (Lopressor) 25 mg PO BID [facility] Last Admin: 01/22/19 09:21 Dose: 25 mg Pantoprazole Sodium (Protonix Inj) 40 mg IVP DAILY [facility] Last Admin: 01/22/19 09:22 Dose: 40 mg Paricalcitol (Zemplar) 2 mcg IV TTS [facility] Last Admin: 01/21/19 09:15 Dose: 2 mcg Paricalcitol (Zemplar) 4 mcg IV ONCE ONE Stop: 01/22/19 12:15 Prednisone (Prednisone) 2.5 mg PO Q2D [facility] Last Admin: 01/22/19 09:30 Dose: 2.5 mg Rosuvastatin Calcium (Crestor) 10 mg PO HS [facility] Last Admin: 01/21/19 21:43 Dose: 10 mg Saccharomyces Boulardii (Florastor) 250 mg PO BID [facility] Last Admin: 01/22/19 09:23 Dose: 250 mg Vancomycin HCl (Firvanq (Oral Solution)) 250 mg PEG QID [facility] Last Admin: 01/22/19 09:22 Dose: 250 mg Vitamin B Complex/Vit C/Folic Acid (Nephro-Nacho) 1 tab PO 0800 [facility] Last Admin: 01/22/19 08:25 Dose: 1 tab - Labs Labs: 01/22/19 06:14 01/22/19 06:14 PT 13.3 SECONDS (9.7-12.2) H 01/15/19 05:29 INR 1.2 01/15/19 05:29 APTT 34 SECONDS (21-34) 01/15/19 05:29 - Constitutional Appears: Chronically Ill - Head Exam Head Exam: NORMAL INSPECTION - Eye Exam Eye Exam: Normal appearance - ENT Exam ENT Exam: Normal Exam - Respiratory Exam Respiratory Exam: Rhonchi - Cardiovascular Exam Cardiovascular Exam: REGULAR RHYTHM - GI/Abdominal Exam GI & Abdominal Exam: Soft, Hyperactive Bowel Sounds - Rectal Exam Additional comments: Has rectal tube. - Extremities Exam Extremities Exam: Normal Inspection - Back Exam Back Exam: NORMAL INSPECTION - Neurological Exam Neurological Exam: Awake - Skin Skin Exam: Dry, Intact, Warm Assessment and Plan (1) Acute on chronic diastolic (congestive) heart failure Status: Resolved (2) Severe anemia Status: Resolved (3) ESRD (end stage renal disease) Assessment & Plan: HD Status: Chronic (4) Hypertension Status: Chronic (5) Pneumonia Assessment & Plan: On IV Azactam, Vancomycin and Flagyl. Status: Acute (6) C. difficile colitis Assessment & Plan: On PO vanco and Florestror. Status: Acute (7) Bacteremia, coagulase-negative staphylococcal Assessment & Plan: On IV antibiotics. Status: Acute (8) Acute respiratory failure Assessment & Plan: Now on CPAP. Possible extubation today. Status: Acute
--- NOTE | 2019-01-22 14:04 | CP.PCM.PN ---
Subjective - Date & Time of Evaluation Date of Evaluation: 01/22/19 Time of Evaluation: 09:00 - Subjective Subjective: more alert afebrile IN NAD' IVF rx in progress CXR + residual infiltrates Objective - Vital Signs/Intake and Output Vital Signs (last 24 hours): Temp Pulse Resp BP Pulse Ox 98.9 F 95 H 20 162/69 H 99 01/22/19 12:00 01/22/19 12:00 01/22/19 12:00 01/22/19 12:00 01/22/19 12:00 Intake and Output: 01/22/19 01/22/19 06:59 18:59 Intake Total 840 670 Output Total 100 0 Balance 740 670 - Medications Medications: Current Medications Apixaban (Eliquis) 2.5 mg PO BID [facility] Folic Acid (Folic Acid) 1 mg PO DAILY [facility] Last Admin: 01/22/19 09:21 Dose: 1 mg Propofol (Diprivan) 1,000 mg in 100 mls @ 1.633 mls/hr IV .Q24H PRN; Protocol PRN Reason: TITRATE PER MD ORDER Last Titration: 01/18/19 09:32 Dose: 0 mcg/kg/min, 0 mls/hr Vancomycin/Sodium Chloride (Vancomycin 1 Gm/Ns 200 Ml) 1 gm in 200 mls @ 133.333 mls/hr IVPB MWF [facility]; Protocol Last Admin: 01/22/19 10:00 Dose: 133.333 mls/hr Metronidazole (Flagyl) 500 mg in 100 mls @ 100 mls/hr IVPB Q8H [facility]; Protocol Last Admin: 01/22/19 11:06 Dose: 100 mls/hr Dexmedetomidine HCl 200 mcg/ (Sodium Chloride) 50 mls @ 3.02 mls/hr IV TITR PRN; Protocol PRN Reason: Agitation Diltiazem HCl 125 mg/ Sodium (Chloride) 125 mls @ 5 mls/hr IV .Q24H [facility]; Protocol Last Admin: 01/21/19 19:09 Dose: Not Given Phenylephrine HCl 30 mg/ (Sodium Chloride) 253 mls @ 10.12 mls/hr IV .Q24H PRN; Protocol PRN Reason: TITRATE PER MD ORDER Last Titration: 01/19/19 02:38 Dose: 0 mcg/min, 0 mls/hr Aztreonam 1 gm/ Sodium (Chloride) 100 mls @ 100 mls/hr IVPB Q12H [facility]; Protocol Last Admin: 01/22/19 09:29 Dose: 100 mls/hr Metoprolol Tartrate (Lopressor) 25 mg PO BID [facility] Last Admin: 01/22/19 09:21 Dose: 25 mg Pantoprazole Sodium (Protonix Inj) 40 mg IVP DAILY [facility] Last Admin: 01/22/19 09:22 Dose: 40 mg Paricalcitol (Zemplar) 2 mcg IV TTS [facility] Last Admin: 01/21/19 09:15 Dose: 2 mcg Prednisone (Prednisone) 2.5 mg PO Q2D [facility] Last Admin: 01/22/19 09:30 Dose: 2.5 mg Rosuvastatin Calcium (Crestor) 10 mg PO HS [facility] Last Admin: 01/21/19 21:43 Dose: 10 mg Saccharomyces Boulardii (Florastor) 250 mg PO BID [facility] Last Admin: 01/22/19 09:23 Dose: 250 mg Vancomycin HCl (Firvanq (Oral Solution)) 250 mg PEG QID [facility] Last Admin: 01/22/19 13:46 Dose: 250 mg Vitamin B Complex/Vit C/Folic Acid (Nephro-Nacho) 1 tab PO 0800 [facility] Last Admin: 01/22/19 08:25 Dose: 1 tab - Labs Labs: 01/22/19 06:14 01/22/19 06:14 PT 13.3 SECONDS (9.7-12.2) H 01/15/19 05:29 INR 1.2 01/15/19 05:29 APTT 34 SECONDS (21-34) 01/15/19 05:29 - Constitutional Appears: Non-toxic, No Acute Distress, Chronically Ill - Head Exam Head Exam: ATRAUMATIC, NORMAL INSPECTION, NORMOCEPHALIC - Eye Exam Eye Exam: EOMI, Normal appearance, PERRL. absent: Scleral icterus Pupil Exam: NORMAL ACCOMODATION, PERRL - ENT Exam ENT Exam: Mucous Membranes Moist, Normal Exam - Neck Exam Neck Exam: Full ROM, Normal Inspection. absent: Lymphadenopathy - Respiratory Exam Respiratory Exam: Decreased Breath Sounds, Prolonged Expiratory Phase, Rales, Rhonchi - Cardiovascular Exam Cardiovascular Exam: Irregular Rhythm, +S1, +S2. absent: Murmur - GI/Abdominal Exam GI & Abdominal Exam: Distended, Soft, Diminished Bowel Sounds. absent: Tenderness - Rectal Exam Rectal Exam: Deferred - Exam Exam: NORMAL INSPECTION - Extremities Exam Extremities Exam: Full ROM, Normal Capillary Refill, Normal Inspection. absent: Joint Swelling, Pedal Edema - Back Exam Back Exam: NORMAL INSPECTION - Neurological Exam Neurological Exam: Alert, Awake, CN II-XII Intact, Oriented x3. absent: Normal Gait - Psychiatric Exam Psychiatric exam: Normal Affect, Normal Mood - Skin Skin Exam: Dry, Intact, Normal Color, Warm Assessment and Plan (1) Pneumonia Status: Acute (2) Acute on chronic diastolic (congestive) heart failure Status: Resolved (3) Severe anemia Status: Resolved (4) ESRD (end stage renal disease) Status: Chronic (5) Hypertension Status: Chronic - Assessment and Plan (Free Text) Assessment: for extubation today CXR shows infiltrates/ effusions Cont HD IV antibiotics for min 14 days
[2019-01-22] MEDS ORDERED: Metoprolol 1 mg/ml Inj IVP ONE (14:17)
[2019-01-22] MEDS ORDERED: cefTRIAXone 2 GM in Sodium Chloride 0.9% 100 ML IVPB SCH (16:00)
--- NOTE | 2019-01-22 16:09 | CP.PCM.PN ---
Subjective - Date & Time of Evaluation Date of Evaluation: 01/22/19 Time of Evaluation: 16:09 - Subjective Subjective: pt is seen and examined, follow up consult is dictated #[id number] s/p hd today , uf 3lit Objective - Vital Signs/Intake and Output Vital Signs (last 24 hours): Temp Pulse Resp BP Pulse Ox 98.9 F 101 H 24 130/56 L 100 01/22/19 15:00 01/22/19 15:00 01/22/19 15:00 01/22/19 15:30 01/22/19 15:00 Intake and Output: 01/22/19 01/22/19 06:59 18:59 Intake Total 840 715 Output Total 100 0 Balance 740 715 - Medications Medications: Current Medications Apixaban (Eliquis) 2.5 mg PO BID [facility] Epoetin Elijah (Procrit) 20,000 unit IV ONCE ONE Stop: 01/22/19 16:07 Folic Acid (Folic Acid) 1 mg PO DAILY [facility] Last Admin: 01/22/19 09:21 Dose: 1 mg Propofol (Diprivan) 1,000 mg in 100 mls @ 1.633 mls/hr IV .Q24H PRN; Protocol PRN Reason: TITRATE PER MD ORDER Last Titration: 01/18/19 09:32 Dose: 0 mcg/kg/min, 0 mls/hr Vancomycin/Sodium Chloride (Vancomycin 1 Gm/Ns 200 Ml) 1 gm in 200 mls @ 133.333 mls/hr IVPB MWF [facility]; Protocol Last Admin: 01/22/19 10:00 Dose: 133.333 mls/hr Metronidazole (Flagyl) 500 mg in 100 mls @ 100 mls/hr IVPB Q8H [facility]; Protocol Last Admin: 01/22/19 11:06 Dose: 100 mls/hr Dexmedetomidine HCl 200 mcg/ (Sodium Chloride) 50 mls @ 3.02 mls/hr IV TITR PRN; Protocol PRN Reason: Agitation Diltiazem HCl 125 mg/ Sodium (Chloride) 125 mls @ 5 mls/hr IV .Q24H [facility]; Protocol Last Admin: 01/21/19 19:09 Dose: Not Given Phenylephrine HCl 30 mg/ (Sodium Chloride) 253 mls @ 10.12 mls/hr IV .Q24H [facility]N; Protocol PRN Reason: TITRATE PER MD ORDER Last Titration: 01/19/19 02:38 Dose: 0 mcg/min, 0 mls/hr Ceftriaxone Sodium 2 gm/ (Sodium Chloride) 100 mls @ 100 mls/hr IVPB Q24H [facility]; Protocol Metoprolol Tartrate (Lopressor) 25 mg PO BID [facility] Last Admin: 01/22/19 09:21 Dose: 25 mg Pantoprazole Sodium (Protonix Inj) 40 mg IVP DAILY [facility] Last Admin: 01/22/19 09:22 Dose: 40 mg Paricalcitol (Zemplar) 2 mcg IV TTS [facility] Last Admin: 01/21/19 09:15 Dose: 2 mcg Prednisone (Prednisone) 2.5 mg PO Q2D [facility] Last Admin: 01/22/19 09:30 Dose: 2.5 mg Rosuvastatin Calcium (Crestor) 10 mg PO HS [facility] Last Admin: 01/21/19 21:43 Dose: 10 mg Saccharomyces Boulardii (Florastor) 250 mg PO BID [facility] Last Admin: 01/22/19 09:23 Dose: 250 mg Vancomycin HCl (Firvanq (Oral Solution)) 250 mg PEG QID [facility] Last Admin: 01/22/19 13:46 Dose: 250 mg Vitamin B Complex/Vit C/Folic Acid (Nephro-Nacho) 1 tab PO 0800 [facility] Last Admin: 01/22/19 08:25 Dose: 1 tab - Labs Labs: 01/22/19 06:14 01/22/19 06:14 PT 13.3 SECONDS (9.7-12.2) H 01/15/19 05:29 INR 1.2 01/15/19 05:29 APTT 34 SECONDS (21-34) 01/15/19 05:29
--- NOTE | 2019-01-22 22:28 | CON ---
DATE: 01/22/2019 ENDOCRINOLOGY CONSULT LOCATION: ICU, room 2. HISTORY OF PRESENT ILLNESS: This is a 73-year-old female with known history of hypertension and end-stage renal disease, admitted here with progressive shortness of breath and generalized body weakness, and had emergency hemodialysis as scheduled and given and is now being referred for evaluation of abnormal thyroid function studies. PAST MEDICAL HISTORY: History of hypertension and dyslipidemia, history of chronic atrial fibrillation, history of previous CVA, and pontine infarct with no apparent residual weakness, history of chronic kidney disease and actually had a renal transplant in 2002 at [facility] with subsequent progressive renal insufficiency and renal failure and at this time, end-stage renal disease. FAMILY HISTORY: Positive for hypertension and diabetes. SOCIAL HISTORY: The patient has supportive family. No known substance use. REVIEW OF SYSTEMS: Admits to progressive bouts of dizziness and lightheadedness, worse on the day of admission with supervening generalized body weakness and hypersomnolence and lethargy. No chest pain but admits to progressive shortness of breath initially on exertion and then at rest, with paroxysmal nocturnal dyspnea. Her oral intake has been variable with nausea and dyspepsia and habitual constipation. PHYSICAL EXAMINATION: GENERAL: This is an average-built female, in no apparent distress. VITAL SIGNS: Blood pressure 150/90, pulse of 100 beats per minute and regular, temperature 98, respirations is 20. Height is 5 feet 2 inches. Weight is 134 pounds. HEENT: Head: Normocephalic. Eyes: Anicteric with pink conjunctivae. Funduscopy not possible at this time. Ears, nose, and throat, otherwise normal. NECK: Supple. Thyroid gland is normal in size. No carotid bruits or cervical adenopathy. CARDIOPULMONARY: Some adynamic precordium. S1 and S2, rapid and regular. LUNGS: Show scattered rhonchi. ABDOMEN: Flat, soft with positive bowel sounds. EXTREMITIES: There is +1 bipedal edema. Pulses are +2 bilaterally. LABORATORY DATA: Chemistries BUN of 87, sodium 133, potassium 3, chloride 102, CO2 of 22, glucose 100, and creatinine 4.5. Her calcium level was initially 4.8 with an albumin level of 3, and corrected calcium of 5.8 mg/dL. ASSESSMENT: This is a 73-year-old female with overt renal failure with underlying chronic kidney disease and now dialysis dependent with progressive renal insufficiency over the last few months prior to admission. She also has longstanding history of chronic kidney disease with progressive renal insufficiency and underwent a renal transplant in 2002 as noted. PLAN OF MANAGEMENT: We will obtain comprehensive thyroid hormonal profile with a total and free T4 and TSH obtained today as noted. We will obtain a thyroid peroxidase antibody and thyroglobulin antibody to confirm and/or indicate the presence of underlying thyroid autoimmunity. We will obtain serial chemistries and supplement accordingly as needed. We will follow. Marilin Ruano MD [facility] # [id number]
--- NOTE | 2019-01-23 03:16 | PN ---
DATE: 01/22/2019 FOLLOWUP RENAL CONSULTATION LOCATION: The patient is located in ICU, bed 2. REQUESTED BY: Dash Najera MD REASON FOR FOLLOWUP: End-stage renal disease, continuation of hemodialysis. SUBJECTIVE: Mrs. 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 The patient was initially placed on BiPAP, unable to tolerate, and subsequently, the patient was intubated and transferred to ICU. The patient remains intubated until this afternoon. The patient is being dialyzed three times a week Friday, Friday, and Friday, and also patient is being treated for pneumonia and respiratory failure. The patient is more alert, awake, on ventilator. PHYSICAL EXAMINATION: VITAL SIGNS: Blood pressure 133/68, pulse 98, respirations 18, and temperature 98.9, saturation 100%. Height 5 feet 2 inches, weight is 134 pounds. GENERAL: Mrs. Faulkner is a 73-year-old elderly Bangl[place] female, moderately built, moderately nourished, not in distress. HEENT: Pupils normal and reactive to light and accommodation. Conjunctivae pink. Sclerae anicteric, on ventilator. No thyroid enlargement. LUNGS: Symmetric on both sides. Bilateral breath sounds present. Clear to auscultation. CARDIOVASCULAR SYSTEM: [place] at the fifth intercostal space midclavicular line. S1, S2 audible. No murmur or gallop. ABDOMEN: Normal in appearance. Soft, tympanitic. No guarding. No rigidity. No hepatosplenomegaly. CENTRAL NERVOUS SYSTEM: The patient is alert, awake, oriented times 1 to 2, on ventilator. Cranial nerves II through XII grossly intact. Sensory and motor system is within normal limits. EXTREMITIES: No cyanosis, no clubbing. The patient has 2+ edema in both upper and lower extremities. CURRENT MEDICATIONS: Include as follows: Rocephin 2 g IV piggyback every 24 hours, Crestor 10 mg p.o. at bedtime, Precedex, Cardizem drip at 5 mg per hour, propofol, Eliquis 2.5 mg p.o. b.i.d., Florastor, folic acid, metoprolol 25 mg p.o. b.i.d., Nephro-Nacho 1 tablet daily, prednisone 2.5 mg p.o. every 2 days, Protonix, vancomycin 1 g three times a week, and Zemplar 2 mcg three times a week. LABORATORY DATA: Include as follows: As of 01/22/2019, WBC 14.8, hemoglobin 8.4, hematocrit is 26, platelets 101. ABG, pH 7.43, pCO2 of 32, pO2 of 108, bicarb 22.8, saturation 99.3 with a vent settings AC 20, tidal volume 450, FiO2 of 40%, PEEP of 5. Chem-7, sodium 133, potassium is 3, chloride 102, CO2 of 22, BUN 87, creatinine 4.5, glucose 100, calcium 7.6, phosphorus 3.6, magnesium 1.8. Total bili 0.5, AST 49, ALT 32, alkaline phosphatase 333, total protein 4.4, albumin is 2.3. Her laboratory data as of 01/17/2019, positive for Streptococcus gallolyticus and repeat cultures from 01/19/2019 x2 negative day two, and blood culture from 01/20/2019 x2 negative day two, and urine culture is also negative. Other reports, chest x-ray as of 01/22/2019, impression, lines and tubes are in stable position, biapical pleural thickening with upper lobe granulomatous changes, diffuse increased interstitial lung markings, some moderate venous congestion, patchy increased consolidative changes in the mid to lower lung zones bilaterally with associated small to moderate left and trace right pleural effusion, patchy pleural parenchymal opacities bilaterally with cardiomegaly. IMPRESSION AND PLAN: In summary, Mrs. 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 1. 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 2. Respiratory failure. 3. Bilateral pneumonia. Blood culture initially positive for Streptococcus gallolyticus. 4. Clostridium difficile colitis, most likely secondary to immunosuppression. 5. Fluid overload. PLAN: Continue hemodialysis three times a week and UF goal was about 3 liters. The patient was able to tolerate 3 liters of ultrafiltration today. We will consider extra hemodialysis tomorrow and reevaluate. We will continue IV antibiotics as per Dr. Bazan, [place] and vancomycin. Continue prednisone 2.5 mg p.o. every 2 days; and continue metoprolol, Nephro-Nacho, and Zemplar. We will follow with you. Thank you for allowing me to participate in your patient's care. For possible extubation post dialysis as per ICU attending, Ever Madrigal MD MTDD
[2019-01-23 06:18] LABS: ABG ALLEN TEST POS; ARTERIAL BLOOD GAS HCO3 22.7 mmol/L (21-28); ARTERIAL BLOOD GAS HEMOGLOBIN 8.8 g/dL (11.7-17.4); ARTERIAL BLOOD GAS O2 SAT 98.4 % (95-98); ARTERIAL BLOOD GAS PCO2 36 mm/Hg (35-45); ARTERIAL BLOOD GAS PH 7.39 (7.35-7.45); ARTERIAL BLOOD GAS PO2 78 mm/Hg (80-100); ARTERIAL BLOOD GAS TCO2 22.9 mmol/L (22-28)
[2019-01-23 06:32] LABS: BASO % 0.2 % (0.0-2.0); EOS # 0.2 K/uL (0.0-0.7); EOS % 1.4 % (0.0-4.0); HEMOGLOBIN 9.1 g/dL (11.0-16.0); LYMPH # 0.3 K/uL (1.0-4.3); MEAN CELL VOLUME 92.8 fL (81.0-99.0); MEAN CORPUSCULAR HEMOGLOBIN 30.2 pg (27.0-31.0); MEAN CORPUSCULAR HGB CONC 32.6 g/dL (33.0-37.0); MEAN PLATELET VOLUME 11.7 fL (7.2-11.7); MONO # 0.8 K/uL (0.0-0.8); MONO % 4.9 % (0.0-10.0); NEUT # 15.5 K/uL (1.8-7.0); NEUT % 91.5 % (50.0-75.0); NRBC % 0.3 % (0.0-2.0); PLATELET COUNT 168 K/uL (130-400); RBC 3.02 Mil/uL (3.80-5.20); RED CELL DISTRIBUTION WIDTH 16.3 % (11.5-14.5); WHITE BLOOD COUNT 16.9 K/uL (4.8-10.8)
[2019-01-23 06:48] LABS: CALCIUM 8.3 mg/dl (8.6-10.4)
[2019-01-23] MEDS: metroNIDAZOLE IV 500 mg/100 ml 500 MG/100 ML BAG IVPB SCH ×3 (07:00→23:32)
[2019-01-23] MEDS: Multivitamin Vitamin B Complex (Nephro-Vite) Tab PO SCH (08:18)
--- NOTE | 2019-01-23 08:20 | CP.PCM.PN ---
<Aundrea Davis - Last Filed: 01/23/19 11:31> Subjective - Date & Time of Evaluation Date of Evaluation: 01/23/19 Time of Evaluation: 08:17 - Subjective Subjective: Gastroenterology Fellow/PGY6 Progress Note Patient extubated overnight. Resting comfortably on BiPAP. Denies abdominal pain. Digni-shield with green-brown liquid stool. A 12-point review of systems negative except for as above. Objective - Vital Signs/Intake and Output Vital Signs (last 24 hours): Temp Pulse Resp BP Pulse Ox 97.9 F 98 H 24 148/98 H 100 01/23/19 04:00 01/23/19 06:23 01/23/19 06:20 01/23/19 06:20 01/23/19 06:00 Intake and Output: 01/23/19 01/23/19 06:59 18:59 Intake Total 260 0 Output Total 225 200 Balance 35 -200 - Medications Medications: Current Medications Apixaban (Eliquis) 2.5 mg PO BID [facility] Last Admin: 01/22/19 17:15 Dose: 2.5 mg Folic Acid (Folic Acid) 1 mg PO DAILY [facility] Last Admin: 01/22/19 09:21 Dose: 1 mg Propofol (Diprivan) 1,000 mg in 100 mls @ 1.633 mls/hr IV .Q24H [facility]; Protocol PRN Reason: TITRATE PER MD ORDER Last Titration: 01/18/19 09:32 Dose: 0 mcg/kg/min, 0 mls/hr Vancomycin/Sodium Chloride (Vancomycin 1 Gm/Ns 200 Ml) 1 gm in 200 mls @ 133.333 mls/hr IVPB [facility]; Protocol Last Admin: 01/22/19 10:00 Dose: 133.333 mls/hr Dexmedetomidine HCl 200 mcg/ (Sodium Chloride) 50 mls @ 3.02 mls/hr IV TITR PRN; Protocol PRN Reason: Agitation Diltiazem HCl 125 mg/ Sodium (Chloride) 125 mls @ 5 mls/hr IV .Q24H [facility]; Protocol Last Admin: 01/22/19 19:41 Dose: Not Given Phenylephrine HCl 30 mg/ (Sodium Chloride) 253 mls @ 10.12 mls/hr IV .Q24H PRN; Protocol PRN Reason: TITRATE PER MD ORDER Last Titration: 01/19/19 02:38 Dose: 0 mcg/min, 0 mls/hr Ceftriaxone Sodium 2 gm/ (Sodium Chloride) 100 mls @ 100 mls/hr IVPB Q24H [facility]; Protocol Last Admin: 01/22/19 18:12 Dose: 100 mls/hr Metronidazole (Flagyl) 500 mg in 100 mls @ 100 mls/hr IVPB Q8H [facility]; Protocol Last Admin: 01/23/19 07:00 Dose: 100 mls/hr Metoprolol Tartrate (Lopressor) 25 mg PO BID [facility] Last Admin: 01/22/19 17:15 Dose: 25 mg Pantoprazole Sodium (Protonix Inj) 40 mg IVP DAILY [facility] Last Admin: 01/22/19 09:22 Dose: 40 mg Paricalcitol (Zemplar) 2 mcg IV TTS [facility] Last Admin: 01/21/19 09:15 Dose: 2 mcg Prednisone (Prednisone) 2.5 mg PO Q2D [facility] Last Admin: 01/22/19 09:30 Dose: 2.5 mg Rosuvastatin Calcium (Crestor) 10 mg PO HS [facility] Last Admin: 01/22/19 22:14 Dose: 10 mg Saccharomyces Boulardii (Florastor) 250 mg PO BID [facility] Last Admin: 01/22/19 17:17 Dose: 250 mg Vitamin B Complex/Vit C/Folic Acid (Nephro-Nacho) 1 tab PO 0800 [facility] Last Admin: 01/22/19 08:25 Dose: 1 tab - Labs Labs: 01/23/19 06:23 01/23/19 06:24 PT 13.3 SECONDS (9.7-12.2) H 01/15/19 05:29 INR 1.2 01/15/19 05:29 APTT 34 SECONDS (21-34) 01/15/19 05:29 Assessment and Plan - Assessment and Plan (Free Text) Assessment: 73 year old female with PMH significant for anemia, ESRD on HD s/p kidney transplant on chronic immunosuppression (Tacrolimus/Mycophenolate/Prednisone), paroxysmal Afib on Apixaban, dCHF, HTN, and CVA (2007) without residual deficits presenting with abdominal pain, diarrhea and shortness of breath. Active treatment of ventilator dependent respiratory failure 2/2 sepsis due to multifocal pneumonia and C. diff colitis s/p extubation 4/19 at 1930. GI consultation for anemia. CT A/P showed moderate ascites, cholelithiasis, Plan: -H/H stable, transfusion as needed -anemia likely 2/2 immunosuppression and ESRD -ALP stable -PPI IV daily -gallbladder thickening likely 2/2 ascites -on antibiotics -follow up colonoscopy records -patient would benefit from elective EGD and colonoscopy outpatient after medical optimization <Jessica Bella - Last Filed: 01/23/19 11:57> Objective - Vital Signs/Intake and Output Vital Signs (last 24 hours): Temp Pulse Resp BP Pulse Ox 98.1 F 92 H 16 164/72 H 100 01/23/19 08:00 01/23/19 11:13 01/23/19 11:13 01/23/19 11:13 01/23/19 11:13 Intake and Output: 01/23/19 01/23/19 06:59 18:59 Intake Total 260 30 Output Total 225 200 Balance 35 -170 - Medications Medications: Current Medications Apixaban (Eliquis) 2.5 mg PO BID [facility] Last Admin: 01/23/19 09:42 Dose: 2.5 mg Folic Acid (Folic Acid) 1 mg PO DAILY [facility] Last Admin: 01/23/19 09:45 Dose: 1 mg Propofol (Diprivan) 1,000 mg in 100 mls @ 1.633 mls/hr IV .Q24H [facility]; Protocol PRN Reason: TITRATE PER MD ORDER Last Titration: 01/18/19 09:32 Dose: 0 mcg/kg/min, 0 mls/hr Vancomycin/Sodium Chloride (Vancomycin 1 Gm/Ns 200 Ml) 1 gm in 200 mls @ 133.333 mls/hr IVPB MWF [facility]; Protocol Last Admin: 01/22/19 10:00 Dose: 133.333 mls/hr Ceftriaxone Sodium 2 gm/ (Sodium Chloride) 100 mls @ 100 mls/hr IVPB Q24H [facility]; Protocol Last Admin: 01/22/19 18:12 Dose: 100 mls/hr Metronidazole (Flagyl) 500 mg in 100 mls @ 100 mls/hr IVPB Q8H [facility]; Protocol Last Admin: 01/23/19 07:00 Dose: 100 mls/hr Metoprolol Tartrate (Lopressor) 25 mg PO BID [facility] Last Admin: 04/20/19 09:42 Dose: 25 mg Pantoprazole Sodium (Protonix Inj) 40 mg IVP DAILY [facility] Last Admin: 01/23/19 09:42 Dose: 40 mg Paricalcitol (Zemplar) 2 mcg IV TTS [facility] Last Admin: 01/21/19 09:15 Dose: 2 mcg Rosuvastatin Calcium (Crestor) 10 mg PO HS [facility] Last Admin: 01/22/19 22:14 Dose: 10 mg Saccharomyces Boulardii (Florastor) 250 mg PO BID [facility] Last Admin: 01/23/19 09:42 Dose: 250 mg Vitamin B Complex/Vit C/Folic Acid (Nephro-Nacho) 1 tab PO 0800 [facility] Last Admin: 01/23/19 08:18 Dose: 1 tab - Labs Labs: 01/23/19 06:23 01/23/19 06:24 PT 13.3 SECONDS (9.7-12.2) H 01/15/19 05:29 INR 1.2 01/15/19 05:29 APTT 34 SECONDS (21-34) 01/15/19 05:29 Attending/Attestation - Attestation I have personally seen and examined this patient.: Yes I have fully participated in the care of the patient.: Yes I have reviewed all pertinent clinical information, including history, physical exam and plan: Yes Notes (Text): 01/23/19 11:42 I have seen and examined the patient with the GI fellow. Pt extubated overnight. Still getting abx for C. diff, rectal tube with liquid brown stool. No gross GIB. No colonoscopy reports obtained, though pt's family states she had it in 2017 with one benign polyp removed (this is not on [employer] or [employer]). Since Hb stable, would defer EGD/colonoscopy to outpt. Discussed with pt's son at bedside. 01/23/19 11:56
[2019-01-23 08:47] LABS: EOSINOPHIL 3 % (0-4); LYMPHOCYTE 1 % (20-40); MONOCYTE 4 % (0-10); NEUTROPHIL 92 % (50-75); PLATELET ESTIMATE NORMAL (NORMAL); TOTAL CELLS COUNTED 100
[2019-01-23 08:48] LABS: ANISOCYTOSIS SLIGHT; HYPOCHROMIC SLIGHT; POLYCHROMIC SLIGHT
[2019-01-23 08:49] LABS: GIANT PLATELETS PRESENT; LARGE PLATELETS PRESENT; POIKILOCYTOSIS SLIGHT
[2019-01-23 08:50] LABS: BURR CELLS SLIGHT; OVALOCYTES SLIGHT
[2019-01-23] MEDS: Saccharomyces Boulardi 250 mg Cap PO SCH ×2 (09:42→17:07)
--- NOTE | 2019-01-23 10:02 | RAD ---
Date of service: 01/23/2019 HISTORY: s/p extubation day 1 COMPARISON: 01/22/2019. FINDINGS: The left IJV line terminates in the SVC. LUNGS: The lungs are well inflated. There is improved aeration in the lungs with mild pulmonary venous congestion. There is airspace disease in both lower lobes, worse on the left PLEURA: Suspect small effusions. No pneumothorax. CARDIOVASCULAR: Persistent mild cardiomegaly. No aortic atherosclerotic calcifications present. OSSEOUS STRUCTURES: Within normal limits for the patient's age. VISUALIZED UPPER ABDOMEN: Normal. OTHER FINDINGS: None. IMPRESSION: Status post extubation. Interval improved aeration in the lungs with residual mild pulmonary venous congestion. Bilateral lower lobe airspace disease, worse on the left and small effusions.
[2019-01-23] MEDS: Paricalcitol 2 mcg/ml Inj IV SCH (12:36)
--- NOTE | 2019-01-23 12:58 | CP.PCM.PN ---
Subjective - Date & Time of Evaluation Date of Evaluation: 01/23/19 Time of Evaluation: 12:57 - Subjective Subjective: pt is seen and examined, follow up consult is dictated #[id number] seen in hd uf goal is 3 lit s/p hd yesterday, s/p extubation post hd yesterday c/w prednisone 2.5 mg po qd Objective - Vital Signs/Intake and Output Vital Signs (last 24 hours): Temp Pulse Resp BP Pulse Ox 98.0 F 98 H 18 147/62 98 01/23/19 10:45 01/23/19 11:40 01/23/19 11:40 01/23/19 11:40 01/23/19 11:40 Intake and Output: 01/23/19 01/23/19 06:59 18:59 Intake Total 260 30 Output Total 225 200 Balance 35 -170 - Medications Medications: Current Medications Apixaban (Eliquis) 2.5 mg PO BID COUNT INCLUDES [facility] Last Admin: 01/23/19 09:42 Dose: 2.5 mg Folic Acid (Folic Acid) 1 mg PO DAILY COUNT [facility]CLUDES [facility] Last Admin: 01/23/19 09:45 Dose: 1 mg Propofol (Diprivan) 1,000 mg in 100 mls @ 1.633 mls/hr IV .Q24H PRN; Protocol PRN Reason: TITRATE PER MD ORDER Last Titration: 01/18/19 09:32 Dose: 0 mcg/kg/min, 0 mls/hr Vancomycin/Sodium Chloride (Vancomycin 1 Gm/Ns 200 Ml) 1 gm in 200 mls @ 133.333 mls/hr IVPB MWF [facility]; Protocol Last Admin: 01/22/19 10:00 Dose: 133.333 mls/hr Ceftriaxone Sodium 2 gm/ (Sodium Chloride) 100 mls @ 100 mls/hr IVPB Q24H [facility]; Protocol Last Admin: 01/22/19 18:12 Dose: 100 mls/hr Metronidazole (Flagyl) 500 mg in 100 mls @ 100 mls/hr IVPB Q8H [facility]; Protocol Last Admin: 01/23/19 07:00 Dose: 100 mls/hr Metoprolol Tartrate (Lopressor) 25 mg PO BID COUNT [facility]CLUDES [facility] Last Admin: 01/23/19 09:42 Dose: 25 mg Pantoprazole Sodium (Protonix Inj) 40 mg IVP DAILY [facility]CLUDES [facility] Last Admin: 01/23/19 09:42 Dose: 40 mg Paricalcitol (Zemplar) 2 mcg IV TTS COUNT [facility]CLUDES [facility] Last Admin: 01/23/19 12:36 Dose: 2 mcg Rosuvastatin Calcium (Crestor) 10 mg PO HS COUNT [facility]CLUDES [facility] Last Admin: 01/22/19 22:14 Dose: 10 mg Saccharomyces Boulardii (Florastor) 250 mg PO BID COUNT [facility]CLUDES [facility] Last Admin: 01/23/19 09:42 Dose: 250 mg Vancomycin HCl (Vancocin 125mg Capsule) 125 mg PO QID COUNT INCLUDES [facility] Vitamin B Complex/Vit C/Folic Acid (Nephro-Nacho) 1 tab PO 0800 [facility] Last Admin: 01/23/19 08:18 Dose: 1 tab - Labs Labs: 01/23/19 06:23 01/23/19 06:24 PT 13.3 SECONDS (9.7-12.2) H 01/15/19 05:29 INR 1.2 01/15/19 05:29 APTT 34 SECONDS (21-34) 01/15/19 05:29
[2019-01-23] MEDS ORDERED: Vancomycin Hydrochloride 125 mg Capsule (Oral) PO SCH (14:00)
--- NOTE | 2019-01-23 14:04 | CP.CCUPN ---
CCU Subjective - Physician Review Events Since Last Encounter (Free Text): 01/23/19 14:01 alert and oriented, no complaints. CCU Objective - Vital Signs / Intake & Output Vital Signs (Last 4 hours): Vital Signs Temp Pulse Pulse Resp BP BP Pulse Ox 01/23/19 13:44 97 H 22 152/71 H 100 01/23/19 13:20 95 H 20 144/63 100 01/23/19 13:00 99 H 91 H 18 153/83 H 100 01/23/19 12:57 100 H 25 H 153/83 H 100 01/23/19 12:42 91 H 22 158/72 H 100 01/23/19 12:30 92 H 20 158/70 H 99 01/23/19 12:27 87 18 156/66 H 98 01/23/19 12:12 85 15 147/62 99 01/23/19 12:00 97.5 F L 85 86 20 152/72 H 99 01/23/19 11:57 85 15 152/58 H 99 01/23/19 11:42 92 H 20 162/70 H 100 01/23/19 11:40 98 H 18 147/62 98 01/23/19 11:27 94 H 21 164/67 H 100 01/23/19 11:20 93 H 20 162/70 H 98 01/23/19 11:13 92 H 16 164/72 H 100 01/23/19 11:01 96 H 21 152/71 H 99 01/23/19 11:00 96 H 96 H 20 164/72 H 98 01/23/19 10:45 98.0 F 85 85 20 131/68 131/68 100 01/23/19 10:33 85 25 H 131/68 01/23/19 10:20 83 22 145/70 Intake and Output (Last 8hrs): Intake & Output 01/22/19 01/23/19 01/23/19 22:59 06:59 14:59 Intake Total 380 160 30 Output Total 225 0 200 Balance 155 160 -170 Weight 132 lb 7.965 oz Intake: Intake, IV Amount 200 100 left jug. TLC distal port 200 100 Oral 60 30 Tube Feeding 180 0 0 Output: Stool 225 200 Emesis 0 0 - Physical Exam Head: Positive for: Atraumatic, Normocephalic Pupils: Positive for: PERRL Extroacular Muscles: Positive for: EOMI Mouth: Positive for: Moist Mucous Membranes Respiratory/Chest: Positive for: Clear to Auscultation, Good Air Exchange, Other (Intubated, on vent). Negative for: Respiratory Distress, Accessory Muscle Use Cardiovascular: Positive for: Regular Rate and Rhythm, Murmurs, Normal S1, S2 Abdomen: Positive for: Normal Bowel Sounds Upper Extremity: Positive for: Normal Inspection Lower Extremity: Positive for: Normal Inspection Neurological: Positive for: Other (Sedated on propofol drip) Skin: Positive for: Warm - Medications Active Medications: Active Medications Generic Name Dose Route Start Last Admin Trade Name Freq PRN Reason Stop Dose Admin Apixaban 2.5 mg 01/22/19 18:00 01/23/19 09:42 Eliquis PO 2.5 mg BID [facility] Administration Folic Acid 1 mg 01/15/19 10:00 01/23/19 09:45 Folic Acid PO 1 mg DAILY [facility] Administration Propofol 1,000 mg in 100 mls @ 1.633 mls/hr 01/15/19 14:49 01/18/19 09:32 Diprivan IV 0 mcg/kg/min .Q24H PRN 0 mls/hr TITRATE PER MD ORDER Titration Protocol 5 MCG/KG/MIN Vancomycin/Sodium Chloride 1 gm in 200 mls @ 133.333 mls/hr 01/18/19 09:00 01/22/19 10:00 Vancomycin 1 Gm/Ns 200 Ml IVPB 133.333 mls/hr MWF [facility] Administration Protocol Ceftriaxone Sodium 2 gm/ 100 mls @ 100 mls/hr 01/22/19 16:00 01/22/19 18:12 Sodium Chloride IVPB 100 mls/hr Q24H [facility] Administration Protocol Metronidazole 500 mg in 100 mls @ 100 mls/hr 01/23/19 08:00 01/23/19 07:00 Flagyl IVPB 100 mls/hr Q8H [facility] Administration Protocol Metoprolol Tartrate 25 mg 01/15/19 10:00 01/23/19 09:42 Lopressor PO 25 mg BID [facility] Administration Pantoprazole Sodium 40 mg 01/22/19 10:00 01/23/19 09:42 Protonix Inj IVP 40 mg DAILY [facility] Administration Paricalcitol 2 mcg 01/16/19 10:00 01/23/19 12:36 Zemplar IV 2 mcg TTS [facility] Administration Rosuvastatin Calcium 10 mg 01/15/19 22:00 01/22/19 22:14 Crestor PO 10 mg HS [facility] Administration Saccharomyces Boulardii 250 mg 01/18/19 10:00 01/23/19 09:42 Florastor PO 250 mg BID [facility] Administration Vancomycin HCl 125 mg 01/23/19 14:00 Firvanq (Oral Solution) NG QID [facility] Vitamin B Complex/Vit C/Folic Acid 1 tab 01/16/19 08:00 01/23/19 08:18 Nephro-Nacho PO 1 tab 0800 [facility] Administration - Patient Studies Lab Studies: Microbiology Studies 01/20/19 10:08 Blood Culture - Preliminary Blood-Thru Central Line NO GROWTH AFTER 3 DAYS 01/20/19 10:08 Blood Culture - Preliminary Blood-Thru Central Line NO GROWTH AFTER 3 DAYS 01/19/19 22:46 Blood Culture - Preliminary Blood-Venous NO GROWTH AFTER 3 DAYS 01/19/19 22:46 Blood Culture - Preliminary Blood-Venous NO GROWTH AFTER 3 DAYS Lab Studies 01/23/19 01/23/19 01/23/19 Range/Units 06:24 06:24 06:24 WBC (4.8-10.8) K/uL RBC (3.80-5.20) Mil/uL Hgb (11.0-16.0) g/dL Hct (34.0-47.0) % MCV (81.0-99.0) fL MCH (27.0-31.0) pg MCHC (33.0-37.0) g/dL RDW (11.5-14.5) % Plt Count (130-400) K/uL MPV (7.2-11.7) fL Neut % (Auto) (50.0-75.0) % Lymph % (Auto) (20.0-40.0) % Carter % (Auto) (0.0-10.0) % Eos % (Auto) (0.0-4.0) % Baso % (Auto) (0.0-2.0) % Neut # (Auto) (1.8-7.0) K/uL Lymph # (Auto) (1.0-4.3) K/uL Carter # (Auto) (0.0-0.8) K/uL Eos # (Auto) (0.0-0.7) K/uL Baso # (Auto) (0.0-0.2) K/uL Neutrophils % (Manual) (50-75) % Lymphocytes % (Manual) (20-40) % Monocytes % (Manual) (0-10) % Eosinophils % (Manual) (0-4) % Platelet Estimate (NORMAL) Large Platelets Giant Platelets Polychromasia Hypochromasia (manual) Poikilocytosis (manual Anisocytosis (manual) Ovalocytes Madison Cells Puncture Site pCO2 (35-45) mm/Hg pO2 (80-100) mm/Hg HCO3 (21-28) mmol/L ABG pH (7.35-7.45) ABG Total CO2 (22-28) mmol/L ABG O2 Saturation (95-98) % ABG Base Excess (-2.0-3.0) mmol/L ABG Hemoglobin (11.7-17.4) g/dL ABG Carboxyhemoglobin (0.5-1.5) % POC ABG HHb (Measured) (0.0-5.0) % ABG Methemoglobin (0.0-3.0) % Trevin Test A-a O2 Difference mm/Hg Respiratory Index Hgb O2 Saturation (95.0-98.0) % Vent Mode FiO2 % Inspiratory BiPAP Expiratory BiPAP Sodium 136 (132-148) mmol/L Potassium 3.3 L (3.6-5.2) mmol/L Chloride 102 (98-107) mmol/L Carbon Dioxide 24 (22-30) mmol/L Anion Gap 13 (10-20) BUN 70 H (7-17) mg/dL Creatinine 3.8 H (0.7-1.2) mg/dL Est GFR ( Amer) 14 Est GFR (Non-Af Amer) 12 Random Glucose 76 D (65-105) mg/dL Calcium 8.3 L (8.6-10.4) mg/dl Phosphorus 4.5 (2.5-4.5) mg/dL Magnesium 1.9 (1.6-2.3) mg/dL Free T4 0.82 (0.78-2.19) ng/dL Thyroxine (T4) 4.12 L (5.5-11.0) ug/dL TSH 3rd Generation 2.31 (0.46-4.68) mIU/L Cortisol AM Sample 25.0 H (4.46-22.7) ug/dL 01/23/19 01/23/19 Range/Units 06:23 05:30 WBC 16.9 H (4.8-10.8) K/uL RBC 3.02 L (3.80-5.20) Mil/uL Hgb 9.1 L (11.0-16.0) g/dL Hct 28.0 L (34.0-47.0) % MCV 92.8 (81.0-99.0) fL MCH 30.2 (27.0-31.0) pg MCHC 32.6 L (33.0-37.0) g/dL RDW 16.3 H (11.5-14.5) % Plt Count 168 (130-400) K/uL MPV 11.7 (7.2-11.7) fL Neut % (Auto) 91.5 H (50.0-75.0) % Lymph % (Auto) 2.0 L (20.0-40.0) % Carter % (Auto) 4.9 (0.0-10.0) % Eos % (Auto) 1.4 (0.0-4.0) % Baso % (Auto) 0.2 (0.0-2.0) % Neut # (Auto) 15.5 H (1.8-7.0) K/uL Lymph # (Auto) 0.3 L (1.0-4.3) K/uL Carter # (Auto) 0.8 (0.0-0.8) K/uL Eos # (Auto) 0.2 (0.0-0.7) K/uL Baso # (Auto) 0.0 (0.0-0.2) K/uL Neutrophils % (Manual) 92 H (50-75) % Lymphocytes % (Manual) 1 L (20-40) % Monocytes % (Manual) 4 (0-10) % Eosinophils % (Manual) 3 (0-4) % Platelet Estimate Normal (NORMAL) Large Platelets Present Giant Platelets Present Polychromasia Slight Hypochromasia (manual) Slight Poikilocytosis (manual Slight Anisocytosis (manual) Slight Ovalocytes Slight Madison Cells Slight Puncture Site Rr pCO2 36 (35-45) mm/Hg pO2 78 L (80-100) mm/Hg HCO3 22.7 (21-28) mmol/L ABG pH 7.39 (7.35-7.45) ABG Total CO2 22.9 (22-28) mmol/L ABG O2 Saturation 98.4 H (95-98) % ABG Base Excess -2.8 L (-2.0-3.0) mmol/L ABG Hemoglobin 8.8 L (11.7-17.4) g/dL ABG Carboxyhemoglobin 2.0 H (0.5-1.5) % POC ABG HHb (Measured) 1.6 (0.0-5.0) % ABG Methemoglobin 1.0 (0.0-3.0) % Trevin Test Pos A-a O2 Difference 91.0 mm/Hg Respiratory Index 1.2 Hgb O2 Saturation 95.4 (95.0-98.0) % Vent Mode Bipap FiO2 30.0 % Inspiratory BiPAP 12 Expiratory BiPAP 6 Sodium (132-148) mmol/L Potassium (3.6-5.2) mmol/L Chloride (98-107) mmol/L Carbon Dioxide (22-30) mmol/L Anion Gap (10-20) BUN (7-17) mg/dL Creatinine (0.7-1.2) mg/dL Est GFR ( Amer) Est GFR (Non-Af Amer) Random Glucose (65-105) mg/dL Calcium (8.6-10.4) mg/dl Phosphorus (2.5-4.5) mg/dL Magnesium (1.6-2.3) mg/dL Free T4 (0.78-2.19) ng/dL Thyroxine (T4) (5.5-11.0) ug/dL TSH 3rd Generation (0.46-4.68) mIU/L Cortisol AM Sample (4.46-22.7) ug/dL Laboratory Results - last 24 hr 01/23/19 01/23/19 01/23/19 05:30 06:23 06:24 WBC 16.9 H RBC 3.02 L Hgb 9.1 L Hct 28.0 L MCV 92.8 MCH 30.2 MCHC 32.6 L RDW 16.3 H Plt Count 168 MPV 11.7 Neut % (Auto) 91.5 H Lymph % (Auto) 2.0 L Carter % (Auto) 4.9 Eos % (Auto) 1.4 Baso % (Auto) 0.2 Neut # (Auto) 15.5 H Lymph # (Auto) 0.3 L Carter # (Auto) 0.8 Eos # (Auto) 0.2 Baso # (Auto) 0.0 Neutrophils % (Manual) 92 H Lymphocytes % (Manual) 1 L Monocytes % (Manual) 4 Eosinophils % (Manual) 3 Platelet Estimate Normal Large Platelets Present Giant Platelets Present Polychromasia Slight Hypochromasia (manual) Slight Poikilocytosis (manual Slight Anisocytosis (manual) Slight Ovalocytes Slight Madison Cells Slight Puncture Site Rr pCO2 36 pO2 78 L HCO3 22.7 ABG pH 7.39 ABG Total CO2 22.9 ABG O2 Saturation 98.4 H ABG Base Excess -2.8 L ABG Hemoglobin 8.8 L ABG Carboxyhemoglobin 2.0 H POC ABG HHb (Measured) 1.6 ABG Methemoglobin 1.0 Trevin Test Pos A-a O2 Difference 91.0 Respiratory Index 1.2 Hgb O2 Saturation 95.4 Vent Mode Bipap FiO2 30.0 Inspiratory BiPAP 12 Expiratory BiPAP 6 Sodium Potassium Chloride Carbon Dioxide Anion Gap BUN Creatinine Est GFR ( Amer) Est GFR (Non-Af Amer) Random Glucose Calcium Phosphorus Magnesium Free T4 Thyroxine (T4) TSH 3rd Generation Cortisol AM Sample 25.0 H 01/23/19 01/23/19 06:24 06:24 WBC RBC Hgb Hct MCV MCH MCHC RDW Plt Count MPV Neut % (Auto) Lymph % (Auto) Carter % (Auto) Eos % (Auto) Baso % (Auto) Neut # (Auto) Lymph # (Auto) Carter # (Auto) Eos # (Auto) Baso # (Auto) Neutrophils % (Manual) Lymphocytes % (Manual) Monocytes % (Manual) Eosinophils % (Manual) Platelet Estimate Large Platelets Giant Platelets Polychromasia Hypochromasia (manual) Poikilocytosis (manual Anisocytosis (manual) Ovalocytes Madison Cells Puncture Site pCO2 pO2 HCO3 ABG pH ABG Total CO2 ABG O2 Saturation ABG Base Excess ABG Hemoglobin ABG Carboxyhemoglobin POC ABG HHb (Measured) ABG Methemoglobin Trevin Test A-a O2 Difference Respiratory Index Hgb O2 Saturation Vent Mode FiO2 Inspiratory BiPAP Expiratory BiPAP Sodium 136 Potassium 3.3 L Chloride 102 Carbon Dioxide 24 Anion Gap 13 BUN 70 H Creatinine 3.8 H Est GFR ( Amer) 14 Est GFR (Non-Af Amer) 12 Random Glucose 76 D Calcium 8.3 L Phosphorus 4.5 Magnesium 1.9 Free T4 0.82 Thyroxine (T4) 4.12 L TSH 3rd Generation 2.31 Cortisol AM Sample Radiology Impressions: Radiology Impressions Chest X-Ray 01/23/19 07:00 IMPRESSION: Status post extubation. Interval improved aeration in the lungs with residual mild pulmonary venous congestion. Bilateral lower lobe airspace disease, worse on the left and small effusions. Review of Systems - Review of Systems All systems: reviewed and no additional remarkable complaints except (no complaints) Critical Care Progress Note - Nutrition Nutrition: Nutrition Category Date Time Status Dysphagia/Modified Consistency Diet [DIET] Diets 01/23/19 Lunch Active Assessment/Plan (1) C. difficile colitis Assessment and plan: 73 year old female with history ESRD s/p failing renal transplant from 2002 presents acutely short of breath. Intubated, with c. diff colitis, and strep bacteremia, now on dialysis. Neuro: alert and oriented, follows commands. Pulm: extubated (01/22), now on intermittent BIPAP and nasal canula. CV: hemodynamically stable Hem: holding Eliquis for permacath on Friday. Renal: ESRD on HD, starting a MWF schedule. Tapered and now Stopped oral steroids. Endo: no acute issues. GI: dysphagia diet post extubation, full s/s eval pending. ID: sepsis from strep bacteremia, Vanco IV, and C. diff colitis, Vanco PO and Flagyl IV. DVT proph - SCD's, Eliquis (held) GI proph - protonix Code status - full code Critical Care Time spent 35 minutes Multi-disciplinary rounds were performed with house staff, nursing, speech therapy, respiratory therapy, pharmacy and nutrition with integrated input from the primary team/attending and other consulting services. The documented time is cumulative and includes review of patient data/exams/labs/chart review and examination of the patient on rounds and throughout the day; time is exclusive of any procedures or teaching time. Current Visit: Yes Status: Acute
[2019-01-23] MEDS: VANCOMYCIN HCL 250 MG/5 ML NG SCH ×3 (14:05→22:09)
--- NOTE | 2019-01-23 14:46 | CP.PCM.PN ---
Subjective - Date & Time of Evaluation Date of Evaluation: 01/23/19 Time of Evaluation: 09:00 - Subjective Subjective: extubated weak but NAD IV rx in progress Objective - Vital Signs/Intake and Output Vital Signs (last 24 hours): Temp Pulse Resp BP Pulse Ox 97.5 F L 97 H 22 152/71 H 100 01/23/19 12:00 01/23/19 13:44 01/23/19 13:44 01/23/19 13:44 01/23/19 13:44 Intake and Output: 01/23/19 01/23/19 06:59 18:59 Intake Total 260 30 Output Total 225 200 Balance 35 -170 - Medications Medications: Current Medications Apixaban (Eliquis) 2.5 mg PO BID [facility] Last Admin: 01/23/19 09:42 Dose: 2.5 mg Folic Acid (Folic Acid) 1 mg PO DAILY [facility] Last Admin: 01/23/19 09:45 Dose: 1 mg Vancomycin/Sodium Chloride (Vancomycin 1 Gm/Ns 200 Ml) 1 gm in 200 mls @ 133.333 mls/hr IVPB MWF [facility]; Protocol Last Admin: 01/22/19 10:00 Dose: 133.333 mls/hr Ceftriaxone Sodium 2 gm/ (Sodium Chloride) 100 mls @ 100 mls/hr IVPB Q24H [facility]; Protocol Last Admin: 01/22/19 18:12 Dose: 100 mls/hr Metronidazole (Flagyl) 500 mg in 100 mls @ 100 mls/hr IVPB Q8H [facility]; Protocol Last Admin: 01/23/19 07:00 Dose: 100 mls/hr Metoprolol Tartrate (Lopressor) 25 mg PO BID [facility] Last Admin: 01/23/19 09:42 Dose: 25 mg Pantoprazole Sodium (Protonix Inj) 40 mg IVP DAILY [facility] Last Admin: 01/23/19 09:42 Dose: 40 mg Paricalcitol (Zemplar) 2 mcg IV TTS [facility] Last Admin: 01/23/19 12:36 Dose: 2 mcg Rosuvastatin Calcium (Crestor) 10 mg PO HS [facility] Last Admin: 01/22/19 22:14 Dose: 10 mg Saccharomyces Boulardii (Florastor) 250 mg PO BID [facility] Last Admin: 01/23/19 09:42 Dose: 250 mg Vancomycin HCl (Firvanq (Oral Solution)) 125 mg NG QID [facility] Last Admin: 01/23/19 14:05 Dose: 125 mg Vitamin B Complex/Vit C/Folic Acid (Nephro-Nacho) 1 tab PO 0800 [facility] Last Admin: 01/23/19 08:18 Dose: 1 tab - Labs Labs: 01/23/19 06:23 01/23/19 06:24 PT 13.3 SECONDS (9.7-12.2) H 01/15/19 05:29 INR 1.2 01/15/19 05:29 APTT 34 SECONDS (21-34) 01/15/19 05:29 - Constitutional Appears: Non-toxic, No Acute Distress, Chronically Ill - Head Exam Head Exam: NORMOCEPHALIC - Eye Exam Eye Exam: absent: Scleral icterus - ENT Exam ENT Exam: Mucous Membranes Dry - Neck Exam Neck Exam: absent: Lymphadenopathy - Respiratory Exam Respiratory Exam: Decreased Breath Sounds - Cardiovascular Exam Cardiovascular Exam: REGULAR RHYTHM - GI/Abdominal Exam GI & Abdominal Exam: Distended, Soft. absent: Tenderness - Rectal Exam Rectal Exam: Deferred - Exam Exam: NORMAL INSPECTION - Extremities Exam Extremities Exam: absent: Pedal Edema - Back Exam Back Exam: absent: CVA tenderness (L), CVA tenderness (R) - Neurological Exam Neurological Exam: Alert, Awake, CN II-XII Intact, Oriented x3 - Psychiatric Exam Psychiatric exam: Depressed - Skin Skin Exam: Dry, Intact Assessment and Plan (1) Pneumonia Status: Acute (2) Acute on chronic diastolic (congestive) heart failure Status: Resolved (3) Severe anemia Status: Resolved (4) ESRD (end stage renal disease) Status: Chronic (5) Hypertension Status: Chronic - Assessment and Plan (Free Text) Assessment: s/p resp failure and pneumonia with strep in blood as well as c diff from the community renal failure now on HD cont IV and PO Vanco as well as IV Flagyl Hold rocephin in view of persistent LBM ( tolerated well without rash )
[2019-01-23] MEDS ORDERED: Albuterol-Ipratrop 3 mg / 0.5 (3 ml) UD INH STA ×2 (19:46→22:01)
--- NOTE | 2019-01-23 20:20 | CP.PCM.PN ---
Subjective - Date & Time of Evaluation Date of Evaluation: 01/23/19 Time of Evaluation: 19:40 - Subjective Subjective: Patient seen and examined Lying comfortably in no distress Extubated yesterday On hemodialysis Objective - Vital Signs/Intake and Output Vital Signs (last 24 hours): Temp Pulse Resp BP Pulse Ox 98.2 F 83 22 158/73 H 94 L 01/23/19 16:00 01/23/19 18:54 01/23/19 18:54 01/23/19 18:54 01/23/19 18:54 Intake and Output: 01/23/19 01/24/19 18:59 06:59 Intake Total 670 0 Output Total 3300 Balance -2630 0 - Medications Medications: Current Medications Albuterol/Ipratropium (Duoneb 3 Mg/0.5 Mg (3 Ml) Ud) 3 ml INH RQ6 PRN PRN Reason: Shortness of Breath Apixaban (Eliquis) 2.5 mg PO BID [facility] Last Admin: 01/23/19 09:42 Dose: 2.5 mg Folic Acid (Folic Acid) 1 mg PO DAILY [facility] Last Admin: 01/23/19 09:45 Dose: 1 mg Vancomycin/Sodium Chloride (Vancomycin 1 Gm/Ns 200 Ml) 1 gm in 200 mls @ 133.333 mls/hr IVPB MWF [facility]; Protocol Last Admin: 01/22/19 10:00 Dose: 133.333 mls/hr Metronidazole (Flagyl) 500 mg in 100 mls @ 100 mls/hr IVPB Q8H [facility]; Protocol Last Admin: 01/23/19 17:06 Dose: 100 mls/hr Metoprolol Tartrate (Lopressor) 25 mg PO BID [facility] Last Admin: 01/23/19 17:07 Dose: 25 mg Pantoprazole Sodium (Protonix Inj) 40 mg IVP DAILY [facility] Last Admin: 01/23/19 09:42 Dose: 40 mg Paricalcitol (Zemplar) 2 mcg IV TTS [facility] Last Admin: 01/23/19 12:36 Dose: 2 mcg Rosuvastatin Calcium (Crestor) 10 mg PO HS [facility] Last Admin: 01/22/19 22:14 Dose: 10 mg Saccharomyces Boulardii (Florastor) 250 mg PO BID [facility] Last Admin: 01/23/19 17:07 Dose: 250 mg Vancomycin HCl (Firvanq (Oral Solution)) 125 mg NG QID [facility] Last Admin: 01/23/19 17:07 Dose: 125 mg Vitamin B Complex/Vit C/Folic Acid (Nephro-Nacho) 1 tab PO 0800 [facility] Last Admin: 01/23/19 08:18 Dose: 1 tab - Labs Labs: 01/23/19 06:23 01/23/19 06:24 PT 13.3 SECONDS (9.7-12.2) H 01/15/19 05:29 INR 1.2 01/15/19 05:29 APTT 34 SECONDS (21-34) 01/15/19 05:29 - Head Exam Head Exam: ATRAUMATIC, NORMOCEPHALIC - ENT Exam ENT Exam: Mucous Membranes Moist - Neck Exam Neck Exam: Normal Inspection - Respiratory Exam Respiratory Exam: Rhonchi, Wheezes - Cardiovascular Exam Cardiovascular Exam: REGULAR RHYTHM - GI/Abdominal Exam GI & Abdominal Exam: Soft Assessment and Plan (1) Pneumonia Assessment & Plan: Continue antibiotics and nebulizer treatment Follow-up chest x-ray Seen by cardiothoracic for pericardial effusion Status post extubation Continue hemodialysis Status: Acute (2) C. difficile colitis Status: Acute (3) ESRD (end stage renal disease) Status: Chronic
[2019-01-23] MEDS: VANCOMYCIN HCL 250 MG/5 ML PEG SCH (22:07)
--- NOTE | 2019-01-24 00:37 | PN ---
DATE: 01/23/2019 ENDOCRINOLOGY FOLLOWUP NOTE LOCATION: ICU room 2. SUBJECTIVE: This is a 73-year-old female with recent admission for generalized body weakness and progressive renal insufficiency with end-stage renal disease and dialysis dependence and is now being referred for endocrine evaluation of abnormal thyroid function studies. She remains clinically euthyroid and biochemically repeat thyroid studies showed a T4 or thyroxine level of 4.12 and a TSH of 2.31 with a free T4 of 0.82. LABORATORY DATA: Her chemistry showed a BUN of 17, sodium 136, potassium 3.3, chloride 102, CO2 of 24, glucose 76 and creatinine 3.8. ASSESSMENT: This is a 73-year-old female with longstanding hypertension and supervening end-stage renal disease with progressive renal insufficiency with recent initiation of hemodialysis as noted. She presented here with congestive heart failure and fluid overload. She also remains clinically euthyroid and biochemically has evidence of the so-called acute sick euthyroid syndrome as noted. PLAN OF MANAGEMENT: There is no indication at this time for any kind of thyroid pharmacotherapy as this is a transient phenomenon, which will improve as her clinical status improves accordingly. We will obtain serial thyroid studies and also serial chemistries and supplement accordingly as needed. Marilin Ruano MD
--- NOTE | 2019-01-24 02:46 | PN ---
DATE: 01/23/2019 FOLLOWUP RENAL CONSULTATION LOCATION: The patient is located in ICU, bed 2. REQUESTED BY: Dash Najera MD REASON FOR FOLLOWUP: End-stage renal disease, fluid overload, for continuation of hemodialysis. SUBJECTIVE: Mrs. 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 The patient was initially placed on BiPAP without improvement, and subsequently the patient was intubated and transferred to ICU. The patient was on ventilator until yesterday evening and also being treated for Streptococcus pneumonia gallolyticus and also fluid overload and C. difficile toxin is positive. The patient underwent hemodialysis yesterday, had ultrafiltration about 3 L. The patient was extubated post dialysis. The patient is off ventilator. The patient is awake and following commands appropriately, not in distress. The patient is being dialyzed again today for fluid overload. UF goal is about 3 L, tolerating very well. PHYSICAL EXAMINATION: VITAL SIGNS: As follows: Blood pressure 155/54, pulse 90, respiration 20, temperature 98. Post-dialysis weight is 50.6 kg. Had UF about 3 L. Height 5 feet 2 inches, and weight is 50.6 kg. GENERAL: Mrs. Faulkner is a 73-year-old elderly [place] female, moderately built, moderately nourished, not in distress. HEENT: Pupils normal and reactive to light and accommodation. Conjunctivae pink. Sclerae anicteric. Tongue is moist. Trachea is midline. LUNGS: Symmetric on both sides. Bilateral breath sounds present. No crackles. CARDIOVASCULAR SYSTEM: [place] at the fifth intercostal space, midclavicular line. S1 and S2 audible. Occasional irregular. ABDOMEN: Normal in appearance. Soft, tympanitic. No guarding. No rigidity. No hepatosplenomegaly. CENTRAL NERVOUS SYSTEM: The patient is alert, awake, oriented x2 to 3. Sensory and motor system is within normal limits. EXTREMITIES: No cyanosis. No clubbing. The patient has 1+ edema in both lower extremities. CURRENT MEDICATIONS: Include as follows: Crestor 10 mg p.o. at bedtime, DuoNeb inhaler, also Eliquis on hold, vancomycin 125 mg p.o. four times a day, Flagyl 500 mg IV every 8 hours, Florastor, folic acid 1 mg daily, Lopressor 25 mg p.o. b.i.d., Nephro-Nacho one tablet daily, Protonix 40 mg IV daily, vancomycin 1 g three times a week, and Zemplar 2 mcg IV three times a week. LABORATORY DATA: Include as follows: As of 01/23/2019, WBC 16.9, hemoglobin 9.1, hematocrit is 28 and platelets of 168. ABG, pH of 7.39, pCO2 of 36, pO2 of 78, bicarb is 22.7, saturation 98.4% on FiO2 of 30%, inspiratory rate 16, and expiratory rate 68. Sodium 136, potassium 3.3, chloride 102, CO2 of 24, BUN 70, creatinine 3.8, glucose 76, calcium 8.3, phosphorus is 4.5, magnesium 1.9. Free thyroxine is 0.82, thyroxine is 4.12, and TSH is 2.31. Serum cortisol is 25. ASSESSMENT: In summary, Mrs. Faulkner is a 73-year-old elderly [place] female with a history of longstanding hypertension, atrial fibrillation, status post kidney transplant with chronic allograft nephropathy, end-stage renal disease who was admitted with shortness of breath, cough, severe anemia and stool for occult blood was positive and started on hemodialysis. 1. 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 2. Anemia secondary to iron deficiency anemia, renal failure and lower gastrointestinal bleed. 3. Pneumonia. 4. Respiratory failure, status post extubation yesterday. 5. Fluid overload. 6. Clostridium difficile colitis. PLAN: Continue antibiotics as per Dr. Bazan. Continue p.o. vancomycin, IV Flagyl and also IV vancomycin for Streptococcus gallolyticus pneumonia. Continue prednisone 2.5 mg two every 2 days. The patient is being dialyzed. UF goal is about 3 L. We will follow with you. Thank you for allowing me to participate in your patient's care. Ever Madrigal MD
[2019-01-24 06:28] LABS: BASO % 0.3 % (0.0-2.0); EOS # 0.4 K/uL (0.0-0.7); EOS % 2.6 % (0.0-4.0); HEMOGLOBIN 8.6 g/dL (11.0-16.0); LYMPH # 0.7 K/uL (1.0-4.3); LYMPH % 4.7 % (20.0-40.0); MEAN CELL VOLUME 92.5 fL (81.0-99.0); MEAN CORPUSCULAR HEMOGLOBIN 29.1 pg (27.0-31.0); MEAN CORPUSCULAR HGB CONC 31.4 g/dL (33.0-37.0); MEAN PLATELET VOLUME 11.2 fL (7.2-11.7); MONO # 1.3 K/uL (0.0-0.8); NEUT # 11.8 K/uL (1.8-7.0); NEUT % 83.4 % (50.0-75.0); NRBC % 0.4 % (0.0-2.0); PLATELET COUNT 191 K/uL (130-400); RBC 2.98 Mil/uL (3.80-5.20); RED CELL DISTRIBUTION WIDTH 16.8 % (11.5-14.5); WHITE BLOOD COUNT 14.1 K/uL (4.8-10.8)
[2019-01-24 06:31] LABS: ABG ALLEN TEST POS; ARTERIAL BLOOD GAS HCO3 24.1 mmol/L (21-28); ARTERIAL BLOOD GAS HEMOGLOBIN 9.5 g/dL (11.7-17.4); ARTERIAL BLOOD GAS O2 SAT 97.6 % (95-98); ARTERIAL BLOOD GAS PCO2 42 mm/Hg (35-45); ARTERIAL BLOOD GAS PH 7.37 (7.35-7.45); ARTERIAL BLOOD GAS PO2 70 mm/Hg (80-100); ARTERIAL BLOOD GAS TCO2 25.6 mmol/L (22-28)
[2019-01-24 06:37] LABS: CALCIUM 8.3 mg/dl (8.6-10.4)
[2019-01-24] MEDS: Albuterol-Ipratrop 3 mg / 0.5 (3 ml) UD INH PRN ×2 (07:15→11:59)
--- NOTE | 2019-01-24 07:25 | CP.PCM.PN ---
Subjective - Date & Time of Evaluation Date of Evaluation: 01/24/19 Time of Evaluation: 07:23 - Subjective Subjective: Surgery: Dr. Butler Patient remains extubated in ICU. No acute events overnight. Elliquis placed on hold yesterday. Objective - Vital Signs/Intake and Output Vital Signs (last 24 hours): Temp Pulse Resp BP Pulse Ox 98.4 F 86 17 171/74 H 96 01/24/19 04:00 01/24/19 07:00 01/24/19 07:00 01/24/19 06:54 01/24/19 07:00 Intake and Output: 01/24/19 01/24/19 06:59 18:59 Intake Total 220 0 Output Total 101 Balance 119 0 - Medications Medications: Current Medications Albuterol/Ipratropium (Duoneb 3 Mg/0.5 Mg (3 Ml) Ud) 3 ml INH RQ6 PRN PRN Reason: Shortness of Breath Apixaban (Eliquis) 2.5 mg PO BID [facility] Last Admin: 01/23/19 09:42 Dose: 2.5 mg Folic Acid (Folic Acid) 1 mg PO DAILY [facility] Last Admin: 01/23/19 09:45 Dose: 1 mg Vancomycin/Sodium Chloride (Vancomycin 1 Gm/Ns 200 Ml) 1 gm in 200 mls @ 133.333 mls/hr IVPB MWF [facility]; Protocol Last Admin: 01/22/19 10:00 Dose: 133.333 mls/hr Metronidazole (Flagyl) 500 mg in 100 mls @ 100 mls/hr IVPB Q8H [facility]; Protocol Last Admin: 01/23/19 23:32 Dose: 100 mls/hr Metoprolol Tartrate (Lopressor) 25 mg PO BID [facility] Last Admin: 01/23/19 17:07 Dose: 25 mg Mycophenolate Mofetil (Cellcept Cap) 250 mg PO Q12 [facility] Pantoprazole Sodium (Protonix Inj) 40 mg IVP DAILY [facility] Last Admin: 01/23/19 09:42 Dose: 40 mg Paricalcitol (Zemplar) 2 mcg IV TTS [facility] Last Admin: 01/23/19 12:36 Dose: 2 mcg Prednisone (Prednisone) 2.5 mg PO DAILY [facility] Rosuvastatin Calcium (Crestor) 10 mg PO HS [facility] Last Admin: 01/23/19 22:05 Dose: 10 mg Saccharomyces Boulardii (Florastor) 250 mg PO BID [facility] Last Admin: 01/23/19 17:07 Dose: 250 mg Vancomycin HCl (Firvanq (Oral Solution)) 125 mg NG QID [facility] Last Admin: 01/23/19 22:09 Dose: 125 mg Vitamin B Complex/Vit C/Folic Acid (Nephro-Nacho) 1 tab PO 0800 [facility] Last Admin: 01/23/19 08:18 Dose: 1 tab - Labs Labs: 01/24/19 06:18 01/24/19 06:18 PT 13.3 SECONDS (9.7-12.2) H 01/15/19 05:29 INR 1.2 01/15/19 05:29 APTT 34 SECONDS (21-34) 01/15/19 05:29 - Constitutional Appears: Non-toxic, No Acute Distress - Head Exam Head Exam: ATRAUMATIC, NORMOCEPHALIC - Eye Exam Eye Exam: EOMI - ENT Exam ENT Exam: Mucous Membranes Moist - Respiratory Exam Respiratory Exam: NORMAL BREATHING PATTERN - Cardiovascular Exam Cardiovascular Exam: REGULAR RHYTHM. absent: Tachycardia Assessment and Plan - Assessment and Plan (Free Text) Assessment: 73 y/o female need for HD access Plan: -for permacath tomorrow -NPO pmn -hold AC -further recs per Dr. Luke Moore pGY4
[2019-01-24] MEDS: metroNIDAZOLE IV 500 mg/100 ml 500 MG/100 ML BAG IVPB SCH ×2 (08:00→16:45)
--- NOTE | 2019-01-24 08:22 | CP.CCUPN ---
CCU Subjective - Physician Review Events Since Last Encounter (Free Text): 01/24/19 08:21 Patient is currently comfortably lying down. But she was using the BiPAP last night. Patient has a rectal tube, and a significant amount of rectal diarrhea noted. Patient is awake and responding otherwise. Extubated 2 days ago. No fever recently noted. Poor intake noted. But able to eat. Vital signs are stable otherwise. Blood pressures on the high side. Chest bilateral good air entry Heart sounds are regular Nontender abdomen. Extremities edema generalized noted Labs are noted. Creatinine is 3.2 CBC reviewed WBC is slight improvement noted. X-ray chest x-ray showing CHF pattern. We will repeat the x-ray today Patient is a 73-year-old female with a history of end-stage renal disease on dialysis. Patient had a failed kidney transplant. Has a history of hypertension and atrial flutter fibrillation, history of CVA. Patient is still receiving CellCept, and prednisone. Also receiving vancomycin for C. difficile colitis. Overall prognosis is guarded. Patient is at high risk for recurrent infection. Continue to monitor. Clinically stable otherwise. We will follow the patient CCU Objective - Vital Signs / Intake & Output Vital Signs (Last 4 hours): Vital Signs Temp Pulse Resp BP Pulse Ox 01/24/19 07:58 98.2 F 01/24/19 07:00 86 17 96 01/24/19 06:54 84 20 171/74 H 96 01/24/19 06:00 82 23 100 01/24/19 05:54 82 22 166/74 H 100 01/24/19 05:43 77 16 167/73 H 99 01/24/19 05:00 85 19 100 Intake and Output (Last 8hrs): Intake & Output 01/23/19 01/24/19 01/24/19 22:59 06:59 14:59 Intake Total 710 100 0 Output Total 100 101 Balance 610 -1 0 Weight 131 lb 0.177 oz Intake: Intake, IV Amount 350 100 0 left jug. TLC distal port 350 100 0 Oral 360 0 0 Output: Stool 100 100 Urine/Stool Mix 1 - Physical Exam Head: Positive for: Atraumatic, Normocephalic Pupils: Positive for: PERRL Extroacular Muscles: Positive for: EOMI Mouth: Positive for: Moist Mucous Membranes Respiratory/Chest: Positive for: Clear to Auscultation, Good Air Exchange, Other (Intubated, on vent). Negative for: Respiratory Distress, Accessory Muscle Use Cardiovascular: Positive for: Regular Rate and Rhythm, Murmurs, Normal S1, S2 Abdomen: Positive for: Normal Bowel Sounds Upper Extremity: Positive for: Normal Inspection Lower Extremity: Positive for: Normal Inspection Neurological: Positive for: Other (Sedated on propofol drip) Skin: Positive for: Warm - Medications Active Medications: Active Medications Generic Name Dose Route Start Last Admin Trade Name Freq PRN Reason Stop Dose Admin Albuterol/Ipratropium 3 ml 01/24/19 02:00 01/24/19 07:15 Duoneb 3 Mg/0.5 Mg (3 Ml) Ud INH 3 ml RQ6 PRN Administration Shortness of Breath Apixaban 2.5 mg 01/22/19 18:00 01/23/19 09:42 Eliquis PO 2.5 mg BID [facility] Administration Folic Acid 1 mg 01/15/19 10:00 01/23/19 09:45 Folic Acid PO 1 mg DAILY [facility] Administration Vancomycin/Sodium Chloride 1 gm in 200 mls @ 133.333 mls/hr 01/18/19 09:00 01/22/19 10:00 Vancomycin 1 Gm/Ns 200 Ml IVPB 133.333 mls/hr MWF [facility] Administration Protocol Metronidazole 500 mg in 100 mls @ 100 mls/hr 01/23/19 08:00 01/23/19 23:32 Flagyl IVPB 100 mls/hr Q8H [facility] Administration Protocol Metoprolol Tartrate 25 mg 01/15/19 10:00 01/23/19 17:07 Lopressor PO 25 mg BID [facility] Administration Mycophenolate Mofetil 250 mg 01/24/19 10:00 Cellcept Cap PO Q12 [facility] Pantoprazole Sodium 40 mg 01/22/19 10:00 01/23/19 09:42 Protonix Inj IVP 40 mg DAILY [facility] Administration Paricalcitol 2 mcg 01/16/19 10:00 01/23/19 12:36 Zemplar IV 2 mcg TTS [facility] Administration Prednisone 2.5 mg 01/24/19 10:00 Prednisone PO DAILY [facility] Rosuvastatin Calcium 10 mg 01/15/19 22:00 01/23/19 22:05 Crestor PO 10 mg HS [facility] Administration Saccharomyces Boulardii 250 mg 01/18/19 10:00 01/23/19 17:07 Florastor PO 250 mg BID [facility] Administration Vancomycin HCl 125 mg 01/23/19 14:00 01/23/19 22:09 Firvanq (Oral Solution) NG 125 mg QID [facility] Administration Vitamin B Complex/Vit C/Folic Acid 1 tab 01/16/19 08:00 01/23/19 08:18 Nephro-Nacho PO 1 tab 0800 [facility] Administration - Patient Studies Lab Studies: Microbiology Studies 01/19/19 22:46 Blood Culture - Preliminary Blood-Venous NO GROWTH AFTER 4 DAYS 01/19/19 22:46 Blood Culture - Preliminary Blood-Venous NO GROWTH AFTER 4 DAYS 01/20/19 10:08 Blood Culture - Preliminary Blood-Thru [place] Line NO GROWTH AFTER 3 DAYS 01/20/19 10:08 Blood Culture - Preliminary Blood-Thru Central Line NO GROWTH AFTER 3 DAYS Lab Studies 01/24/19 01/24/19 01/24/19 Range/Units 06:18 06:18 05:55 WBC 14.1 H (4.8-10.8) K/uL RBC 2.98 L (3.80-5.20) Mil/uL Hgb 8.6 L (11.0-16.0) g/dL Hct 27.5 L (34.0-47.0) % MCV 92.5 (81.0-99.0) fL MCH 29.1 (27.0-31.0) pg MCHC 31.4 L (33.0-37.0) g/dL RDW 16.8 H (11.5-14.5) % Plt Count 191 (130-400) K/uL MPV 11.2 (7.2-11.7) fL Neut % (Auto) 83.4 H (50.0-75.0) % Lymph % (Auto) 4.7 L (20.0-40.0) % [place] % (Auto) 9.0 (0.0-10.0) % Eos % (Auto) 2.6 (0.0-4.0) % Baso % (Auto) 0.3 (0.0-2.0) % Neut # (Auto) 11.8 H (1.8-7.0) K/uL Lymph # (Auto) 0.7 L (1.0-4.3) K/uL [place] # (Auto) 1.3 H (0.0-0.8) K/uL Eos # (Auto) 0.4 (0.0-0.7) K/uL Baso # (Auto) 0.0 (0.0-0.2) K/uL Neutrophils % (Manual) (50-75) % Lymphocytes % (Manual) (20-40) % Monocytes % (Manual) (0-10) % Eosinophils % (Manual) (0-4) % Platelet Estimate (NORMAL) Large Platelets Giant Platelets Polychromasia Hypochromasia (manual) Poikilocytosis (manual Anisocytosis (manual) Ovalocytes Jackson Cells Puncture Site Rradial pCO2 42 (35-45) mm/Hg pO2 70 L (80-100) mm/Hg HCO3 24.1 (21-28) mmol/L ABG pH 7.37 (7.35-7.45) ABG Total CO2 25.6 (22-28) mmol/L ABG O2 Saturation 97.6 (95-98) % ABG Base Excess -1.0 (-2.0-3.0) mmol/L ABG Hemoglobin 9.5 L (11.7-17.4) g/dL ABG Carboxyhemoglobin 2.1 H (0.5-1.5) % POC ABG HHb (Measured) 2.3 (0.0-5.0) % ABG Methemoglobin 1.3 (0.0-3.0) % Trevin Test Pos Hgb O2 Saturation 94.3 L (95.0-98.0) % Liter Flow 2.0 Sodium 135 (132-148) mmol/L Potassium 3.5 L (3.6-5.2) mmol/L Chloride 102 (98-107) mmol/L Carbon Dioxide 26 (22-30) mmol/L Anion Gap 11 (10-20) BUN 58 H (7-17) mg/dL Creatinine 3.2 H (0.7-1.2) mg/dL Est GFR ( Amer) 17 Est GFR (Non-Af Amer) 14 Random Glucose 94 D (65-105) mg/dL Calcium 8.3 L (8.6-10.4) mg/dl 01/23/19 Range/Units 06:23 WBC (4.8-10.8) K/uL RBC (3.80-5.20) Mil/uL Hgb (11.0-16.0) g/dL Hct (34.0-47.0) % MCV (81.0-99.0) fL MCH (27.0-31.0) pg MCHC (33.0-37.0) g/dL RDW (11.5-14.5) % Plt Count (130-400) K/uL MPV (7.2-11.7) fL Neut % (Auto) (50.0-75.0) % Lymph % (Auto) (20.0-40.0) % [place] % (Auto) (0.0-10.0) % Eos % (Auto) (0.0-4.0) % Baso % (Auto) (0.0-2.0) % Neut # (Auto) (1.8-7.0) K/uL Lymph # (Auto) (1.0-4.3) K/uL [place] # (Auto) (0.0-0.8) K/uL Eos # (Auto) (0.0-0.7) K/uL Baso # (Auto) (0.0-0.2) K/uL Neutrophils % (Manual) 92 H (50-75) % Lymphocytes % (Manual) 1 L (20-40) % Monocytes % (Manual) 4 (0-10) % Eosinophils % (Manual) 3 (0-4) % Platelet Estimate Normal (NORMAL) Large Platelets Present Giant Platelets Present Polychromasia Slight Hypochromasia (manual) Slight Poikilocytosis (manual Slight Anisocytosis (manual) Slight Ovalocytes Slight Diana Cells Slight Puncture Site pCO2 (35-45) mm/Hg pO2 (80-100) mm/Hg HCO3 (21-28) mmol/L ABG pH (7.35-7.45) ABG Total CO2 (22-28) mmol/L ABG O2 Saturation (95-98) % ABG Base Excess (-2.0-3.0) mmol/L ABG Hemoglobin (11.7-17.4) g/dL ABG Carboxyhemoglobin (0.5-1.5) % POC ABG HHb (Measured) (0.0-5.0) % ABG Methemoglobin (0.0-3.0) % Trevin Test Hgb O2 Saturation (95.0-98.0) % Liter Flow Sodium (132-148) mmol/L Potassium (3.6-5.2) mmol/L Chloride (98-107) mmol/L Carbon Dioxide (22-30) mmol/L Anion Gap (10-20) BUN (7-17) mg/dL Creatinine (0.7-1.2) mg/dL Est GFR ( Amer) Est GFR (Non-Af Amer) Random Glucose (65-105) mg/dL Calcium (8.6-10.4) mg/dl Laboratory Results - last 24 hr 01/23/19 01/24/19 01/24/19 06:23 05:55 06:18 WBC 14.1 H RBC 2.98 L Hgb 8.6 L Hct 27.5 L MCV 92.5 MCH 29.1 MCHC 31.4 L RDW 16.8 H Plt Count 191 MPV 11.2 Neut % (Auto) 83.4 H Lymph % (Auto) 4.7 L [place] % (Auto) 9.0 Eos % (Auto) 2.6 Baso % (Auto) 0.3 Neut # (Auto) 11.8 H Lymph # (Auto) 0.7 L [place] # (Auto) 1.3 H Eos # (Auto) 0.4 Baso # (Auto) 0.0 Neutrophils % (Manual) 92 H Lymphocytes % (Manual) 1 L Monocytes % (Manual) 4 Eosinophils % (Manual) 3 Platelet Estimate Normal Large Platelets Present Giant Platelets Present Polychromasia Slight Hypochromasia (manual) Slight Poikilocytosis (manual Slight Anisocytosis (manual) Slight Ovalocytes Slight Diana Cells Slight Puncture Site Rradial pCO2 42 pO2 70 L HCO3 24.1 ABG pH 7.37 ABG Total CO2 25.6 ABG O2 Saturation 97.6 ABG Base Excess -1.0 ABG Hemoglobin 9.5 L ABG Carboxyhemoglobin 2.1 H POC ABG HHb (Measured) 2.3 ABG Methemoglobin 1.3 Trevin Test Pos Hgb O2 Saturation 94.3 L Liter Flow 2.0 Sodium Potassium Chloride Carbon Dioxide Anion Gap BUN Creatinine Est GFR ( Amer) Est GFR (Non-Af Amer) Random Glucose Calcium 01/24/19 06:18 WBC RBC Hgb Hct MCV MCH MCHC RDW Plt Count MPV Neut % (Auto) Lymph % (Auto) [place] % (Auto) Eos % (Auto) Baso % (Auto) Neut # (Auto) Lymph # (Auto) [place] # (Auto) Eos # (Auto) Baso # (Auto) Neutrophils % (Manual) Lymphocytes % (Manual) Monocytes % (Manual) Eosinophils % (Manual) Platelet Estimate Large Platelets Giant Platelets Polychromasia Hypochromasia (manual) Poikilocytosis (manual Anisocytosis (manual) Ovalocytes Diana Cells Puncture Site pCO2 pO2 HCO3 ABG pH ABG Total CO2 ABG O2 Saturation ABG Base Excess ABG Hemoglobin ABG Carboxyhemoglobin POC ABG HHb (Measured) ABG Methemoglobin Trevin Test Hgb O2 Saturation Liter Flow Sodium 135 Potassium 3.5 L Chloride 102 Carbon Dioxide 26 Anion Gap 11 BUN 58 H Creatinine 3.2 H Est GFR ( Amer) 17 Est GFR (Non-Af Amer) 14 Random Glucose 94 D Calcium 8.3 L Radiology Impressions: Radiology Impressions Chest X-Ray 01/23/19 07:00 IMPRESSION: Status post extubation. Interval improved aeration in the lungs with residual mild pulmonary venous congestion. Bilateral lower lobe airspace disease, worse on the left and small effusions. Critical Care Progress Note - Nutrition Nutrition: Nutrition Category Date Time Status Dysphagia/Modified Consistency Diet [DIET] Diets 01/23/19 Lunch Active NPO Diet [DIET] Diets 01/25/19 Breakfast Active
[2019-01-24] MEDS: Multivitamin Vitamin B Complex (Nephro-Vite) Tab PO SCH (09:00)
[2019-01-24] MEDS: Saccharomyces Boulardi 250 mg Cap PO SCH ×2 (09:01→17:15)
[2019-01-24 09:14] LABS: EOSINOPHIL 2 % (0-4); LYMPHOCYTE 4 % (20-40); MONOCYTE 8 % (0-10); NEUTROPHIL 86 % (50-75); PLATELET ESTIMATE NORMAL (NORMAL); TOTAL CELLS COUNTED 100
[2019-01-24 09:15] LABS: GIANT PLATELETS PRESENT; HYPOCHROMIC SLIGHT; LARGE PLATELETS PRESENT; POLYCHROMIC SLIGHT
[2019-01-24] MEDS: VANCOMYCIN HCL 250 MG/5 ML NG SCH ×4 (09:16→22:14)
[2019-01-24 09:18] LABS: ANISOCYTOSIS MODERATE; OVALOCYTES SLIGHT; POIKILOCYTOSIS SLIGHT; SCHISTOCYTES SLIGHT
--- NOTE | 2019-01-24 09:24 | RAD ---
Date of service: 01/24/2019 HISTORY: CHF COMPARISON: 01/23/2019. FINDINGS: LUNGS: The lungs are well inflated. There is mild pulmonary venous congestion. There is airspace disease in both lower lobes. PLEURA: Small pleural effusions. No pneumothorax. CARDIOVASCULAR: Mild cardiomegaly. There are aortic atherosclerotic calcifications present. OSSEOUS STRUCTURES: Within normal limits for the patient's age. VISUALIZED UPPER ABDOMEN: Normal. OTHER FINDINGS: None. IMPRESSION: Mild cardiomegaly, small pleural effusions and mild pulmonary venous congestion consistent with mild congestive heart failure. No significant interval change. Bibasilar airspace disease may represent compressive atelectasis however superimposed pneumonia cannot be excluded
--- NOTE | 2019-01-24 10:55 | CP.PCM.PN ---
Subjective - Date & Time of Evaluation Date of Evaluation: 01/24/19 Time of Evaluation: 10:55 - Subjective Subjective: pt is seen and examined, follow up consult is dictated #[id number] Objective - Vital Signs/Intake and Output Vital Signs (last 24 hours): Temp Pulse Resp BP Pulse Ox 98.2 F 86 17 162/77 H 96 01/24/19 07:58 01/24/19 07:00 01/24/19 07:00 01/24/19 09:00 01/24/19 07:00 Intake and Output: 01/24/19 01/24/19 06:59 18:59 Intake Total 220 0 Output Total 101 Balance 119 0 - Medications Medications: Current Medications Albuterol/Ipratropium (Duoneb 3 Mg/0.5 Mg (3 Ml) Ud) 3 ml INH RQ6 PRN PRN Reason: Shortness of Breath Last Admin: 01/24/19 07:15 Dose: 3 ml Apixaban (Eliquis) 2.5 mg PO BID [facility] Last Admin: 01/23/19 09:42 Dose: 2.5 mg Folic Acid (Folic Acid) 1 mg PO DAILY [facility] Last Admin: 01/24/19 09:00 Dose: 1 mg Vancomycin/Sodium Chloride (Vancomycin 1 Gm/Ns 200 Ml) 1 gm in 200 mls @ 133.333 mls/hr IVPB MWF [facility]; Protocol Last Admin: 01/22/19 10:00 Dose: 133.333 mls/hr Metronidazole (Flagyl) 500 mg in 100 mls @ 100 mls/hr IVPB Q8H [facility]; Protocol Last Admin: 01/24/19 08:00 Dose: 100 mls/hr Metoprolol Tartrate (Lopressor) 25 mg PO BID [facility] Last Admin: 01/24/19 09:00 Dose: 25 mg Mycophenolate Mofetil (Cellcept Cap) 250 mg PO Q12 [facility] Last Admin: 01/24/19 09:01 Dose: Not Given Pantoprazole Sodium (Protonix Inj) 40 mg IVP DAILY [facility] Last Admin: 01/24/19 09:00 Dose: 40 mg Paricalcitol (Zemplar) 2 mcg IV TTS [facility] Last Admin: 01/23/19 12:36 Dose: 2 mcg Prednisone (Prednisone) 2.5 mg PO DAILY [facility] Last Admin: 01/24/19 09:00 Dose: 2.5 mg Rosuvastatin Calcium (Crestor) 10 mg PO HS [facility] Last Admin: 01/23/19 22:05 Dose: 10 mg Saccharomyces Boulardii (Florastor) 250 mg PO BID [facility] Last Admin: 01/24/19 09:01 Dose: 250 mg Vancomycin HCl (Firvanq (Oral Solution)) 125 mg NG QID [facility] Last Admin: 01/24/19 09:16 Dose: 125 mg Vitamin B Complex/Vit C/Folic Acid (Nephro-Nacho) 1 tab PO 0800 [facility] Last Admin: 01/24/19 09:00 Dose: 1 tab - Labs Labs: 01/24/19 06:18 01/24/19 06:18 PT 13.3 SECONDS (9.7-12.2) H 01/15/19 05:29 INR 1.2 01/15/19 05:29 APTT 34 SECONDS (21-34) 01/15/19 05:29
--- NOTE | 2019-01-24 13:57 | CP.CCUPN ---
CCU Subjective - Physician Review Events Since Last Encounter (Free Text): 01/24/19 13:57 Pulmonary follow up, Covering Dr Jackson The Patient was seen and examined at the bedside, Medical records reviewed, and management issues were discussed and formulated with the house staff. Events reviewed CCU Objective - Vital Signs / Intake & Output Vital Signs (Last 4 hours): Vital Signs Pulse Resp BP Pulse Ox 01/24/19 11:00 86 19 100 01/24/19 10:54 78 17 163/71 H 100 01/24/19 10:00 89 28 H 100 Intake and Output (Last 8hrs): Intake & Output 01/23/19 01/24/19 01/24/19 22:59 06:59 14:59 Intake Total 710 100 0 Output Total 100 101 Balance 610 -1 0 Weight 131 lb 0.177 oz Intake: Intake, IV Amount 350 100 0 left jug. TLC distal port 350 100 0 Oral 360 0 0 Output: Stool 100 100 Urine/Stool Mix 1 - Physical Exam Head: Positive for: Atraumatic, Normocephalic Pupils: Positive for: PERRL Extroacular Muscles: Positive for: EOMI Mouth: Positive for: Moist Mucous Membranes Respiratory/Chest: Positive for: Clear to Auscultation, Good Air Exchange, Other (Intubated, on vent). Negative for: Respiratory Distress, Accessory Muscle Use Cardiovascular: Positive for: Regular Rate and Rhythm, Murmurs, Normal S1, S2 Abdomen: Positive for: Normal Bowel Sounds Upper Extremity: Positive for: Normal Inspection Lower Extremity: Positive for: Normal Inspection Neurological: Positive for: Other (Sedated on propofol drip) Skin: Positive for: Warm - Medications Active Medications: Active Medications Generic Name Dose Route Start Last Admin Trade Name Freq PRN Reason Stop Dose Admin Albuterol/Ipratropium 3 ml 01/24/19 14:00 Duoneb 3 Mg/0.5 Mg (3 Ml) Ud INH RQ6 GLADYS Apixaban 2.5 mg 01/22/19 18:00 01/23/19 09:42 Eliquis PO 2.5 mg BID GLADYS Administration Folic Acid 1 mg 01/15/19 10:00 01/24/19 09:00 Folic Acid PO 1 mg DAILY GLADYS Administration Vancomycin/Sodium Chloride 1 gm in 200 mls @ 133.333 mls/hr 01/18/19 09:00 01/22/19 10:00 Vancomycin 1 Gm/Ns 200 Ml IVPB 133.333 mls/hr MWF GLADYS Administration Protocol Metronidazole 500 mg in 100 mls @ 100 mls/hr 01/23/19 08:00 01/24/19 08:00 Flagyl IVPB 100 mls/hr Q8H GLADYS Administration Protocol Metoprolol Tartrate 25 mg 01/15/19 10:00 01/24/19 09:00 Lopressor PO 25 mg BID GLADYS Administration Mycophenolate Mofetil 250 mg 01/24/19 10:00 01/24/19 09:01 Cellcept Cap PO Not Given Q12 GLADYS Pantoprazole Sodium 40 mg 01/22/19 10:00 01/24/19 09:00 Protonix Inj IVP 40 mg DAILY GLADYS Administration Paricalcitol 2 mcg 01/16/19 10:00 01/23/19 12:36 Zemplar IV 2 mcg TTS GLADYS Administration Prednisone 2.5 mg 01/24/19 10:00 01/24/19 09:00 Prednisone PO 2.5 mg DAILY GLADYS Administration Rosuvastatin Calcium 10 mg 01/15/19 22:00 01/23/19 22:05 Crestor PO 10 mg HS GLADYS Administration Saccharomyces Boulardii 250 mg 01/18/19 10:00 01/24/19 09:01 Florastor PO 250 mg BID GLADYS Administration Vancomycin HCl 125 mg 01/23/19 14:00 01/24/19 09:16 Firvanq (Oral Solution) NG 125 mg QID GLADYS Administration Vitamin B Complex/Vit C/Folic Acid 1 tab 01/16/19 08:00 01/24/19 09:00 Nephro-Nacho PO 1 tab 0800 GLADYS Administration - Patient Studies Lab Studies: Microbiology Studies 01/20/19 10:08 Blood Culture - Preliminary Blood-Thru Central Line NO GROWTH AFTER 4 DAYS 01/20/19 10:08 Blood Culture - Preliminary Blood-Thru Central Line NO GROWTH AFTER 4 DAYS 01/19/19 22:46 Blood Culture - Preliminary Blood-Venous NO GROWTH AFTER 4 DAYS 01/19/19 22:46 Blood Culture - Preliminary Blood-Venous NO GROWTH AFTER 4 DAYS Lab Studies 01/24/19 01/24/19 01/24/19 Range/Units 06:18 06:18 05:55 WBC 14.1 H (4.8-10.8) K/uL RBC 2.98 L (3.80-5.20) Mil/uL Hgb 8.6 L (11.0-16.0) g/dL Hct 27.5 L (34.0-47.0) % MCV 92.5 (81.0-99.0) fL MCH 29.1 (27.0-31.0) pg MCHC 31.4 L (33.0-37.0) g/dL RDW 16.8 H (11.5-14.5) % Plt Count 191 (130-400) K/uL MPV 11.2 (7.2-11.7) fL Neut % (Auto) 83.4 H (50.0-75.0) % Lymph % (Auto) 4.7 L (20.0-40.0) % [place] % (Auto) 9.0 (0.0-10.0) % Eos % (Auto) 2.6 (0.0-4.0) % Baso % (Auto) 0.3 (0.0-2.0) % Neut # (Auto) 11.8 H (1.8-7.0) K/uL Lymph # (Auto) 0.7 L (1.0-4.3) K/uL [place] # (Auto) 1.3 H (0.0-0.8) K/uL Eos # (Auto) 0.4 (0.0-0.7) K/uL Baso # (Auto) 0.0 (0.0-0.2) K/uL Neutrophils % (Manual) 86 H (50-75) % Lymphocytes % (Manual) 4 L (20-40) % Monocytes % (Manual) 8 (0-10) % Eosinophils % (Manual) 2 (0-4) % Platelet Estimate Normal (NORMAL) Large Platelets Present Giant Platelets Present Polychromasia Slight Hypochromasia (manual) Slight Poikilocytosis (manual Slight Anisocytosis (manual) Moderate Ovalocytes Slight Schistocytes Slight Puncture Site Rradial pCO2 42 (35-45) mm/Hg pO2 70 L (80-100) mm/Hg HCO3 24.1 (21-28) mmol/L ABG pH 7.37 (7.35-7.45) ABG Total CO2 25.6 (22-28) mmol/L ABG O2 Saturation 97.6 (95-98) % ABG Base Excess -1.0 (-2.0-3.0) mmol/L ABG Hemoglobin 9.5 L (11.7-17.4) g/dL ABG Carboxyhemoglobin 2.1 H (0.5-1.5) % POC ABG HHb (Measured) 2.3 (0.0-5.0) % ABG Methemoglobin 1.3 (0.0-3.0) % Trevin Test Pos Hgb O2 Saturation 94.3 L (95.0-98.0) % Liter Flow 2.0 Sodium 135 (132-148) mmol/L Potassium 3.5 L (3.6-5.2) mmol/L Chloride 102 (98-107) mmol/L Carbon Dioxide 26 (22-30) mmol/L Anion Gap 11 (10-20) BUN 58 H (7-17) mg/dL Creatinine 3.2 H (0.7-1.2) mg/dL Est GFR ( Amer) 17 Est GFR (Non-Af Amer) 14 Random Glucose 94 D (65-105) mg/dL Calcium 8.3 L (8.6-10.4) mg/dl Laboratory Results - last 24 hr 01/24/19 01/24/19 01/24/19 05:55 06:18 06:18 WBC 14.1 H RBC 2.98 L Hgb 8.6 L Hct 27.5 L MCV 92.5 MCH 29.1 MCHC 31.4 L RDW 16.8 H Plt Count 191 MPV 11.2 Neut % (Auto) 83.4 H Lymph % (Auto) 4.7 L [place] % (Auto) 9.0 Eos % (Auto) 2.6 Baso % (Auto) 0.3 Neut # (Auto) 11.8 H Lymph # (Auto) 0.7 L [place] # (Auto) 1.3 H Eos # (Auto) 0.4 Baso # (Auto) 0.0 Neutrophils % (Manual) 86 H Lymphocytes % (Manual) 4 L Monocytes % (Manual) 8 Eosinophils % (Manual) 2 Platelet Estimate Normal Large Platelets Present Giant Platelets Present Polychromasia Slight Hypochromasia (manual) Slight Poikilocytosis (manual Slight Anisocytosis (manual) Moderate Ovalocytes Slight Schistocytes Slight Puncture Site Rradial pCO2 42 pO2 70 L HCO3 24.1 ABG pH 7.37 ABG Total CO2 25.6 ABG O2 Saturation 97.6 ABG Base Excess -1.0 ABG Hemoglobin 9.5 L ABG Carboxyhemoglobin 2.1 H POC ABG HHb (Measured) 2.3 ABG Methemoglobin 1.3 [place] Test Pos Hgb O2 Saturation 94.3 L Liter Flow 2.0 Sodium 135 Potassium 3.5 L Chloride 102 Carbon Dioxide 26 Anion Gap 11 BUN 58 H Creatinine 3.2 H Est GFR ( Amer) 17 Est GFR (Non-Af Amer) 14 Random Glucose 94 D Calcium 8.3 L Radiology Impressions: Radiology Impressions Chest X-Ray 01/24/19 08:19 IMPRESSION: Mild cardiomegaly, small pleural effusions and mild pulmonary venous congestion consistent with mild congestive heart failure. No significant interval change. Bibasilar airspace disease may represent compressive atelectasis however superimposed pneumonia cannot be excluded Critical Care Progress Note - Nutrition Nutrition: Nutrition Category Date Time Status Dysphagia/Modified Consistency Diet [DIET] Diets 01/23/19 Lunch Active NPO Diet [DIET] Diets 01/25/19 Breakfast Active
[2019-01-24] MEDS: Albuterol-Ipratrop 3 mg / 0.5 (3 ml) UD INH SCH ×2 (14:30→19:40)
--- NOTE | 2019-01-24 17:55 | PN ---
DATE: 01/24/2019 ENDOCRINOLOGY FOLLOWUP NOTE LOCATION: ICU room 2. SUBJECTIVE: This is a 73-year-old female with recent admission for progressive renal insufficiency and underwent hemodialysis and is now being followed closely for metabolic management of recent abnormal thyroid function studies. She remains clinically euthyroid and also biochemically euthyroid at this time. Her latest thyroid study showed a T4 or thyroxine level of 4.12 with a TSH of 2.31 and a free T4 of 0.82. LABORATORY DATA: Her latest chemistries showed a BUN of 58, sodium 135, potassium 3.5, chloride 102, CO2 of 26, glucose 94 and creatinine 3.2. Her serum cortisol level is 25 mcg/dL. ASSESSMENT: This is a 73-year-old female with longstanding hypertension and supervening chronic kidney disease with progressive renal insufficiency and now with end-stage renal disease and dialysis dependence as noted. She also remains clinically euthyroid and biochemically as evidence of the so-called acute sick euthyroid syndrome. PLAN OF MANAGEMENT: We concur with the present medical and renal management at this time. We will obtain serial chemistries and supplement accordingly as needed. We will also obtain serial thyroid studies and expect biochemical recovery as her clinical status improves accordingly. No indication at this time for any kind of thyroid pharmacotherapy. Marilin Ruano MD
[2019-01-25] MEDS: metroNIDAZOLE IV 500 mg/100 ml 500 MG/100 ML BAG IVPB SCH ×4 (00:30→23:48)
[2019-01-25] MEDS: Albuterol-Ipratrop 3 mg / 0.5 (3 ml) UD INH SCH ×4 (01:05→19:49)
--- NOTE | 2019-01-25 01:59 | PN ---
DATE: 01/24/2019 FOLLOWUP RENAL CONSULTATION LOCATION: The patient is located in room 2, ICU. HISTORY OF PRESENT ILLNESS: Mrs. Faulkner is a 73-year-old elderly [place] female with a past medical history significant for longstanding hypertension, AFib, status post renal transplant with allograft nephropathy, worsening renal function, anemia, fluid overload, secondary hyperparathyroidism who was admitted with shortness of breath, weakness and severe anemia, dyspnea on exertion. Initially, the patient was placed on BiPAP without response. The patient was subsequently intubated and transferred to ICU and found to have bilateral pneumonia and also streptococcus sepsis on IV antibiotics and also found to have C. diff toxin positive. The patient was extubated post dialysis on Friday. The patient is feeling much better, not in acute distress. The patient was also given extra hemodialysis, yesterday had ultrafiltration about 3 liters. The patient is not in distress, complains of cough. No chest pain or palpitation. No fever, no cough, responding appropriately. PHYSICAL EXAMINATION: VITAL SIGNS: As follows: Blood pressure 163/71, pulse 78, respirations 28, and saturation 100%, temperature 98.2. Height 5 feet 2 inches, weight is 131 pounds. GENERAL: Mrs. Faulkner is a 73-year-old elderly [place] female, moderately built, moderate nourished, not in distress. HEENT: Pupils normal and reactive to light and accommodation. Conjunctivae pink. Sclerae anicteric. Tongue is moist. Trachea is midline. LUNGS: Symmetric on both sides. Bilateral breath sounds present. Clear to auscultation. CARDIOVASCULAR SYSTEM: [place] at the fifth intercostal space, midclavicular line. S1, S2 audible. Slightly tachycardic. ABDOMEN: Normal in appearance. Soft, tympanitic. No guarding. No rigidity. No hepatosplenomegaly. CENTRAL NERVOUS SYSTEM: The patient is alert, awake, oriented x3. Nonfocal neuro examination. Cranial nerves II through XII grossly intact. Sensory and motor system is within normal limits. EXTREMITIES: No cyanosis, no clubbing, no edema. CURRENT MEDICATIONS: Include as follows: CellCept 250 mg p.o. every 12 hours, Crestor 10 mg at bedtime, DuoNeb inhaler, Eliquis on hold, vancomycin solution liquid 125 mg p.o. 4 times daily, Flagyl 500 mg IV every 8 hours, Florastor 250 mg p.o. b.i.d., folic acid 1 mg p.o. daily, metoprolol 25 mg p.o. b.i.d., Nephro-Nacho 1 tablet daily, prednisone 2.5 mg p.o. daily, Protonix 40 mg IV daily, vancomycin 1 g three times a week, Zemplar 2 mcg three times a week. LABORATORY DATA: Include as follows: As of 01/24/2019, WBC 14.1, hemoglobin 8.6, hematocrit is 27.5, platelets 191, and neutrophils 86, lymphs 8, monos 8, eosinophils is 2. ABG, pH 7.37, pCO2 of 42, pO2 of 70, bicarb is 24.1, saturation 97.6. Sodium 135, potassium 3.5, chloride 102, CO2 of 26, BUN 58, creatinine 3.2, glucose 94, and calcium 8.3. IMPRESSION AND PLAN: In summary, Mrs. Faulkner is a 73-year-old elderly [place] female with a history of longstanding hypertension, atrial fibrillation, status post renal transplant with allograft, nephropathy with worsening renal function, end-stage renal disease, status post left forearm arteriovenous fistula, anemia, secondary hyperparathyroidism who was admitted with fluid overload and dyspnea on exertion, shortness of breath, difficult to ambulate, and severe anemia who was found to have bilateral pneumonia and also Streptococcus gallolyticus sepsis, intubated, status post extubation on 01/22/2019 post dialysis and also being treated for C. difficile. 1. End-stage renal disease. Continue hemodialysis three times a week, Friday, , Friday. 2. Hypertension. 3. Atrial fibrillation. 4. Anemia. 5. Bilateral pneumonia. 6. Streptococcus gallolyticus sepsis. Continue antibiotics as per ID recommendations, p.o. vancomycin, IV Flagyl and IV vancomycin. Continue her all other medications, Crestor, DuoNeb inhaler, Florastor, folic acid, Nephro-Nacho, and prednisone. Continue CellCept 250 mg p.o. every 12 hours. We will continue to monitor. We will follow with you. Thank you for allowing me to participate in your patient's care. Awaiting for the PermCath placement, and we had discussed with the social service yesterday regarding outpatient hemodialysis referral to [facility] dialysis unit, and the patient may need subacute rehab also for debility and for physical therapy. Ever Madrigal MD
[2019-01-25 06:29] LABS: BASO % 0.1 % (0.0-2.0); EOS # 0.3 K/uL (0.0-0.7); EOS % 2.2 % (0.0-4.0); LYMPH # 0.8 K/uL (1.0-4.3); LYMPH % 6.2 % (20.0-40.0); MEAN CELL VOLUME 93.7 fL (81.0-99.0); MEAN CORPUSCULAR HEMOGLOBIN 28.9 pg (27.0-31.0); MEAN CORPUSCULAR HGB CONC 30.9 g/dL (33.0-37.0); MEAN PLATELET VOLUME 10.6 fL (7.2-11.7); MONO # 1.3 K/uL (0.0-0.8); MONO % 9.7 % (0.0-10.0); NEUT # 11.2 K/uL (1.8-7.0); NEUT % 81.8 % (50.0-75.0); NRBC % 0.6 % (0.0-2.0); PLATELET COUNT 265 K/uL (130-400); RBC 3.13 Mil/uL (3.80-5.20); RED CELL DISTRIBUTION WIDTH 16.4 % (11.5-14.5); WHITE BLOOD COUNT 13.7 K/uL (4.8-10.8)
[2019-01-25 06:33] LABS: INR 1.3; PROTHROMBIN TIME 14.5 SECONDS (9.7-12.2)
[2019-01-25 06:49] LABS: ALB/GLOB RATIO 1.1 (1.0-2.1); ALBUMIN 2.7 g/dL (3.5-5.0); CALCIUM 8.2 mg/dl (8.6-10.4)
[2019-01-25] MEDS: Multivitamin Vitamin B Complex (Nephro-Vite) Tab PO SCH (07:34)
[2019-01-25 08:53] LABS: EOSINOPHIL 4 % (0-4); LYMPHOCYTE 3 % (20-40); MONOCYTE 9 % (0-10); NEUTROPHIL 83 % (50-75); PLATELET ESTIMATE NORMAL (NORMAL); REACTIVE LYMPHOCYTES 1 % (0-0); TOTAL CELLS COUNTED 100
[2019-01-25 08:56] LABS: ANISOCYTOSIS SLIGHT; HYPOCHROMIC SLIGHT; POIKILOCYTOSIS SLIGHT
[2019-01-25 08:57] LABS: BURR CELLS SLIGHT; TARGET CELLS SLIGHT
[2019-01-25] MEDS: Saccharomyces Boulardi 250 mg Cap PO SCH ×2 (09:38→17:08)
[2019-01-25] MEDS: VANCOMYCIN HCL 250 MG/5 ML NG SCH ×4 (09:40→21:12)
[2019-01-25] MEDS: Vancomycin 1 gm/NS 200 ml 1 GM/200 ML BAG IVPB SCH (10:45)
--- NOTE | 2019-01-25 10:48 | CP.CCUPN ---
CCU Subjective - Physician Review Subjective (Free Text): PGY-1 Critical Care Progress Note for Dr. Linares Patient seen and examined at bedside. No acute events overnight. Tolerating O2 nasal canula. Patient denies chest pain, headache, dizziness, n/v/d/c. CCU Objective - Vital Signs / Intake & Output Vital Signs (Last 4 hours): Vital Signs Temp Pulse Resp BP Pulse Ox 01/25/19 09:38 159/70 H 01/25/19 09:00 97 H 26 H 100 01/25/19 08:54 89 21 159/70 H 100 01/25/19 08:00 98.0 F 92 H 21 100 01/25/19 07:55 89 21 166/76 H 100 01/25/19 07:00 83 17 100 01/25/19 06:54 84 17 160/68 H 100 Intake and Output (Last 8hrs): Intake & Output 01/24/19 01/25/19 01/25/19 22:59 06:59 14:59 Intake Total 370 100 150 Output Total 150 0 Balance 220 100 150 Weight 132 lb 6.4 oz Intake: Intake, IV Amount 100 100 100 left Jug. TLC medial port 100 left jug. TLC distal port 100 0 100 Oral 270 0 50 Output: Urine 0 Urine, Voided 0 Stool 150 Other: # Voids Urine, Voided 0 0 0 - Physical Exam Head: Positive for: Atraumatic, Normocephalic Pupils: Positive for: PERRL Extroacular Muscles: Positive for: EOMI Mouth: Positive for: Moist Mucous Membranes Respiratory/Chest: Positive for: Clear to Auscultation, Good Air Exchange, Other (nasal canula). Negative for: Respiratory Distress, Accessory Muscle Use Cardiovascular: Positive for: Regular Rate and Rhythm, Murmurs, Normal S1, S2 Abdomen: Positive for: Normal Bowel Sounds Upper Extremity: Positive for: Normal Inspection Lower Extremity: Positive for: Normal Inspection Neurological: Positive for: Other (Sedated on propofol drip) Skin: Positive for: Warm - Medications Active Medications: Active Medications Generic Name Dose Route Start Last Admin Trade Name Freq PRN Reason Stop Dose Admin Albuterol/Ipratropium 3 ml 01/24/19 14:00 01/25/19 07:32 Duoneb 3 Mg/0.5 Mg (3 Ml) Ud INH 3 ml RQ6 [facility] Administration Apixaban 2.5 mg 01/22/19 18:00 01/23/19 09:42 Eliquis PO 2.5 mg BID [facility] Administration Folic Acid 1 mg 01/15/19 10:00 01/25/19 09:38 Folic Acid PO 1 mg DAILY [facility] Administration Metronidazole 500 mg in 100 mls @ 100 mls/hr 01/23/19 08:00 01/25/19 07:34 Flagyl IVPB 100 mls/hr Q8H [facility] Administration Protocol Vancomycin/Sodium Chloride 1 gm in 200 mls @ 133.333 mls/hr 01/26/19 10:00 Vancomycin 1 Gm/Ns 200 Ml IVPB 01/31/19 10:01 TTS [facility] Protocol Metoprolol Tartrate 25 mg 01/15/19 10:00 01/25/19 09:38 Lopressor PO 25 mg BID [facility] Administration Mycophenolate Mofetil 250 mg 01/24/19 10:00 01/25/19 09:38 Cellcept Cap PO 250 mg Q12 [facility] Administration Pantoprazole Sodium 40 mg 01/22/19 10:00 01/25/19 09:38 Protonix Inj IVP 40 mg DAILY [facility] Administration Paricalcitol 2 mcg 01/16/19 10:00 01/23/19 12:36 Zemplar IV 2 mcg TTS [facility] Administration Prednisone 2.5 mg 01/24/19 10:00 01/25/19 09:38 Prednisone PO 2.5 mg DAILY [facility] Administration Rosuvastatin Calcium 10 mg 01/15/19 22:00 01/24/19 22:14 Crestor PO 10 mg HS [facility] Administration Saccharomyces Boulardii 250 mg 01/18/19 10:00 01/25/19 09:38 Florastor PO 250 mg BID [facility] Administration Vancomycin HCl 125 mg 01/23/19 14:00 01/25/19 09:40 Firvanq (Oral Solution) NG 125 mg QID [facility] Administration Vitamin B Complex/Vit C/Folic Acid 1 tab 01/16/19 08:00 01/25/19 07:34 Nephro-Nacho PO 1 tab 0800 [facility] Administration - Patient Studies Lab Studies: Microbiology Studies 01/20/19 10:08 Blood Culture - Final Blood-Thru Central Line NO GROWTH AFTER 5 DAYS Gram Stain - Final TEST NOT PERFORMED 01/20/19 10:08 Blood Culture - Final Blood-Thru Central Line NO GROWTH AFTER 5 DAYS Gram Stain - Final TEST NOT PERFORMED 01/19/19 22:46 Blood Culture - Final Blood-Venous NO GROWTH AFTER 5 DAYS Gram Stain - Final TEST NOT PERFORMED 01/19/19 22:46 Blood Culture - Final Blood-Venous NO GROWTH AFTER 5 DAYS Gram Stain - Final TEST NOT PERFORMED Lab Studies 01/25/19 01/25/19 01/25/19 Range/Units 06:22 06:22 06:22 WBC 13.7 H (4.8-10.8) K/uL RBC 3.13 L (3.80-5.20) Mil/uL Hgb 9.0 L (11.0-16.0) g/dL Hct 29.3 L (34.0-47.0) % MCV 93.7 (81.0-99.0) fL MCH 28.9 (27.0-31.0) pg MCHC 30.9 L (33.0-37.0) g/dL RDW 16.4 H (11.5-14.5) % Plt Count 265 (130-400) K/uL MPV 10.6 (7.2-11.7) fL Neut % (Auto) 81.8 H (50.0-75.0) % Lymph % (Auto) 6.2 L (20.0-40.0) % [place] % (Auto) 9.7 (0.0-10.0) % Eos % (Auto) 2.2 (0.0-4.0) % Baso % (Auto) 0.1 (0.0-2.0) % Neut # (Auto) 11.2 H (1.8-7.0) K/uL Lymph # (Auto) 0.8 L (1.0-4.3) K/uL [place] # (Auto) 1.3 H (0.0-0.8) K/uL Eos # (Auto) 0.3 (0.0-0.7) K/uL Baso # (Auto) 0.0 (0.0-0.2) K/uL Neutrophils % (Manual) 83 H (50-75) % Lymphocytes % (Manual) 3 L (20-40) % Reactive Lymphs % 1 H (0-0) % Monocytes % (Manual) 9 (0-10) % Eosinophils % (Manual) 4 (0-4) % Platelet Estimate Normal (NORMAL) Hypochromasia (manual) Slight Poikilocytosis (manual Slight Anisocytosis (manual) Slight Target Cells Slight [place] Cells Slight PT 14.5 H (9.7-12.2) SECONDS INR 1.3 APTT 35 H (21-34) SECONDS Sodium 136 (132-148) mmol/L Potassium 3.6 (3.6-5.2) mmol/L Chloride 102 (98-107) mmol/L Carbon Dioxide 22 (22-30) mmol/L Anion Gap 15 (10-20) BUN 68 H (7-17) mg/dL Creatinine 3.6 H (0.7-1.2) mg/dL Est GFR ( Amer) 15 Est GFR (Non-Af Amer) 12 Random Glucose 91 (65-105) mg/dL Calcium 8.2 L (8.6-10.4) mg/dl Phosphorus 5.1 H (2.5-4.5) mg/dL Magnesium 2.0 (1.6-2.3) mg/dL Total Bilirubin 0.6 (0.2-1.3) mg/dL AST 39 H D (14-36) U/L ALT 28 (9-52) U/L Alkaline Phosphatase 267 H (38-126) U/L Total Protein 5.3 L (6.3-8.3) g/dL Albumin 2.7 L (3.5-5.0) g/dL Globulin 2.6 (2.2-3.9) gm/dL Albumin/Globulin Ratio 1.1 (1.0-2.1) Vancomycin Trough (5.0-10.0) ug/mL 01/25/19 Range/Units 06:22 WBC (4.8-10.8) K/uL RBC (3.80-5.20) Mil/uL Hgb (11.0-16.0) g/dL Hct (34.0-47.0) % MCV (81.0-99.0) fL MCH (27.0-31.0) pg MCHC (33.0-37.0) g/dL RDW (11.5-14.5) % Plt Count (130-400) K/uL MPV (7.2-11.7) fL Neut % (Auto) (50.0-75.0) % Lymph % (Auto) (20.0-40.0) % [place] % (Auto) (0.0-10.0) % Eos % (Auto) (0.0-4.0) % Baso % (Auto) (0.0-2.0) % Neut # (Auto) (1.8-7.0) K/uL Lymph # (Auto) (1.0-4.3) K/uL [place] # (Auto) (0.0-0.8) K/uL Eos # (Auto) (0.0-0.7) K/uL Baso # (Auto) (0.0-0.2) K/uL Neutrophils % (Manual) (50-75) % Lymphocytes % (Manual) (20-40) % Reactive Lymphs % (0-0) % Monocytes % (Manual) (0-10) % Eosinophils % (Manual) (0-4) % Platelet Estimate (NORMAL) Hypochromasia (manual) Poikilocytosis (manual Anisocytosis (manual) Target Cells [place] Cells PT (9.7-12.2) SECONDS INR APTT (21-34) SECONDS Sodium (132-148) mmol/L Potassium (3.6-5.2) mmol/L Chloride (98-107) mmol/L Carbon Dioxide (22-30) mmol/L Anion Gap (10-20) BUN (7-17) mg/dL Creatinine (0.7-1.2) mg/dL Est GFR ( Amer) Est GFR (Non-Af Amer) Random Glucose (65-105) mg/dL Calcium (8.6-10.4) mg/dl Phosphorus (2.5-4.5) mg/dL Magnesium (1.6-2.3) mg/dL Total Bilirubin (0.2-1.3) mg/dL AST (14-36) U/L ALT (9-52) U/L Alkaline Phosphatase (38-126) U/L Total Protein (6.3-8.3) g/dL Albumin (3.5-5.0) g/dL Globulin (2.2-3.9) gm/dL Albumin/Globulin Ratio (1.0-2.1) Vancomycin Trough 24.8 H (5.0-10.0) ug/mL Laboratory Results - last 24 hr 01/25/19 01/25/19 01/25/19 06:22 06:22 06:22 WBC 13.7 H RBC 3.13 L Hgb 9.0 L Hct 29.3 L MCV 93.7 MCH 28.9 MCHC 30.9 L RDW 16.4 H Plt Count 265 MPV 10.6 Neut % (Auto) 81.8 H Lymph % (Auto) 6.2 L [place] % (Auto) 9.7 Eos % (Auto) 2.2 Baso % (Auto) 0.1 Neut # (Auto) 11.2 H Lymph # (Auto) 0.8 L [place] # (Auto) 1.3 H Eos # (Auto) 0.3 Baso # (Auto) 0.0 Neutrophils % (Manual) 83 H Lymphocytes % (Manual) 3 L Reactive Lymphs % 1 H Monocytes % (Manual) 9 Eosinophils % (Manual) 4 Platelet Estimate Normal Hypochromasia (manual) Slight Poikilocytosis (manual Slight Anisocytosis (manual) Slight Target Cells Slight [place] Cells Slight PT 14.5 H INR 1.3 APTT 35 H Sodium Potassium Chloride Carbon Dioxide Anion Gap BUN Creatinine Est GFR ( Amer) Est GFR (Non-Af Amer) Random Glucose Calcium Phosphorus Magnesium Total Bilirubin AST ALT Alkaline Phosphatase Total Protein Albumin Globulin Albumin/Globulin Ratio Vancomycin Trough 24.8 H 01/25/19 06:22 WBC RBC Hgb Hct MCV MCH MCHC RDW Plt Count MPV Neut % (Auto) Lymph % (Auto) [place] % (Auto) Eos % (Auto) Baso % (Auto) Neut # (Auto) Lymph # (Auto) [place] # (Auto) Eos # (Auto) Baso # (Auto) Neutrophils % (Manual) Lymphocytes % (Manual) Reactive Lymphs % Monocytes % (Manual) Eosinophils % (Manual) Platelet Estimate Hypochromasia (manual) Poikilocytosis (manual Anisocytosis (manual) Target Cells [place] Cells PT INR APTT Sodium 136 Potassium 3.6 Chloride 102 Carbon Dioxide 22 Anion Gap 15 BUN 68 H Creatinine 3.6 H Est GFR ( Amer) 15 Est GFR (Non-Af Amer) 12 Random Glucose 91 Calcium 8.2 L Phosphorus 5.1 H Magnesium 2.0 Total Bilirubin 0.6 AST 39 H D ALT 28 Alkaline Phosphatase 267 H Total Protein 5.3 L Albumin 2.7 L Globulin 2.6 Albumin/Globulin Ratio 1.1 Vancomycin Trough Review of Systems - Review of Systems All systems: reviewed and no additional remarkable complaints except Critical Care Progress Note - Nutrition Nutrition: Nutrition Category Date Time Status NPO Diet [DIET] Diets 01/25/19 Breakfast Active Assessment/Plan - Assessment and Plan (Free Text) Assessment: 73 year old female with history ESRD s/p failing renal transplant from 2002 presents acutely short of breath, found to have moderate bilateral pleural effusion on chest x-ray and CT chest as well as cardiomegaly, and anemic with HgB 5.2. Clinical status improving, patient now extubated tolerating O2 NC and HGB improved Cardio Cardiomegaly on chest XR -Echo 01/15: Normal LV function, EF 60-65%. -Normal sinus on monitor -Vascular access --S/p R femoral Shiley HD catheter placement beside with vascular surgery, Dr. Butler --R fem removed --> L fem double lumen HD catheter placed 01/20 --L IJ TLC placed 01/19 --Plan permacath placement 01/[address] Butler - f/u Pericardial Effusion -Loculated pericardial effusion noted on Echo -Blood cultures + Strep gallolyticus, Strep Pasterian (Strep Bovis sp) -CT surgery consulted, Dr. Benitez - likely chronic pericardial effusion --> may investigate as source of infection if positive cultures persist Pulmonary Bilateral pleural effusions -Extubated 01/22 to bipap. Now tolerating O2 NC. -Maintain spO2>92% -Chest XRs improving -Echo 01/18 - Normal systolic function, EF 50-55% -CXRs improving, continue to monitor Neuro -Off sedation -CT Head 01/15: No acute intracranial abnormality. Mild chronic microangiopathic changes and mild age-related global parenchymal volume loss. GI Anemia, rule out GI bleed -GI consulted for poss GIB bleed based on persistent anemia with 3/3 FOBT +, Dr. Bella --No overt GI bleeding noted --Recommend CT abdomen/pelvis with PO and IV contrast prior to HD - f/u tomorrow AM --Patient may benefit from colonoscopy once medically stable depending on report from recent colonoscopy to be obtained --c/w abx therapy for C. Diff colitis --Pepcid d/c'd --> Protonix 40 mg IV daily --No colonoscopy indicated at this time --Eliquis resumed (now held for permacath placement) C. Diff Colitis -PO Vanco, Flagyl -ID and GI on consult -Repeat stool cultures and C diff toxin 01/25 - f/u Renal ESRD hx renal transplant 2002, requiring new HD for failing transplant -S/p R femoral [place] HD catheter placement beside on admission with vascular surgery, Dr. Butler -Per surgery, patient now medically stable for permacath - plan for permacath 01/25 - f/u -Nephro on consult, Dr. Madrigal --Continue HD TTS -Monitor output and fluid status ID/Heme Anemia -HgB 5.2 on admission -S/p 3U PRBCs --> 10.5 --> 9.3 (currently 8.3) -Etiology due to chronic renal insufficiency vs GI bleed -Initially had + stool guaic, but HgB stable -GI consulted (see above) -HgB stable, will monitor for symptoms and daily CBC to assess need to transfuse -Eliquis held 01/24 for permacath placement Gram + Cocci Bacteremia, C. Diff Colitis -01/17 blood cultures positive for strep gallolyticus -Pt continues to have low-grade temps and developed mild white count -Stool studies + C. Diff --> PO vanco + flagyl -ID consulted, Dr. Bazan-Abx -PO/IV Vancomycin, Flagyl -Pt with loculated pericardial effusion on echo - per CT surgery, this most likely represents a chronic stable pericardial effusion as opposed to acute infection. -Repeat blood cultures negative x5 days PPx -GI: Protonix 40 mg IV daily -DVT: Pharmacologic DVT ppx c/i 2/2 anemia. SCDs. -ETT/PRVC -HD TTS Assessment and plan d/w Dr. Milagros Waters, PGY-1
--- NOTE | 2019-01-25 11:53 | RAD ---
HISTORY: b/l effusions COMPARISON: Chest x-ray performed 01/24/19 TECHNIQUE: Chest, one view. FINDINGS: Examination limited by marked hypoinflation and habitus. Left IJ approach central venous catheter extends expected location of the SVC. LUNGS: Moderate pulmonary venous congestion. Bibasilar atelectasis/pneumonia. PLEURA: Probable small pleural effusions bilaterally. No definite pneumothorax . CARDIOVASCULAR: Cardiomegaly. No significant atherosclerotic calcification present. OSSEOUS STRUCTURES: Osseous demineralization. Degenerative changes. VISUALIZED UPPER ABDOMEN: Unremarkable. OTHER FINDINGS: None. IMPRESSION: Hypoinflation. Left IJ approach central venous catheter extends the SVC. Moderate pulmonary venous congestion. Bibasilar atelectasis/pneumonia. Probable small bilateral pleural effusions.
[2019-01-25] MEDS ORDERED: Albuterol-Ipratrop 3 mg / 0.5 (3 ml) UD INH STA (12:01)
--- NOTE | 2019-01-25 12:07 | CP.PCM.PN ---
Subjective - Date & Time of Evaluation Date of Evaluation: 01/25/19 Time of Evaluation: 08:00 - Subjective Subjective: remains extubated improved on IV rx Objective - Vital Signs/Intake and Output Vital Signs (last 24 hours): Temp Pulse Resp BP Pulse Ox 98.0 F 82 19 158/80 H 100 01/25/19 08:00 01/25/19 11:00 01/25/19 11:00 01/25/19 10:54 01/25/19 11:00 Intake and Output: 01/25/19 01/25/19 06:59 18:59 Intake Total 200 250 Output Total 0 Balance 200 250 - Medications Medications: Current Medications Albuterol/Ipratropium (Duoneb 3 Mg/0.5 Mg (3 Ml) Ud) 3 ml INH RQ6 [facility] Last Admin: 01/25/19 07:32 Dose: 3 ml Apixaban (Eliquis) 2.5 mg PO BID [facility] Last Admin: 01/23/19 09:42 Dose: 2.5 mg Folic Acid (Folic Acid) 1 mg PO DAILY [facility] Last Admin: 01/25/19 09:38 Dose: 1 mg Metronidazole (Flagyl) 500 mg in 100 mls @ 100 mls/hr IVPB Q8H [facility]; Protocol Last Admin: 01/25/19 07:34 Dose: 100 mls/hr Vancomycin/Sodium Chloride (Vancomycin 1 Gm/Ns 200 Ml) 1 gm in 200 mls @ 13 3.333 mls/hr IVPB TTS [facility]; Protocol Stop: 01/31/19 10:01 Metoprolol Tartrate (Lopressor) 25 mg PO BID [facility] Last Admin: 01/25/19 09:38 Dose: 25 mg Mycophenolate Mofetil (Cellcept Cap) 250 mg PO Q12 [facility] Last Admin: 01/25/19 09:38 Dose: 250 mg Pantoprazole Sodium (Protonix Inj) 40 mg IVP DAILY [facility] Last Admin: 01/25/19 09:38 Dose: 40 mg Paricalcitol (Zemplar) 2 mcg IV TTS [facility] Last Admin: 01/23/19 12:36 Dose: 2 mcg Prednisone (Prednisone) 2.5 mg PO DAILY [facility] Last Admin: 01/25/19 09:38 Dose: 2.5 mg Rosuvastatin Calcium (Crestor) 10 mg PO HS [facility] Last Admin: 01/24/19 22:14 Dose: 10 mg Saccharomyces Boulardii (Florastor) 250 mg PO BID [facility] Last Admin: 01/25/19 09:38 Dose: 250 mg Vancomycin HCl (Firvanq (Oral Solution)) 125 mg NG QID [facility] Last Admin: 01/25/19 09:40 Dose: 125 mg Vitamin B Complex/Vit C/Folic Acid (Nephro-Nacho) 1 tab PO 0800 [facility] Last Admin: 01/25/19 07:34 Dose: 1 tab - Labs Labs: 01/25/19 06:22 01/25/19 06:22 PT 14.5 SECONDS (9.7-12.2) H 01/25/19 06:22 INR 1.3 01/25/19 06:22 APTT 35 SECONDS (21-34) H 01/25/19 06:22 - Constitutional Appears: Confused, Cachectic, Chronically Ill - Head Exam Head Exam: NORMOCEPHALIC - Eye Exam Eye Exam: absent: Scleral icterus - ENT Exam ENT Exam: Mucous Membranes Dry - Neck Exam Neck Exam: absent: Lymphadenopathy - Respiratory Exam Respiratory Exam: Decreased Breath Sounds, Prolonged Expiratory Phase, Rhonchi - Cardiovascular Exam Cardiovascular Exam: REGULAR RHYTHM - GI/Abdominal Exam GI & Abdominal Exam: Distended, Soft - Rectal Exam Rectal Exam: Deferred - Exam Exam: NORMAL INSPECTION - Extremities Exam Extremities Exam: Pedal Edema - Back Exam Back Exam: absent: CVA tenderness (L), CVA tenderness (R) - Neurological Exam Neurological Exam: Altered (x) - Psychiatric Exam Psychiatric exam: Depressed Assessment and Plan (1) Pneumonia Status: Acute (2) Acute on chronic diastolic (congestive) heart failure Status: Resolved (3) Severe anemia Status: Resolved (4) ESRD (end stage renal disease) Status: Chronic (5) Hypertension Status: Chronic - Assessment and Plan (Free Text) Assessment: cont IV Vanco PO Vanco
--- NOTE | 2019-01-25 13:13 | CP.PCM.PN ---
Subjective - Date & Time of Evaluation Date of Evaluation: 01/25/19 Time of Evaluation: 13:12 - Subjective Subjective: pt is seen and examined by me, follow up consult is dictated #[id number] for perma cath placement today, hd in am Objective - Vital Signs/Intake and Output Vital Signs (last 24 hours): Temp Pulse Resp BP Pulse Ox 97.9 F 87 16 168/88 H 100 01/25/19 12:00 01/25/19 12:00 01/25/19 12:00 01/25/19 11:54 01/25/19 12:00 Intake and Output: 01/25/19 01/25/19 06:59 18:59 Intake Total 200 250 Output Total 0 Balance 200 250 - Medications Medications: Current Medications Albuterol/Ipratropium (Duoneb 3 Mg/0.5 Mg (3 Ml) Ud) 3 ml INH RQ6 [facility] Last Admin: 01/25/19 07:32 Dose: 3 ml Apixaban (Eliquis) 2.5 mg PO BID [facility] Last Admin: 01/23/19 09:42 Dose: 2.5 mg Folic Acid (Folic Acid) 1 mg PO DAILY [facility] Last Admin: 01/25/19 09:38 Dose: 1 mg Metronidazole (Flagyl) 500 mg in 100 mls @ 100 mls/hr IVPB Q8H [facility]; Protocol Last Admin: 01/25/19 07:34 Dose: 100 mls/hr Vancomycin/Sodium Chloride (Vancomycin 1 Gm/Ns 200 Ml) 1 gm in 200 mls @ 133.333 mls/hr IVPB TTS [facility]; Protocol Stop: 01/31/19 10:01 Metoprolol Tartrate (Lopressor) 25 mg PO BID [facility] Last Admin: 01/25/19 09:38 Dose: 25 mg Mycophenolate Mofetil (Cellcept Cap) 250 mg PO Q12 [facility] Last Admin: 01/25/19 09:38 Dose: 250 mg Pantoprazole Sodium (Protonix Inj) 40 mg IVP DAILY [facility] Last Admin: 01/25/19 09:38 Dose: 40 mg Paricalcitol (Zemplar) 2 mcg IV TTS [facility] Last Admin: 01/23/19 12:36 Dose: 2 mcg Prednisone (Prednisone) 2.5 mg PO DAILY [facility] Last Admin: 01/25/19 09:38 Dose: 2.5 mg Rosuvastatin Calcium (Crestor) 10 mg PO HS [facility] Last Admin: 01/24/19 22:14 Dose: 10 mg Saccharomyces Boulardii (Florastor) 250 mg PO BID [facility] Last Admin: 01/25/19 09:38 Dose: 250 mg Vancomycin HCl (Firvanq (Oral Solution)) 125 mg NG QID [facility] Last Admin: 01/25/19 09:40 Dose: 125 mg Vitamin B Complex/Vit C/Folic Acid (Nephro-Nacho) 1 tab PO 0800 [facility] Last Admin: 01/25/19 07:34 Dose: 1 tab - Labs Labs: 01/25/19 06:22 01/25/19 06:22 PT 14.5 SECONDS (9.7-12.2) H 01/25/19 06:22 INR 1.3 01/25/19 06:22 APTT 35 SECONDS (21-34) H 01/25/19 06:22
[2019-01-25] MEDS ORDERED: Lidocaine Hydrochloride 10 ML INJ ONE (15:26)
[2019-01-25] MEDS ORDERED: HEPARIN-NS 5,000 UNITS/500 ML 5,000 UNIT/500 ML BAG IV ONE (15:27)
[2019-01-25] MEDS ORDERED: Iodixanol 320 MG/ML 200 ML BOTTLE IV ONE (15:30)
[2019-01-25] MEDS ORDERED: Propofol 10 mg/ml Inj (20 ML) ONE (16:01)
--- NOTE | 2019-01-25 16:37 | PCM.SURG1 ---
Surgeon's Initial Post Op Note - Surgeon's Notes Surgeon: Dr. Butler Dramatic Agent: Shawna PGY2 Type of Anesthesia: IV Sedation, Local Anesthesia Administered By: AHSAN GUPTA Pre-Operative Diagnosis: ESRD on HD Operative Findings: permacath in place with tip in appropriate position Post-Operative Diagnosis: ESRD on HD Operation Performed: Right IJ permacath insertion Specimen/Specimens Removed: N/A Estimated Blood Loss: EBL {In ML}: 5 Blood Products Given: N/A Drains Used: No Drains Post-Op Condition: Fair Date of Surgery/Procedure: 01/25/19 Time of Surgery/Procedure: 16:36
--- NOTE | 2019-01-25 18:01 | RAD ---
Date of service: 01/25/2019 HISTORY: s/p permacath COMPARISON: Multiple serial examinations preceding the most recent study: January 25, 2019. Time of the most recent examination: 09:23. FINDINGS: LUNGS: Stable lower lobe infiltrates. PLEURA: Bilateral pleural effusion inseparable from adjacent consolidative change. CARDIOVASCULAR: Venous access catheter in stable, satisfactory position. Recently placed PermCath in satisfactory position. OSSEOUS STRUCTURES: No significant abnormalities. VISUALIZED UPPER ABDOMEN: Normal. OTHER FINDINGS: None. IMPRESSION: Satisfactory position of recently placed PermCath. No interval changes otherwise identified.
--- NOTE | 2019-01-25 18:05 | RAD ---
Date of service: 01/25/2019 PROCEDURE: Intraoperative Fluoroscopy. HISTORY: RENAL FAILURE FINDINGS: Fluoroscopic assistance was provided for PermCath placement. Please refer to the operative report from ADE[facility] Murdock. Total exam DLP: 2.90 (mGy). Total fluoroscopic time (continuous mode) utilized during the procedure 32.9 seconds.
--- NOTE | 2019-01-25 18:10 | CP.PCM.PN ---
Subjective - Date & Time of Evaluation Date of Evaluation: 01/25/19 Time of Evaluation: 11:00 - Subjective Subjective: Patient was seen and examined at bedside. Patient was awake, but unable to follow commands. She says she wants coffee. Unable to obtain ROS. O: General: NAD, chronically ill, awake HEENT: traumatic, normocephalic, mucus membranes moist, PERRL Cardiovascular: RRR s1, s2 present Pulmonary: normal breathing pattern, good air exchange. No wheezing or Rhonchi GI: + bowel sounds in all four quadrants Extremities: R forearm edema A: 73 year old Palestinian female with a PMH of ESRD on dialysis, s/p kidney transplant with allograft nephropathy, s/p L forearm fistula, HTN, Afib, CVA, hyperparathyroidism, and anemia. She was admitted on 01/15/19 with fluid overload, SOB, and dyspnea. She was transferred to the ICU and found to had bilateral pneumonia, streptococcus sepsis, and C. diff. postive. She was extubated on 01/22/19 after dialysis. Pulmonary was consulted for the possible need for bronchoscopy. P: Bilateral pneumonia Strepococcus sepsis ESRD Anemia Afib HTN CXR on 01/24/19 shows small pleural effusions, mild pulmonary venous congestion consistent with mild CHF. Bibasilar airspace disease may represent atelectasis cannot r/o superimposed pneumonia. continue Duoneb, prednisone continue dialysis (T, T, S) continue antibiotics as per ID; vancomycin IV, Vancomycin PO, Flagyl IV All other treatments/ assessment as per primary team Objective - Vital Signs/Intake and Output Vital Signs (last 24 hours): Temp Pulse Resp BP Pulse Ox 98.6 F 77 18 164/81 H 100 01/25/19 15:45 01/25/19 18:00 01/25/19 18:00 01/25/19 17:55 01/25/19 18:00 Intake and Output: 01/25/19 01/25/19 06:59 18:59 Intake Total 200 400 Output Total 0 Balance 200 400 - Medications Medications: Current Medications Albuterol/Ipratropium (Duoneb 3 Mg/0.5 Mg (3 Ml) Ud) 3 ml INH RQ6 [facility] Last Admin: 01/25/19 13:47 Dose: Not Given Apixaban (Eliquis) 2.5 mg PO BID [facility] Last Admin: 01/23/19 09:42 Dose: 2.5 mg Folic Acid (Folic Acid) 1 mg PO DAILY [facility] Last Admin: 01/25/19 09:38 Dose: 1 mg Metronidazole (Flagyl) 500 mg in 100 mls @ 100 mls/hr IVPB Q8H [facility]; Protocol Last Admin: 01/25/19 15:28 Dose: 100 mls/hr Vancomycin/Sodium Chloride (Vancomycin 1 Gm/Ns 200 Ml) 1 gm in 200 mls @ 133.333 mls/hr IVPB TTS [facility]; Protocol Stop: 01/31/19 10:01 Metoprolol Tartrate (Lopressor) 25 mg PO BID [facility] Last Admin: 01/25/19 17:08 Dose: 25 mg Mycophenolate Mofetil (Cellcept Cap) 250 mg PO Q12 [facility] Last Admin: 01/25/19 09:38 Dose: 250 mg Pantoprazole Sodium (Protonix Inj) 40 mg IVP DAILY [facility] Last Admin: 01/25/19 09:38 Dose: 40 mg Paricalcitol (Zemplar) 2 mcg IV TTS [facility] Last Admin: 01/23/19 12:36 Dose: 2 mcg Prednisone (Prednisone) 2.5 mg PO DAILY [facility] Last Admin: 01/25/19 09:38 Dose: 2.5 mg Rosuvastatin Calcium (Crestor) 10 mg PO HS [facility] Last Admin: 01/24/19 22:14 Dose: 10 mg Saccharomyces Boulardii (Florastor) 250 mg PO BID [facility] Last Admin: 01/25/19 17:08 Dose: 250 mg Vancomycin HCl (Firvanq (Oral Solution)) 125 mg NG QID [facility] Last Admin: 01/25/19 17:08 Dose: 125 mg Vitamin B Complex/Vit C/Folic Acid (Nephro-Nacho) 1 tab PO 0800 [facility] Last Admin: 01/25/19 07:34 Dose: 1 tab - Labs Labs: 01/25/19 06:22 01/25/19 06:22 PT 14.5 SECONDS (9.7-12.2) H 01/25/19 06:22 INR 1.3 01/25/19 06:22 APTT 35 SECONDS (21-34) H 01/25/19 06:22 Assessment and Plan (1) Pneumonia Status: Acute (2) C. difficile colitis Status: Acute (3) ESRD (end stage renal disease) Status: Chronic
[2019-01-25] MEDS: Oxycodone/Acetaminophen 5/325 mg Tab PO STA ×2 (20:47→20:53)
--- NOTE | 2019-01-25 22:27 | CP.PCM.PN ---
Subjective - Date & Time of Evaluation Date of Evaluation: 01/25/19 Time of Evaluation: 19:00 - Subjective Subjective: Patient had a Permacath inserted today. Alert, oriented, in no respiratory distress and eating. Still with a productive cough, but afebrile. CXR reveals a LLL infiltrate. On Vancomycin and Rocephin. Objective - Vital Signs/Intake and Output Vital Signs (last 24 hours): Temp Pulse Resp BP Pulse Ox 98.3 F 86 24 161/74 H 100 01/25/19 20:00 01/25/19 22:00 01/25/19 22:00 01/25/19 21:59 01/25/19 22:00 Intake and Output: 01/25/19 01/26/19 18:59 06:59 Intake Total 500 150 Output Total 50 Balance 450 150 - Medications Medications: Current Medications Acetaminophen (Tylenol 325mg Tab) 650 mg PO Q6 PRN PRN Reason: Pain, moderate (4-7) Last Admin: 01/25/19 19:21 Dose: 650 mg Albuterol/Ipratropium (Duoneb 3 Mg/0.5 Mg (3 Ml) Ud) 3 ml INH RQ6 [facility] Last Admin: 01/25/19 19:49 Dose: 3 ml Apixaban (Eliquis) 2.5 mg PO BID [facility] Last Admin: 01/23/19 09:42 Dose: 2.5 mg Epoetin Elijah (Procrit) 10,000 unit SC TTS [facility] Folic Acid (Folic Acid) 1 mg PO DAILY [facility] Last Admin: 01/25/19 09:38 Dose: 1 mg Metronidazole (Flagyl) 500 mg in 100 mls @ 100 mls/hr IVPB Q8H [facility]; Protocol Last Admin: 01/25/19 15:28 Dose: 100 mls/hr Vancomycin/Sodium Chloride (Vancomycin 1 Gm/Ns 200 Ml) 1 gm in 200 mls @ 133.333 mls/hr IVPB TTS [facility]; Protocol Stop: 01/31/19 10:01 Metoprolol Tartrate (Lopressor) 25 mg PO BID [facility] Last Admin: 01/25/19 17:08 Dose: 25 mg Mycophenolate Mofetil (Cellcept Cap) 250 mg PO Q12 [facility] Last Admin: 01/25/19 21:38 Dose: 250 mg Pantoprazole Sodium (Protonix Inj) 40 mg IVP DAILY [facility] Last Admin: 01/25/19 09:38 Dose: 40 mg Paricalcitol (Zemplar) 2 mcg IV TTS [facility] Last Admin: 01/23/19 12:36 Dose: 2 mcg Prednisone (Prednisone) 2.5 mg PO DAILY [facility] Last Admin: 01/25/19 09:38 Dose: 2.5 mg Rosuvastatin Calcium (Crestor) 10 mg PO HS [facility] Last Admin: 01/25/19 21:38 Dose: 10 mg Saccharomyces Boulardii (Florastor) 250 mg PO BID [facility] Last Admin: 01/25/19 17:08 Dose: 250 mg Vancomycin HCl (Firvanq (Oral Solution)) 125 mg NG QID [facility] Last Admin: 01/25/19 21:12 Dose: 125 mg Vitamin B Complex/Vit C/Folic Acid (Nephro-Nacho) 1 tab PO 0800 [facility] Last Admin: 01/25/19 07:34 Dose: 1 tab - Labs Labs: 01/25/19 06:22 01/25/19 06:22 PT 14.5 SECONDS (9.7-12.2) H 01/25/19 06:22 INR 1.3 01/25/19 06:22 APTT 35 SECONDS (21-34) H 01/25/19 06:22 - Constitutional Appears: No Acute Distress, Chronically Ill - Head Exam Head Exam: NORMAL INSPECTION - Eye Exam Eye Exam: Normal appearance - ENT Exam ENT Exam: Normal Exam - Neck Exam Neck Exam: Normal Inspection - Respiratory Exam Respiratory Exam: Rhonchi Additional comments: Rhonchi herd at both bases. - Cardiovascular Exam Cardiovascular Exam: REGULAR RHYTHM - GI/Abdominal Exam GI & Abdominal Exam: Soft, Normal Bowel Sounds - Rectal Exam Rectal Exam: Deferred - Extremities Exam Extremities Exam: Normal Inspection - Back Exam Back Exam: NORMAL INSPECTION - Neurological Exam Neurological Exam: Alert, Awake, Oriented x3 - Psychiatric Exam Psychiatric exam: Anxious - Skin Skin Exam: Intact, Normal Color, Warm Assessment and Plan (1) Acute on chronic diastolic (congestive) heart failure Status: Resolved (2) Severe anemia Status: Resolved (3) ESRD (end stage renal disease) Assessment & Plan: On HD as per Elevator Builder. Status: Chronic (4) Hypertension Status: Chronic (5) Pneumonia Assessment & Plan: On IV antibiotics. Status: Acute (6) C. difficile colitis Assessment & Plan: On PO Vancomycin. Status: Acute (7) Bacteremia, coagulase-negative staphylococcal Assessment & Plan: On IV antibiotics. Status: Acute (8) Acute respiratory failure Assessment & Plan: Patient extubated, in no respiratory distress. Status: Resolved
[2019-01-26] MEDS: Albuterol-Ipratrop 3 mg / 0.5 (3 ml) UD INH SCH ×5 (00:20→19:40)
--- NOTE | 2019-01-26 02:06 | PN ---
DATE: 01/25/2019 FOLLOWUP RENAL CONSULTATION LOCATION: The patient is located in ICU, bed 2. REQUESTED BY: Dash Najera MD REASON FOR RENAL CONSULTATION: End-stage renal disease, continuation of hemodialysis. HISTORY OF PRESENT ILLNESS: Mrs. 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 Hemoglobin on 01/24/2019 is 8.6 and 01/25/2019 is 9. The patient was initially placed on BiPAP without significant improvement on admission. Subsequently, required intubation and transferred to ICU. The patient is being treated initially for acute respiratory failure and also found to have pneumonia. Blood culture later on positive for Streptococcus gallolyticus and also stool was positive for C. diff toxin. The patient was extubated last week 01/22/2019, after post dialysis, and the patient is feeling much better, complaining of cough. The patient underwent PermCath placement this afternoon. PHYSICAL EXAMINATION: VITAL SIGNS: As follows: Blood pressure this afternoon, blood pressure of 134/77, pulse 86, respirations 21, and saturation 100%. Temperature this afternoon is 97.9. Height 5 feet 2 inches, weight is 132 pounds. GENERAL: Mrs. Faulkner is a 73-year-old elderly [place]ian female, on nasal cannula, thin-built, not in distress. HEENT: Pupils normal and reactive to light and accommodation. Conjunctivae pink. Sclerae anicteric. Tongue is moist. Trachea is midline. LUNGS: Symmetric on both sides. Bilateral breath sounds present. Decreased breath sounds at bases with a poor inspiratory effort. No crackles. CARDIOVASCULAR SYSTEM: [place] at the fifth intercostal space midclavicular line. S1, S2 audible. No murmur or gallop. ABDOMEN: Normal in appearance. Soft, tympanitic. No guarding. No rigidity. No hepatosplenomegaly. CENTRAL NERVOUS SYSTEM: The patient is alert, awake, oriented x3. Nonfocal neuro examination. Cranial nerves II through XII grossly intact. Sensory and motor system is within normal limits. EXTREMITIES: No cyanosis, no clubbing, no edema. CURRENT MEDICATIONS: Include as follows: CellCept 250 mg p.o. every 12 hours; Crestor 10 mg at bedtime; DuoNeb inhaler every 6 hours; Eliquis on hold; vancomycin p.o. 125 mg four times daily; Flagyl 500 mg IV every 8 hours; Florastor 250 mg p.o. b.i.d.; folic acid 1 mg p.o. daily; Lopressor 25 mg p.o. b.i.d.; Nephro-Nacho 1 tablet daily; prednisone 2.5 mg p.o. daily; Protonix 40 mg IV daily; Tylenol; vancomycin 1 g every Friday, , Friday post dialysis; Zemplar 2 mcg IV three times a week, Friday, , Friday. INTAKE AND OUTPUT: Intake is 1050 and output is 150 mL, mostly stool. LABORATORY DATA: Her laboratory data include as follows: As of 01/25/2019, WBC 13.7, hemoglobin 9, hematocrit is 29.3, platelets 265. PT is 14.5. INR 1.3, PTT 35. Chem-7: Sodium 136, potassium 3.6, chloride 102, CO2 of 22, BUN 68, creatinine 3.6, glucose is 91, calcium 8.2, phosphorus is 5.1, magnesium is 2. Total bili 0.6, AST 29, ALT is 28, alkaline phosphatase 267, total protein 5.3, albumin is 2.7. Vancomycin trough level is 24.8, and stool for C. diff toxin is negative as of 01/25/2019. Thyroglobulin antibody less than 1, thyroid peroxidase antibody is 2. Chest x-ray as of 01/25/2019 at 09:17 a.m., impression, hypoinflation and left internal jugular central venous catheter that extends down to SVC, moderate pulmonary venous congestion, bibasilar atelectasis or pneumonia, probable small bilateral pleural effusion. ASSESSMENT AND PLAN: In summary, Mrs. Faulkner is a 73-year-old elderly [place] female with history of longstanding hypertension, atrial fibrillation, congestive heart failure, anemia, fluid overload, status post kidney transplant in 2002, chronic allograft nephropathy who was admitted with worsening renal function, low hemoglobin and hematocrit. Stool for occult blood is positive, shortness of breath, cough with white sputum production, and found in respiratory failure, requiring intubation and admission to the ICU from the medical floor and being treated for bilateral pneumonia and blood culture positive for Streptococcus gallolyticus and stool clostridium difficile toxin was also positive for clostridium difficile, being treated, now clostridium difficile is negative, status post extubation on Friday. 1. 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 2. Anemia. Hemoglobin and hematocrit are improving. Continue Procrit and Nephro-Nacho. 3. Bilateral pneumonia secondary to Streptococcus gallolyticus infection. Continue IV antibiotics, vancomycin three times a week as per Dr. Rivero. Continue p.o. Vicryl and IV Flagyl as per Dr. wolf. The patient underwent PermCath placement this afternoon. We will schedule for hemodialysis in a.m. We will try to ultrafiltrate as much as the patient can tolerate. Case discussed with ICU attending, Dr. Carri Linares, in rounds. Thank you for allowing me to participate in your patient's care. Ever Madrigal MD
--- NOTE | 2019-01-26 03:11 | OP ---
PROCEDURE DATE: 01/25/2019 PREOPERATIVE DIAGNOSIS: Renal failure. POSTOPERATIVE DIAGNOSIS: Renal failure. PROCEDURE: Placement of PermCath right jugular vein, C-arm fluoroscopy, ultrasound-guided puncture, and micropuncture technique. SURGEON: Germán Butler Jr., MD FOREPART REDUCER: Donovan Matos DO ANESTHESIOLOGIST: Mr. Rodriguez. COMPLICATIONS: None. INDICATIONS: The patient is an elderly woman with renal insufficiency, heart failure, presents, had temporary femoral dialysis catheter, has a fistula in the left arm which is not big enough to be used. OPERATIVE FINDING: Catheter was inserted uneventfully via jugular vein. DESCRIPTION OF PROCEDURE: After prepping, antibiotics were systemically administered during dialysis and using ultrasound puncture, the right jugular vein was cannulated. Under fluoroscopic control, a guidewire was advanced centrally. A sheath dilator was passed over this and exchanged for an 0.035 wire. After the micropuncture technique, the catheter was removed. The catheter was then positioned in the appropriate location with good inflow and outflow and was secured to the skin. Blood loss to the procedure was less than 10 mL. OPERATION CARRIED OUT: PermCath right jugular vein with C-arm fluoroscopy, ultrasound guided puncture and micropuncture technique. Ultrasound imaging of the neck showed the vein was approximately 12 mm in diameter normal compressibility. However, greater in size during the respiratory cycle. Germán Butler Jr., MD
[2019-01-26 05:31] LABS: BASO % 0.5 % (0.0-2.0); EOS # 0.3 K/uL (0.0-0.7); EOS % 3.6 % (0.0-4.0); LYMPH # 0.7 K/uL (1.0-4.3); LYMPH % 7.3 % (20.0-40.0); MEAN CORPUSCULAR HEMOGLOBIN 30.1 pg (27.0-31.0); MEAN PLATELET VOLUME 10.2 fL (7.2-11.7); MONO # 0.9 K/uL (0.0-0.8); MONO % 9.3 % (0.0-10.0); NEUT # 7.7 K/uL (1.8-7.0); NEUT % 79.3 % (50.0-75.0); NRBC % 0.9 % (0.0-2.0); PLATELET COUNT 238 K/uL (130-400); RBC 2.67 Mil/uL (3.80-5.20); RED CELL DISTRIBUTION WIDTH 16.2 % (11.5-14.5); WHITE BLOOD COUNT 9.7 K/uL (4.8-10.8)
[2019-01-26 06:48] LABS: ALBUMIN 2.4 g/dL (3.5-5.0); CALCIUM 7.4 mg/dl (8.6-10.4)
[2019-01-26] MEDS: metroNIDAZOLE IV 500 mg/100 ml 500 MG/100 ML BAG IVPB SCH ×3 (08:00→23:57)
[2019-01-26] MEDS: Multivitamin Vitamin B Complex (Nephro-Vite) Tab PO SCH (08:36)
[2019-01-26 09:13] LABS: BANDS 2 % (0-2); LYMPHOCYTE 8 % (20-40); MONOCYTE 7 % (0-10); NEUTROPHIL 82 % (50-75); REACTIVE LYMPHOCYTES 1 % (0-0); TOTAL CELLS COUNTED 100
[2019-01-26 09:14] LABS: PLATELET ESTIMATE NORMAL (NORMAL)
[2019-01-26 09:16] LABS: ANISOCYTOSIS SLIGHT; HYPOCHROMIC SLIGHT; OVALOCYTES SLIGHT; POIKILOCYTOSIS SLIGHT; TARGET CELLS SLIGHT
[2019-01-26 09:17] LABS: BURR CELLS SLIGHT
--- NOTE | 2019-01-26 09:30 | CP.PCM.PN ---
Subjective - Date & Time of Evaluation Date of Evaluation: 01/26/19 Time of Evaluation: 07:25 - Subjective Subjective: Vascular Surger Note for Dr. Butler Patient seen and examined at bedside. No acute event overnight. Patient is s/p permacath insertion POD#1. Patient's left femoral shiley was removed this am. Patient responds to question intermittently. No complaints at this time. GCS 14. Objective - Vital Signs/Intake and Output Vital Signs (last 24 hours): Temp Pulse Resp BP Pulse Ox 97.6 F 85 27 H 132/78 99 01/26/19 08:00 01/26/19 09:00 01/26/19 09:00 01/26/19 08:59 01/26/19 09:00 Intake and Output: 01/26/19 01/26/19 06:59 18:59 Intake Total 300 340 Output Total 80 200 Balance 220 140 - Medications Medications: Current Medications Acetaminophen (Tylenol 325mg Tab) 650 mg PO Q6 PRN PRN Reason: Pain, moderate (4-7) Last Admin: 01/25/19 19:21 Dose: 650 mg Albuterol/Ipratropium (Duoneb 3 Mg/0.5 Mg (3 Ml) Ud) 3 ml INH RQ6 [facility] Last Admin: 01/26/19 08:18 Dose: 3 ml Apixaban (Eliquis) 2.5 mg PO BID [facility] Last Admin: 01/23/19 09:42 Dose: 2.5 mg Epoetin Elijah (Procrit) 10,000 unit SC TTS [facility] Folic Acid (Folic Acid) 1 mg PO DAILY [facility] Last Admin: 01/25/19 09:38 Dose: 1 mg Metronidazole (Flagyl) 500 mg in 100 mls @ 100 mls/hr IVPB Q8H [facility]; Protocol Last Admin: 01/26/19 08:00 Dose: 100 mls/hr Vancomycin/Sodium Chloride (Vancomycin 1 Gm/Ns 200 Ml) 1 gm in 200 mls @ 133.333 mls/hr IVPB TTS [facility]; Protocol Stop: 01/31/19 10:01 Metoprolol Tartrate (Lopressor) 25 mg PO BID [facility] Last Admin: 01/25/19 17:08 Dose: 25 mg Mycophenolate Mofetil (Cellcept Cap) 250 mg PO Q12 [facility] Last Admin: 01/25/19 21:38 Dose: 250 mg Pantoprazole Sodium (Protonix Inj) 40 mg IVP DAILY [facility] Last Admin: 01/25/19 09:38 Dose: 40 mg Paricalcitol (Zemplar) 2 mcg IV TTS [facility] Last Admin: 01/23/19 12:36 Dose: 2 mcg Prednisone (Prednisone) 2.5 mg PO DAILY [facility] Last Admin: 01/25/19 09:38 Dose: 2.5 mg Rosuvastatin Calcium (Crestor) 10 mg PO HS [facility] Last Admin: 01/25/19 21:38 Dose: 10 mg Saccharomyces Boulardii (Florastor) 250 mg PO BID [facility] Last Admin: 01/25/19 17:08 Dose: 250 mg Vancomycin HCl (Firvanq (Oral Solution)) 125 mg NG QID [facility] Last Admin: 01/25/19 21:12 Dose: 125 mg Vitamin B Complex/Vit C/Folic Acid (Nephro-Nacho) 1 tab PO 0800 [facility] Last Admin: 01/26/19 08:36 Dose: 1 tab - Labs Labs: 01/26/19 05:22 01/26/19 05:22 PT 14.5 SECONDS (9.7-12.2) H 01/25/19 06:22 INR 1.3 01/25/19 06:22 APTT 35 SECONDS (21-34) H 01/25/19 06:22 - Constitutional Appears: No Acute Distress - Eye Exam Eye Exam: Normal appearance - ENT Exam ENT Exam: Mucous Membranes Moist - Respiratory Exam Respiratory Exam: NORMAL BREATHING PATTERN - Cardiovascular Exam Cardiovascular Exam: REGULAR RHYTHM - GI/Abdominal Exam GI & Abdominal Exam: Soft. absent: Tenderness - Extremities Exam Extremities Exam: Normal Capillary Refill Additional comments: left fem shiley removed - dressing clean/dry/intact - Back Exam Back Exam: absent: CVA tenderness (L), CVA tenderness (R) - Neurological Exam Neurological Exam: Alert, Awake - Psychiatric Exam Psychiatric exam: Normal Affect, Normal Mood - Skin Skin Exam: Dry, Intact, Warm Additional comments: R chest with permacath (R IJ permacath was inserted) Assessment and Plan - Assessment and Plan (Free Text) Assessment: 73F with ESRD on HD and c.diff colitis s/p RIJ permacath insertion POD#1 Plan: -May use permacath for HD -Resume normal HD schedule -F/u Nephrology -Medical management as per ICU -Will plan for AVF revision when patient is out of ICU and c.diff colitis has resolved -Further recommendations as per Dr. Luke Matos PGY2
[2019-01-26] MEDS: VANCOMYCIN HCL 250 MG/5 ML NG SCH ×4 (10:26→21:59)
[2019-01-26] MEDS: Saccharomyces Boulardi 250 mg Cap PO SCH ×2 (10:26→17:08)
--- NOTE | 2019-01-26 11:55 | CP.PCM.PN ---
Subjective - Date & Time of Evaluation Date of Evaluation: 01/26/19 Time of Evaluation: 11:55 - Subjective Subjective: pt is seen and examined during hd, follow up consult is dictated #[id number] uf goal is 3 lit , as tolerated Objective - Vital Signs/Intake and Output Vital Signs (last 24 hours): Temp Pulse Resp BP Pulse Ox 96.8 F L 96 H 25 H 138/78 99 01/26/19 10:20 01/26/19 11:25 01/26/19 11:25 01/26/19 11:25 01/26/19 11:23 Intake and Output: 01/26/19 01/26/19 06:59 18:59 Intake Total 300 340 Output Total 80 200 Balance 220 140 - Medications Medications: Current Medications Acetaminophen (Tylenol 325mg Tab) 650 mg PO Q6 PRN PRN Reason: Pain, moderate (4-7) Last Admin: 01/25/19 19:21 Dose: 650 mg Albuterol/Ipratropium (Duoneb 3 Mg/0.5 Mg (3 Ml) Ud) 3 ml INH RQ6 [facility] Last Admin: 01/26/19 08:18 Dose: 3 ml Apixaban (Eliquis) 2.5 mg PO BID [facility] Last Admin: 01/26/19 10:26 Dose: Not Given Epoetin Elijah (Procrit) 10,000 unit SC TTS [facility] Folic Acid (Folic Acid) 1 mg PO DAILY [facility] Last Admin: 01/25/19 09:38 Dose: 1 mg Metronidazole (Flagyl) 500 mg in 100 mls @ 100 mls/hr IVPB Q8H [facility]; Protocol Last Admin: 01/26/19 08:00 Dose: 100 mls/hr Vancomycin/Sodium Chloride (Vancomycin 1 Gm/Ns 200 Ml) 1 gm in 200 mls @ 133.333 mls/hr IVPB TTS [facility]; Protocol Stop: 01/31/19 10:01 Metoprolol Tartrate (Lopressor) 25 mg PO BID [facility] Last Admin: 01/26/19 10:26 Dose: Not Given Mycophenolate Mofetil (Cellcept Cap) 250 mg PO Q12 [facility] Last Admin: 01/25/19 21:38 Dose: 250 mg Pantoprazole Sodium (Protonix Inj) 40 mg IVP DAILY [facility] Last Admin: 01/25/19 09:38 Dose: 40 mg Paricalcitol (Zemplar) 2 mcg IV TTS [facility] Last Admin: 01/23/19 12:36 Dose: 2 mcg Prednisone (Prednisone) 2.5 mg PO DAILY [facility] Last Admin: 01/25/19 09:38 Dose: 2.5 mg Rosuvastatin Calcium (Crestor) 10 mg PO HS [facility] Last Admin: 01/25/19 21:38 Dose: 10 mg Saccharomyces Boulardii (Florastor) 250 mg PO BID [facility] Last Admin: 01/26/19 10:26 Dose: Not Given Vancomycin HCl (Firvanq (Oral Solution)) 125 mg NG QID [facility] Last Admin: 01/26/19 10:26 Dose: Not Given Vitamin B Complex/Vit C/Folic Acid (Nephro-Nacho) 1 tab PO 0800 [facility] Last Admin: 01/26/19 08:36 Dose: 1 tab - Labs Labs: 01/26/19 05:22 01/26/19 05:22 PT 14.5 SECONDS (9.7-12.2) H 01/25/19 06:22 INR 1.3 01/25/19 06:22 APTT 35 SECONDS (21-34) H 01/25/19 06:22
[2019-01-26] MEDS: EPOETIN ALFA 10,000 UNIT/ML ML SC SCH (12:14)
[2019-01-26] MEDS: Paricalcitol 2 mcg/ml Inj IV SCH (12:47)
[2019-01-26] MEDS: Vancomycin 1 gm/NS 200 ml 1 GM/200 ML BAG IVPB SCH (13:58)
--- NOTE | 2019-01-26 14:43 | CP.PCM.PN ---
Subjective - Date & Time of Evaluation Date of Evaluation: 01/26/19 Time of Evaluation: 14:40 - Subjective Subjective: Patient still has a productive cough, but is in no respiratory distress. Is receiving HD and is afebrile. Objective - Vital Signs/Intake and Output Vital Signs (last 24 hours): Temp Pulse Resp BP Pulse Ox 96.8 F L 99 H 24 136/64 100 01/26/19 10:20 01/26/19 14:00 01/26/19 14:00 01/26/19 13:57 01/26/19 14:00 Intake and Output: 01/26/19 01/26/19 06:59 18:59 Intake Total 300 580 Output Total 80 3200 Balance 220 -2620 - Medications Medications: Current Medications Acetaminophen (Tylenol 325mg Tab) 650 mg PO Q6 PRN PRN Reason: Pain, moderate (4-7) Last Admin: 01/25/19 19:21 Dose: 650 mg Albuterol/Ipratropium (Duoneb 3 Mg/0.5 Mg (3 Ml) Ud) 3 ml INH RQ6 [facility] Last Admin: 01/26/19 13:49 Dose: 3 ml Apixaban (Eliquis) 2.5 mg PO BID [facility] Last Admin: 01/26/19 10:26 Dose: Not Given Epoetin Elijah (Procrit) 10,000 unit SC TTS [facility] Last Admin: 01/26/19 12:14 Dose: 10,000 unit Folic Acid (Folic Acid) 1 mg PO DAILY [facility] Last Admin: 01/26/19 13:57 Dose: 1 mg Metronidazole (Flagyl) 500 mg in 100 mls @ 100 mls/hr IVPB Q8H [facility]; Protocol Last Admin: 01/26/19 08:00 Dose: 100 mls/hr Vancomycin/Sodium Chloride (Vancomycin 1 Gm/Ns 200 Ml) 1 gm in 200 mls @ 133.333 mls/hr IVPB TTS [facility]; Protocol Stop: 01/31/19 10:01 Last Admin: 01/26/19 13:58 Dose: 133.333 mls/hr Metoprolol Tartrate (Lopressor) 25 mg PO BID [facility] Last Admin: 01/26/19 10:26 Dose: Not Given Mycophenolate Mofetil (Cellcept Cap) 250 mg PO Q12 [facility] Last Admin: 01/26/19 13:02 Dose: Not Given Pantoprazole Sodium (Protonix Inj) 40 mg IVP DAILY [facility] Last Admin: 01/26/19 13:57 Dose: 40 mg Paricalcitol (Zemplar) 2 mcg IV TTS [facility] Last Admin: 01/26/19 12:47 Dose: 2 mcg Prednisone (Prednisone) 2.5 mg PO DAILY [facility] Last Admin: 01/26/19 13:57 Dose: 2.5 mg Rosuvastatin Calcium (Crestor) 10 mg PO HS [facility] Last Admin: 01/25/19 21:38 Dose: 10 mg Saccharomyces Boulardii (Florastor) 250 mg PO BID [facility] Last Admin: 01/26/19 10:26 Dose: Not Given Vancomycin HCl (Firvanq (Oral Solution)) 125 mg NG QID [facility] Last Admin: 01/26/19 13:57 Dose: 125 mg Vitamin B Complex/Vit C/Folic Acid (Nephro-Nacho) 1 tab PO 0800 [facility] Last Admin: 01/26/19 08:36 Dose: 1 tab - Labs Labs: 01/26/19 05:22 01/26/19 05:22 PT 14.5 SECONDS (9.7-12.2) H 01/25/19 06:22 INR 1.3 01/25/19 06:22 APTT 35 SECONDS (21-34) H 01/25/19 06:22 - Constitutional Appears: No Acute Distress, Cachectic, Chronically Ill - Head Exam Head Exam: NORMAL INSPECTION - Eye Exam Eye Exam: Normal appearance - ENT Exam ENT Exam: Normal Exam - Neck Exam Neck Exam: Normal Inspection - Respiratory Exam Respiratory Exam: Rhonchi - Cardiovascular Exam Cardiovascular Exam: REGULAR RHYTHM - GI/Abdominal Exam GI & Abdominal Exam: Soft, Hyperactive Bowel Sounds - Rectal Exam Rectal Exam: Deferred - Exam Exam: NORMAL INSPECTION - Extremities Exam Extremities Exam: Normal Inspection - Back Exam Back Exam: NORMAL INSPECTION - Neurological Exam Neurological Exam: Alert, Awake, Oriented x3 - Psychiatric Exam Psychiatric exam: Anxious - Skin Skin Exam: Dry, Intact, Normal Color, Warm Assessment and Plan (1) Acute on chronic diastolic (congestive) heart failure Status: Resolved (2) Severe anemia Assessment & Plan: Hgb today is 8.0 Status: Resolved (3) ESRD (end stage renal disease) Assessment & Plan: On HD today via the new Permacath. Status: Chronic (4) Hypertension Status: Chronic (5) Pneumonia Assessment & Plan: Improving with IV Vancomycin and Flagyl. Status: Acute (6) C. difficile colitis Assessment & Plan: On PO Vancomycin. Status: Acute (7) Bacteremia, coagulase-negative staphylococcal Assessment & Plan: On IV antibiotics. Status: Acute (8) Acute respiratory failure Assessment & Plan: Patient extubated for the past 3 days. Status: Resolved
--- NOTE | 2019-01-26 15:12 | CP.PCM.PN ---
Subjective - Date & Time of Evaluation Date of Evaluation: 01/26/19 Time of Evaluation: 10:00 - Subjective Subjective: Patient was seen and examined at bedside. Patient was awake on nasal cannula. She complaints of productive cough. She says her mouth is dry. She denies fevers, chills, nausea, and vomiting. O: General: NAD, chronically ill, awake HEENT: traumatic, normocephalic, mucus membranes dry, PERRL, parmacath on R side of the neck Cardiovascular: RRR s1, s2 present Pulmonary: Normal breathing pattern, decrease gas exchange in the lung bases. No wheezing or rhonchi. GI: + bowel sounds in all four quadrants Extremities: patient has compression devices, no pedal edema CXR on 01/25/19 shows satisfactory position of permacath. Lower lobe infiltrates. Bilateral pleural effusion inseparable from adjacent consolidative changes. A: 73 year old [place] female with a PMH of ESRD on dialysis, s/p kidney transplant with allograft nephropathy, s/p L forearm fistula, HTN, Afib, CVA, hyperparathyroidism, and anemia. She was admitted on 01/15/19 with fluid overload, SOB, and dyspnea. She was transferred to the ICU and found to had b ilateral pneumonia, streptococcus sepsis, and C. diff. positive. She was extubated on 01/22/19 after dialysis. Permacath placed on 01/25. P: Bilateral pneumonia Strepococcus sepsis ESRD Anemia Afib HTN continue Duoneb, prednisone continue dialysis (T, T, S), scheduled for dialysis today continue antibiotics as per ID; vancomycin IV, Vancomycin PO, Flagyl IV consider transfer to medical floor All other treatments/ assessment as per primary team Objective - Vital Signs/Intake and Output Vital Signs (last 24 hours): Temp Pulse Resp BP Pulse Ox 96.8 F L 111 H 19 141/67 95 01/26/19 10:20 01/26/19 15:00 01/26/19 15:00 01/26/19 14:57 01/26/19 15:00 Intake and Output: 01/26/19 01/26/19 06:59 18:59 Intake Total 300 580 Output Total 80 3200 Balance 220 -2620 - Medications Medications: Current Medications Acetaminophen (Tylenol 325mg Tab) 650 mg PO Q6 PRN PRN Reason: Pain, moderate (4-7) Last Admin: 04/22/19 19:21 Dose: 650 mg Albuterol/Ipratropium (Duoneb 3 Mg/0.5 Mg (3 Ml) Ud) 3 ml INH RQ6 [facility] Last Admin: 01/26/19 13:49 Dose: 3 ml Apixaban (Eliquis) 2.5 mg PO BID [facility] Last Admin: 01/26/19 10:26 Dose: Not Given Epoetin Elijah (Procrit) 10,000 unit SC TTS [facility] Last Admin: 01/26/19 12:14 Dose: 10,000 unit Folic Acid (Folic Acid) 1 mg PO DAILY [facility] Last Admin: 01/26/19 13:57 Dose: 1 mg Metronidazole (Flagyl) 500 mg in 100 mls @ 100 mls/hr IVPB Q8H [facility]; Protocol Last Admin: 01/26/19 08:00 Dose: 100 mls/hr Vancomycin/Sodium Chloride (Vancomycin 1 Gm/Ns 200 Ml) 1 gm in 200 mls @ 133.333 mls/hr IVPB TTS [facility]; Protocol Stop: 01/31/19 10:01 Last Admin: 01/26/19 13:58 Dose: 133.333 mls/hr Metoprolol Tartrate (Lopressor) 25 mg PO BID [facility] Last Admin: 01/26/19 10:26 Dose: Not Given Mycophenolate Mofetil (Cellcept Cap) 250 mg PO Q12 [facility] Last Admin: 01/26/19 13:02 Dose: Not Given Pantoprazole Sodium (Protonix Inj) 40 mg IVP DAILY [facility] Last Admin: 01/26/19 13:57 Dose: 40 mg Paricalcitol (Zemplar) 2 mcg IV TTS [facility] Last Admin: 01/26/19 12:47 Dose: 2 mcg Prednisone (Prednisone) 2.5 mg PO DAILY [facility] Last Admin: 01/26/19 13:57 Dose: 2.5 mg Rosuvastatin Calcium (Crestor) 10 mg PO HS [facility] Last Admin: 01/25/19 21:38 Dose: 10 mg Saccharomyces Boulardii (Florastor) 250 mg PO BID [facility] Last Admin: 01/26/19 10:26 Dose: Not Given Vancomycin HCl (Firvanq (Oral Solution)) 125 mg NG QID [facility] Last Admin: 01/26/19 13:57 Dose: 125 mg Vitamin B Complex/Vit C/Folic Acid (Nephro-Nacho) 1 tab PO 0800 [facility] Last Admin: 01/26/19 08:36 Dose: 1 tab - Labs Labs: 01/26/19 05:22 01/26/19 05:22 PT 14.5 SECONDS (9.7-12.2) H 01/25/19 06:22 INR 1.3 01/25/19 06:22 APTT 35 SECONDS (21-34) H 01/25/19 06:22 Assessment and Plan (1) Pneumonia Status: Acute (2) C. difficile colitis Status: Acute (3) ESRD (end stage renal disease) Status: Chronic
--- NOTE | 2019-01-27 02:19 | PN ---
DATE: 01/26/2019 FOLLOWUP RENAL CONSULTATION LOCATION: The patient is located in ICU bed 2. REQUESTED BY: Dash Najera MD REASON FOR FOLLOWUP: End-stage renal disease, continuation of hemodialysis. SUBJECTIVE: Mrs. 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 Subsequently, the patient was intubated and transferred to ICU. The patient was treated for hypoxic respiratory failure and pneumonia and Streptococcus gallolyticus sepsis and C. diff colitis. The patient was extubated on 01/22/2019. Subsequently, the patient underwent PermCath placement yesterday. The patient is feeling better, not in acute distress, complains of cough and sore throat. No chest pain, no palpitation. No fever, no cough. No abdominal pain. No nausea, vomiting. The patient was seen and examined during hemodialysis today. UF goal is about 3 liters. PHYSICAL EXAMINATION: VITAL SIGNS: As follows: Blood pressure 136/76, pulse 103, respirations about 27, saturation 99% and temperature 97.6. Height 5 feet 2 inches, weight is 134 pounds. GENERAL: Mrs. Faulkner is a 73-year-old elderly [place]gasque female, moderately built, moderately nourished, not in acute distress. HEENT: Pupils normal, reactive to light and accommodation. Conjunctivae pink. Sclerae anicteric. Tongue is moist. Trachea is midline. LUNGS: Symmetric on both sides. Bilateral breath sounds present. Occasional basal crackles present. CARDIOVASCULAR SYSTEM: [place] at the fifth intercostal space, midclavicular line. S1, S2 audible. No murmur or gallop. ABDOMEN: Normal in appearance. Soft, tympanitic. No guarding, no rigidity. No hepatosplenomegaly. CENTRAL NERVOUS SYSTEM: The patient is alert, awake and oriented x3. Nonfocal neuro examination. Cranial nerves II through XII grossly intact. Sensory and motor system is within normal limits. EXTREMITIES: No cyanosis, no clubbing, trace edema in both lower extremities. CURRENT MEDICATIONS: Include as follows: CellCept 250 mg p.o. every 12 hours, Crestor 10 mg p.o. at bedtime, DuoNeb inhaler, Eliquis 2.5 mg p.o. b.i.d., vancomycin liquid 125 mg four times a day, Flagyl 500 mg IV every 8 hours, Florastor 250 mg p.o. b.i.d., folic acid 1 mg p.o. daily, metoprolol 25 mg p.o. b.i.d., Nephro-Nacho 1 tablet daily, prednisone 2.5 mg p.o. daily, Procrit 10,000 units three times a week, Friday, , Friday, and Protonix 40 mg IV daily and Tylenol and vancomycin 1 g three times a week, Zemplar 2 mcg IV three times a week. LABORATORY DATA: Includes as follows: As of 01/26/2019, WBC 9.7, hemoglobin 8 and hematocrit is 25.1, platelets 238 and neutrophils 82, bands 2 and lymph 8, reactive lymph 1, and monos 7. Sodium 134, potassium 3.7, chloride 102, CO2 of 22, BUN 79, creatinine 3.8, glucose 93, calcium 7.4 and phosphorus 6.3 and magnesium is 2 and total bili 0.6. AST 32, ALT 31, alkaline phosphatase 217, total protein 4.8, albumin is 2.4. Stool for C. diff toxin is negative as of 01/25/2019 and 01/26/2019. ASSESSMENT AND PLAN: In summary, Mrs. Faulkner is a 73 years old elderly [place]onegasque female with a history of hypertension, atrial fibrillation, status post kidney transplant, chronic allograft nephropathy, congestive heart failure, fluid overload, anemia, secondary hyperparathyroidism, was admitted with shortness of breath, cough and found to have bilateral pneumonia, respiratory failure, Streptococcus gallolyticus sepsis and Clostridium difficile toxin, started on hemodialysis and status post transfusion on admission. The patient underwent a new PermCath placement on 01/25/2019. 1. 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 2. Anemia secondary to multifactorial slow gastrointestinal blood loss and also end-stage renal disease and sepsis. 3. Fluid overload. 4. Atrial fibrillation. 5. Hypertension. 6. Status post pneumonia. 7. Status post Streptococcus sepsis. Continue intravenous antibiotics as per Dr. Bazan, by mouth vancomycin, intravenous Flagyl and intravenous vancomycin for sepsis. Continue Procrit and Zemplar. Follow with the social service for outpatient hemodialysis unit placement and also the patient may benefit from subacute rehab placement. Discussed with Intensive Care Unit attending, Dr. Jackson in rounds. Thank you for allowing me to participate in your patient's care. Ever Madrigal MD
[2019-01-27] MEDS: Albuterol-Ipratrop 3 mg / 0.5 (3 ml) UD INH SCH ×3 (02:31→20:34)
[2019-01-27 05:12] LABS: BASO # 0.1 K/uL (0.0-0.2); BASO % 0.7 % (0.0-2.0); EOS # 0.3 K/uL (0.0-0.7); EOS % 3.4 % (0.0-4.0); HEMOGLOBIN 8.5 g/dL (11.0-16.0); LYMPH # 0.9 K/uL (1.0-4.3); LYMPH % 9.4 % (20.0-40.0); MEAN CELL VOLUME 92.8 fL (81.0-99.0); MEAN CORPUSCULAR HEMOGLOBIN 29.9 pg (27.0-31.0); MEAN CORPUSCULAR HGB CONC 32.2 g/dL (33.0-37.0); MEAN PLATELET VOLUME 9.3 fL (7.2-11.7); MONO % 10.2 % (0.0-10.0); NEUT # 7.5 K/uL (1.8-7.0); NEUT % 76.3 % (50.0-75.0); NRBC % 0.6 % (0.0-2.0); PLATELET COUNT 267 K/uL (130-400); RBC 2.84 Mil/uL (3.80-5.20); RED CELL DISTRIBUTION WIDTH 16.4 % (11.5-14.5); WHITE BLOOD COUNT 9.8 K/uL (4.8-10.8)
[2019-01-27 05:42] LABS: CALCIUM 7.5 mg/dl (8.6-10.4)
[2019-01-27 05:52] LABS: BANDS 1 % (0-2); EOSINOPHIL 3 % (0-4); LYMPHOCYTE 8 % (20-40); MONOCYTE 11 % (0-10); NEUTROPHIL 77 % (50-75); NUCLEATED RED BLOOD CELL 1 % (0-0); PLATELET ESTIMATE NORMAL (NORMAL); TOTAL CELLS COUNTED 100
[2019-01-27 05:53] LABS: ANISOCYTOSIS SLIGHT; POIKILOCYTOSIS SLIGHT; POLYCHROMIC SLIGHT
[2019-01-27] MEDS: Multivitamin Vitamin B Complex (Nephro-Vite) Tab PO SCH (08:38)
[2019-01-27] MEDS: metroNIDAZOLE IV 500 mg/100 ml 500 MG/100 ML BAG IVPB SCH ×2 (08:40→16:35)
[2019-01-27] MEDS: Saccharomyces Boulardi 250 mg Cap PO SCH ×2 (09:49→17:19)
[2019-01-27] MEDS: VANCOMYCIN HCL 250 MG/5 ML NG SCH ×4 (10:18→21:54)
--- NOTE | 2019-01-27 16:02 | CP.PCM.PN ---
Subjective - Date & Time of Evaluation Date of Evaluation: 01/27/19 Time of Evaluation: 13:00 - Subjective Subjective: Patient was seen and examined at bedside. She is AAOx3. Patient is clinically improving. She complains of cough and sore throat. Patient was transferred to the medical floors from ICU. She denies fevers, chills, nausea, and vomiting. O: General: NAD, chronically ill, awake HEENT: traumatic, normocephalic, mucus membranes dry, PERRL, parmacath on R side of the neck Cardiovascular: RRR s1, s2 present Pulmonary: Normal breathing pattern. No wheezing or rhonchi. GI: + bowel sounds in all four quadrants Extremities: mild pedal edema CXR on 01/25/19 shows satisfactory position of permacath. Lower lobe infiltrates. Bilateral pleural effusion inseparable from adjacent consolidative changes. A: 73 year old [place] female with a PMH of ESRD on dialysis, s/p kidney transplant with allograft nephropathy, s/p L forearm fistula, HTN, Afib, CVA, hyperparathyroidism, and anemia. She was admitted on 01/15/19 with fluid overloa d, SOB, and dyspnea. She was transferred to the ICU and found to had bilateral pneumonia, streptococcus sepsis, and C. diff. positive. Sepsis has resolved. C. diff. Ag and toxin were negative on 01/25 and 01/26. P: Bilateral pneumonia Strepococcus sepsis ESRD Anemia Afib HTN continue Duoneb, prednisone continue dialysis (T, T, S) continue antibiotics as per ID; vancomycin IV, Vancomycin PO, Flagyl IV WBC trending down Objective - Vital Signs/Intake and Output Vital Signs (last 24 hours): Temp Pulse Resp BP Pulse Ox 98.1 F 90 18 163/65 H 98 01/27/19 15:00 01/27/19 15:00 01/27/19 15:00 01/27/19 15:00 01/27/19 15:00 Intake and Output: 01/27/19 01/27/19 06:59 18:59 Intake Total 100 400 Output Total 175 100 Balance -75 300 - Medications Medications: Current Medications Acetaminophen (Tylenol 325mg Tab) 650 mg PO Q6 PRN PRN Reason: Pain, moderate (4-7) Last Admin: 01/25/19 19:21 Dose: 650 mg Albuterol/Ipratropium (Duoneb 3 Mg/0.5 Mg (3 Ml) Ud) 3 ml INH RQ6 [facility] Last Admin: 01/27/19 07:48 Dose: 3 ml Apixaban (Eliquis) 2.5 mg PO BID [facility] Last Admin: 01/27/19 09:50 Dose: 2.5 mg Epoetin Elijah (Procrit) 10,000 unit SC TTS [facility] Last Admin: 01/26/19 12:14 Dose: 10,000 unit Folic Acid (Folic Acid) 1 mg PO DAILY [facility] Last Admin: 01/27/19 09:49 Dose: 1 mg Metronidazole (Flagyl) 500 mg in 100 mls @ 100 mls/hr IVPB Q8H [facility]; Protocol Last Admin: 01/27/19 08:40 Dose: 100 mls/hr Vancomycin/Sodium Chloride (Vancomycin 1 Gm/Ns 200 Ml) 1 gm in 200 mls @ 133.333 mls/hr IVPB TTS [facility]; Protocol Stop: 01/31/19 10:01 Last Admin: 01/26/19 13:58 Dose: 133.333 mls/hr Metoprolol Tartrate (Lopressor) 25 mg PO BID [facility] Last Admin: 01/27/19 09:47 Dose: 25 mg Mycophenolate Mofetil (Cellcept Cap) 250 mg PO Q12 [facility] Last Admin: 01/27/19 09:49 Dose: 250 mg Pantoprazole Sodium (Protonix Inj) 40 mg IVP DAILY [facility] Last Admin: 01/27/19 10:15 Dose: 40 mg Paricalcitol (Zemplar) 2 mcg IV TTS [facility] Last Admin: 01/26/19 12:47 Dose: 2 mcg Prednisone (Prednisone) 2.5 mg PO DAILY [facility] Last Admin: 01/27/19 09:48 Dose: 2.5 mg Rosuvastatin Calcium (Crestor) 10 mg PO HS [facility] Last Admin: 01/26/19 22:00 Dose: 10 mg Saccharomyces Boulardii (Florastor) 250 mg PO BID [facility] Last Admin: 01/27/19 09:49 Dose: 250 mg Vancomycin HCl (Firvanq (Oral Solution)) 125 mg NG QID [facility] Last Admin: 01/27/19 14:40 Dose: 125 mg Vitamin B Complex/Vit C/Folic Acid (Nephro-[place]) 1 tab PO 0800 [facility] Last Admin: 01/27/19 08:38 Dose: 1 tab - Labs Labs: 01/27/19 05:08 01/27/19 05:08 PT 14.5 SECONDS (9.7-12.2) H 01/25/19 06:22 INR 1.3 01/25/19 06:22 APTT 35 SECONDS (21-34) H 01/25/19 06:22 Assessment and Plan (1) Pneumonia Status: Acute (2) C. difficile colitis Status: Acute (3) ESRD (end stage renal disease) Status: Chronic
--- NOTE | 2019-01-27 16:04 | CP.PCM.PN ---
Subjective - Date & Time of Evaluation Date of Evaluation: 01/27/19 Time of Evaluation: 07:00 - Subjective Subjective: no new complaints seen on rounds NAD noted IV rx renewed labs reviewed Objective - Vital Signs/Intake and Output Vital Signs (last 24 hours): Temp Pulse Resp BP Pulse Ox 98.1 F 90 18 163/65 H 98 01/27/19 15:00 01/27/19 15:00 01/27/19 15:00 01/27/19 15:00 01/27/19 15:00 Intake and Output: 01/27/19 01/27/19 06:59 18:59 Intake Total 100 400 Output Total 175 100 Balance -75 300 - Medications Medications: Current Medications Acetaminophen (Tylenol 325mg Tab) 650 mg PO Q6 PRN PRN Reason: Pain, moderate (4-7) Last Admin: 01/25/19 19:21 Dose: 650 mg Albuterol/Ipratropium (Duoneb 3 Mg/0.5 Mg (3 Ml) Ud) 3 ml INH RQ6 [facility] Last Admin: 01/27/19 07:48 Dose: 3 ml Apixaban (Eliquis) 2.5 mg PO BID [facility] Last Admin: 01/27/19 09:50 Dose: 2.5 mg Epoetin Elijah (Procrit) 10,000 unit SC TTS [facility] Last Admin: 01/26/19 12:14 Dose: 10,000 unit Folic Acid (Folic Acid) 1 mg PO DAILY [facility] Last Admin: 01/27/19 09:49 Dose: 1 mg Metronidazole (Flagyl) 500 mg in 100 mls @ 100 mls/hr IVPB Q8H [facility]; Protocol Last Admin: 01/27/19 08:40 Dose: 100 mls/hr Vancomycin/Sodium Chloride (Vancomycin 1 Gm/Ns 200 Ml) 1 gm in 200 mls @ 133.333 mls/hr IVPB TTS [facility]; Protocol Stop: 01/31/19 10:01 Last Admin: 01/26/19 13:58 Dose: 133.333 mls/hr Metoprolol Tartrate (Lopressor) 25 mg PO BID [facility] Last Admin: 01/27/19 09:47 Dose: 25 mg Mycophenolate Mofetil (Cellcept Cap) 250 mg PO Q12 [facility] Last Admin: 01/27/19 09:49 Dose: 250 mg Pantoprazole Sodium (Protonix Inj) 40 mg IVP DAILY [facility] Last Admin: 01/27/19 10:15 Dose: 40 mg Paricalcitol (Zemplar) 2 mcg IV TTS [facility] Last Admin: 01/26/19 12:47 Dose: 2 mcg Prednisone (Prednisone) 2.5 mg PO DAILY [facility] Last Admin: 01/27/19 09:48 Dose: 2.5 mg Rosuvastatin Calcium (Crestor) 10 mg PO HS [facility] Last Admin: 01/26/19 22:00 Dose: 10 mg Saccharomyces Boulardii (Florastor) 250 mg PO BID [facility] Last Admin: 01/27/19 09:49 Dose: 250 mg Vancomycin HCl (Firvanq (Oral Solution)) 125 mg NG QID [facility] Last Admin: 01/27/19 14:40 Dose: 125 mg Vitamin B Complex/Vit C/Folic Acid (Nephro-Nacho) 1 tab PO 0800 [facility] Last Admin: 01/27/19 08:38 Dose: 1 tab - Labs Labs: 01/27/19 05:08 01/27/19 05:08 PT 14.5 SECONDS (9.7-12.2) H 01/25/19 06:22 INR 1.3 01/25/19 06:22 APTT 35 SECONDS (21-34) H 01/25/19 06:22 - Constitutional Appears: Confused, Cachectic, Chronically Ill - Head Exam Head Exam: ATRAUMATIC, NORMAL INSPECTION, NORMOCEPHALIC - Eye Exam Eye Exam: EOMI, Normal appearance, PERRL Pupil Exam: NORMAL ACCOMODATION, PERRL - ENT Exam ENT Exam: Mucous Membranes Moist, Normal Exam - Neck Exam Neck Exam: Full ROM, Normal Inspection. absent: Lymphadenopathy - Respiratory Exam Respiratory Exam: Clear to Ausculation Bilateral, NORMAL BREATHING PATTERN - Cardiovascular Exam Cardiovascular Exam: REGULAR RHYTHM, +S1, +S2. absent: Murmur - GI/Abdominal Exam GI & Abdominal Exam: Soft, Normal Bowel Sounds. absent: Tenderness - Rectal Exam Rectal Exam: Deferred - Exam Exam: Uretheral Discharge - Extremities Exam Extremities Exam: Full ROM, Normal Capillary Refill, Normal Inspection. absent: Joint Swelling, Pedal Edema - Back Exam Back Exam: NORMAL INSPECTION - Neurological Exam Neurological Exam: Alert, Awake, CN II-XII Intact, Motor Sensory Deficit, Oriented x3. absent: Normal Gait Neuro motor strength exam: Left Upper Extremity: 3, Right Upper Extremity: 3, Left Lower Extremity: 3, Right Lower Extremity: 3 - Psychiatric Exam Psychiatric exam: Normal Affect, Normal Mood - Skin Skin Exam: Dry, Intact Assessment and Plan (1) Pneumonia Status: Acute (2) Acute on chronic diastolic (congestive) heart failure Status: Resolved (3) Severe anemia Status: Resolved (4) ESRD (end stage renal disease) Status: Chronic (5) Hypertension Status: Chronic - Assessment and Plan (Free Text) Assessment: cont IV antibiotics and HD follow up CXR PT/OT
--- NOTE | 2019-01-27 19:01 | CP.PCM.PN ---
Subjective - Date & Time of Evaluation Date of Evaluation: 01/27/19 Time of Evaluation: 19:00 - Subjective Subjective: pt is seen and examined, follow up consult is dictated #[id number] hd in am Objective - Vital Signs/Intake and Output Vital Signs (last 24 hours): Temp Pulse Resp BP Pulse Ox 98.1 F 90 18 172/82 H 98 01/27/19 15:00 01/27/19 15:00 01/27/19 15:00 01/27/19 17:20 01/27/19 15:00 Intake and Output: 01/27/19 01/28/19 18:59 06:59 Intake Total 400 Output Total 100 Balance 300 - Medications Medications: Current Medications Acetaminophen (Tylenol 325mg Tab) 650 mg PO Q6 PRN PRN Reason: Pain, moderate (4-7) Last Admin: 01/25/19 19:21 Dose: 650 mg Albuterol/Ipratropium (Duoneb 3 Mg/0.5 Mg (3 Ml) Ud) 3 ml INH RQ6 [facility] Last Admin: 01/27/19 07:48 Dose: 3 ml Apixaban (Eliquis) 2.5 mg PO BID [facility] Last Admin: 01/27/19 17:20 Dose: 2.5 mg Epoetin Elijah (Procrit) 10,000 unit SC TTS [facility] Last Admin: 01/26/19 12:14 Dose: 10,000 unit Folic Acid (Folic Acid) 1 mg PO DAILY [facility] Last Admin: 01/27/19 09:49 Dose: 1 mg Metronidazole (Flagyl) 500 mg in 100 mls @ 100 mls/hr IVPB Q8H [facility]; Protocol Last Admin: 01/27/19 16:35 Dose: 100 mls/hr Vancomycin/Sodium Chloride (Vancomycin 1 Gm/Ns 200 Ml) 1 gm in 200 mls @ 133.333 mls/hr IVPB TTS [facility]; Protocol Stop: 01/31/19 10:01 Last Admin: 01/26/19 13:58 Dose: 133.333 mls/hr Metoprolol Tartrate (Lopressor) 25 mg PO BID [facility] Last Admin: 01/27/19 17:20 Dose: 25 mg Mycophenolate Mofetil (Cellcept Cap) 250 mg PO Q12 [facility] Last Admin: 01/27/19 09:49 Dose: 250 mg Pantoprazole Sodium (Protonix Inj) 40 mg IVP DAILY [facility] Last Admin: 01/27/19 10:15 Dose: 40 mg Paricalcitol (Zemplar) 2 mcg IV TTS [facility] Last Admin: 01/26/19 12:47 Dose: 2 mcg Prednisone (Prednisone) 2.5 mg PO DAILY [facility] Last Admin: 01/27/19 09:48 Dose: 2.5 mg Rosuvastatin Calcium (Crestor) 10 mg PO HS [facility] Last Admin: 01/26/19 22:00 Dose: 10 mg Saccharomyces Boulardii (Florastor) 250 mg PO BID [facility] Last Admin: 01/27/19 17:19 Dose: 250 mg Vancomycin HCl (Firvanq (Oral Solution)) 125 mg NG QID [facility] Last Admin: 01/27/19 17:20 Dose: 125 mg Vitamin B Complex/Vit C/Folic Acid (Nephro-Nacho) 1 tab PO 0800 [facility] Last Admin: 01/27/19 08:38 Dose: 1 tab - Labs Labs: 01/27/19 05:08 01/27/19 05:08 PT 14.5 SECONDS (9.7-12.2) H 01/25/19 06:22 INR 1.3 01/25/19 06:22 APTT 35 SECONDS (21-34) H 01/25/19 06:22
--- NOTE | 2019-01-27 22:40 | CP.PCM.PN ---
Subjective - Date & Time of Evaluation Date of Evaluation: 01/27/19 Time of Evaluation: 12:50 - Subjective Subjective: Patient now on telemetry floor. Alert, oriented, in no respiratory distress. Still with a productive cough, and some diarrhea, but afebrile. So far, Stools for C dif have been negative. On IV antibiotics and PO Vancomycine. Objective - Vital Signs/Intake and Output Vital Signs (last 24 hours): Temp Pulse Resp BP Pulse Ox 98.1 F 90 18 172/82 H 98 01/27/19 15:00 01/27/19 15:00 01/27/19 15:00 01/27/19 17:20 01/27/19 15:00 Intake and Output: 01/27/19 01/28/19 18:59 06:59 Intake Total 400 300 Output Total 100 Balance 300 300 - Medications Medications: Current Medications Acetaminophen (Tylenol 325mg Tab) 650 mg PO Q6 PRN PRN Reason: Pain, moderate (4-7) Last Admin: 01/25/19 19:21 Dose: 650 mg Albuterol/Ipratropium (Duoneb 3 Mg/0.5 Mg (3 Ml) Ud) 3 ml INH RQ6 [facility] Last Admin: 01/27/19 20:34 Dose: 3 ml Amlodipine Besylate (Norvasc) 5 mg PO DAILY [facility] Apixaban (Eliquis) 2.5 mg PO BID [facility] Last Admin: 01/27/19 17:20 Dose: 2.5 mg Epoetin Elijah (Procrit) 10,000 unit SC TTS [facility] Last Admin: 01/26/19 12:14 Dose: 10,000 unit Folic Acid (Folic Acid) 1 mg PO DAILY [facility] Last Admin: 01/27/19 09:49 Dose: 1 mg Metronidazole (Flagyl) 500 mg in 100 mls @ 100 mls/hr IVPB Q8H [facility]; Protocol Last Admin: 01/27/19 16:35 Dose: 100 mls/hr Vancomycin/Sodium Chloride (Vancomycin 1 Gm/Ns 200 Ml) 1 gm in 200 mls @ 133.333 mls/hr IVPB TTS [facility]; Protocol Stop: 01/31/19 10:01 Last Admin: 01/26/19 13:58 Dose: 133.333 mls/hr Metoprolol Tartrate (Lopressor) 25 mg PO BID [facility] Last Admin: 01/27/19 17:20 Dose: 25 mg Mycophenolate Mofetil (Cellcept Cap) 250 mg PO Q12 [facility] Last Admin: 01/27/19 21:53 Dose: 250 mg Pantoprazole Sodium (Protonix Inj) 40 mg IVP DAILY [facility] Last Admin: 01/27/19 10:15 Dose: 40 mg Paricalcitol (Zemplar) 2 mcg IV TTS [facility] Last Admin: 01/26/19 12:47 Dose: 2 mcg Prednisone (Prednisone) 2.5 mg PO DAILY [facility] Last Admin: 01/27/19 09:48 Dose: 2.5 mg Rosuvastatin Calcium (Crestor) 10 mg PO HS [facility] Last Admin: 01/27/19 21:53 Dose: 10 mg Saccharomyces Boulardii (Florastor) 250 mg PO BID [facility] Last Admin: 01/27/19 17:19 Dose: 250 mg Vancomycin HCl (Firvanq (Oral Solution)) 125 mg NG QID [facility] Last Admin: 01/27/19 21:54 Dose: 125 mg Vitamin B Complex/Vit C/Folic Acid (Nephro-Nacho) 1 tab PO 0800 [facility] Last Admin: 01/27/19 08:38 Dose: 1 tab - Labs Labs: 01/27/19 05:08 01/27/19 05:08 PT 14.5 SECONDS (9.7-12.2) H 01/25/19 06:22 INR 1.3 01/25/19 06:22 APTT 35 SECONDS (21-34) H 01/25/19 06:22 - Constitutional Appears: No Acute Distress, Cachectic, Chronically Ill - Head Exam Head Exam: NORMAL INSPECTION - Eye Exam Eye Exam: Normal appearance - ENT Exam ENT Exam: Normal Exam - Neck Exam Neck Exam: Normal Inspection - Respiratory Exam Respiratory Exam: Rhonchi Additional comments: Rhonchi bilaterally. - Cardiovascular Exam Cardiovascular Exam: REGULAR RHYTHM - GI/Abdominal Exam GI & Abdominal Exam: Soft, Hyperactive Bowel Sounds - Rectal Exam Rectal Exam: Deferred - Extremities Exam Extremities Exam: Normal Inspection - Back Exam Back Exam: NORMAL INSPECTION - Neurological Exam Neurological Exam: Alert, Awake, Oriented x3 - Psychiatric Exam Psychiatric exam: Anxious - Skin Skin Exam: Dry, Intact, Normal Color, Warm Assessment and Plan (1) Acute on chronic diastolic (congestive) heart failure Status: Resolved (2) Severe anemia Status: Resolved (3) ESRD (end stage renal disease) Assessment & Plan: On HD as per [employer]. Status: Chronic (4) Hypertension Assessment & Plan: Slightly elevated. Will add Amlodipine 5 mg PO qd. Status: Resolved (5) Pneumonia Assessment & Plan: On IV antibiotics. Status: Acute (6) C. difficile colitis Assessment & Plan: On PO Vancomycin Status: Acute (7) Bacteremia, coagulase-negative staphylococcal Assessment & Plan: On IV antibiotics. Status: Acute (8) Acute respiratory failure Status: Resolved
[2019-01-28] MEDS: metroNIDAZOLE IV 500 mg/100 ml 500 MG/100 ML BAG IVPB SCH ×2 (00:56→08:27)
[2019-01-28] MEDS: Albuterol-Ipratrop 3 mg / 0.5 (3 ml) UD INH SCH ×4 (01:51→20:31)
--- NOTE | 2019-01-28 04:49 | PN ---
DATE: 01/27/2019 FOLLOWUP RENAL CONSULTATION LOCATION: The patient is located in room 566. REQUESTED BY: Dash Najera MD REASON FOR FOLLOWUP: End-stage renal disease, continuation of hemodialysis. SUBJECTIVE: Mrs. Faulkner is a 73-year-old elderly Citizen Of [place] female with a past medical history significant for longstanding hypertension, AFib, anemia, secondary hyperparathyroidism, fluid overload, status post left upper extremity AV fistula who was admitted with the chief complaints of cough, shortness of breath, severe weakness and difficult to ambulate and found to have a low H and H and bilateral infiltrates, status post BiPAP without significant improvement. Subsequently, the patient was intubated and transferred to ICU, status post treatment for the respiratory failure, pneumonia and C. difficile colitis. The patient was started on hemodialysis three times a week. The patient is feeling much better, status post extubation on Friday last week. Complains of cough and also severe weakness and wants to get out and walk. The patient is in good spirit. PHYSICAL EXAMINATION: VITAL SIGNS: As follows: Blood pressure 175/80 and this afternoon blood pressure 163/65, pulse 90, respirations 18, temperature 98.1, saturation 98%. Height 5 feet 2 inches. GENERAL: Mrs. Faulkner is a 73-year-old elderly female, moderately built, moderately nourished, not in distress. HEENT: Pupils are normal and reactive to light and accommodation. Conjunctivae pink. Sclerae anicteric. Tongue is moist. Trachea is midline. LUNGS: Symmetric on both sides. Bilateral breath sounds present. No crackles. CARDIOVASCULAR SYSTEM: [place] at the fifth intercostal space, midclavicular line. S1 and S2 audible. No murmur or gallop. ABDOMEN: Normal in appearance. Soft, tympanitic. No guarding. No rigidity. No hepatosplenomegaly. CENTRAL NERVOUS SYSTEM: The patient is alert, awake, oriented x3. Nonfocal neuro examination. Cranial nerves II through XII grossly intact. Sensory and motor system is within normal limits. EXTREMITIES: No cyanosis. No clubbing. No edema. CURRENT MEDICATIONS: Include as follows: Hydralazine 25 mg p.o. daily, CellCept 250 mg p.o. every 12 hours, Crestor 10 mg at bedtime, DuoNeb inhaler, Eliquis 2.5 mg p.o. b.i.d., vancomycin liquid 125 mg four times a day, Flagyl 500 mg IV every 8 hours, Florastor 250 mg p.o. b.i.d., folic acid 1 mg daily, Lopressor one tablet p.o. daily, Nephro-Nacho one tablet daily, prednisone 2.5 mg daily, Protonix 40 mg IV daily, Tylenol, vancomycin 1 g three times a week, and Zemplar 2 mcg three times a week. LABORATORY DATA: Include as follows: As of 01/27/2019, WBC 9.8, hemoglobin 8.5, hematocrit is 26.3, platelets 267. Neutrophils 77, bands 1, lymphs 8, monocytes 11, eosinophils 3, and nucleated RBC 1. Sodium 134, potassium 3.6, chloride 102, CO2 of 26, BUN 44, creatinine 2.8, glucose 97, calcium 7.5. Stool for C. difficile toxin is negative. ASSESSMENT AND PLAN: In summary, Mrs. 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 1. 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 2. Anemia secondary to renal failure, sepsis and lower gastrointestinal bleed. 3. Bilateral infiltrates. 4. Streptococcus gallolyticus sepsis. 5. Clostridium difficile colitis. 6. Anemia. Continue all her current medications, intravenous antibiotic vancomycin and also oral vancomycin and intravenous Flagyl. Continue Procrit, Zemplar, and Nephro-Nacho. Continue Eliquis and metoprolol. We will schedule for hemodialysis in the morning. Overall prognosis is guarded. We will follow with you. Thank you for allowing me to participate in your patient's care. Follow up with the social service for outpatient hemodialysis in [facility] and also subacute rehabilitation placement. Ever Madrigal MD
[2019-01-28] MEDS: Multivitamin Vitamin B Complex (Nephro-Vite) Tab PO SCH (08:28)
[2019-01-28] MEDS ORDERED: Epoetin Alfa 10,000 unit/ml Dialysis SC SCH (12:00)
[2019-01-28] MEDS: EPOETIN ALFA 10,000 UNIT/ML ML SC SCH (12:35)
[2019-01-28] MEDS: Paricalcitol 2 mcg/ml Inj IV SCH (12:36)
[2019-01-28] MEDS: VANCOMYCIN HCL 250 MG/5 ML NG SCH ×4 (14:46→22:00)
[2019-01-28] MEDS: Pantoprazole 40 mg EC Tab PO SCH (14:53)
[2019-01-28] MEDS: Vancomycin 1 gm/NS 200 ml 1 GM/200 ML BAG IVPB SCH (14:54)
[2019-01-28] MEDS: Saccharomyces Boulardi 250 mg Cap PO SCH ×2 (14:54→17:20)
--- NOTE | 2019-01-28 18:15 | CP.PCM.PN ---
Subjective - Date & Time of Evaluation Date of Evaluation: 01/28/19 Time of Evaluation: 11:20 - Subjective Subjective: Patient was seen and examined during dialysis. Patient is clinically improving. She denies fevers, chills, nausea, and vomiting. O: General: NAD, chronically ill, awake HEENT: traumatic, normocephalic, mucus membranes dry, PERRL, parmacath on R side of the neck Cardiovascular: RRR s1, s2 present Pulmonary: Normal breathing pattern. No wheezing or rhonchi. GI: + bowel sounds in all four quadrants neuro: AAOx3 Extremities: mild pedal edema CXR on 01/25/19 shows satisfactory position of permacath. Lower lobe infiltrates. Bilateral pleural effusion inseparable from adjacent consolidative changes. A: 73 year old [place] female with a PMH of ESRD on dialysis, s/p kidney transplant with allograft nephropathy, s/p L forearm fistula, HTN, Afib, CVA, hyperparathyroidism, and anemia. She was admitted on 01/15/19 with fluid overload, SOB, and dyspnea. She was transferred to the ICU and found to had bilateral pneumonia, streptococcus sepsis, and C. diff. positive. Sepsis has resolved. C. diff. Ag and toxin were negative X3. MRSA not detected 01/27. P: Bilateral pneumonia Strepococcus sepsis ESRD Anemia Afib HTN repeat CXR continue Duoneb, prednisone continue dialysis (T, T, S) continue antibiotics as per ID; vancomycin IV, Vancomycin PO WBC trending down Objective - Vital Signs/Intake and Output Vital Signs (last 24 hours): Temp Pulse Resp BP Pulse Ox 99.0 F 115 H 18 147/69 99 01/28/19 15:00 01/28/19 15:00 01/28/19 15:00 01/28/19 17:20 01/28/19 15:00 Intake and Output: 01/28/19 01/28/19 06:59 18:59 Intake Total 500 340 Balance 500 340 - Medications Medications: Current Medications Acetaminophen (Tylenol 325mg Tab) 650 mg PO Q6 PRN PRN Reason: Pain, moderate (4-7) Last Admin: 01/25/19 19:21 Dose: 650 mg Albuterol/Ipratropium (Duoneb 3 Mg/0.5 Mg (3 Ml) Ud) 3 ml INH RQ6 [facility] Last Admin: 01/28/19 13:13 Dose: Not Given Apixaban (Eliquis) 2.5 mg PO BID [facility] Last Admin: 01/28/19 17:20 Dose: 2.5 mg Epoetin Elijah (Procrit) 10,000 unit SC TTS [facility] Folic Acid (Folic Acid) 1 mg PO DAILY [facility] Last Admin: 01/28/19 14:54 Dose: 1 mg Hydralazine HCl (Apresoline) 25 mg PO DAILY [facility] Last Admin: 01/28/19 14:54 Dose: 25 mg Vancomycin/Sodium Chloride (Vancomycin 1 Gm/Ns 200 Ml) 1 gm in 200 mls @ 133.333 mls/hr IVPB TTS [facility]; Protocol Stop: 01/31/19 10:01 Last Admin: 01/28/19 14:54 Dose: 133.333 mls/hr Metoprolol Tartrate (Lopressor) 25 mg PO BID [facility] Last Admin: 01/28/19 17:20 Dose: 25 mg Mycophenolate Mofetil (Cellcept Cap) 250 mg PO Q12 [facility] Last Admin: 01/28/19 14:46 Dose: Not Given Pantoprazole Sodium (Protonix Ec Tab) 40 mg PO DAILY [facility] Last Admin: 01/28/19 14:53 Dose: 40 mg Paricalcitol (Zemplar) 2 mcg IV TTS [facility] Last Admin: 01/28/19 12:36 Dose: 2 mcg Prednisone (Prednisone) 2.5 mg PO DAILY [facility] Last Admin: 01/28/19 14:53 Dose: 2.5 mg Rosuvastatin Calcium (Crestor) 10 mg PO HS [facility] Last Admin: 01/27/19 21:53 Dose: 10 mg Saccharomyces Boulardii (Florastor) 250 mg PO BID [facility] Last Admin: 01/28/19 17:20 Dose: 250 mg Vancomycin HCl (Firvanq (Oral Solution)) 125 mg NG QID [facility] Last Admin: 01/28/19 17:20 Dose: 125 mg Vitamin B Complex/Vit C/Folic Acid (Nephro-Nacho) 1 tab PO 0800 [facility] Last Admin: 01/28/19 08:28 Dose: 1 tab - Labs Labs: 01/27/19 05:08 01/27/19 05:08 PT 14.5 SECONDS (9.7-12.2) H 01/25/19 06:22 INR 1.3 01/25/19 06:22 APTT 35 SECONDS (21-34) H 01/25/19 06:22 Assessment and Plan (1) Pneumonia Status: Acute (2) C. difficile colitis Status: Acute (3) ESRD (end stage renal disease) Status: Chronic
[2019-01-29 01:09] VITALS: RESP 20
[2019-01-29] MEDS: Albuterol-Ipratrop 3 mg / 0.5 (3 ml) UD INH SCH ×4 (01:16→19:14)
[2019-01-29] MEDS: VANCOMYCIN HCL 250 MG/5 ML NG SCH ×4 (10:45→19:07)
[2019-01-29] MEDS: Pantoprazole 40 mg EC Tab PO SCH (10:46)
[2019-01-29] MEDS: Multivitamin Vitamin B Complex (Nephro-Vite) Tab PO SCH (10:46)
[2019-01-29] MEDS: Saccharomyces Boulardi 250 mg Cap PO SCH ×2 (10:46→17:51)
--- NOTE | 2019-01-29 11:15 | CP.PCM.PN ---
Subjective - Date & Time of Evaluation Date of Evaluation: 01/29/19 Time of Evaluation: 11:15 - Subjective Subjective: pt is seen and examined, follow up consult is dictated #[id number] Objective - Vital Signs/Intake and Output Vital Signs (last 24 hours): Temp Pulse Resp BP Pulse Ox 98.2 F 97 H 20 148/77 99 01/29/19 07:00 01/29/19 07:00 01/29/19 07:00 01/29/19 10:46 01/29/19 07:00 Intake and Output: 01/29/19 01/29/19 06:59 18:59 Intake Total 200 Output Total 1 Balance 199 - Medications Medications: Current Medications Acetaminophen (Tylenol 325mg Tab) 650 mg PO Q6 PRN PRN Reason: Pain, moderate (4-7) Last Admin: 01/25/19 19:21 Dose: 650 mg Albuterol/Ipratropium (Duoneb 3 Mg/0.5 Mg (3 Ml) Ud) 3 ml INH RQ6 [facility] Last Admin: 01/29/19 09:35 Dose: 3 ml Apixaban (Eliquis) 2.5 mg PO BID [facility] Last Admin: 01/29/19 10:46 Dose: 2.5 mg Epoetin Elijah (Procrit) 10,000 unit SC TTS [facility] Folic Acid (Folic Acid) 1 mg PO DAILY [facility] Last Admin: 01/29/19 10:46 Dose: 1 mg Hydralazine HCl (Apresoline) 25 mg PO DAILY [facility] Last Admin: 01/29/19 10:46 Dose: 25 mg Vancomycin/Sodium Chloride (Vancomycin 1 Gm/Ns 200 Ml) 1 gm in 200 mls @ 133.333 mls/hr IVPB TTS [facility]; Protocol Stop: 01/31/19 10:01 Last Admin: 01/28/19 14:54 Dose: 133.333 mls/hr Metoprolol Tartrate (Lopressor) 25 mg PO BID [facility] Last Admin: 01/29/19 10:46 Dose: 25 mg Mycophenolate Mofetil (Cellcept Cap) 250 mg PO Q12 [facility] Last Admin: 01/29/19 10:46 Dose: 250 mg Pantoprazole Sodium (Protonix Ec Tab) 40 mg PO DAILY [facility] Last Admin: 01/29/19 10:46 Dose: 40 mg Paricalcitol (Zemplar) 2 mcg IV TTS [facility] Last Admin: 01/28/19 12:36 Dose: 2 mcg Prednisone (Prednisone) 2.5 mg PO DAILY [facility] Last Admin: 01/29/19 10:45 Dose: 2.5 mg Rosuvastatin Calcium (Crestor) 10 mg PO HS [facility] Last Admin: 01/28/19 22:00 Dose: 10 mg Saccharomyces Boulardii (Florastor) 250 mg PO BID [facility] Last Admin: 01/29/19 10:46 Dose: 250 mg Vancomycin HCl (Firvanq (Oral Solution)) 125 mg NG QID [facility] Last Admin: 01/29/19 10:45 Dose: 125 mg Vitamin B Complex/Vit C/Folic Acid (Nephro-Nacho) 1 tab PO 0800 [facility] Last Admin: 01/29/19 10:46 Dose: 1 tab - Labs Labs: 01/27/19 05:08 01/27/19 05:08 PT 14.5 SECONDS (9.7-12.2) H 01/25/19 06:22 INR 1.3 01/25/19 06:22 APTT 35 SECONDS (21-34) H 01/25/19 06:22
--- NOTE | 2019-01-29 14:33 | CP.PCM.PN ---
Subjective - Date & Time of Evaluation Date of Evaluation: 01/29/19 Time of Evaluation: 09:00 - Subjective Subjective: seen and examined on rounds no new complaints HOLLIE rx in progress labs reviewed orders signed Objective - Vital Signs/Intake and Output Vital Signs (last 24 hours): Temp Pulse Resp BP Pulse Ox 98.2 F 97 H 20 148/77 99 01/29/19 07:00 01/29/19 07:00 01/29/19 07:00 01/29/19 10:46 01/29/19 07:00 Intake and Output: 01/29/19 01/29/19 06:59 18:59 Intake Total 200 Output Total 1 Balance 199 - Medications Medications: Current Medications Acetaminophen (Tylenol 325mg Tab) 650 mg PO Q6 PRN PRN Reason: Pain, moderate (4-7) Last Admin: 01/25/19 19:21 Dose: 650 mg Acetylcysteine (Acetylcysteine 20%) 4 ml INH RQ6 [facility] Albuterol/Ipratropium (Duoneb 3 Mg/0.5 Mg (3 Ml) Ud) 3 ml INH RQ6 [facility] Last Admin: 01/29/19 09:35 Dose: 3 ml Apixaban (Eliquis) 2.5 mg PO BID [facility] Last Admin: 01/29/19 10:46 Dose: 2.5 mg Epoetin Elijah (Procrit) 10,000 unit SC TTS [facility] Folic Acid (Folic Acid) 1 mg PO DAILY [facility] Last Admin: 01/29/19 10:46 Dose: 1 mg Hydralazine HCl (Apresoline) 25 mg PO DAILY [facility] Last Admin: 01/29/19 10:46 Dose: 25 mg Vancomycin/Sodium Chloride (Vancomycin 1 Gm/Ns 200 Ml) 1 gm in 200 mls @ 133.333 mls/hr IVPB TTS [facility]; Protocol Stop: 01/31/19 10:01 Last Admin: 01/28/19 14:54 Dose: 133.333 mls/hr Metoprolol Tartrate (Lopressor) 25 mg PO BID [facility] Last Admin: 01/29/19 10:46 Dose: 25 mg Mycophenolate Mofetil (Cellcept Cap) 250 mg PO Q12 [facility] Last Admin: 01/29/19 10:46 Dose: 250 mg Pantoprazole Sodium (Protonix Ec Tab) 40 mg PO DAILY [facility] Last Admin: 01/29/19 10:46 Dose: 40 mg Paricalcitol (Zemplar) 2 mcg IV TTS [facility] Last Admin: 01/28/19 12:36 Dose: 2 mcg Prednisone (Prednisone) 2.5 mg PO DAILY [facility] Last Admin: 01/29/19 10:45 Dose: 2.5 mg Rosuvastatin Calcium (Crestor) 10 mg PO HS [facility] Last Admin: 01/28/19 22:00 Dose: 10 mg Saccharomyces Boulardii (Florastor) 250 mg PO BID [facility] Last Admin: 01/29/19 10:46 Dose: 250 mg Vancomycin HCl (Firvanq (Oral Solution)) 125 mg NG QID [facility] Last Admin: 01/29/19 13:02 Dose: 125 mg Vitamin B Complex/Vit C/Folic Acid (Nephro-Nacho) 1 tab PO 0800 [facility] Last Admin: 01/29/19 10:46 Dose: 1 tab - Labs Labs: 01/27/19 05:08 01/27/19 05:08 PT 14.5 SECONDS (9.7-12.2) H 01/25/19 06:22 INR 1.3 01/25/19 06:22 APTT 35 SECONDS (21-34) H 01/25/19 06:22 - Constitutional Appears: Non-toxic, Cachectic, Chronically Ill - Head Exam Head Exam: ATRAUMATIC, NORMAL INSPECTION, NORMOCEPHALIC - Eye Exam Eye Exam: EOMI, Normal appearance, PERRL Pupil Exam: NORMAL ACCOMODATION, PERRL - ENT Exam ENT Exam: Mucous Membranes Moist, Normal Exam - Neck Exam Neck Exam: Full ROM, Normal Inspection. absent: Lymphadenopathy - Respiratory Exam Respiratory Exam: Clear to Ausculation Bilateral, NORMAL BREATHING PATTERN - Cardiovascular Exam Cardiovascular Exam: REGULAR RHYTHM, +S1, +S2. absent: Murmur - GI/Abdominal Exam GI & Abdominal Exam: Soft, Normal Bowel Sounds. absent: Tenderness - Rectal Exam Rectal Exam: Deferred - Exam Exam: NORMAL INSPECTION - Extremities Exam Extremities Exam: Full ROM, Normal Capillary Refill, Normal Inspection. absent: Joint Swelling, Pedal Edema - Back Exam Back Exam: NORMAL INSPECTION - Neurological Exam Neurological Exam: Alert, Awake, CN II-XII Intact, Normal Gait, Oriented x3 - Psychiatric Exam Psychiatric exam: Normal Affect, Normal Mood - Skin Skin Exam: Dry, Intact, Normal Color, Warm Assessment and Plan (1) Pneumonia Status: Acute (2) Acute on chronic diastolic (congestive) heart failure Status: Resolved (3) Severe anemia Status: Resolved (4) ESRD (end stage renal disease) Status: Chronic (5) Hypertension Status: Resolved - Assessment and Plan (Free Text) Assessment: d/c to [facility] on IV rx for min 7 days
--- NOTE | 2019-01-29 15:47 | CP.PCM.PN ---
Subjective - Date & Time of Evaluation Date of Evaluation: 01/29/19 Time of Evaluation: 15:40 - Subjective Subjective: Alert and oriented with no signs or symptoms of Resp distress. Objective - Vital Signs/Intake and Output Vital Signs (last 24 hours): Temp Pulse Resp BP Pulse Ox 98.2 F 97 H 20 148/77 99 01/29/19 07:00 01/29/19 07:00 01/29/19 07:00 01/29/19 10:46 01/29/19 07:00 Intake and Output: 01/29/19 01/29/19 06:59 18:59 Intake Total 200 300 Output Total 1 Balance 199 300 - Medications Medications: Current Medications Acetaminophen (Tylenol 325mg Tab) 650 mg PO Q6 PRN PRN Reason: Pain, moderate (4-7) Last Admin: 01/25/19 19:21 Dose: 650 mg Acetylcysteine (Acetylcysteine 20%) 4 ml INH RQ6 [facility] Albuterol/Ipratropium (Duoneb 3 Mg/0.5 Mg (3 Ml) Ud) 3 ml INH RQ6 [facility] Last Admin: 01/29/19 09:35 Dose: 3 ml Apixaban (Eliquis) 2.5 mg PO BID [facility] Last Admin: 01/29/19 10:46 Dose: 2.5 mg Epoetin Elijah (Procrit) 10,000 unit SC TTS [facility] Folic Acid (Folic Acid) 1 mg PO DAILY [facility] Last Admin: 01/29/19 10:46 Dose: 1 mg Hydralazine HCl (Apresoline) 25 mg PO DAILY [facility] Last Admin: 01/29/19 10:46 Dose: 25 mg Vancomycin/Sodium Chloride (Vancomycin 1 Gm/Ns 200 Ml) 1 gm in 200 mls @ 133.333 mls/hr IVPB TTS [facility]; Protocol Stop: 01/31/19 10:01 Last Admin: 01/28/19 14:54 Dose: 133.333 mls/hr Metoprolol Tartrate (Lopressor) 25 mg PO BID [facility] Last Admin: 01/29/19 10:46 Dose: 25 mg Mycophenolate Mofetil (Cellcept Cap) 250 mg PO Q12 [facility] Last Admin: 01/29/19 10:46 Dose: 250 mg Pantoprazole Sodium (Protonix Ec Tab) 40 mg PO DAILY [facility] Last Admin: 01/29/19 10:46 Dose: 40 mg Paricalcitol (Zemplar) 2 mcg IV TTS [facility] Last Admin: 01/28/19 12:36 Dose: 2 mcg Prednisone (Prednisone) 2.5 mg PO DAILY [facility] Last Admin: 01/29/19 10:45 Dose: 2.5 mg Rosuvastatin Calcium (Crestor) 10 mg PO HS [facility] Last Admin: 01/28/19 22:00 Dose: 10 mg Saccharomyces Boulardii (Florastor) 250 mg PO BID [facility] Last Admin: 01/29/19 10:46 Dose: 250 mg Vancomycin HCl (Firvanq (Oral Solution)) 125 mg NG QID [facility] Last Admin: 01/29/19 13:02 Dose: 125 mg Vitamin B Complex/Vit C/Folic Acid (Nephro-Nacho) 1 tab PO 0800 [facility] Last Admin: 01/29/19 10:46 Dose: 1 tab - Labs Labs: 01/27/19 05:08 01/27/19 05:08 PT 14.5 SECONDS (9.7-12.2) H 01/25/19 06:22 INR 1.3 01/25/19 06:22 APTT 35 SECONDS (21-34) H 01/25/19 06:22 Assessment and Plan - Assessment and Plan (Free Text) Assessment: 73 years old female that presented to the ER for complaints of SOB. Known to have an ESRD, s/p kidney transplant in 2002 at [facility] with worsening of renal function, dizziness, dyspnea on excertion and a headache. Pt resp status has improved, HD tolerated during this admission. Pt seen and examined. VSS. Pt will resume all home medications. Pt will continue Vanco PO for an additional 10 days and Vanco IV for [address] Bazan. Discharge discussed with Dr. Najera.
[2019-01-29] MEDS: Acetylcysteine 20% Inhal Soln (4ml) INH SCH ×2 (15:49→19:14)
[2019-01-29 16:24] VITALS: PULSE 94; TEMP 97.9; O2SAT 100
[2019-01-29 17:51] VITALS: BP 151/78
--- NOTE | 2019-01-29 20:54 | PN ---
DATE: 01/28/2019 ENDOCRINOLOGY FOLLOWUP NOTE LOCATION: Room 566. This is a 73-year-old female with progressive renal insufficiency and presenting here with end-stage renal disease and underwent hemodialysis and is now being followed closely for metabolic management. Her glycemic levels are near optimal at this time. She remains clinically and biochemically euthyroid, and the latest thyroid study showed a T4 of 4.12 with a free T4 of 0.82 and a TSH of 2.31. Her serum cortisol level is 25 mcg/dL. She is currently on prednisone at 2.5 mg once daily as given. Her latest chemistries showed a BUN of 134, potassium 3.7, chloride 102, CO2 of 22, glucose 93, and creatinine 3.8. So at this time, we will continue and concur with the present medical and cardiac management with ongoing hemodialysis for end-stage renal disease. No indication at this time for any kind of thyroid pharmacotherapy. We will obtain serial thyroid studies accordingly. Marilin Ruano MD
--- NOTE | 2019-01-29 21:14 | PN ---
DATE: 01/29/2019 ENDOCRINOLOGY FOLLOWUP NOTE LOCATION: Room 566. SUBJECTIVE: This is a 73-year-old female with recent progressive renal insufficiency, presenting here with fluid overload, congestive heart failure and supervening acute respiratory failure and has since then improved clinically and hemodynamically and has been extubated at this time and is being followed closely now for metabolic management. She remains clinically and biochemically euthyroid at this time. LABORATORY DATA: Her latest chemistry showed a BUN of 44, sodium 134, potassium 3.6, chloride 102, CO2 of 26, glucose 97, and creatinine 2.8. Her latest thyroid study showed a T4 of 4.12 with a free T4 of 0.82 and a TSH of 2.31, and she remains biochemically euthyroid at this time. ASSESSMENT AND PLAN: So at this time, we will continue and concur with the present medical and cardiac management with ongoing hemodialysis for end-stage renal disease and dialysis dependence. She also is receiving IV antibiotics for recent bacteremia as noted. We will continue the serial thyroid studies but no indication at this time for any kind of thyroid pharmacotherapy. Marilin Ruano MD
--- NOTE | 2019-01-30 01:43 | PN ---
DATE: 01/29/2019 LOCATION: The patient is located in room 566. REQUESTED BY: Dash Najera MD. REASON FOR FOLLOWUP: End-stage renal disease, continuation of hemodialysis. HISTORY OF PRESENT ILLNESS: Mrs. Faulkner is a 73-year elderly [place]ian female with a past medical history significant for longstanding hypertension, AFib, CHF, anemias, secondary hyperparathyroidism, chronic allograft nephropathy, status post kidney transplant in 2002 who was admitted with cough with expectoration and weakness, dizziness on admission, and found to have severe anemia and worsening renal function, requiring intubation, and the patient was treated for pneumonia and Streptococcus gallolyticus sepsis and C. difficile colitis. The patient was extubated last week Friday. The patient is feeling much better, not in distress, complains of occasional cough. The patient denies any chest pain or palpitation. Denies any fever or cough. Complains of weakness in both lower extremities. PHYSICAL EXAMINATION: VITAL SIGNS: This morning as follows: Blood pressure 148/77, pulse 97, respirations 20, temperature 98.2, saturation 99%. Height 5 feet 2 inches, weight is 127 pounds. GENERAL: Mrs. Faulkner is a 73-year-old elderly female, thin-built, not in distress. HEENT: Pupils normal and reactive to light and accommodation. Conjunctivae pink. Sclerae anicteric. Tongue is moist. Trachea is midline. LUNGS: Symmetric on both sides. Bilateral breath sounds present. Clear to auscultation. CARDIOVASCULAR SYSTEM: [place] at the fifth intercostal space, midclavicular line. S1, S2 audible. No murmur or gallop. ABDOMEN: Normal in appearance. Soft, tympanitic. No guarding. No rigidity. No hepatosplenomegaly. CENTRAL NERVOUS SYSTEM: The patient is alert, awake, and oriented x3. Nonfocal neuro examination. Cranial nerves II through XII grossly intact. Sensory and motor system is within normal limits. EXTREMITIES: No cyanosis, no clubbing, no edema. Power in both lower extremities, 3/5. CURRENT MEDICATIONS: Include as follows: Tylenol, DuoNeb inhaler, Eliquis, Procrit, folic acid, hydralazine, vancomycin 1 g three times a week, metoprolol 25 mg p.o. b.i.d., CellCept 250 mg p.o. every 12 hours, Protonix 40 mg p.o. daily, Zemplar 2 mcg three times a week, prednisone 2.5 mg daily, Crestor 10 mg at bedtime, Florastor, vancomycin 125 mg p.o. 4 times daily, Nephro-Nacho 1 tablet daily. LABORATORY DATA: No new labs available for today. C. diffcile toxin was negative from 222, 234, and 224. IMPRESSION AND PLAN: In summary, Mrs. Faulkner is a 73-year elderly Algerian female with a history of hypertension, atrial fibrillation, congestive heart failure, status post renal transplant, chronic allograft nephropathy, anemia who was admitted with cough and respiratory failure, requiring intubation and found to have a Streptococcus gallolyticus sepsis and C. difficile colitis and fluid overload, congestive heart failure. 1. End-stage renal disease. Continue hemodialysis three times a week, Friday, , Friday. 2. Anemia secondary to renal failure and slow gastrointestinal bleed. 3. Hypertension. 4. Atrial fibrillation. Continue antibiotics as per Dr. Bazan, and the patient is scheduled to discharge this afternoon to subacute rehab. Thank you for allowing me to participate in your patient's care. Ever Madrigal MD
--- NOTE | 2019-02-03 10:22 | CP.PCM.DIS ---
Provider - Provider Date of Admission: 01/15/19 06:51 Attending physician: Dash Najera MD Primary care physician: Dash Najera M.D. Consults: 01/15/19 10:16 Physician Consult Routine Comment: Consulting Provider: Germán Butler Jr. Consulting Physician: Germán Butler Jr. Reason for Consult: assess AV fistual Additional Comments: as per Kaitlin assess L AV fistula 01/15/19 11:06 Nephrology Consult Routine Comment: Consulting Provider: Ever Madrigal Consulting Physician: Ever Madrigal Reason for Consult: ESRD 01/17/19 11:36 Infectious Disease Consult Routine Comment: ID Consult Consulting Provider: Charan Bazan Consulting Physician: Charan Bazan Reason for Consult: Infiltrates 01/18/19 13:25 Pulmonology Consult Routine Comment: Consulting Provider: Jay Jackson Consulting Physician: Jay Jackson Reason for Consult: possible need for bronchoscopy 01/20/19 10:45 Physician Consult Routine Comment: Consulting Provider: Guero Menjivar Consulting Physician: Guero Menjivar Reason for Consult: Loculated Pericardial Effusion 01/26/19 15:56 Wound Care [Nursing Referral for Wound Care] Routine Comment: Physician Instructions: Reason For Exam: skin breakdown on coccyx Time Spent in preparation of Discharge (in minutes): 45 Diagnosis - Discharge Diagnosis (1) Acute on chronic diastolic (congestive) heart failure Status: Resolved (2) Severe anemia Status: Resolved (3) ESRD (end stage renal disease) Status: Chronic (4) Hypertension Status: Resolved (5) Pneumonia Status: Acute (6) C. difficile colitis Status: Acute (7) Bacteremia, coagulase-negative staphylococcal Status: Acute (8) Acute respiratory failure Status: Resolved Hospital Course - Lab Results Lab Results: Micro Results 01/27/19 10:38 Naris MRSA Culture - Final MRSA NOT DETECTED 01/25/19 10:04 Stool Stool Culture - Final NO SALMONELLA, SHIGELLA OR CAMPYLOBACTER ISOLATED. 01/20/19 10:08 Blood-Thru Central Line Blood Culture - Final NO GROWTH AFTER 5 DAYS 01/20/19 10:08 Blood-Thru Central Line Gram Stain - Final TEST NOT PERFORMED 01/20/19 10:08 Blood-Thru Central Line Blood Culture - Final NO GROWTH AFTER 5 DAYS 01/20/19 10:08 Blood-Thru Central Line Gram Stain - Final TEST NOT PERFORMED 01/19/19 22:46 Blood-Venous Blood Culture - Final NO GROWTH AFTER 5 DAYS 01/19/19 22:46 Blood-Venous Gram Stain - Final TEST NOT PERFORMED 01/19/19 22:46 Blood-Venous Blood Culture - Final NO GROWTH AFTER 5 DAYS 01/19/19 22:46 Blood-Venous Gram Stain - Final TEST NOT PERFORMED 01/20/19 10:29 Urine,Catheterized Urine Culture - Final No Growth (<1,000 CFU/ML) 01/17/19 13:40 Blood-Venous Blood Culture - Final Str.gallolyticus Ss Pasteurian 01/17/19 13:40 Blood-Venous Gram Stain - Final 01/17/19 12:52 Blood-Venous S.aureus & Coag-Neg Staph PNA FISH - Final 01/17/19 12:52 Blood-Venous Blood Culture - Final Str.gallolyticus Ss Pasteurian 01/17/19 12:52 Blood-Venous Gram Stain - Final 01/17/19 12:52 Trachasp Gram Stain - Final 01/17/19 12:52 Trachasp Sputum Culture - Final NORMAL ORAL CHELLY 01/16/19 06:22 Nose MRSA Culture (Admit) - Final MRSA NOT DETECTED Most Recent Lab Values WBC 9.8 K/uL (4.8-10.8) 01/27/19 05:08 RBC 2.84 Mil/uL (3.80-5.20) L 01/27/19 05:08 Hgb 8.5 g/dL (11.0-16.0) L 01/27/19 05:08 Hct 26.3 % (34.0-47.0) L 01/27/19 05:08 MCV 92.8 fL (81.0-99.0) 01/27/19 05:08 MCH 29.9 pg (27.0-31.0) 01/27/19 05:08 MCHC 32.2 g/dL (33.0-37.0) L 01/27/19 05:08 RDW 16.4 % (11.5-14.5) H 01/27/19 05:08 Plt Count 267 K/uL (130-400) 01/27/19 05:08 MPV 9.3 fL (7.2-11.7) 01/27/19 05:08 Neut % (Auto) 76.3 % (50.0-75.0) H 01/27/19 05:08 Lymph % (Auto) 9.4 % (20.0-40.0) L 01/27/19 05:08 [place] % (Auto) 10.2 % (0.0-10.0) H 01/27/19 05:08 Eos % (Auto) 3.4 % (0.0-4.0) 01/27/19 05:08 Baso % (Auto) 0.7 % (0.0-2.0) 01/27/19 05:08 Neut # (Auto) 7.5 K/uL (1.8-7.0) H 01/27/19 05:08 Lymph # (Auto) 0.9 K/uL (1.0-4.3) L 01/27/19 05:08 [place] # (Auto) 1.0 K/uL (0.0-0.8) H 01/27/19 05:08 Eos # (Auto) 0.3 K/uL (0.0-0.7) 01/27/19 05:08 Baso # (Auto) 0.1 K/uL (0.0-0.2) 01/27/19 05:08 Neutrophils % (Manual) 77 % (50-75) H 01/27/19 05:08 Band Neutrophils % 1 % (0-2) 01/27/19 05:08 Lymphocytes % (Manual) 8 % (20-40) L 01/27/19 05:08 Reactive Lymphs % 1 % (0-0) H 01/26/19 05:22 Monocytes % (Manual) 11 % (0-10) H 01/27/19 05:08 Eosinophils % (Manual) 3 % (0-4) 01/27/19 05:08 Nucleated RBC % 1 % (0-0) H 01/27/19 05:08 Platelet Estimate Normal (NORMAL) 01/27/19 05:08 Large Platelets Present 01/24/19 06:18 Giant Platelets Present 01/24/19 06:18 Polychromasia Slight 01/27/19 05:08 Hypochromasia (manual) Slight 01/26/19 05:22 Poikilocytosis (manual Slight 01/27/19 05:08 Anisocytosis (manual) Slight 01/27/19 05:08 Target Cells Slight 01/26/19 05:22 Ovalocytes Slight 01/26/19 05:22 [place] Cells Slight 01/26/19 05:22 Schistocytes Slight 01/24/19 06:18 PT 14.5 SECONDS (9.7-12.2) H 01/25/19 06:22 INR 1.3 01/25/19 06:22 APTT 35 SECONDS (21-34) H 01/25/19 06:22 Puncture Site Rradial 01/24/19 05:55 pCO2 42 mm/Hg (35-45) 01/24/19 05:55 pO2 70 mm/Hg (80-100) L 01/24/19 05:55 HCO3 24.1 mmol/L (21-28) 01/24/19 05:55 ABG pH 7.37 (7.35-7.45) 01/24/19 05:55 ABG Total CO2 25.6 mmol/L (22-28) 01/24/19 05:55 ABG O2 Saturation 97.6 % (95-98) 01/24/19 05:55 ABG Base Excess -1.0 mmol/L (-2.0-3.0) 01/24/19 05:55 ABG Hemoglobin 9.5 g/dL (11.7-17.4) L 01/24/19 05:55 ABG Carboxyhemoglobin 2.1 % (0.5-1.5) H 01/24/19 05:55 POC ABG HHb (Measured) 2.3 % (0.0-5.0) 01/24/19 05:55 ABG Methemoglobin 1.3 % (0.0-3.0) 01/24/19 05:55 [place]vin Test Pos 01/24/19 05:55 A-a O2 Difference 91.0 mm/Hg 01/23/19 05:30 Respiratory Index 1.2 01/23/19 05:30 Hgb O2 Saturation 94.3 % (95.0-98.0) L 01/24/19 05:55 Liter Flow 2.0 01/24/19 05:55 Vent Mode Bipap 01/23/19 05:30 Mechanical Rate 20 04/19/19 05:24 FiO2 30.0 % 01/23/19 05:30 Tidal Volume 450 01/22/19 05:24 PEEP 5 01/22/19 05:24 Inspiratory BiPAP 12 01/23/19 05:30 Expiratory BiPAP 6 01/23/19 05:30 Crit Value Called To Rn 01/15/19 16:27 Crit Value Called By Tk vazquez 01/15/19 16:27 Crit Value Read Back Y 01/15/19 16:27 Blood Gas Notified Time 1631 01/15/19 16:27 Sodium 134 mmol/L (132-148) 01/27/19 05:08 Potassium 3.6 mmol/L (3.6-5.2) 01/27/19 05:08 Chloride 102 mmol/L (98-107) 01/27/19 05:08 Carbon Dioxide 26 mmol/L (22-30) 01/27/19 05:08 Anion Gap 11 (10-20) 01/27/19 05:08 BUN 44 mg/dL (7-17) H 01/27/19 05:08 Creatinine 2.8 mg/dL (0.7-1.2) H 01/27/19 05:08 Est GFR ( Amer) 20 01/27/19 05:08 Est GFR (Non-Af Amer) 16 01/27/19 05:08 POC Glucose (mg/dL) 102 mg/dL (65-110) 01/25/19 05:31 Random Glucose 97 mg/dL (65-105) 01/27/19 05:08 Calcium 7.5 mg/dl (8.6-10.4) L 01/27/19 05:08 Phosphorus 6.3 mg/dL (2.5-4.5) H 01/26/19 05:22 Magnesium 2.0 mg/dL (1.6-2.3) 01/26/19 05:22 Iron 23 ug/dL (37-170) L 01/16/19 06:14 TIBC 184 ug/dL (250-450) L 01/16/19 06:14 % Saturation 12 (20-55) L 01/16/19 06:14 Ferritin 438.0 ng/mL 01/16/19 06:14 Total Bilirubin 0.6 mg/dL (0.2-1.3) 01/26/19 05:22 GGT 147 U/L (8-78) H 01/22/19 06:14 AST 32 U/L (14-36) 01/26/19 05:22 ALT 31 U/L (9-52) 01/26/19 05:22 Alkaline Phosphatase 217 U/L (38-126) H 01/26/19 05:22 Lactate Dehydrogenase 1237 U/L (313-618) H 01/18/19 21:47 Troponin I 0.0330 ng/mL (0.00-0.120) 01/15/19 05:29 Total Protein 4.8 g/dL (6.3-8.3) L 01/26/19 05:22 Albumin 2.4 g/dL (3.5-5.0) L 01/26/19 05:22 Globulin 2.4 gm/dL (2.2-3.9) 01/26/19 05:22 Albumin/Globulin Ratio 1.0 (1.0-2.1) 01/26/19 05:22 Vitamin B12 914 pg/mL (239-931) 01/16/19 06:14 Folate > 20.0 ng/mL 01/16/19 06:14 Procalcitonin 47.63 NG/ML (0.19-0.49) H 01/19/19 15:38 Free T4 0.82 ng/dL (0.78-2.19) 01/23/19 06:24 Thyroxine (T4) 4.12 ug/dL (5.5-11.0) L 01/23/19 06:24 TSH 3rd Generation 2.31 mIU/L (0.46-4.68) 01/23/19 06:24 Cortisol AM Sample 25.0 ug/dL (4.46-22.7) H 01/23/19 06:24 Stool Occult Blood Positive (NEGATIVE) H 01/18/19 21:10 Vancomycin Trough 24.8 ug/mL (5.0-10.0) H 01/25/19 06:22 Thyroperoxidase Ab 2 IU/mL (<9) 01/23/19 06:24 Thyroglobulin Antibody <1 IU/mL (< OR = 1) 01/23/19 06:24 C. difficile Ag & Toxin Negative (NEGATIVE) 01/27/19 07:13 CMV IgG Ab >10.00 U/mL H 01/15/19 16:32 CMV IgM Ab <30.00 AU/mL 01/15/19 16:32 Hepatitis A IgM Ab Negative (NEGATIVE) 01/15/19 16:32 Hep Bs Antigen Negative (NEGATIVE) 01/15/19 16:32 Hep Bs Antibody Negative (NEGATIVE) 01/17/19 06:09 Hep B Core IgM Ab Negative (NEGATIVE) 01/15/19 16:32 Hepatitis C Antibody Negative (NEGATIVE) 01/15/19 16:32 HIV 1&2 Ag/Ab, 4th Gen Nonreactive (Nonreactive) 01/15/19 16:32 HIV 1&2 Antibody Screen Negative (NEGATIVE) 01/16/19 18:42 Ur L.pneumophila Ag Negative (NEGATIVE) 01/17/19 16:49 Blood Type A POSITIVE 01/15/19 06:07 Antibody Screen Negative 01/15/19 06:07 - Hospital Course Hospital Course: 73 years old Filipina female was sent to the ED at [facility] by her service officer to start hemodialysis. The patient has been complaining of a productive cough, generalized weakness, poor appetite and generalized weakness for the past few days. She is known to have a hypertension, an ESRD with a renal transplant in 2002, worsening of renal function, intermittent atrial fibrillation, a s/p pontine infarct in 2007. In the ED she was found to have a Hgb: 5,2 BUN: 136 creatinine: 7.7. A CXR revealed patchy infiltrates of the right lung and the CHRISTIANE. She was admiited to telemetry bed. In the ED she was transfused one unit of PRC, But, on the floor, she developed a respiratory distress, was sent to ICU, and finally intubated and placed on respirator. A right femoral dialysis catheter was inserted and 2 emergency HD were performed. She also was given additional PRC transfusions, and given Procrit. She was evaluated by Dr Bazan, and was started on IV Azactam and IV Vancomycin. On 01/17/2019, blood culture revealed St Gallolyticus Sc Pasteurian. Stools was positive for C.Difficile . IV antibiotics were changed to Vancomycin IV, and Rocephin and Flagyl IV. Vancomycin PO was added to treat C.Difficile colitis. A rectal tube was inserted. An echocardiogam revea;ed an LVH with normal systolic wall motion and a grade I diastolic dysfunction. Telemetry also disclosed intermittent atrial fibrillation. Eliquis PO was resumed. The patient gradually improved. She was extubated on . A Permacath was inserted through the right IJ vein. The patient was transferred to telemetry bed on 01/25/2019. The patient continued to improve, with better appetite. She was transferred to a subacute rehabilitation center on 01/29/2019 in a stable condition. She will be continued on Vancomycin PO for another 10 days, and IV Vancomycin IV during HD for another 3 doses. She will resume all home medications. - Date & Time of H&P Date of H&P: 01/15/19 Discharge Exam - Head Exam Head Exam: ATRAUMATIC, NORMAL INSPECTION, NORMOCEPHALIC - Eye Exam Eye Exam: Normal appearance Pupil Exam: NORMAL ACCOMODATION - ENT Exam ENT Exam: Normal Exam - Neck Exam Neck exam: Normal Inspection - Respiratory Exam Additional comments: Few rhonchi bilaterally. - Cardiovascular Exam Cardiovascular Exam: REGULAR RHYTHM, Systolic Murmur - GI/Abdominal Exam GI & Abdominal Exam: Normal Bowel Sounds, Soft - Rectal Exam Rectal Exam: Deferred - Extremities Exam Extremities exam: normal inspection - Back Exam Back exam: NORMAL INSPECTION - Neurological Exam Neurological exam: Abnormal Gait, Alert, CN II-XII Intact, Oriented x3 - Psychiatric Exam Psychiatric exam: Anxious - Skin Skin Exam: Dry, Intact, Normal Color, Warm Discharge Plan - Follow Up Plan Condition: FAIR Disposition: REHAB FACILITY/REHAB UNIT Instructions: High Blood Pressure (DC), Pneumonia, Adult (DC), Anemia of Chronic Disease (DC), Clostridium difficile (DC), Dialysis and Diet, Heart Failure (DC) Additional Instructions: Discharge to [facility]. Continue vanco po 125mg QID for next 10 days Also continue vanco 1 gram after each HD TTS x 3 more doses as per Dr. Bazan Continue Dialysis TTS PT/OT as tolerated Referrals: Jay Jackson MD [Staff Provider] - Ever Madrigal MD [Staff Provider] - Charan Bazan MD [Staff Provider] - Germán Butler Jr., MD [Staff Provider] - Dash Najera MD [Staff Provider] - Clinical Quality Measures - CQM - Heart Failure Ejection Fraction: 40 % or Greater Left Ventricular Function to be assessed after discharge: No SAMANTHA Inhibitor Prescribed: No Contraindication/Reason for not providing: Renal failure Beta-Chandrika Prescribed: Metoprolol Succinate Angiotensin II Receptor Chandrika Prescribed: No Contraindication/Reason for not providing: Renal failure AnticoagulationTherapy for Atrial Fibrillation/Atrialflutter: Yes Aldosterone Antagonist Prescribed: No Contraindication/Reason for not providing: Renal failure Hydralazine Nitrate Prescribed: Yes Implantable Cardioverter Defibrillator Therapy: No Contraindication/Reason for not providing: Not indicated. Cardiac Resynchronization Therapy Prescribed: No Contraindication/Reason for not providing: Not indicated [facility] be [facility] to[facility] Follow Up Date (must be within 7 days from discharge): 02/05/19 Follow Up Time: 14:00 - Date & Time of Discharge Summary Date of Discharge Summary: 02/03/19 Time of Discharge Summary: 10:52
== END 2019-01-29 20:01 | DRG 870 ==
LOC: C.ER 03:23 → C.9E 06:51 → C.5S 07:40 → C.9E 08:47 → C.6T 08:54 → C.9I 14:08 → C.5S 01-27 10:20
PROVIDERS: ADMIT Internal Medicine Cardiovascular Disease; ATTEND Internal Medicine Cardiovascular Disease
PROC: 5A1955Z Respiratory Ventilation, Greater than 96 Consecutive Hours (ICD-10-PCS; 2019-01-15)
PROC: 0BH17EZ Insertion of Endotracheal Airway into Trachea, Via Natural or Artificial Opening (ICD-10-PCS; 2019-01-15)
PROC: 06HY33Z Insertion of Infusion Device into Lower Vein, Percutaneous Approach (ICD-10-PCS; 2019-01-15)
PROC: 5A1D70Z Performance of Urinary Filtration, Intermittent, Less than 6 Hours Per Day (ICD-10-PCS; 2019-01-15)
PROC: 5A1D70Z Performance of Urinary Filtration, Intermittent, Less than 6 Hours Per Day (ICD-10-PCS; 2019-01-16)
PROC: 5A1D70Z Performance of Urinary Filtration, Intermittent, Less than 6 Hours Per Day (ICD-10-PCS; 2019-01-18)
PROC: 05HN33Z Insertion of Infusion Device into Left Internal Jugular Vein, Percutaneous Approach (ICD-10-PCS; 2019-01-19)
PROC: B544ZZA Ultrasonography of Left Jugular Veins, Guidance (ICD-10-PCS; 2019-01-19)
PROC: 5A1D70Z Performance of Urinary Filtration, Intermittent, Less than 6 Hours Per Day (ICD-10-PCS; 2019-01-20)
PROC: 5A1D70Z Performance of Urinary Filtration, Intermittent, Less than 6 Hours Per Day (ICD-10-PCS; 2019-01-22)
PROC: 5A1D70Z Performance of Urinary Filtration, Intermittent, Less than 6 Hours Per Day (ICD-10-PCS; 2019-01-23)
PROC: 02HV33Z Insertion of Infusion Device into Superior Vena Cava, Percutaneous Approach (ICD-10-PCS; principal; 2019-01-25 12:45)
PROC: 5A1D70Z Performance of Urinary Filtration, Intermittent, Less than 6 Hours Per Day (ICD-10-PCS; 2019-01-26)
PROC: 5A1D70Z Performance of Urinary Filtration, Intermittent, Less than 6 Hours Per Day (ICD-10-PCS; 2019-01-28)
DX: A40.9 Streptococcal sepsis, unspecified (principal); J18.9 Pneumonia, unspecified organism; N18.6 End stage renal disease; J96.01 Acute respiratory failure with hypoxia; I50.33 Acute on chronic diastolic (congestive) heart failure; R65.21 Severe sepsis with septic shock; I13.2 Hypertensive heart and chronic kidney disease with heart failure and with stage 5 chronic kidney disease, or end stage renal disease; N17.9 Acute kidney failure, unspecified; E87.2 Acidosis; J98.11 Atelectasis; I31.3 Pericardial effusion (noninflammatory); R18.8 Other ascites; T86.12 Kidney transplant failure; Z99.11 Dependence on respirator [ventilator] status; A04.72 Enterocolitis due to Clostridium difficile, not specified as recurrent; N25.81 Secondary hyperparathyroidism of renal origin; Z99.2 Dependence on renal dialysis; D63.1 Anemia in chronic kidney disease; E78.5 Hyperlipidemia, unspecified; H91.90 Unspecified hearing loss, unspecified ear; B96.7 Clostridium perfringens [C. perfringens] as the cause of diseases classified elsewhere; I48.0 Paroxysmal atrial fibrillation; D25.9 Leiomyoma of uterus, unspecified; D69.6 Thrombocytopenia, unspecified; E11.22 Type 2 diabetes mellitus with diabetic chronic kidney disease; I48.2 Chronic atrial fibrillation; R13.10 Dysphagia, unspecified; Z79.01 Long term (current) use of anticoagulants